=== PATIENT | female | born 1990 ===

== ENCOUNTER 2019-12-30 14:25 | Emergency (ER) | payer MEDICAID, SELFPAY ==
[2019-12-30 14:41] VITALS: BP 147/79; PULSE 87; RESP 18; TEMP 37.3; O2SAT 98; BMI 31.3
[2019-12-30 15:17] LABS: Glucose Urine UA NEG (NEG); Leukocyte Esterase Urine TRACE (NEG); Nitrite Urine NEG (NEG); Urine Blood TRACE (NEG); Urine Ketones NEG (NEG); Urine Protein NEG (NEG-TRACE)
[2019-12-30 15:19] LABS: Appearance Urine CLEAR; Color Urine YELLOW
[2019-12-30 15:28] LABS: UPreg QC Valid YES; Urine Pregnancy NEGATIVE (NEGATIVE)
--- NOTE | 2019-12-30 15:29 | ED_ITS ---
HPI - Female Genitourinary General Chief complaint: Urogenital-Female <Avelino Alfaro NP - Last Filed: 12/30/19 15:39> Stated complaint: Discomfort with void's <Avelino Alfaro NP - Last Filed: 12/30/19 15:39> Time Seen by Provider: 12/30/19 15:03 <Avelino Alfaro NP - Last Filed: 12/30/19 15:39> Source: patient <Avelino Alfaro NP - Last Filed: 12/30/19 15:39> Mode of arrival: ambulatory <Avelino Alfaro NP - Last Filed: 12/30/19 15:39> Limitations: no limitations <Avelino Alfaro NP - Last Filed: 12/30/19 15:39> History of Present Illness MD elicited complaint: dysuria and UTI <Avelino Alfaro NP - Last Filed: 12/30/19 15:39> Female Urogenital Radiation: Non-Radiating <Avelino Alfaro NP - Last Filed: 12/30/19 15:39> Vaginal discharge: none <Avelino Alfaro NP - Last Filed: 12/30/19 15:39> Vaginal bleeding: none <Avelino Alfaro NP - Last Filed: 12/30/19 15:39> Urinary symptoms: Dysuria <Avelino Alfaro NP - Last Filed: 12/30/19 15:39> Exacerbating factors: other (Avoid) <Avelino Alfaro NP - Last Filed: 12/30/19 15:39> Associated symptoms: denies other symptoms <Avelino Alfaro NP - Last Filed: 12/30/19 15:39> Treatment prior to arrival: none <Avelino Alfaro NP - Last Filed: 12/30/19 15:39> Sexual activity: Yes (States no concern for STI) <Avelino Alfaro NP - Last Filed: 12/30/19 15:39> Patient : No <Avelino Alfaro NP - Last Filed: 12/30/19 15:39> Related Data Home medications: Previous Rx's Medication Instructions Recorded nitrofurantoin monohyd/m-cryst 100 mg PO Q12H 7 Days #14 cap 12/30/19 [Macrobid] phenazopyridine [Pyridium] 100 mg PO TID PRN #6 tab 12/30/19 <Avelino Alfaro NP - Last Filed: 12/30/19 15:39> Allergies/Adverse reactions: Allergies Allergy/AdvReac Type Severity Reaction Status Date / Time Sulfa (Sulfonamide Allergy Unknown UNKNOWN Verified 12/30/19 14:41 Antibiotics) [SULFA (SULFONAMIDE ANTIBIOTICS)] <Avelino Alfaro NP - Last Filed: 12/30/19 15:39> Review of Systems Review of Systems: Constitutional: No Weight loss, No Fever, No Chills, No Night Sweats, No Fatigue, No Malaise ENT/Mouth: No Hearing loss, No Ear Pain, No Nasal Congestion, No Sinus Pain, No Hoarseness, No sore throat Eyes: No Eye Pain, No Swelling, No Redness, No Foreign Body Cardiovascular: No Chest Pain, No SOB, No Dyspnea on Exertion, No Orthopnea, No Edema, No Palpitations Respiratory: No Cough, No Sputum, No Wheezing, No Smoke Exposure, No Dyspnea Gastrointestinal: No Nausea, No Vomiting, No Diarrhea, No Constipation, No abdominal Pain Genitourinary: no irregular bleeding, + Dysuria, No Urinary Frequency, No Hematuria, No Urinary Incontinence, No Urgency, No Flank Pain, No Urinary Flow Changes, No Hesitancy Musculoskeletal: No joint pain, No Myalgias, No Joint Swelling Skin: No Skin Lesions, No rash Neuro: No Weakness, No Numbness, No Paresthesias Psych: No Anxiety/Panic, No Depression Heme/Lymph: No Bruising, No Bleeding,No Lymphadenopathy Endocrine: No Polyuria, No Polydipsia, No Temperature Intolerance <Avelino Alfaro NP - Last Filed: 12/30/19 15:39> Yes all other systems are reviewed and are negative <Avelino Alfaro NP - Last Filed: 12/30/19 15:39> PMFSH Past Medical History Medical History: Medical History Asthma Pre-diabetes <Avelino Alfaro NP - Last Filed: 12/30/19 15:39> Physical Exam Vital Signs: Vital Signs: Last Vital Signs Temp 99.1 F 12/30/19 14:41 Pulse 87 12/30/19 14:41 Resp 18 12/30/19 14:41 BP 147/79 H 12/30/19 14:41 Pulse Ox 98 12/30/19 14:41 Body Mass Index 31.3 Reviewed <Avelinorakesh Alfaro NP - Last Filed: 12/30/19 15:39> Vital Signs: Last Vital Signs Temp 99.1 F 12/30/19 14:41 Pulse 87 12/30/19 14:41 Resp 18 12/30/19 14:41 BP 147/79 H 12/30/19 14:41 Pulse Ox 98 12/30/19 14:41 Body Mass Index 31.3 <Aron Farris MD - Last Filed: 01/08/20 07:09> Const: General: cooperative and healthy appearing; No acute distress or intoxicated appearing <Avelinorakesh Alfaro NP - Last Filed: 12/30/19 15:39> Nutritional Appearance: average body habitus <Avelinorakesh Alfaro NP - Last Filed: 12/30/19 15:39> Orientation/consciousness: patient oriented x3 <Avelino SOLOMON Alfaro - Last Filed: 12/30/19 15:39> HENMT: Head: Yes normal to inspection <Avelino SOLOMON Alfaro - Last Filed: 12/30/19 15:39> Ears: hearing grossly normal bilaterally <Avelino SOLOMON Alfaro - Last Filed: 12/30/19 15:39> Eyes: General: appearance normal, both eyes and all related structures <Avelino SOLOMON Alfaro - Last Filed: 12/30/19 15:39> Visual Clark: normal visual clark by confrontation <Avelino SOLOMON Alfaro - Last Filed: 12/30/19 15:39> Chest: Chest palpation & inspection: normal inspection of the chest <Avelino SOLOMON Alfaro - Last Filed: 12/30/19 15:39> Resp: Effort & Inspection: normal respiratory effort <Avelino SOLOMON Alfaro - Last Filed: 12/30/19 15:39> Cardio: Jugular venous distension: no JVD <Avelino SOLOMON Alfaro - Last Filed: 12/30/19 15:39> GI: Inspection: Yes normal to inspection <[facility] SOLOMON Alfaro - Last Filed: 12/30/19 15:39> Percussion: Yes normal to percussion <Avelinorakesh Alfaro NP - Last Filed: 12/30/19 15:39> Auscultation: normal bowel sounds <Avelinorakesh Alfaro NP - Last Filed: 12/30/19 15:39> : General: Yes no CVA tenderness <Avelino AguayoSOLOMON marcial - Last Filed: 12/30/19 15:39> Back/Spine/Pelvis: Back: no CVA tenderness <Avelino SOLOMON Alfaro - Last Filed: 12/30/19 15:39> Skin: General skin exam: no rashes or lesions noted <Avelino SOLOMON Alfaro - Last Filed: 12/30/19 15:39> Neuro: General: patient oriented x3 <Avelinorakesh Alfaro NP - Last Filed: 12/30/19 15:39> Extrem: General: Yes normal to inspection <Avelinorakesh Alfaro NP - Last Filed: 12/30/19 15:39> Course Course Course Narrative: I have reviewed the chart <Aron Farris MD - Last Filed: 01/08/20 07:09> MDM - Female Genitourinary Lab Data Labs: Lab Results 12/30/19 12/30/19 Range/Units 15:08 15:09 Urine Color YELLOW Urine Appearance CLEAR Urine pH 7.0 (5.0-8.0) Ur Specific [place] 1.020 (1.005-1.025) Urine Protein NEG (NEG-TRACE) MG/DL Urine Glucose (UA) NEG (NEG) MG/DL Urine Ketones NEG (NEG) MG/DL Urine Blood TRACE (NEG) Urine Nitrite NEG (NEG) Ur Leukocyte Esterase TRACE H (NEG) Urine RBC 0-2 (0) /HPF Urine WBC 0-2 (0-4) /HPF Ur Squamous Epith Cells 2+ /LPF Urine Bacteria NONE /LPF Urine Test NEGATIVE (NEGATIVE) <Avelino SOLOMON Alfaro - Last Filed: 12/30/19 15:39> Lab Results 12/30/19 12/30/19 Range/Units 15:08 15:09 Urine Color YELLOW Urine Appearance CLEAR Urine pH 7.0 (5.0-8.0) Ur Specific [place] 1.020 (1.005-1.025) Urine Protein NEG (NEG-TRACE) MG/DL Urine Glucose (UA) NEG (NEG) MG/DL Urine Ketones NEG (NEG) MG/DL Urine Blood TRACE (NEG) Urine Nitrite NEG (NEG) Ur Leukocyte Esterase TRACE H (NEG) Urine RBC 0-2 (0) /HPF Urine WBC 0-2 (0-4) /HPF Ur Squamous Epith Cells 2+ /LPF Urine Bacteria NONE /LPF Urine Test NEGATIVE (NEGATIVE) <Aron Farris MD - Last Filed: 01/08/20 07:09> Discharge Plan Discharge Clinical Impression: Urinary tract infection <Avelino Alfaro NP - Last Filed: 12/30/19 15:39> Patient Disposition: Home, Self-Care <Avelino Alfaro NP - Last Filed: 12/30/19 15:39> Instructions: Urinary Tract Infection in Women (ED) <Avelino Alfaro NP - Last Filed: 12/30/19 15:39> Prescriptions: New nitrofurantoin monohyd/m-cryst [Macrobid] 100 mg capsule 100 mg PO Q12H 7 Days Qty: 14 RF: 0 phenazopyridine [Pyridium] 100 mg tablet 100 mg PO TID PRN (Reason: pain) Qty: 6 RF: 0 <Avelino Alfaro NP - Last Filed: 12/30/19 15:39> Referrals: [facility] [Primary Care Provider] - 5 days <Avelino Alfaro NP - Last Filed: 12/30/19 15:39> Interventions: ED Discharge Assessment Last Done: 12/30/19 16:08 <Avelino Alfaro NP - Last Filed: 12/30/19 15:39> Discharge Date/Time: 12/30/19 16:09 <Avelino Alfaro NP - Last Filed: 12/30/19 15:39>
[2019-12-30 15:34] LABS: RBC Urine 0-2 /HPF (0); Squamous Epithelial Cell Urine 2+ /LPF; WBC Urine 0-2 /HPF (0-4)
== END 2019-12-30 16:09 | disposition home or self-care (01) ==
PROVIDERS: Nurse Practitioner Primary Care; Emergency Provider Internal Medicine
DX: N39.0 Urinary tract infection, site not specified (principal)
CPT/HCPCS: 81001; 81025; 87086; 87147; 99283

== ENCOUNTER → 2020-02-25 11:23 | Outpatient (BNVA) | payer MEDICAID, SELFPAY | PROVIDERS: PCP Internal Medicine; Referring Provider Internal Medicine; Visit Provider Nurse Practitioner Family ==

== ENCOUNTER → 2020-03-22 20:08 | Outpatient (REF) | payer MEDICAID, SELFPAY | LOC: HO.SL 20:08 | PROVIDERS: Visit Provider Nurse Practitioner Family | DX: G47.33 Obstructive sleep apnea (adult) (pediatric) (principal); G25.81 Restless legs syndrome | CPT/HCPCS: 95810 ==

== ENCOUNTER → 2020-04-28 11:25 | Outpatient (BNVA) | payer MEDICAID, SELFPAY | PROVIDERS: Visit Provider Nurse Practitioner Family ==

== ENCOUNTER → 2020-08-04 08:44 | Outpatient (BNVA) | payer MEDICAID, SELFPAY | PROVIDERS: Visit Provider Nurse Practitioner Family ==

== ENCOUNTER → 2020-10-13 09:08 | Outpatient (BNVA) | payer MEDICAID, SELFPAY | PROVIDERS: PCP Internal Medicine; Visit Provider Nurse Practitioner Family ==

== ENCOUNTER 2020-10-15 14:23 | Outpatient (REF) | payer MEDICAID, SELFPAY | END 2020-10-15 14:24 | disposition home or self-care (01) | LOC: HO.LAB 14:23 | PROVIDERS: PCP Internal Medicine; Visit Provider Internal Medicine | DX: Z20.822 Contact with and (suspected) exposure to COVID-19 (principal) | CPT/HCPCS: C9803; U0003; U0005 ==

== ENCOUNTER 2021-02-04 13:20 | Outpatient (REF) | payer MEDICAID, SELFPAY ==
[2021-02-04 15:00] LABS: Binax Internal Control QC Valid; Binax Lot number: 9864; Binax Now Covid-19 Ag Negative (Negative)
== END 2021-02-04 13:21 | disposition home or self-care (01) ==
LOC: HO.LAB 13:20
PROVIDERS: Visit Provider Internal Medicine
DX: Z20.822 Contact with and (suspected) exposure to COVID-19 (principal)
CPT/HCPCS: 36415; C9803

== ENCOUNTER → 2021-02-11 15:38 | Outpatient (BNVA) | payer MEDICAID, SELFPAY | PROVIDERS: PCP Internal Medicine; Visit Provider Nurse Practitioner Family ==

== ENCOUNTER 2021-04-22 10:26 | Emergency (ER) | payer MEDICAID, SELFPAY ==
--- NOTE | ~2021-04-22 | XR_ITS ---
EXAMINATION: XR CHEST CLINICAL INFORMATION: Chest pain COMPARISON: None TECHNIQUE: 2 views of the chest were obtained. FINDINGS: No significant abnormality is noted involving the heart, lungs, mediastinum, bony thorax or soft tissues. XR/XR chest 2V IMPRESSION: Unremarkable chest examination.
--- NOTE | 2021-04-22 10:36 | ECG_ITS ---
Test Reason : CP Blood Pressure : / mmHG Vent. Rate : 083 BPM Atrial Rate : 083 BPM P-R Int : 146 ms QRS Dur : 076 ms QT Int : 376 ms P-R-T Axes : 026 026 029 degrees QTc Int : 441 ms Normal sinus rhythm Normal ECG No previous ECGs available Referred By: Generic ED Physician Electronically Signed By:STEWART FLORENTINO
[2021-04-22 10:45] VITALS: BP 146/85; PULSE 83; RESP 19; TEMP 36.6; O2SAT 98; BMI 31.3
[2021-04-22 12:48] VITALS: BP 132/79; PULSE 73; RESP 20; TEMP 36.8; O2SAT 100
[2021-04-22 12:48] LABS: MANUAL DIFF FLAG NO
[2021-04-22 12:52] LABS: Basophils Percent Auto 0.4 % (0-2); Eosinophils Absolute Auto 0.1 X10*3/uL (0.0-0.4); Eosinophils Percent Auto 0.8 % (0-4); Hemoglobin 11.8 g/dl (12.0-16.0); Imm Gran Abs Auto 0.04 X10*3/uL (0.00-0.03); Imm Gran Pct Auto 0.5 % (0.0-0.4); Lymphocytes Absolute Auto 2.4 X10*3/uL (1.2-4.9); Lymphocytes Percent Auto 28.3 % (20-40); Mean Corpuscular HGB Conc 31.9 g/dl (31.0-35.0); Mean Corpuscular Hemoglobin 26.1 pg (27.0-33.0); Mean Corpuscular Volume 81.9 fL (80.0-98.0); Mean Platelet Volume 10.1 fL (9.4-12.3); Monocytes Absolute Auto 0.5 X10*3/uL (0.1-1.2); Monocytes Percent Auto 5.9 % (2-11); Neutrophils Absolute Auto 5.4 x10*3/uL (2.0-8.3); Neutrophils Percent Auto 64.1 % (45-73); Platelet Count 254 X10*3/uL (160-400); Red Blood Count 4.52 X10*6/uL (4.20-5.50); Red Cell Distribution Width 13.8 % (11.0-16.0); White Blood Count 8.4 X10*3/uL (4.8-10.8)
[2021-04-22 13:10] LABS: Anion Gap 12 (12-20); Blood Urea Nitrogen 11 mg/dL (9-16); Calcium 9.4 mg/dL (8.4-10.2); Carbon Dioxide 28 mmol/L (22-29); Chloride 102 mmol/L (96-108); Creatinine Clr Calc Pharmacy 126.1; Estimated Glomerular Filt Rate > 60; Glucose Random 97 mg/dL (60-115); Sodium 138 mmol/L (135-145)
[2021-04-22 13:15] LABS: D Dimer High Sensitivity < 150 NG/ML
[2021-04-22 13:22] LABS: Troponin-I High Sensitivity < 3.5 ng/L (<3.5-17.0)
--- NOTE | 2021-04-22 13:48 | ED_ITS ---
HPI - Chest Pain General Chief Complaint: Chest Pain Stated Complaint: chest pains/arm pain Time Seen by Provider: 04/22/21 12:34 Source: patient and hourly sign language interpreter Mode of arrival: ambulatory Limitations: no limitations History of Present Illness HPI narrative: 30 years old female came in for evaluation of chest pain. Patient had left-sided chest pain started about a week ago, patient describes the pain as constant localized to the left upper chest, pain is worsening with taking a deep breath but not exertion, no relieving factors, no other associated symptoms. Patient stated that she had a recent echocardiogram ordered by her PCP for this ongoing chest pain and was reported it was normal (official report of echo is not available). Patient declined any recent travel, no lower extremity swelling or tenderness, no recent prolonged immobilization, no history of PE or DVT. Related Data Home Medications Medication Instructions Recorded Confirmed albuterol sulfate mg INHALATION QID PRN 10/13/20 10/13/20 albuterol sulfate 90 mcg/actuation 2 puff PO Q4-6H PRN 10/13/20 10/13/20 aerosol inhaler (ProAir HFA) amlodipine 10 mg tablet 10 mg PO DAILY 10/13/20 10/13/20 cholecalciferol (vitamin D3) 25 25 mcg PO DAILY 10/13/20 10/13/20 mcg (1,000 unit) capsule (Vitamin D3) duloxetine 30 mg capsule,delayed 30 mg PO DAILY 10/13/20 10/13/20 release fluticasone propionate 250 1 inh PO BID 10/13/20 10/13/20 mcg/actuation blister powder for inhalation (Flovent Diskus) hydrochlorothiazide 25 mg tablet 25 mg PO DAILY 10/13/20 10/13/20 labetalol 100 mg tablet 100 mg PO BID 10/13/20 10/13/20 montelukast 10 mg tablet 10 mg PO QPM 10/13/20 10/13/20 omeprazole 20 mg capsule,delayed 20 mg PO DAILY 10/13/20 10/13/20 release vitamin with calcium 1 tab PO DAILY 10/13/20 10/13/20 no.72-iron 27 mg-folic acid 1 mg tablet (M- Plus) sertraline 50 mg tablet 50 mg PO DAILY 10/13/20 10/13/20 Allergies Allergy/AdvReac Type Severity Reaction Status Date / Time Sulfa (Sulfonamide Allergy Unknown UNKNOWN Verified 02/11/21 16:03 Antibiotics) [SULFA (SULFONAMIDE ANTIBIOTICS)] Review of Systems Review of Systems: All other systems are reviewed and are negative Constitutional: Reports as per HPI and Reports no additional constitutional complaints Eyes: Reports as per HPI and Reports no additional eye complaints Reports system reviewed and no additional complaints, except as documented Cardiovascular: Reports as per HPI and Reports no additional cardiovascular complaints Respiratory: Reports as per HPI and Reports no additional respiratory complaints Gastrointestinal: Reports as per HPI and Reports no additional gastrointestinal complaints Genitourinary: Reports no additional female genitourinary complaints Musculoskeletal: Reports no additional musculoskeletal complaints Skin/Breast: Reports system reviewed and no additional complaints, except as docu Psychiatric: Reports no additional psychiatric complaints Endocrine: Reports no additional endocrine complaints Hematologic/Lymphatic: Reports no additional hematologic/lymphatic complaints Allergic/Immunologic: Reports no additional allergic/immunologic complaints Reports system reviewed and no additional complaints, except as documented and Reports Abnormal speech present [facility] Past Medical History Medical History Asthma Pre-diabetes Social History Social History Alcohol intake: never Patient Tobacco Use Status: Never used Tobacco Advance Directives: No Advance Directives Information Provided: Yes Patient : No Physical Exam Vital Signs: Vital Signs: Last Vital Signs Temp 98.2 F 04/22/21 12:48 Pulse 73 04/22/21 12:48 Resp 20 04/22/21 12:48 BP 132/79 04/22/21 12:48 Pulse Ox 100 04/22/21 12:48 BMI result Body Mass Index 31.3 Vital signs have been reviewed as appeared to be correct. Blood pressure normal. Heart rate normal. Respiration rate normal. Temperature normal. Oxygen saturation normal. Appearance: Alert. Oriented X3. No acute distress. Head: Normal external exam. Normocephalic. Atraumatic. No [place] signs noted. No raccoon eyes noted Eyes: PERRLA. EOMI. Conjunctiva and sclera normal. Eyelids normal. ENT: TM's Normal. Pharynx normal. Uvula midline. Moist mucous membranes. No trismus noted. No drooling noted. No muffled voice noted. Neck: Normal inspection. Neck supple. FROM. No adenopathy. Thyroid Normal. No meningeal signs. No neck mass noted. CVS: Normal heart rate and rhythm. Heart sound normal. No murmurs noted. Pulses normal throughout. Respiratory: No respiratory distress. Painless inspiration. Breath sounds normal. No wheezes/rales/rhonchi noted. Chest nontender. No accessory muscle usage noted or decreased air movement noted. Abdomen: Soft and nontender. Bowel sounds normal in all 4 quadrants. No distention noted. No organomegaly noted. No visible injury noted. Back: No CVA tenderness. Full range of motion noted. Skin: Skin warm and dry. Normal skin color. Normal skin turgor. No rashes/lesions/lacerations noted. Extremities: No lower extremity edema. Extremities exhibit normal range of motion. Extremities nontender. Neuro: Oriented X 3. Cranial nerve exam: II-XII are grossly intact No motor deficit. No sensory deficit. Reflexes normal. Course Course Course Narrative: 30 years old female history of sleep apnea, asthma, prediabetic, obesity. Patient came in with chest pain for 1 week, HEART score is 1, no risk factor for PE/DVT with normal D-dimer. Patient will be reassured and discharged to follow-up with her PCP. MDM - Chest Pain Medical Records Data Attestation: I reviewed the patient's medical records. Lab Data Attestation: I reviewed the patient's lab results. Result diagrams: 04/22/21 12:43 04/22/21 12:43 Labs: Lab Results 04/22/21 04/22/21 04/22/21 Range/Units 12:43 12:43 12:43 WBC 8.4 (4.8-10.8) X10*3/uL RBC 4.52 (4.20-5.50) X10*6/uL Hgb 11.8 L (12.0-16.0) g/dl Hct 37.0 (37.0-47.0) % MCV 81.9 (80.0-98.0) fL MCH 26.1 L (27.0-33.0) pg MCHC 31.9 (31.0-35.0) g/dl RDW 13.8 (11.0-16.0) % Plt Count 254 (160-400) X10*3/uL MPV 10.1 (9.4-12.3) fL Immature Gran % (Auto) 0.5 H (0.0-0.4) % Neut % (Auto) 64.1 (45-73) % Lymph % (Auto) 28.3 (20-40) % [place] % (Auto) 5.9 (2-11) % Eos % (Auto) 0.8 (0-4) % Baso % (Auto) 0.4 (0-2) % Lymph # (Auto) 2.4 (1.2-4.9) X10*3/uL [place] # (Auto) 0.5 (0.1-1.2) X10*3/uL Eos # (Auto) 0.1 (0.0-0.4) X10*3/uL Baso # (Auto) 0.0 (0.0-0.2) X10*3/uL Abs Immat Gran (auto) 0.04 H (0.00-0.03) X10*3/uL Absolute Neuts (auto) 5.4 (2.0-8.3) x10*3/uL Absolute Nucleated RBC 0.000 (0.0-0.012) X10*3/uL Nucleated RBC % (auto) 0.0 (0.0-0.2) /100WBC D-Dimer High Sensitivty NG/ML Sodium 138 (135-145) mmol/L Potassium 4.0 (3.3-5.1) mmol/L Chloride 102 (96-108) mmol/L Carbon Dioxide 28 (22-29) mmol/L Anion Gap 12 (12-20) BUN 11 (9-16) mg/dL Creatinine 0.74 (0.5-1.4) mg/dL Estim Creat Clear Calc 126.1 Estimated GFR > 60 Random Glucose 97 (60-115) mg/dL Calcium 9.4 (8.4-10.2) mg/dL Troponin I High Sens < 3.5 (<3.5-17.0) ng/L 04/22/21 Range/Units 12:43 WBC (4.8-10.8) X10*3/uL RBC (4.20-5.50) X10*6/uL Hgb (12.0-16.0) g/dl Hct (37.0-47.0) % MCV (80.0-98.0) fL MCH (27.0-33.0) pg MCHC (31.0-35.0) g/dl RDW (11.0-16.0) % Plt Count (160-400) X10*3/uL MPV (9.4-12.3) fL Immature Gran % (Auto) (0.0-0.4) % Neut % (Auto) (45-73) % Lymph % (Auto) (20-40) % [place] % (Auto) (2-11) % Eos % (Auto) (0-4) % Baso % (Auto) (0-2) % Lymph # (Auto) (1.2-4.9) X10*3/uL [place] # (Auto) (0.1-1.2) X10*3/uL Eos # (Auto) (0.0-0.4) X10*3/uL Baso # (Auto) (0.0-0.2) X10*3/uL Abs Immat Gran (auto) (0.00-0.03) X10*3/uL Absolute Neuts (auto) (2.0-8.3) x10*3/uL Absolute Nucleated RBC (0.0-0.012) X10*3/uL Nucleated RBC % (auto) (0.0-0.2) /100WBC D-Dimer High Sensitivty < 150 NG/ML Sodium (135-145) mmol/L Potassium (3.3-5.1) mmol/L Chloride (96-108) mmol/L Carbon Dioxide (22-29) mmol/L Anion Gap (12-20) BUN (9-16) mg/dL Creatinine (0.5-1.4) mg/dL Estim Creat Clear Calc Estimated GFR Random Glucose (60-115) mg/dL Calcium (8.4-10.2) mg/dL Troponin I High Sens (<3.5-17.0) ng/L Imaging Data Chest x-ray: Attestation: I personally reviewed and interpreted this imaging study as follows: Radiologist's impression: Unremarkable chest exam ECG Data ECG #1: Attestation: I personally reviewed and interpreted this ECG as follows: Interpretation: Normal sinus rhythm at 83 beats per minutes, normal axis deviation, normal intervals, no ST-T changes. Discharge Plan Discharge Clinical Impression: Chest pain Patient Disposition: Home, Self-Care Instructions: Chest Pain (ED) Prescriptions: No Action labetalol 100 mg tablet 100 mg PO BID 0RF M- Plus 27 mg iron- 1 mg tablet 1 tab PO DAILY 0RF cholecalciferol (vitamin D3) [Vitamin D3] 25 mcg (1,000 unit) capsule 25 mcg PO DAILY 0RF sertraline 50 mg tablet 50 mg PO DAILY 0RF Flovent Diskus 250 mcg/actuation blister with device 1 inh PO BID 0RF albuterol sulfate [ProAir HFA] 90 mcg/actuation HFA aerosol inhaler 2 puff PO Q4-6H PRN0RF montelukast 10 mg tablet 10 mg PO QPM 0RF omeprazole 20 mg capsule,delayed release(DR/EC) 20 mg PO DAILY 0RF amlodipine 10 mg tablet 10 mg PO DAILY 0RF albuterol sulfate 2.5 mg /3 mL (0.083 %) solution for nebulization inhalation QID PRN0RF duloxetine 30 mg capsule,delayed release(DR/EC) 30 mg PO DAILY 0RF hydrochlorothiazide 25 mg tablet 25 mg PO DAILY 0RF Referrals: Rosenda Hernandez MD [Primary Care Provider] - 2 days
== END 2021-04-22 14:23 | disposition home or self-care (01) ==
PROVIDERS: Emergency Provider Emergency Medicine; PCP Internal Medicine
DX: R07.9 Chest pain, unspecified (principal); R73.03 Prediabetes
CPT/HCPCS: 36415; 71046; 80048; 84484; 85025; 85379; 93005; 99283; 99284

== ENCOUNTER → 2021-05-25 14:19 | Outpatient (BNVA) | payer MEDICAID, SELFPAY | PROVIDERS: PCP Internal Medicine; Visit Provider Internal Medicine Pulmonary Disease | DX: Z13.89 Encounter for screening for other disorder (principal) ==

== ENCOUNTER 2021-05-25 14:26 | Emergency (ER) | payer MEDICAID, SELFPAY ==
[2021-05-25 15:18] VITALS: BP 117/65; PULSE 95; RESP 16; TEMP 37.2; O2SAT 100; BMI 31.1
[2021-05-25] MEDS: Ondansetron ODT 4 MG TAB.RAPDIS TRANSLINGU (15:24)
[2021-05-25 15:44] LABS: MANUAL DIFF FLAG NO
[2021-05-25 15:49] LABS: Basophils Percent Auto 0.3 % (0-2); Eosinophils Percent Auto 0.1 % (0-4); Hematocrit 37.6 % (37.0-47.0); Hemoglobin 12.1 g/dl (12.0-16.0); Imm Gran Abs Auto 0.03 X10*3/uL (0.00-0.03); Imm Gran Pct Auto 0.3 % (0.0-0.4); Lymphocytes Absolute Auto 1.1 X10*3/uL (1.2-4.9); Lymphocytes Percent Auto 11.5 % (20-40); Mean Corpuscular HGB Conc 32.2 g/dl (31.0-35.0); Mean Corpuscular Volume 80.9 fL (80.0-98.0); Mean Platelet Volume 10.1 fL (9.4-12.3); Monocytes Absolute Auto 0.5 X10*3/uL (0.1-1.2); Neutrophils Absolute Auto 7.7 x10*3/uL (2.0-8.3); Neutrophils Percent Auto 82.8 % (45-73); Platelet Count 272 X10*3/uL (160-400); Red Blood Count 4.65 X10*6/uL (4.20-5.50); Red Cell Distribution Width 13.9 % (11.0-16.0); White Blood Count 9.3 X10*3/uL (4.8-10.8)
[2021-05-25 15:50] LABS: Appearance Urine HAZY; Color Urine YELLOW; Glucose Urine UA NEG (NEG); Leukocyte Esterase Urine NEG (NEG); Nitrite Urine NEG (NEG); PH 5.5 (5.0-8.0); Specific Gravity - Urine >= 1.030 (1.005-1.025); UACC Culture Trigger NO; Urine Blood TRACE (NEG); Urine Ketones NEG (NEG); Urine Protein NEG (NEG-TRACE)
[2021-05-25 15:51] LABS: UPreg QC Valid YES; Urine Pregnancy NEGATIVE (NEGATIVE)
[2021-05-25 16:01] LABS: Bacteria Urine TRACE /LPF; Squamous Epithelial Cell Urine 3+ /LPF; WBC Urine 0 /HPF (0-4)
[2021-05-25 16:01] LABS: Anion Gap 14 (12-20); Blood Urea Nitrogen 12 mg/dL (9-16); Calcium 9.2 mg/dL (8.4-10.2); Carbon Dioxide 23 mmol/L (22-29); Chloride 103 mmol/L (96-108); Creatinine Clr Calc Pharmacy 127.5; Estimated Glomerular Filt Rate > 60; Glucose Random 92 mg/dL (60-115); Sodium 136 mmol/L (135-145)
--- NOTE | 2021-05-25 17:52 | ED.ABDPAIN ---
HPI - Abdominal Pain General Chief Complaint: Abdominal Pain Stated Complaint: Abd pain/Dizzy Time Seen by Provider: 05/25/21 17:52 Source: patient Mode of arrival: ambulatory Limitations: language barrier ([place]-speaking center medical and lab director utilized) History of Present Illness HPI narrative: Patient presents to the emergency department for evaluation of upper abdominal pain, epigastric region, with nausea vomiting and diarrhea with onset this morning. She vomited once in the morning, it was dark green in color. Has had diarrhea 6 times, without blood or mucous. Reports associated chills. Denies lower abdominal pain. Denies flank pain, back pain, hematuria, dysuria, urinary frequency/urgency/day, possibility , chest pain, palpitations, shortness of breath, cough. Denies known sick exposure. Related Data Home Medications Medication Instructions Recorded Confirmed albuterol sulfate mg INHALATION QID PRN 10/13/20 10/13/20 albuterol sulfate 90 mcg/actuation 2 puff PO Q4-6H PRN 10/13/20 10/13/20 aerosol inhaler (ProAir HFA) amlodipine 10 mg tablet 10 mg PO DAILY 10/13/20 10/13/20 cholecalciferol (vitamin D3) 25 25 mcg PO DAILY 10/13/20 10/13/20 mcg (1,000 unit) capsule (Vitamin D3) duloxetine 30 mg capsule,delayed 30 mg PO DAILY 10/13/20 10/13/20 release fluticasone propionate 250 1 inh PO BID 10/13/20 10/13/20 mcg/actuation blister powder for inhalation (Flovent Diskus) hydrochlorothiazide 25 mg tablet 25 mg PO DAILY 10/13/20 10/13/20 labetalol 100 mg tablet 100 mg PO BID 10/13/20 10/13/20 montelukast 10 mg tablet 10 mg PO QPM 10/13/20 10/13/20 omeprazole 20 mg capsule,delayed 20 mg PO DAILY 10/13/20 10/13/20 release vitamin with calcium 1 tab PO DAILY 10/13/20 10/13/20 no.72-iron 27 mg-folic acid 1 mg tablet (M- Plus) sertraline 50 mg tablet 50 mg PO DAILY 10/13/20 10/13/20 Previous Rx's Medication Instructions Recorded loperamide 2 mg capsule (Imodium 2 mg PO Q6H PRN #10 cap 05/25/21 A-D) ondansetron 4 mg disintegrating 4 mg PO Q8H PRN #12 tab 05/25/21 tablet Allergies Allergy/AdvReac Type Severity Reaction Status Date / Time Sulfa (Sulfonamide Allergy Unknown UNKNOWN Verified 05/25/21 14:21 Antibiotics) [SULFA (SULFONAMIDE ANTIBIOTICS)] Review of Systems Review of Systems Constitutional : No Weight loss, No Fever, positive Chills ENT/Mouth :? No sore throat, No Rhinorrhea Eyes: No Swelling, No Redness Cardiovascular : No Chest Pain, No SOB, No Edema Respiratory : No Cough, No Sputum, No Wheezing Gastrointestinal : Positive Nausea, Positive Vomiting, positive Diarrhea, positive abdominal pain, No Hematochezia, No Melena Genitourinary : No Dysuria, No Urinary Frequency, No Hematuria, No Urgency? Musculoskeletal : No joint pain, No Myalgias, No Joint Swelling Skin : No Skin Lesions, No rash Neuro : No Weakness, No Numbness, No Dizziness, No Headache Psych : No Anxiety/Panic, No Depression Heme/Lymph: No Bruising, No Lymphadenopathy Endocrine : No Polyuria, No Polydipsia Yes all other systems are reviewed and are negative [facility] Past Medical History Attestation statement: The following information was validated with the patient. Source: old records reviewed Medical History Asthma Pre-diabetes Social History Social History Alcohol intake: never Patient Tobacco Use Status: Never used Tobacco Advance Directives: No Advance Directives Information Provided: No Physical Exam ED Vital Signs: Vital Signs - 24 hr 05/25/21 15:18 Temperature 99.0 F Pulse Rate 95 Respiratory Rate 16 Blood Pressure 117/65 Pulse Oximetry 100 BMI result Body Mass Index 31.1 Vital signs have been reviewed as normal and appeared to be correct. Blood pressure normal.? Heart rate normal.? Respiration rate normal. Temperature normal.? Oxygen saturation normal. Appearance: Alert.?Oriented to person, place and time. No acute distress.?Normal affect. Eyes: Pupils equal, round and reactive to light.? ENT: Pharynx normal.?? Neck: Normal inspection.? Neck supple.?? CVS: Heart sounds normal. Normal heart rate and rhythm.? Pulses normal.?? Respiratory: No respiratory distress.? Lung sounds clear to auscultation bilaterally?? Abdomen: Soft and non-tender. Normoactive bowel sounds. No pulsatile mass. Epigastric tenderness. No RUQ pain/ tenderness, Coreas's sign negative.?? Skin: Skin warm and dry.? Normal skin color.? Extremities: No lower extremity edema.? Neuro: Moves all extremities spontaneously. Sensation intact bilaterally. No focal neuro deficits. Ambulates with normal steady gait. Course Course Course Narrative: Patient is a 30-year-old female with a past medical history of cholecystectomy presenting for evaluation of nausea, vomiting, diarrhea and epigastric pain with acute onset this morning. Will obtain labs including a CBC, CMP, urine and urinalysis. History and physical exam not consistent with GI perforation, GI bleed, AAA, aortic dissection, ectopic , DKA. Not consistent with strangulated hernia, bowel obstruction, pulmonary embolism, mesenteric ischemia, myocardial infarction, ovarian torsion. Reevaluation(s) Reevaluation #1: CBC is overall unremarkable. BMP is normal. LFT and lipase are normal. Urine test is negative. Urinalysis free from signs of infection. Influenza testing is negative. Tolerated p.o. trial. Symptoms most consistent with gastroenteritis, plan for discharge home with prescription for ondansetron and Imodium, follow-up with primary care provider in 1-2 days, discussed reasons to return back to the emergency department, patient agrees with plan of care. MDM - Abdominal Pain Lab Data Result diagrams: 05/25/21 15:39 05/25/21 15:39 Labs: Lab Results 05/25/21 05/25/21 05/25/21 Range/Units 15:39 15:39 15:40 WBC 9.3 (4.8-10.8) X10*3/uL RBC 4.65 (4.20-5.50) X10*6/uL Hgb 12.1 (12.0-16.0) g/dl Hct 37.6 (37.0-47.0) % MCV 80.9 (80.0-98.0) fL MCH 26.0 L (27.0-33.0) pg MCHC 32.2 (31.0-35.0) g/dl RDW 13.9 (11.0-16.0) % Plt Count 272 (160-400) X10*3/uL MPV 10.1 (9.4-12.3) fL Immature Gran % (Auto) 0.3 (0.0-0.4) % Neut % (Auto) 82.8 H (45-73) % Lymph % (Auto) 11.5 L (20-40) % [place] % (Auto) 5.0 (2-11) % Eos % (Auto) 0.1 (0-4) % Baso % (Auto) 0.3 (0-2) % Lymph # (Auto) 1.1 L (1.2-4.9) X10*3/uL [place] # (Auto) 0.5 (0.1-1.2) X10*3/uL Eos # (Auto) 0.0 (0.0-0.4) X10*3/uL Baso # (Auto) 0.0 (0.0-0.2) X10*3/uL Abs Immat Gran (auto) 0.03 (0.00-0.03) X10*3/uL Absolute Neuts (auto) 7.7 (2.0-8.3) x10*3/uL Absolute Nucleated RBC 0.000 (0.0-0.012) X10*3/uL Nucleated RBC % (auto) 0.0 (0.0-0.2) /100WBC Sodium 136 (135-145) mmol/L Potassium 4.0 (3.3-5.1) mmol/L Chloride 103 (96-108) mmol/L Carbon Dioxide 23 (22-29) mmol/L Anion Gap 14 (12-20) BUN 12 (9-16) mg/dL Creatinine 0.78 (0.5-1.4) mg/dL Estim Creat Clear Calc 127.5 Estimated GFR > 60 Random Glucose 92 (60-115) mg/dL Calcium 9.2 (8.4-10.2) mg/dL Total Bilirubin 0.8 (0.0-1.0) mg/dL Direct Bilirubin 0.2 (0.0-0.5) mg/dL AST 17 (5-31) U/L ALT 18 (0-31) U/L Alkaline Phosphatase 81 (39-117) U/L Total Protein 8.3 H (6.5-8.0) g/dL Albumin 4.6 (3.5-5.0) g/dL Lipase 11 (8-78) U/L Urine Color YELLOW Urine Appearance HAZY Urine pH 5.5 (5.0-8.0) Ur Specific [place] >= 1.030 H (1.005-1.025) Urine Protein NEG (NEG-TRACE) MG/DL Urine Glucose (UA) NEG (NEG) MG/DL Urine Ketones NEG (NEG) MG/DL Urine Blood TRACE (NEG) Urine Nitrite NEG (NEG) Ur Leukocyte Esterase NEG (NEG) Urine RBC 1-4 (0) /HPF Urine WBC 0 (0-4) /HPF Ur Squamous Epith Cells 3+ /LPF Urine Bacteria TRACE /LPF Urine Test (NEGATIVE) Influenza Type A (PRIMITIVO) (Negative) Influenza Type B (PRIMITIVO) (Negative) Influenza A & B Note 05/25/21 05/25/21 Range/Units 15:40 18:28 WBC (4.8-10.8) X10*3/uL RBC (4.20-5.50) X10*6/uL Hgb (12.0-16.0) g/dl Hct (37.0-47.0) % MCV (80.0-98.0) fL MCH (27.0-33.0) pg MCHC (31.0-35.0) g/dl RDW (11.0-16.0) % Plt Count (160-400) X10*3/uL MPV (9.4-12.3) fL Immature Gran % (Auto) (0.0-0.4) % Neut % (Auto) (45-73) % Lymph % (Auto) (20-40) % [place] % (Auto) (2-11) % Eos % (Auto) (0-4) % Baso % (Auto) (0-2) % Lymph # (Auto) (1.2-4.9) X10*3/uL [place] # (Auto) (0.1-1.2) X10*3/uL Eos # (Auto) (0.0-0.4) X10*3/uL Baso # (Auto) (0.0-0.2) X10*3/uL Abs Immat Gran (auto) (0.00-0.03) X10*3/uL Absolute Neuts (auto) (2.0-8.3) x10*3/uL Absolute Nucleated RBC (0.0-0.012) X10*3/uL Nucleated RBC % (auto) (0.0-0.2) /100WBC Sodium (135-145) mmol/L Potassium (3.3-5.1) mmol/L Chloride (96-108) mmol/L Carbon Dioxide (22-29) mmol/L Anion Gap (12-20) BUN (9-16) mg/dL Creatinine (0.5-1.4) mg/dL Estim Creat Clear Calc Estimated GFR Random Glucose (60-115) mg/dL Calcium (8.4-10.2) mg/dL Total Bilirubin (0.0-1.0) mg/dL Direct Bilirubin (0.0-0.5) mg/dL AST (5-31) U/L ALT (0-31) U/L Alkaline Phosphatase (39-117) U/L Total Protein (6.5-8.0) g/dL Albumin (3.5-5.0) g/dL Lipase (8-78) U/L Urine Color Urine Appearance Urine pH (5.0-8.0) Ur Specific [place] (1.005-1.025) Urine Protein (NEG-TRACE) MG/DL Urine Glucose (UA) (NEG) MG/DL Urine Ketones (NEG) MG/DL Urine Blood (NEG) Urine Nitrite (NEG) Ur Leukocyte Esterase (NEG) Urine RBC (0) /HPF Urine WBC (0-4) /HPF Ur Squamous Epith Cells /LPF Urine Bacteria /LPF Urine Test NEGATIVE (NEGATIVE) Influenza Type A (PRIMITIVO) Negative (Negative) Influenza Type B (PRIMITIVO) Negative (Negative) Influenza A & B Note See Note Discharge Plan Discharge Clinical Impression: Gastroenteritis Patient Disposition: Home, Self-Care Instructions: Gastroenteritis (ED) Prescriptions: New ondansetron 4 mg tablet,disintegrating 4 mg PO Q8H PRN (Reason: nausea and vomiting) Qty: 12 0RF loperamide [Imodium A-D] 2 mg capsule 2 mg PO Q6H PRN (Reason: loose stool) Qty: 10 0RF No Action labetalol 100 mg tablet 100 mg PO BID 0RF M- Plus 27 mg iron- 1 mg tablet 1 tab PO DAILY 0RF cholecalciferol (vitamin D3) [Vitamin D3] 25 mcg (1,000 unit) capsule 25 mcg PO DAILY 0RF sertraline 50 mg tablet 50 mg PO DAILY 0RF Flovent Diskus 250 mcg/actuation blister with device 1 inh PO BID 0RF albuterol sulfate [ProAir HFA] 90 mcg/actuation HFA aerosol inhaler 2 puff PO Q4-6H PRN0RF montelukast 10 mg tablet 10 mg PO QPM 0RF omeprazole 20 mg capsule,delayed release(DR/EC) 20 mg PO DAILY 0RF amlodipine 10 mg tablet 10 mg PO DAILY 0RF albuterol sulfate 2.5 mg /3 mL (0.083 %) solution for nebulization inhalation QID PRN0RF duloxetine 30 mg capsule,delayed release(DR/EC) 30 mg PO DAILY 0RF hydrochlorothiazide 25 mg tablet 25 mg PO DAILY 0RF Referrals: Rosenda Hernandez MD [Primary Care Provider] - 2 days Stand Alone Forms: Work/School Release
[2021-05-25 18:17] LABS: Alanine Aminotransferase 18 U/L (0-31); Albumin Level 4.6 g/dL (3.5-5.0); Alkaline Phosphatase 81 U/L (39-117); Aspartate Amino Transferase 17 U/L (5-31); Bilirubin Direct 0.2 mg/dL (0.0-0.5); Bilirubin Total 0.8 mg/dL (0.0-1.0); Lipase 11 U/L (8-78); Total Protein 8.3 g/dL (6.5-8.0)
[2021-05-25 18:48] LABS: IDNOW Serial# 16C4AD1C; Influenza A Negative (Negative); Influenza B2 Negative (Negative)
== END 2021-05-25 19:16 | disposition home or self-care (01) ==
PROVIDERS: Nurse Practitioner Family; Emergency Provider Emergency Medicine; PCP Internal Medicine
DX: K52.9 Noninfective gastroenteritis and colitis, unspecified (principal); R10.13 Epigastric pain; R42 Dizziness and giddiness; Z79.899 Other long term (current) drug therapy
CPT/HCPCS: 36415; 80048; 80076; 81001; 81025; 83690; 85025; 87502; 99283; 99284

== ENCOUNTER → 2021-05-31 13:46 | Outpatient (BNVA) | payer MEDICAID, SELFPAY | PROVIDERS: PCP Internal Medicine; Visit Provider Internal Medicine Pulmonary Disease | DX: J45.909 Unspecified asthma, uncomplicated (principal); Z91.09 Other allergy status, other than to drugs and biological substances | CPT/HCPCS: 99202 ==

== ENCOUNTER 2021-06-02 13:55 | Outpatient (REF) | payer MEDICAID, SELFPAY ==
[2021-06-02 14:14] LABS: MANUAL DIFF FLAG NO
[2021-06-02 14:15] LABS: Basophils Percent Auto 0.5 % (0-2); Eosinophils Absolute Auto 0.1 X10*3/uL (0.0-0.4); Eosinophils Percent Auto 0.9 % (0-4); Hematocrit 33.6 % (37.0-47.0); Hemoglobin 11.1 g/dl (12.0-16.0); Imm Gran Abs Auto 0.05 X10*3/uL (0.00-0.03); Imm Gran Pct Auto 0.6 % (0.0-0.4); Lymphocytes Absolute Auto 2.3 X10*3/uL (1.2-4.9); Mean Corpuscular Hemoglobin 26.6 pg (27.0-33.0); Mean Corpuscular Volume 80.6 fL (80.0-98.0); Mean Platelet Volume 9.9 fL (9.4-12.3); Monocytes Absolute Auto 0.6 X10*3/uL (0.1-1.2); Monocytes Percent Auto 6.6 % (2-11); Neutrophils Absolute Auto 5.5 x10*3/uL (2.0-8.3); Neutrophils Percent Auto 64.4 % (45-73); Platelet Count 274 X10*3/uL (160-400); Red Blood Count 4.17 X10*6/uL (4.20-5.50); Red Cell Distribution Width 13.8 % (11.0-16.0); White Blood Count 8.6 X10*3/uL (4.8-10.8)
== END 2021-06-02 13:56 | disposition home or self-care (01) ==
LOC: HO.LAB 13:55
PROVIDERS: PCP Internal Medicine; Visit Provider Internal Medicine Pulmonary Disease
DX: Z91.09 Other allergy status, other than to drugs and biological substances (principal)
CPT/HCPCS: 36415; 82785; 85025; 86003

== ENCOUNTER 2021-08-13 14:54 | Outpatient (REF) | payer MEDICAID, SELFPAY ==
--- NOTE | 2021-08-13 17:18 | PFT_ITS ---
FLOWS: FEV1 100% of predicted at 3.47 L. FVC 105% of predicted at 4.31 L. FEV1 to FVC ratio of 0.81. Bronchodilator testing was not performed, this patient has used albuterol 1 hour prior to the test. LUNG VOLUMES: Total lung capacity 105% of predicted at 5.81 L. Residual volume 102% of predicted at 1.64 L. Slow vital capacity 106% of predicted at 4.17 L. Expiratory reserve volume 32% of predicted at 0.50 L. Diffusion capacity is normal. IMPRESSION: No obstructive or restrictive ventilatory defect. No bronchodilator testing was performed as patient has used albuterol an hour prior to the test. Decreased expiratory reserve volume suggests extrathoracic restriction likely secondary to abdominal obesity. Evelio Kearney MD AP/MODL / [phone]
== END 2021-08-13 14:55 | disposition home or self-care (01) ==
LOC: HO.RESP 14:54
PROVIDERS: Visit Provider Internal Medicine Pulmonary Disease
DX: J45.909 Unspecified asthma, uncomplicated (principal); R06.00 Dyspnea, unspecified
CPT/HCPCS: 94060; 94727; 94729

== ENCOUNTER 2021-08-14 21:23 | Emergency (ER) | payer MEDICAID, SELFPAY ==
--- NOTE | 2021-08-14 | ECG_ITS ---
Test Reason : WEAKNESS Blood Pressure : / mmHG Vent. Rate : 094 BPM Atrial Rate : 094 BPM P-R Int : 118 ms QRS Dur : 072 ms QT Int : 362 ms P-R-T Axes : 037 034 053 degrees QTc Int : 452 ms Normal sinus rhythm Nonspecific T wave abnormality Abnormal ECG When compared with ECG of 22-APR-2021 10:42, No significant change was found Referred By: Generic ED Physician Electronically Signed By:Felix Rico
[2021-08-14 21:35] VITALS: BP 144/105; PULSE 97; RESP 15; TEMP 36.1; O2SAT 97; BMI 31.4
[2021-08-14 22:22] LABS: MANUAL DIFF FLAG NO
[2021-08-14 22:24] LABS: Basophils Percent Auto 0.2 % (0-2); Eosinophils Absolute Auto 0.1 X10*3/uL (0.0-0.4); Eosinophils Percent Auto 0.8 % (0-4); Hematocrit 34.8 % (37.0-47.0); Hemoglobin 11.6 g/dl (12.0-16.0); Imm Gran Abs Auto 0.04 X10*3/uL (0.00-0.03); Imm Gran Pct Auto 0.4 % (0.0-0.4); Lymphocytes Absolute Auto 2.9 X10*3/uL (1.2-4.9); Lymphocytes Percent Auto 26.9 % (20-40); Mean Corpuscular HGB Conc 33.3 g/dl (31.0-35.0); Mean Corpuscular Hemoglobin 26.9 pg (27.0-33.0); Mean Corpuscular Volume 80.6 fL (80.0-98.0); Mean Platelet Volume 9.7 fL (9.4-12.3); Monocytes Absolute Auto 0.8 X10*3/uL (0.1-1.2); Monocytes Percent Auto 7.2 % (2-11); Neutrophils Absolute Auto 6.9 x10*3/uL (2.0-8.3); Neutrophils Percent Auto 64.5 % (45-73); Platelet Count 312 X10*3/uL (160-400); Red Blood Count 4.32 X10*6/uL (4.20-5.50); Red Cell Distribution Width 14.1 % (11.0-16.0); White Blood Count 10.7 X10*3/uL (4.8-10.8)
[2021-08-14 22:33] LABS: Appearance Urine CLEAR; Color Urine YELLOW; Glucose Urine UA NEG (NEG); Leukocyte Esterase Urine NEG (NEG); Nitrite Urine NEG (NEG); PH 5.5 (5.0-8.0); Specific Gravity - Urine >= 1.030 (1.005-1.025); UACC Culture Trigger NO; Urine Blood 3+ (NEG); Urine Ketones NEG (NEG); Urine Protein NEG (NEG-TRACE)
[2021-08-14 22:35] LABS: UPreg QC Valid YES; Urine Pregnancy NEGATIVE (NEGATIVE)
[2021-08-14 22:37] LABS: Anion Gap 13 (12-20); Blood Urea Nitrogen 20 mg/dL (9-16); Carbon Dioxide 26 mmol/L (22-29); Chloride 104 mmol/L (96-108); Creatinine Clr Calc Pharmacy 96.7; Estimated Glomerular Filt Rate > 60; Glucose Random 105 mg/dL (60-115); Potassium 3.6 mmol/L (3.3-5.1); Sodium 139 mmol/L (135-145)
[2021-08-14 22:39] LABS: COVID-19 Test Negative (Negative); IDNOW Serial# 16C4AD1C
[2021-08-14 22:41] LABS: Bacteria Urine 1+ /LPF; Squamous Epithelial Cell Urine 1+ /LPF; WBC Urine 0 /HPF (0-4)
[2021-08-14 22:54] LABS: B Type Natriuretic Peptide < 10 pg/mL (<100)
--- NOTE | 2021-08-15 00:18 | ED.GENADULT ---
HPI - General Adult General Chief complaint: Dizziness Stated complaint: L side weakness, and Dizziness Time Seen by Provider: 08/14/21 23:39 Source: patient Mode of arrival: ambulatory Limitations: language barrier (Albanian-speaking medical representative utilized) History of Present Illness HPI narrative: Patient presents emergency department for evaluation of symptoms x3 days including a pressure to the left side of her head, face, and neck, feels this pressure to radiate to her left arm causing it to feel heavy, with a sensation of ants crawling along her left arm. Additionally also reports left anterior chest pressure which has been present for 1 week, intermittently stabbing, reports a similar history of this chest pain in the past for which she is being worked up by her primary care provider. In addition she is reporting fatigue. Has trialed Tylenol for her symptoms without relief. Denies dizziness, lightheadedness, vision changes, neck pain, neck stiffness, shortness of breath, difficulty breathing, palpitations, nausea, vomiting abdominal pain, weakness, numbness or tingling of the lower extremities. Denies known tick bite for possible exposure recently. Denies any recent viral infections. Related Data Home Medications Medication Instructions Recorded Confirmed albuterol sulfate mg inhalation QID PRN 10/13/20 10/13/20 albuterol sulfate 90 mcg/actuation 2 puff PO Q4-6H PRN 10/13/20 10/13/20 aerosol inhaler (ProAir HFA) amlodipine 10 mg tablet 10 mg PO DAILY 10/13/20 10/13/20 cholecalciferol (vitamin D3) 25 25 mcg PO DAILY 10/13/20 10/13/20 mcg (1,000 unit) capsule (Vitamin D3) duloxetine 30 mg capsule,delayed 30 mg PO DAILY 10/13/20 10/13/20 release fluticasone propionate 250 1 inh PO BID 10/13/20 10/13/20 mcg/actuation blister powder for inhalation (Flovent Diskus) hydrochlorothiazide 25 mg tablet 25 mg PO DAILY 10/13/20 10/13/20 labetalol 100 mg tablet 100 mg PO BID 10/13/20 10/13/20 montelukast 10 mg tablet 10 mg PO QPM 10/13/20 10/13/20 omeprazole 20 mg capsule,delayed 20 mg PO DAILY 10/13/20 10/13/20 release vitamin with calcium 1 tab PO DAILY 10/13/20 10/13/20 no.72-iron 27 mg-folic acid 1 mg tablet (M-Elida Plus) sertraline 50 mg tablet 50 mg PO DAILY 10/13/20 10/13/20 Previous Rx's Medication Instructions Recorded loperamide 2 mg capsule (Imodium 2 mg PO Q6H PRN loose stool #10 05/25/21 A-D) caps ondansetron 4 mg disintegrating 4 mg PO Q8H PRN nausea and 05/25/21 tablet vomiting #12 tabs tiotropium bromide 2.5 2 puff inhalation QAM 30 days #4 05/31/21 mcg/actuation mist for inhalation grams (Spiriva Respimat) Allergies Allergy/AdvReac Type Severity Reaction Status Date / Time Sulfa (Sulfonamide Allergy Unknown UNKNOWN Verified 05/31/21 13:59 Antibiotics) [SULFA (SULFONAMIDE ANTIBIOTICS)] Review of Systems Review of Systems: Constitutional: No weight loss. No fever. No chills. No weakness. Positive fatigue. Eye: No swelling. No redness. ENT: No sore throat. No rhinorrhea. No nasal congestion. No sore throat. No difficulty swallowing. Skin: No rash. No itching. Cardiovascular: Positive chest pressure. No palpitations. No pedal edema. Respiratory: No shortness of breath. No cough. No sputum production. Gastrointestinal: No anorexia. No nausea. No vomiting. No diarrhea. No abdominal pain. No blood in stool. Genitourinary: No burning micturition. No urinary frequency. No incontinence. Neurologic: Positive headache. No dizziness. No pre-syncope/ syncope. No unilateral weakness. No ataxia. Positive paresthesias No change in bowel or bladder control. Musculoskeletal: No muscle pain. No back pain. No joint pain. No stiffness. Hematologic: No bleeding. No bruising. Lymphatics: No enlarged lymph nodes. Psychiatric:No depression. No anxiety. Endocrine: No reports of sweating. No cold or heat intolerance. No polyuria. No polydipsia. [facility] Past Medical History Attestation statement: The following information was validated with the patient. Source: old records reviewed Medical History Asthma Pre-diabetes Social History Social History Alcohol intake: never Patient Tobacco Use Status: Never used Tobacco Advance Directives: No Physical Exam ED Vital Signs: Vital Signs - 24 hr 08/14/21 21:35 Temperature 97 F Pulse Rate 97 Respiratory Rate 15 Blood Pressure 144/105 H Pulse Oximetry 97 Oxygen Delivery Method Room Air BMI result Body Mass Index 31.4 Appearance: Alert.?Oriented to person, place and time. No acute distress.?Normal affect. Head: Normocephalic, atraumatic Eyes: Pupils equal, round and reactive to light.? EOMI. No nystagmus ENT: Pharynx normal.? TM normal bilaterally Neck: Normal inspection.? Neck supple.?? CVS: Heart sounds normal. Normal heart rate and rhythm.? Pulses normal.?? Respiratory: No respiratory distress.? Lung sounds clear to auscultation bilaterally?? Abdomen: Soft and non-tender. Normoactive bowel sounds. Skin: Skin warm and dry.? Normal skin color.? Extremities: No lower extremity edema.? No calf ttp? Neuro: Moves all extremities spontaneously. Sensation intact bilaterally. CN II-XII intact. No focal neuro deficits. Ambulates with normal steady gait. Bilateral furnace packer strengths are strong and equal 5/5. Full AROM of bilateral upper extremities. Course Course Course Narrative: Patient is a 30-year-old female with a past medical history of asthma, which hypertension, presented to emergency department for evaluation of multiple complaints. Chest pain is reportedly chronic, typical with her prior episodes of chest pain, reports that she has had an echocardiogram from her PCP which was normal, no record of this is available for review. Heart score 1, EKG reveals normal sinus rhythm with no acute ischemic changes, unlikely to be ACS, however will add on troponin to labs obtained from triage. PERC negative, unlikely due to PE. CBC reveals normocytic anemia 11.6/34.8. BMP is normal. Urinalysis is overall unremarkable, currently menstruating, urine negative. COVID-19 testing negative. Patient received ibuprofen at this time for headache, add on TSH levels, and send for Lyme testing and tick panel. Reevaluation(s) Reevaluation #1: Troponin <3.5, unlikely ACS, discussed with patient to follow-up with her primary care provider as scheduled for further evaluation of ongoing chest pain. Regarding paresthesias to her right arm she does report a history of being prediabetic, glucose today is within normal limits, unlikely to be neuropathy secondary to this, TSH is within normal limits, patient is mildly anemic therefore B12 deficiency may be on differential, discussed to follow up with her primary care provider for further testing. Does not seem consistent with carpal tunnel or cubital tunnel syndrome. No cervical spine pain or stiffness, unlikely to be thoracic outlet syndrome. Discussed all findings with patient, she is ambulatory with a steady gait, he well appearing, stable for discharge home at this time. Discussed worrisome signs and symptoms to return back to the emergency department for, outpatient follow-up with her primary care provider. Time: 01:34 Medical Decision Making Medical Records Medical records reviewed: Yes I reviewed the patient's medical records. Lab Data Lab results reviewed: Yes I reviewed the patient's lab results. Result diagrams: 08/14/21 22:18 08/14/21 22:18 Labs: Lab Results 08/14/21 08/14/21 08/14/21 Range/Units 22:18 22:18 22:18 WBC 10.7 (4.8-10.8) X10*3/uL RBC 4.32 (4.20-5.50) X10*6/uL Hgb 11.6 L (12.0-16.0) g/dl Hct 34.8 L (37.0-47.0) % MCV 80.6 (80.0-98.0) fL MCH 26.9 L (27.0-33.0) pg MCHC 33.3 (31.0-35.0) g/dl RDW 14.1 (11.0-16.0) % Plt Count 312 (160-400) X10*3/uL MPV 9.7 (9.4-12.3) fL Immature Gran % (Auto) 0.4 (0.0-0.4) % Neut % (Auto) 64.5 (45-73) % Lymph % (Auto) 26.9 (20-40) % [place] % (Auto) 7.2 (2-11) % Eos % (Auto) 0.8 (0-4) % Baso % (Auto) 0.2 (0-2) % Lymph # (Auto) 2.9 (1.2-4.9) X10*3/uL [place] # (Auto) 0.8 (0.1-1.2) X10*3/uL Eos # (Auto) 0.1 (0.0-0.4) X10*3/uL Baso # (Auto) 0.0 (0.0-0.2) X10*3/uL Abs Immat Gran (auto) 0.04 H (0.00-0.03) X10*3/uL Absolute Neuts (auto) 6.9 (2.0-8.3) x10*3/uL Absolute Nucleated RBC 0.000 (0.0-0.012) X10*3/uL Nucleated RBC % (auto) 0.0 (0.0-0.2) /100WBC Sodium 139 (135-145) mmol/L Potassium 3.6 (3.3-5.1) mmol/L Chloride 104 (96-108) mmol/L Carbon Dioxide 26 (22-29) mmol/L Anion Gap 13 (12-20) BUN 20 H D (9-16) mg/dL Creatinine 1.00 (0.5-1.4) mg/dL Estim Creat Clear Calc 96.7 Estimated GFR > 60 Random Glucose 105 (60-115) mg/dL Calcium 9.0 (8.4-10.2) mg/dL Troponin I High Sens (<3.5-17.0) ng/L B-Natriuretic Peptide (<100) pg/mL TSH 0.64 (0.32-4.0) uIU/mL Urine Color Urine Appearance Urine pH (5.0-8.0) Ur Specific [place] (1.005-1.025) Urine Protein (NEG-TRACE) MG/DL Urine Glucose (UA) (NEG) MG/DL Urine Ketones (NEG) MG/DL Urine Blood (NEG) Urine Nitrite (NEG) Ur Leukocyte Esterase (NEG) Urine RBC (0) /HPF Urine WBC (0-4) /HPF Ur Squamous Epith Cells /LPF Urine Bacteria /LPF Urine Test (NEGATIVE) COVID-19 (FAINA) Negative (Negative) COVID-19 Clin Com See Note 08/14/21 08/14/21 08/14/21 Range/Units 22:18 22:25 22:25 WBC (4.8-10.8) X10*3/uL RBC (4.20-5.50) X10*6/uL Hgb (12.0-16.0) g/dl Hct (37.0-47.0) % MCV (80.0-98.0) fL MCH (27.0-33.0) pg MCHC (31.0-35.0) g/dl RDW (11.0-16.0) % Plt Count (160-400) X10*3/uL MPV (9.4-12.3) fL Immature Gran % (Auto) (0.0-0.4) % Neut % (Auto) (45-73) % Lymph % (Auto) (20-40) % [place] % (Auto) (2-11) % Eos % (Auto) (0-4) % Baso % (Auto) (0-2) % Lymph # (Auto) (1.2-4.9) X10*3/uL [place] # (Auto) (0.1-1.2) X10*3/uL Eos # (Auto) (0.0-0.4) X10*3/uL Baso # (Auto) (0.0-0.2) X10*3/uL Abs Immat Gran (auto) (0.00-0.03) X10*3/uL Absolute Neuts (auto) (2.0-8.3) x10*3/uL Absolute Nucleated RBC (0.0-0.012) X10*3/uL Nucleated RBC % (auto) (0.0-0.2) /100WBC Sodium (135-145) mmol/L Potassium (3.3-5.1) mmol/L Chloride (96-108) mmol/L Carbon Dioxide (22-29) mmol/L Anion Gap (12-20) BUN (9-16) mg/dL Creatinine (0.5-1.4) mg/dL Estim Creat Clear Calc Estimated GFR Random Glucose (60-115) mg/dL Calcium (8.4-10.2) mg/dL Troponin I High Sens < 3.5 (<3.5-17.0) ng/L B-Natriuretic Peptide < 10 (<100) pg/mL TSH (0.32-4.0) uIU/mL Urine Color YELLOW Urine Appearance CLEAR Urine pH 5.5 (5.0-8.0) Ur Specific [place] >= 1.030 H (1.005-1.025) Urine Protein NEG (NEG-TRACE) MG/DL Urine Glucose (UA) NEG (NEG) MG/DL Urine Ketones NEG (NEG) MG/DL Urine Blood 3+ H (NEG) Urine Nitrite NEG (NEG) Ur Leukocyte Esterase NEG (NEG) Urine RBC 15-29 H (0) /HPF Urine WBC 0 (0-4) /HPF Ur Squamous Epith Cells 1+ /LPF Urine Bacteria 1+ /LPF Urine Test NEGATIVE (NEGATIVE) COVID-19 (FAINA) (Negative) COVID-19 Clin Com ECG Data Attestation: I personally reviewed and interpreted this ECG as follows: Prior ECG tracings: available for review Interpretation: Rate: 94 Rhythm:? Normal sinus rhythm [place]:? Normal Normal P waves.? Normal GERALDINE.?? Normal QRS complex.?? ST T wave :??No ST elevation, no ST depression qTC: 452 prior studies:? April 2021 The study has been interpreted contemporaneously by me. Discharge Plan Discharge Clinical Impression: Headache, Paresthesia of left arm, Chest pain Patient Disposition: Home, Self-Care Instructions: Chest Pain (ED), Acute Headache (ED), Paresthesia (ED) Additional Instructions: Your blood work today was overall normal, you are anemic, but this has been present in your prior labs as well. COVID-19 testing is negative. Urine test is negative. Please contact your primary care provider and schedule follow-up visit within 1-3 days. You may return to the emergency department with any new or worsening symptoms or concerns. Prescriptions: No Action ondansetron 4 mg tablet,disintegrating 4 mg PO Q8H PRN (Reason: nausea and vomiting) Qty: 12 0RF loperamide [Imodium A-D] 2 mg capsule 2 mg PO Q6H PRN (Reason: loose stool) Qty: 10 0RF labetalol 100 mg tablet 100 mg PO BID M-Elida Plus 27 mg iron- 1 mg tablet 1 tab PO DAILY cholecalciferol (vitamin D3) [Vitamin D3] 25 mcg (1,000 unit) capsule 25 mcg PO DAILY sertraline 50 mg tablet 50 mg PO DAILY Flovent Diskus 250 mcg/actuation blister with device 1 inh PO BID albuterol sulfate [ProAir HFA] 90 mcg/actuation HFA aerosol inhaler 2 puff PO Q4-6H PRN montelukast 10 mg tablet 10 mg PO QPM omeprazole 20 mg capsule,delayed release(DR/EC) 20 mg PO DAILY amlodipine 10 mg tablet 10 mg PO DAILY albuterol sulfate 2.5 mg /3 mL (0.083 %) solution for nebulization inhalation QID PRN duloxetine 30 mg capsule,delayed release(DR/EC) 30 mg PO DAILY hydrochlorothiazide 25 mg tablet 25 mg PO DAILY Spiriva Respimat 2.5 mcg/actuation mist 2 puff inhalation QAM 30 Days Qty: 4 6RF Print Language: Albanian
[2021-08-15] MEDS: Ibuprofen 600 MG TABLET PO (01:02)
[2021-08-15 01:10] LABS: Troponin-I High Sensitivity < 3.5 ng/L (<3.5-17.0)
[2021-08-15 01:24] LABS: TSH reflex Free T4 0.64 uIU/mL (0.32-4.0)
[2021-08-15 01:53] VITALS: BP 135/86; PULSE 85; RESP 18; TEMP 36.7; O2SAT 99
[2021-08-17 09:21] LABS: Lyme Abs Screen <0.90 index
[2021-08-27 09:48] LABS: Source-Tick borne disease NOT GIVEN
== END 2021-08-15 01:54 | disposition home or self-care (01) ==
PROVIDERS: Nurse Practitioner Family; Emergency Provider Emergency Medicine; PCP Internal Medicine
DX: R07.9 Chest pain, unspecified (principal); R51.9 Headache, unspecified; R20.2 Paresthesia of skin; D64.9 Anemia, unspecified; Z20.822 Contact with and (suspected) exposure to COVID-19
CPT/HCPCS: 36415; 80048; 81001; 81025; 83880; 84443; 84484; 85025; 86617; 86618; 87635; 87798; 87801; 93005; 99283; 99284

== ENCOUNTER → 2021-08-20 14:21 | Outpatient (BNVA) | payer MEDICAID, SELFPAY | PROVIDERS: PCP Internal Medicine; Visit Provider Internal Medicine Pulmonary Disease | DX: J45.909 Unspecified asthma, uncomplicated (principal); Z91.09 Other allergy status, other than to drugs and biological substances; Z79.899 Other long term (current) drug therapy | CPT/HCPCS: 99212 ==

== ENCOUNTER 2021-10-08 18:04 | Emergency (ER) | payer MEDICAID, SELFPAY ==
--- NOTE | ~2021-10-08 | CT_ITS ---
EXAMINATION: NONCONTRAST HEAD CT NONCONTRAST MAXILLOFACIAL CT INDICATION INFORMATION: Unchanged right side of head. Headache. COMPARISON: None TECHNIQUE: Separate noncontrast CT examinations of the head and maxillofacial bones were performed. Coronal and sagittal images were created for each examination at the technologist workstation. This CT examination was performed using dose optimization techniques as appropriate, variously including the following: *Automated exposure control *Adjustment of mA and/or kV according to patient size (this includes techniques or standardized protocols for targeted exams where dose is matched to indication/reason for exam; i.e. extremities or head) *Use of iterative reconstruction technique DLP: 1268 mGy-cm FINDINGS: Head: There is no evidence of acute intracranial hemorrhage or territorial infarction. No abnormal mass effect or midline shift is seen. Mcnamara to white matter differentiation is well preserved. No extra-axial fluid collections are identified. No hydrocephalus. No significant volume loss. There is no abnormal attenuation within the brain parenchyma. No acute soft tissue abnormality. No calvarial fracture. The mastoid air cells are well aerated. Maxillofacial: No acute maxillofacial fractures are seen. The frontal, maxillary, ethmoid, and sphenoid sinuses are well aerated. The uncinate process is normal bilaterally. The infundibula and middle meati are patent. The nasal septum is midline. The mandibular heads are well-seated in the condylar fossa. The orbits demonstrate a normal appearance bilaterally. The globes are intact, and there are no suspicious findings to suggest retrobulbar hemorrhage. CT/CT head/brain wo IV con IMPRESSION: No acute intracranial pathology. No acute facial bone fractures.
--- NOTE | ~2021-10-08 | CT_ITS ---
EXAMINATION: NONCONTRAST HEAD CT NONCONTRAST MAXILLOFACIAL CT INDICATION INFORMATION: Unchanged right side of head. Headache. COMPARISON: None TECHNIQUE: Separate noncontrast CT examinations of the head and maxillofacial bones were performed. Coronal and sagittal images were created for each examination at the technologist workstation. This CT examination was performed using dose optimization techniques as appropriate, variously including the following: *Automated exposure control *Adjustment of mA and/or kV according to patient size (this includes techniques or standardized protocols for targeted exams where dose is matched to indication/reason for exam; i.e. extremities or head) *Use of iterative reconstruction technique DLP: 1268 mGy-cm FINDINGS: Head: There is no evidence of acute intracranial hemorrhage or territorial infarction. No abnormal mass effect or midline shift is seen. Mcnamara to white matter differentiation is well preserved. No extra-axial fluid collections are identified. No hydrocephalus. No significant volume loss. There is no abnormal attenuation within the brain parenchyma. No acute soft tissue abnormality. No calvarial fracture. The mastoid air cells are well aerated. Maxillofacial: No acute maxillofacial fractures are seen. The frontal, maxillary, ethmoid, and sphenoid sinuses are well aerated. The uncinate process is normal bilaterally. The infundibula and middle meati are patent. The nasal septum is midline. The mandibular heads are well-seated in the condylar fossa. The orbits demonstrate a normal appearance bilaterally. The globes are intact, and there are no suspicious findings to suggest retrobulbar hemorrhage. CT/CT facial bones wo IV con IMPRESSION: No acute intracranial pathology. No acute facial bone fractures.
[2021-10-08 18:26] VITALS: BP 154/95; PULSE 75; RESP 18; TEMP 35.9; O2SAT 100; BMI 33.3
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
[2021-10-09 01:03] VITALS: BP 148/97; PULSE 78; RESP 16; TEMP 36.8; O2SAT 98
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
[2021-10-09] MEDS: Acetaminophen 325 MG TABLET 975 MG PO (03:38)
--- NOTE | 2021-10-09 03:39 | PC.NURSE ---
Pt was allowed to sleep until order for meds obtained. Administered meds per APR.
[2021-10-09 05:28] VITALS: BP 122/71; PULSE 73; RESP 16; TEMP 36.4; O2SAT 98
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
== END 2021-10-09 08:11 | disposition home or self-care (01) ==
PROVIDERS: Emergency Provider Emergency Medicine Emergency Medical Services; PCP Internal Medicine
DX: S09.90XA Unspecified injury of head, initial encounter (principal); S00.83XA Contusion of other part of head, initial encounter; Y04.2XXA Assault by strike against or bumped into by another person, initial encounter; Y93.9 Activity, unspecified; Y92.9 Unspecified place or not applicable; Y99.9 Unspecified external cause status
CPT/HCPCS: 70450; 70486; 99284

== ENCOUNTER 2021-11-09 11:44 | Emergency (ER) | payer MEDICAID, SELFPAY ==
--- NOTE | ~2021-11-09 | XR_ITS ---
EXAMINATION: XR CHEST CLINICAL INFORMATION: Chest pain COMPARISON: April 2021. TECHNIQUE: 2 views of the chest were obtained. FINDINGS: No significant abnormality is noted involving the heart, lungs, mediastinum, bony thorax or soft tissues. Slight stable biapical pleural thickening noted incidentally. XR/XR chest 2V IMPRESSION: Unremarkable examination.
--- NOTE | ~2021-11-09 | CT_ITS ---
EXAMINATION: CT head/brain wo IV con CLINICAL INFORMATION: Reason for Exam Consistent headache for 1 month COMPARISON: CT head without contrast 10/09/2021 TECHNIQUE: Contiguous axial imaging was performed from the skull base to vertex without intravenous contrast. Sagittal and coronal reformatted images were obtained. This CT examination was performed using dose optimization techniques as appropriate, variously including the following: * Automated exposure control * Adjustment of mA and/or kV according to patient size (this includes techniques or standardized protocols for targeted exams where dose is matched to indication/reason for exam; i.e. extremities or head) Use of iterative reconstruction technique DLP: 673 mGy-cm FINDINGS: No acute osseous or soft tissue abnormality. The mastoids are clear. Moderate diffuse paranasal sinus opacification, most prominently involving the frontal, anterior ethmoid, left maxillary, and left sphenoid sinuses. The sinuses were clear on CT from 10/09/2021. There is no evidence of acute intracranial hemorrhage or territorial infarction. No abnormal mass effect or midline shift is seen. Mcnamara to white matter differentiation is well preserved. No extra-axial fluid collections are identified. No hydrocephalus. No significant volume loss. There is no abnormal attenuation within the brain parenchyma. CT/CT head/brain wo IV con IMPRESSION: 1. No acute intracranial abnormality including hemorrhage, mass effect, hydrocephalus, or acute territorial edematous infarction. 2. Partially visualized paranasal sinuses demonstrate new moderate opacification. Correlate clinically for acute sinusitis.
[2021-11-09 12:18] VITALS: BP 162/72; PULSE 90; RESP 16; TEMP 36.6; O2SAT 98; BMI 39.9
--- NOTE | 2021-11-09 12:24 | ECG_ITS ---
Test Reason : CHEST PAIN Blood Pressure : / mmHG Vent. Rate : 080 BPM Atrial Rate : 080 BPM P-R Int : 126 ms QRS Dur : 076 ms QT Int : 378 ms P-R-T Axes : 047 022 034 degrees QTc Int : 435 ms Normal sinus rhythm Normal ECG When compared with ECG of 14-AUG-2021 21:29, Nonspecific ST abnormality is no longer Present Referred By: Zoraida Sanz Electronically Signed By:NATY LEMA
[2021-11-09 12:42] LABS: MANUAL DIFF FLAG NO
[2021-11-09 12:46] LABS: Basophils Percent Auto 0.2 % (0-2); Eosinophils Absolute Auto 0.1 X10*3/uL (0.0-0.4); Eosinophils Percent Auto 0.6 % (0-4); Hematocrit 35.5 % (37.0-47.0); Hemoglobin 11.6 g/dl (12.0-16.0); Imm Gran Abs Auto 0.03 X10*3/uL (0.00-0.03); Imm Gran Pct Auto 0.3 % (0.0-0.4); Lymphocytes Absolute Auto 2.2 X10*3/uL (1.2-4.9); Lymphocytes Percent Auto 22.8 % (20-40); Mean Corpuscular HGB Conc 32.7 g/dl (31.0-35.0); Mean Corpuscular Hemoglobin 26.4 pg (27.0-33.0); Mean Corpuscular Volume 80.9 fL (80.0-98.0); Mean Platelet Volume 9.7 fL (9.4-12.3); Monocytes Absolute Auto 0.5 X10*3/uL (0.1-1.2); Monocytes Percent Auto 5.7 % (2-11); Neutrophils Absolute Auto 6.7 x10*3/uL (2.0-8.3); Neutrophils Percent Auto 70.4 % (45-73); Platelet Count 288 X10*3/uL (160-400); Red Blood Count 4.39 X10*6/uL (4.20-5.50); Red Cell Distribution Width 13.2 % (11.0-16.0); White Blood Count 9.5 X10*3/uL (4.8-10.8)
[2021-11-09 13:01] LABS: Anion Gap 16 (12-20); Blood Urea Nitrogen 14 mg/dL (9-16); Calcium 9.3 mg/dL (8.4-10.2); Carbon Dioxide 25 mmol/L (22-29); Chloride 102 mmol/L (96-108); Creatinine Clr Calc Pharmacy 121.2; Estimated Glomerular Filt Rate > 60; Glucose Random 97 mg/dL (60-115); Potassium 4.3 mmol/L (3.3-5.1); Sodium 139 mmol/L (135-145)
[2021-11-09 19:30] VITALS: BP 157/80; PULSE 86; RESP 18; TEMP 37.2; O2SAT 100
[2021-11-09] MEDS: 0.9 % Sodium Chloride 1,000 ML 999 ML IVCONT (20:05)
[2021-11-09] MEDS: Metoclopramide HCl 10 MG/2 ML VIAL IVPUSH (20:05)
[2021-11-09] MEDS: diphenhydrAMINE HCL 50 MG/ML VIAL 25 MG IVPUSH (20:05)
[2021-11-09] MEDS: Ketorolac Tromethamine 30 MG/ML VIAL IVPUSH (20:05)
--- NOTE | 2021-11-09 20:07 | PC.NURSE ---
Pt medicated per MAR by this float RN. IVF hung and infusing without difficulty.
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
[2021-11-09 22:40] VITALS: BP 142/79; PULSE 84; RESP 18; O2SAT 97
== END 2021-11-09 22:44 | disposition home or self-care (01) ==
PROVIDERS: Emergency Medicine; Emergency Provider Emergency Medicine Emergency Medical Services; PCP Internal Medicine
DX: R51.9 Headache, unspecified (principal); R07.89 Other chest pain; R11.2 Nausea with vomiting, unspecified; Z79.899 Other long term (current) drug therapy
CPT/HCPCS: 36415; 70450; 71046; 80048; 85025; 93005; 96361; 96374; 96375; 99284; 99285; J1200; J1885; J2765

== ENCOUNTER 2021-12-24 17:12 | Emergency (ER) | payer MEDICAID, SELFPAY ==
--- NOTE | ~2021-12-24 | XR_ITS ---
EXAMINATION: XR CHEST CLINICAL INFORMATION: Chest pain COMPARISON: Chest x-ray 11/09/2021 TECHNIQUE: Frontal view of the chest was obtained. 1810 hours FINDINGS: No significant abnormality is noted involving the heart, lungs, mediastinum, bony thorax or soft tissues. XR/XR chest 1V IMPRESSION: Unremarkable examination.
--- NOTE | 2021-12-24 17:13 | ECG_ITS ---
Test Reason : chest pain Blood Pressure : / mmHG Vent. Rate : 084 BPM Atrial Rate : 084 BPM P-R Int : 118 ms QRS Dur : 092 ms QT Int : 390 ms P-R-T Axes : 043 042 039 degrees QTc Int : 460 ms Normal sinus rhythm Nonspecific T wave abnormality Prolonged QT Abnormal ECG When compared with ECG of 09-NOV-2021 12:32, Nonspecific T wave abnormality now evident in Anterior leads Referred By: Donna Pretty Electronically Signed By:AMALIA MARKHAM MD
[2021-12-24 17:37] VITALS: BP 150/98; PULSE 86; RESP 16; TEMP 36.2; O2SAT 98; BMI 31.3
--- NOTE | 2021-12-24 17:37 | ED_ITS ---
HPI - Chest Pain General Chief Complaint: Chest Pain <EDSON Flores - Last Filed: 12/24/21 17:41> Stated Complaint: chest tightness and left arm numbness <EDSON Flores - Last Filed: 12/24/21 17:41> Time Seen by Provider: 12/24/21 21:28 <EDSON Flores - Last Filed: 12/24/21 17:41> Source: patient <Rolando Escobar MD - Last Filed: 12/24/21 22:10> Mode of arrival: ambulatory <Rolando Escobar MD - Last Filed: 12/24/21 22:10> Limitations: no limitations <Rolando Escobar MD - Last Filed: 12/24/21 22:10> History of Present Illness HPI narrative: Patient has history of chronic upper back pain left foot pain off and on comes here for pain started earlier today while driving some of that in the past patient does have history of anxiety pain gets worse when she gets anxious stressed out no formal diagnosis of fibromyalgia no cardiac history no substance abuse <Rolando Escobar MD - Last Filed: 12/24/21 22:10> Related Data Home Medications: Home Medications Medication Instructions Recorded Confirmed albuterol sulfate 2.5 mg/3 mL mg inhalation QID PRN 10/13/20 10/13/20 (0.083 %) solution for nebulization albuterol sulfate 90 mcg/actuation 2 puff PO Q4-6H PRN 10/13/20 10/13/20 aerosol inhaler (ProAir HFA) amlodipine 10 mg tablet 10 mg PO DAILY 10/13/20 10/13/20 cholecalciferol (vitamin D3) 25 25 mcg PO DAILY 10/13/20 10/13/20 mcg (1,000 unit) capsule (Vitamin D3) duloxetine 30 mg capsule,delayed 30 mg PO DAILY 10/13/20 10/13/20 release fluticasone propionate 250 1 inh PO BID 10/13/20 10/13/20 mcg/actuation blister powder for inhalation (Flovent Diskus) hydrochlorothiazide 25 mg tablet 25 mg PO DAILY 10/13/20 10/13/20 labetalol 100 mg tablet 100 mg PO BID 10/13/20 10/13/20 montelukast 10 mg tablet 10 mg PO QPM 10/13/20 10/13/20 omeprazole 20 mg capsule,delayed 20 mg PO DAILY 10/13/20 10/13/20 release vitamin with calcium 1 tab PO DAILY 10/13/20 10/13/20 no.72-iron 27 mg-folic acid 1 mg tablet (M- Plus) sertraline 50 mg tablet 50 mg PO DAILY 10/13/20 10/13/20 Previous Rx's Medication Instructions Recorded loperamide 2 mg capsule (Imodium 2 mg PO Q6H PRN loose stool #10 05/25/21 A-D) caps ondansetron 4 mg disintegrating 4 mg PO Q8H PRN nausea and 05/25/21 tablet vomiting #12 tabs tiotropium bromide 2.5 2 puff inhalation QAM 30 days #4 05/31/21 mcg/actuation mist for inhalation grams (Spiriva Respimat) morphine 15 mg immediate release 15 mg PO Q4-6H PRN pain #10 tabs 10/09/21 tablet ondansetron 4 mg disintegrating 4 mg PO Q6-8H PRN nausea and 10/09/21 tablet vomiting #14 tabs ketorolac 10 mg tablet 10 mg PO BID PRN pain #7 tabs 11/09/21 metoclopramide HCl 5 mg tablet 5 mg PO BID PRN nausea and 11/09/21 (Reglan) vomiting #7 tabs amitriptyline 50 mg tablet 50 mg PO BEDTIME #30 tabs 12/24/21 tramadol 50 mg tablet 50 mg PO TID PRN pain #20 tabs 12/24/21 <EDSON Flores - Last Filed: 12/24/21 17:41> Allergies/Adverse Reactions: Allergies Allergy/AdvReac Type Severity Reaction Status Date / Time Sulfa (Sulfonamide Allergy Unknown UNKNOWN Verified 12/24/21 17:40 Antibiotics) [SULFA (SULFONAMIDE ANTIBIOTICS)] <EDSON Flores - Last Filed: 12/24/21 17:41> Review of Systems Review of Systems: Yes all other systems are reviewed and are negative <Rolando Escobar MD - Last Filed: 12/24/21 22:10> [facility] Past Medical History Medical History: Medical History Asthma Pre-diabetes <EDSON Flores - Last Filed: 12/24/21 17:41> Social History Social History: Social History Alcohol intake: never Patient Tobacco Use Status: Never used Tobacco Advance Directives: No Advance Directives Information Provided: No <EDSON Flores - Last Filed: 12/24/21 17:41> Physical Exam Vital Signs: Vital Signs: Last Vital Signs Temp 98.9 F 12/24/21 21:42 Pulse 77 12/24/21 21:42 Resp 18 12/24/21 21:42 BP 131/79 12/24/21 21:42 Pulse Ox 97 12/24/21 21:42 O2 Del Method 12/24/21 21:42 BMI result Body Mass Index 31.3 <EDSON Flores - Last Filed: 12/24/21 17:41> Vital Signs: Last Vital Signs Temp 98.9 F 12/24/21 21:42 Pulse 77 12/24/21 21:42 Resp 18 12/24/21 21:42 BP 131/79 12/24/21 21:42 Pulse Ox 97 12/24/21 21:42 O2 Del Method 12/24/21 21:42 BMI result Body Mass Index 31.3 <Rolando Escobar MD - Last Filed: 12/24/21 22:10> Appearance: Alert. Oriented X3. No acute distress. ENT: Pharynx normal. Oral Mucosa moist Neck: Normal inspection. Neck supple. Tender to touch upper back area CVS: Normal heart rate and rhythm. Pulses normal. Respiratory: No respiratory distress. Equal air entry bilateral, no wheezing/rales/rhonchi Abdomen: Soft and nontender. Bowel sounds are present, Skin: Skin warm and dry. Normal skin color. Extremities: No lower extremity edema. No calf tenderness Neuro: Oriented X 3. No motor deficit. <Rolando Escobar MD - Last Filed: 12/24/21 22:10> Course Course Course Narrative: RME--31-year-old female with past medical history of asthma, prediabetic c/o left-sided chest wall pain radiating down left upper extremity since 12:00. Pain has been constant since start with associated SOB. Also reports headache times months with history of chronic migraines EKG, labs, CXR, p.o. Fioricet ordered in triage <EDSON Flores - Last Filed: 12/24/21 17:41> Medications Administered Discontinued Medications Generic Name Dose Route Start Last Admin Trade Name Freq PRN Reason Stop Dose Admin Acetaminophen/Butalbital/Caffeine 1 tab 12/24/21 17:37 12/24/21 18:20 Butalb/Acetamin/Caff 50/325/40 Tablet PO 12/24/21 17:38 1 tab ONCE ONE Administration <EDSON Flores - Last Filed: 12/24/21 17:41> Medications Administered Discontinued Medications Generic Name Dose Route Start Last Admin Trade Name Freq PRN Reason Stop Dose Admin Acetaminophen/Butalbital/Caffeine 1 tab 12/24/21 17:37 12/24/21 18:20 Butalb/Acetamin/Caff 50/325/40 Tablet PO 12/24/21 17:38 1 tab ONCE ONE Administration <Rolando Escobar MD - Last Filed: 12/24/21 22:10> MDM - Chest Pain MDM Narrative Medical decision making narrative: Patient clinically with fibromyalgia with chronic pain cardiac enzymes negative heart score 0 <Rolando Esocbar MD - Last Filed: 12/24/21 22:10> Lab Data Attestation: I reviewed the patient's lab results. <Rolando Escobar MD - Last Filed: 12/24/21 22:10> Result diagrams: : 12/24/21 19:15 12/24/21 19:15 <EDSON Flores - Last Filed: 12/24/21 17:41> Labs: Lab Results 12/24/21 12/24/21 12/24/21 Range/Units 19:15 19:15 19:15 WBC 11.1 H (4.8-10.8) X10*3/uL RBC 4.28 (4.20-5.50) X10*6/uL Hgb 11.7 L (12.0-16.0) g/dl Hct 34.8 L (37.0-47.0) % MCV 81.3 (80.0-98.0) fL MCH 27.3 (27.0-33.0) pg MCHC 33.6 (31.0-35.0) g/dl RDW 13.4 (11.0-16.0) % Plt Count 308 (160-400) X10*3/uL MPV 10.3 (9.4-12.3) fL Immature Gran % (Auto) 0.4 (0.0-0.4) % Neut % (Auto) 62.9 (45-73) % Lymph % (Auto) 30.7 (20-40) % [place] % (Auto) 5.2 (2-11) % Eos % (Auto) 0.4 (0-4) % Baso % (Auto) 0.4 (0-2) % Lymph # (Auto) 3.4 (1.2-4.9) X10*3/uL [place] # (Auto) 0.6 (0.1-1.2) X10*3/uL Eos # (Auto) 0.1 (0.0-0.4) X10*3/uL Baso # (Auto) 0.0 (0.0-0.2) X10*3/uL Abs Immat Gran (auto) 0.04 H (0.00-0.03) X10*3/uL Absolute Neuts (auto) 7.0 (2.0-8.3) x10*3/uL Absolute Nucleated RBC 0.000 (0.0-0.012) X10*3/uL Nucleated RBC % (auto) 0.0 (0.0-0.2) /100WBC Sodium 139 (135-145) mmol/L Potassium 3.9 (3.3-5.1) mmol/L Chloride 105 (96-108) mmol/L Carbon Dioxide 23 (22-29) mmol/L Anion Gap 15 (12-20) BUN 12 (9-16) mg/dL Creatinine 0.80 (0.5-1.4) mg/dL Estim Creat Clear Calc 115.6 Estimated GFR > 60 Random Glucose 120 H (60-115) mg/dL Calcium 9.2 (8.4-10.2) mg/dL Total Bilirubin 0.4 (0.0-1.0) mg/dL Direct Bilirubin < 0.2 (0.0-0.5) mg/dL AST 19 (5-31) U/L ALT 13 (0-31) U/L Alkaline Phosphatase 77 (39-117) U/L Troponin I High Sens < 3.5 (<3.5-17.0) ng/L B-Natriuretic Peptide (<100) pg/mL Total Protein 8.0 (6.5-8.0) g/dL Albumin 4.4 (3.5-5.0) g/dL Beta HCG, Quant < 2 mIU/mL COVID-19 ([facility]) (Negative) COVID-19 Clin Com 12/24/21 12/24/21 Range/Units 19:15 19:15 WBC (4.8-10.8) X10*3/uL RBC (4.20-5.50) X10*6/uL Hgb (12.0-16.0) g/dl Hct (37.0-47.0) % MCV (80.0-98.0) fL MCH (27.0-33.0) pg MCHC (31.0-35.0) g/dl RDW (11.0-16.0) % Plt Count (160-400) X10*3/uL MPV (9.4-12.3) fL Immature Gran % (Auto) (0.0-0.4) % Neut % (Auto) (45-73) % Lymph % (Auto) (20-40) % [place] % (Auto) (2-11) % Eos % (Auto) (0-4) % Baso % (Auto) (0-2) % Lymph # (Auto) (1.2-4.9) X10*3/uL [place] # (Auto) (0.1-1.2) X10*3/uL Eos # (Auto) (0.0-0.4) X10*3/uL Baso # (Auto) (0.0-0.2) X10*3/uL Abs Immat Gran (auto) (0.00-0.03) X10*3/uL Absolute Neuts (auto) (2.0-8.3) x10*3/uL Absolute Nucleated RBC (0.0-0.012) X10*3/uL Nucleated RBC % (auto) (0.0-0.2) /100WBC Sodium (135-145) mmol/L Potassium (3.3-5.1) mmol/L Chloride (96-108) mmol/L Carbon Dioxide (22-29) mmol/L Anion Gap (12-20) BUN (9-16) mg/dL Creatinine (0.5-1.4) mg/dL Estim Creat Clear Calc Estimated GFR Random Glucose (60-115) mg/dL Calcium (8.4-10.2) mg/dL Total Bilirubin (0.0-1.0) mg/dL Direct Bilirubin (0.0-0.5) mg/dL AST (5-31) U/L ALT (0-31) U/L Alkaline Phosphatase (39-117) U/L Troponin I High Sens (<3.5-17.0) ng/L B-Natriuretic Peptide 13 (<100) pg/mL Total Protein (6.5-8.0) g/dL Albumin (3.5-5.0) g/dL Beta HCG, Quant mIU/mL COVID-19 ([facility]) Negative (Negative) COVID-19 Clin Com See Note <EDSON Flores - Last Filed: 12/24/21 17:41> Lab Results 12/24/21 12/24/21 12/24/21 Range/Units 19:15 19:15 19:15 WBC 11.1 H (4.8-10.8) X10*3/uL RBC 4.28 (4.20-5.50) X10*6/uL Hgb 11.7 L (12.0-16.0) g/dl Hct 34.8 L (37.0-47.0) % MCV 81.3 (80.0-98.0) fL MCH 27.3 (27.0-33.0) pg MCHC 33.6 (31.0-35.0) g/dl RDW 13.4 (11.0-16.0) % Plt Count 308 (160-400) X10*3/uL MPV 10.3 (9.4-12.3) fL Immature Gran % (Auto) 0.4 (0.0-0.4) % Neut % (Auto) 62.9 (45-73) % Lymph % (Auto) 30.7 (20-40) % [place] % (Auto) 5.2 (2-11) % Eos % (Auto) 0.4 (0-4) % Baso % (Auto) 0.4 (0-2) % Lymph # (Auto) 3.4 (1.2-4.9) X10*3/uL [place] # (Auto) 0.6 (0.1-1.2) X10*3/uL Eos # (Auto) 0.1 (0.0-0.4) X10*3/uL Baso # (Auto) 0.0 (0.0-0.2) X10*3/uL Abs Immat Gran (auto) 0.04 H (0.00-0.03) X10*3/uL Absolute Neuts (auto) 7.0 (2.0-8.3) x10*3/uL Absolute Nucleated RBC 0.000 (0.0-0.012) X10*3/uL Nucleated RBC % (auto) 0.0 (0.0-0.2) /100WBC Sodium 139 (135-145) mmol/L Potassium 3.9 (3.3-5.1) mmol/L Chloride 105 (96-108) mmol/L Carbon Dioxide 23 (22-29) mmol/L Anion Gap 15 (12-20) BUN 12 (9-16) mg/dL Creatinine 0.80 (0.5-1.4) mg/dL Estim Creat Clear Calc 115.6 Estimated GFR > 60 Random Glucose 120 H (60-115) mg/dL Calcium 9.2 (8.4-10.2) mg/dL Total Bilirubin 0.4 (0.0-1.0) mg/dL Direct Bilirubin < 0.2 (0.0-0.5) mg/dL AST 19 (5-31) U/L ALT 13 (0-31) U/L Alkaline Phosphatase 77 (39-117) U/L Troponin I High Sens < 3.5 (<3.5-17.0) ng/L B-Natriuretic Peptide (<100) pg/mL Total Protein 8.0 (6.5-8.0) g/dL Albumin 4.4 (3.5-5.0) g/dL Beta HCG, Quant < 2 mIU/mL COVID-19 ([facility]) (Negative) COVID-19 Clin Com 12/24/21 12/24/21 Range/Units 19:15 19:15 WBC (4.8-10.8) X10*3/uL RBC (4.20-5.50) X10*6/uL Hgb (12.0-16.0) g/dl Hct (37.0-47.0) % MCV (80.0-98.0) fL MCH (27.0-33.0) pg MCHC (31.0-35.0) g/dl RDW (11.0-16.0) % Plt Count (160-400) X10*3/uL MPV (9.4-12.3) fL Immature Gran % (Auto) (0.0-0.4) % Neut % (Auto) (45-73) % Lymph % (Auto) (20-40) % [place] % (Auto) (2-11) % Eos % (Auto) (0-4) % Baso % (Auto) (0-2) % Lymph # (Auto) (1.2-4.9) X10*3/uL [place] # (Auto) (0.1-1.2) X10*3/uL Eos # (Auto) (0.0-0.4) X10*3/uL Baso # (Auto) (0.0-0.2) X10*3/uL Abs Immat Gran (auto) (0.00-0.03) X10*3/uL Absolute Neuts (auto) (2.0-8.3) x10*3/uL Absolute Nucleated RBC (0.0-0.012) X10*3/uL Nucleated RBC % (auto) (0.0-0.2) /100WBC Sodium (135-145) mmol/L Potassium (3.3-5.1) mmol/L Chloride (96-108) mmol/L Carbon Dioxide (22-29) mmol/L Anion Gap (12-20) BUN (9-16) mg/dL Creatinine (0.5-1.4) mg/dL Estim Creat Clear Calc Estimated GFR Random Glucose (60-115) mg/dL Calcium (8.4-10.2) mg/dL Total Bilirubin (0.0-1.0) mg/dL Direct Bilirubin (0.0-0.5) mg/dL AST (5-31) U/L ALT (0-31) U/L Alkaline Phosphatase (39-117) U/L Troponin I High Sens (<3.5-17.0) ng/L B-Natriuretic Peptide 13 (<100) pg/mL Total Protein (6.5-8.0) g/dL Albumin (3.5-5.0) g/dL Beta HCG, Quant mIU/mL COVID-19 ([facility]) Negative (Negative) COVID-19 Clin Com See Note <Rolando Escobar MD - Last Filed: 12/24/21 22:10> ECG Data ECG #1: Attestation: I personally reviewed and interpreted this ECG as follows: <Rolando Escobar MD - Last Filed: 12/24/21 22:10> Interpretation: Normal sinus rhythm heart rate 84 beats per minute normal intervals normal axis no acute ST-T changes no acute ischemic <Rolando Escobar MD - Last Filed: 12/24/21 22:10> Discharge Plan Discharge Clinical Impression: Fibromyalgia <EDSON Flores - Last Filed: 12/24/21 17:41> Patient Disposition: Home, Self-Care <EDSON Flores - Last Filed: 12/24/21 17:41> Instructions: Fibromyalgia (ED) <EDSON Flores - Last Filed: 12/24/21 17:41> Additional Instructions: Take medication as advised and follow with PCP Your pain is likely from fibromyalgia [place] la medicaci?n seg?n lo recomendado y siga con PCP Es probable que gorman dolor se deba a la fibromialgia <EDSON Flores - Last Filed: 12/24/21 17:41> Prescriptions: New amitriptyline 50 mg tablet 50 mg PO BEDTIME Qty: 30 0RF tramadol 50 mg tablet 50 mg PO TID PRN (Reason: pain) Qty: 20 0RF No Action morphine 15 mg tablet 15 mg PO Q4-6H PRN (Reason: pain) Qty: 10 0RF Rx Instructions: The patient may ask for partial fill; Partial Fill upon patient request. ondansetron 4 mg tablet,disintegrating 4 mg PO Q6-8H PRN (Reason: nausea and vomiting) Qty: 14 0RF ketorolac 10 mg tablet 10 mg PO BID PRN (Reason: pain) Qty: 7 0RF Rx Instructions: Do not use this medication with NSAIDs/ibuprofen/Aleve, only use Tylenol if needed metoclopramide HCl [Reglan] 5 mg tablet 5 mg PO BID PRN (Reason: nausea and vomiting) Qty: 7 0RF Rx Instructions: Take together with ketorolac p.r.n. severe headache ondansetron 4 mg tablet,disintegrating 4 mg PO Q8H PRN (Reason: nausea and vomiting) Qty: 12 0RF loperamide [Imodium A-D] 2 mg capsule 2 mg PO Q6H PRN (Reason: loose stool) Qty: 10 0RF labetalol 100 mg tablet 100 mg PO BID M- Plus 27 mg iron- 1 mg tablet 1 tab PO DAILY cholecalciferol (vitamin D3) [Vitamin D3] 25 mcg (1,000 unit) capsule 25 mcg PO DAILY sertraline 50 mg tablet 50 mg PO DAILY Flovent Diskus 250 mcg/actuation blister with device 1 inh PO BID albuterol sulfate [ProAir HFA] 90 mcg/actuation HFA aerosol inhaler 2 puff PO Q4-6H PRN montelukast 10 mg tablet 10 mg PO QPM omeprazole 20 mg capsule,delayed release(DR/EC) 20 mg PO DAILY amlodipine 10 mg tablet 10 mg PO DAILY albuterol sulfate 2.5 mg /3 mL (0.083 %) solution for nebulization inhalation QID PRN duloxetine 30 mg capsule,delayed release(DR/EC) 30 mg PO DAILY hydrochlorothiazide 25 mg tablet 25 mg PO DAILY Spiriva Respimat 2.5 mcg/actuation mist 2 puff inhalation QAM 30 Days Qty: 4 6RF <EDSON Flores - Last Filed: 12/24/21 17:41> Print Language: Occitan <EDSON Flores - Last Filed: 12/24/21 17:41>
[2021-12-24] MEDS: Butalb/Acetamin/Caff 50/325/40 TABLET 1 TAB PO (18:20)
[2021-12-24 19:25] LABS: MANUAL DIFF FLAG NO
[2021-12-24 19:26] LABS: Basophils Percent Auto 0.4 % (0-2); Eosinophils Absolute Auto 0.1 X10*3/uL (0.0-0.4); Eosinophils Percent Auto 0.4 % (0-4); Hematocrit 34.8 % (37.0-47.0); Hemoglobin 11.7 g/dl (12.0-16.0); Imm Gran Abs Auto 0.04 X10*3/uL (0.00-0.03); Imm Gran Pct Auto 0.4 % (0.0-0.4); Lymphocytes Absolute Auto 3.4 X10*3/uL (1.2-4.9); Lymphocytes Percent Auto 30.7 % (20-40); Mean Corpuscular HGB Conc 33.6 g/dl (31.0-35.0); Mean Corpuscular Hemoglobin 27.3 pg (27.0-33.0); Mean Corpuscular Volume 81.3 fL (80.0-98.0); Mean Platelet Volume 10.3 fL (9.4-12.3); Monocytes Absolute Auto 0.6 X10*3/uL (0.1-1.2); Monocytes Percent Auto 5.2 % (2-11); Neutrophils Percent Auto 62.9 % (45-73); Platelet Count 308 X10*3/uL (160-400); Red Blood Count 4.28 X10*6/uL (4.20-5.50); Red Cell Distribution Width 13.4 % (11.0-16.0); White Blood Count 11.1 X10*3/uL (4.8-10.8)
[2021-12-24 19:49] LABS: B Type Natriuretic Peptide 13 pg/mL (<100); COVID-19 Test Negative (Negative); IDNOW Serial# 16C4AD1C
[2021-12-24 20:05] LABS: Alanine Aminotransferase 13 U/L (0-31); Albumin Level 4.4 g/dL (3.5-5.0); Alkaline Phosphatase 77 U/L (39-117); Anion Gap 15 (12-20); Aspartate Amino Transferase 19 U/L (5-31); Bilirubin Direct < 0.2 mg/dL (0.0-0.5); Bilirubin Total 0.4 mg/dL (0.0-1.0); Blood Urea Nitrogen 12 mg/dL (9-16); Calcium 9.2 mg/dL (8.4-10.2); Carbon Dioxide 23 mmol/L (22-29); Chloride 105 mmol/L (96-108); Creatinine Clr Calc Pharmacy 115.6; Estimated Glomerular Filt Rate > 60; Glucose Random 120 mg/dL (60-115); HCG Quantitative < 2 mIU/mL; Potassium 3.9 mmol/L (3.3-5.1); Sodium 139 mmol/L (135-145); Troponin-I High Sensitivity < 3.5 ng/L (<3.5-17.0)
[2021-12-24 21:42] VITALS: BP 131/79; PULSE 77; RESP 18; TEMP 37.2; O2SAT 97
[2021-12-24] MEDS: traMADoL HCL 50 MG TABLET PO (22:14)
[2021-12-24 22:18] VITALS: BP 130/74; PULSE 86; RESP 16; TEMP 36.8; O2SAT 99
== END 2021-12-24 22:21 | disposition home or self-care (01) ==
PROVIDERS: Emergency Medicine; Physician Assistant; Emergency Provider Internal Medicine; PCP Internal Medicine
DX: R07.89 Other chest pain (principal); R20.0 Anesthesia of skin; M79.7 Fibromyalgia; Z20.822 Contact with and (suspected) exposure to COVID-19; Z79.899 Other long term (current) drug therapy
CPT/HCPCS: 36415; 71045; 80048; 80076; 83880; 84484; 84702; 85025; 87635; 93005; 99283; 99284

== ENCOUNTER 2022-03-20 13:18 | Emergency (ER) | payer MEDICAID, SELFPAY ==
--- NOTE | ~2022-03-20 | CT_ITS ---
EXAMINATION: CT ABDOMEN AND PELVIS WITHOUT CONTRAST CLINICAL INFORMATION: Left flank , back, abdominal pain for 2 days COMPARISON: Abdominal ultrasound from July [address] scan of the abdomen from October 2014 TECHNIQUE: Multidetector volumetric imaging was performed from the superior aspect of the liver through the pubic symphysis. Sagittal and coronal reformatted images were obtained on the technologist's workstation. This CT examination was performed using dose optimization techniques as appropriate, variously including the following: *Automated exposure control *Adjustment of mA and/or kV according to patient size (this includes techniques or standardized protocols for targeted exams where dose is matched to indication/reason for exam; i.e. extremities or head) *Use of iterative reconstruction technique DLP: 607 mGy-cm FINDINGS: LUNG BASES: The visualized lung bases are unremarkable. LIVER, GALLBLADDER, AND BILIARY TREE: The liver is normal in size, shape, and attenuation. No focal hepatic lesion or biliary ductal dilatation is present. Gallbladder is surgically absent. PANCREAS: Unremarkable. SPLEEN: Unremarkable. ADRENAL GLANDS: Unremarkable. KIDNEYS AND URETERS: The kidneys are normal in size, shape, and attenuation. No hydronephrosis, hydroureter, or calculi seen. No perinephric stranding. BLADDER: Unremarkable. GASTROINTESTINAL TRACT: The small and large bowel are unremarkable. The appendix is unremarkable. ABDOMINAL WALL: There is small fat-containing umbilical hernia LYMPH NODES: There are a few scattered inguinal lymph nodes and mesenteric lymph nodes of nonpathological size the largest lymph node on the right measures 0.7 cm. VASCULAR: Unremarkable. PELVIC VISCERA: Uterus is bulky most likely with uterine fibroids. Right ovary possibly enlarged correlate with pelvic ultrasound if clinically indicated. OSSEOUS STRUCTURES: Unremarkable. CT/CT abdomen pelvis wo IV con IMPRESSION: 1. No evidence of nephrolithiasis or hydroureteronephrosis. 2. Bulky uterus most likely with uterine fibroids and possible right ovarian enlargement. Correlate with pelvic ultrasound, if clinically indicated. 3. Status post cholecystectomy. 4. Small fat-containing umbilical hernia. Fleischner guidelines were followed.
[2022-03-20 13:22] VITALS: BP 132/83; PULSE 90; RESP 18; TEMP 36.4; O2SAT 99; BMI 31.3
--- NOTE | 2022-03-20 13:25 | ED_ITS ---
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 No nausea, vomiting, diarrhea, constipation, urinary symptoms, fevers or chills. no incontinence of urine, no numbness in the groin. <Adri Nieves NP - Last Filed: 03/20/22 16:38> Related Data Home Medications: Home Medications Medication Instructions Recorded Confirmed albuterol sulfate 2.5 mg/3 mL mg inhalation QID PRN 10/13/20 10/13/20 (0.083 %) solution for nebulization albuterol sulfate 90 mcg/actuation 2 puff PO Q4-6H PRN 10/13/20 10/13/20 aerosol inhaler (ProAir HFA) amlodipine 10 mg tablet 10 mg PO DAILY 10/13/20 10/13/20 cholecalciferol (vitamin D3) 25 25 mcg PO DAILY 10/13/20 10/13/20 mcg (1,000 unit) capsule (Vitamin D3) duloxetine 30 mg capsule,delayed 30 mg PO DAILY 10/13/20 10/13/20 release fluticasone propionate 250 1 inh PO BID 10/13/20 10/13/20 mcg/actuation blister powder for inhalation (Flovent Diskus) hydrochlorothiazide 25 mg tablet 25 mg PO DAILY 10/13/20 10/13/20 labetalol 100 mg tablet 100 mg PO BID 10/13/20 10/13/20 montelukast 10 mg tablet 10 mg PO QPM 10/13/20 10/13/20 omeprazole 20 mg capsule,delayed 20 mg PO DAILY 10/13/20 10/13/20 release vitamin with calcium 1 tab PO DAILY 10/13/20 10/13/20 no.72-iron 27 mg-folic acid 1 mg tablet (M-Elida Plus) sertraline 50 mg tablet 50 mg PO DAILY 10/13/20 10/13/20 Previous Rx's Medication Instructions Recorded loperamide 2 mg capsule (Imodium 2 mg PO Q6H PRN loose stool #10 05/25/21 A-D) caps ondansetron 4 mg disintegrating 4 mg PO Q8H PRN nausea and 05/25/21 tablet vomiting #12 tabs tiotropium bromide 2.5 2 puff inhalation QAM 30 days #4 05/31/21 mcg/actuation mist for inhalation grams (Spiriva Respimat) morphine 15 mg immediate release 15 mg PO Q4-6H PRN pain #10 tabs 10/09/21 tablet ondansetron 4 mg disintegrating 4 mg PO Q6-8H PRN nausea and 10/09/21 tablet vomiting #14 tabs ketorolac 10 mg tablet 10 mg PO BID PRN pain #7 tabs 11/09/21 metoclopramide HCl 5 mg tablet 5 mg PO BID PRN nausea and 11/09/21 (Reglan) vomiting #7 tabs amitriptyline 50 mg tablet 50 mg PO BEDTIME #30 tabs 12/24/21 tramadol 50 mg tablet 50 mg PO TID PRN pain #20 tabs 12/24/21 cyclobenzaprine 10 mg tablet 10 mg PO Q8H PRN muscle spasm #10 03/20/22 tabs ibuprofen 600 mg tablet 600 mg PO Q6H PRN pain #30 tabs 03/20/22 lidocaine 5 % topical patch 1 patch topical DAILY #15 ea 03/20/22 (Lidoderm) nitrofurantoin 100 mg PO Q12H 5 days #10 caps 03/20/22 monohydrate/macrocrystals 100 mg capsule (Macrobid) <EDSON Garcia - Last Filed: 03/20/22 13:27> Allergies/Adverse Reactions: Allergies Allergy/AdvReac Type Severity Reaction Status Date / Time Sulfa (Sulfonamide Allergy Unknown UNKNOWN Verified 12/24/21 17:40 Antibiotics) [SULFA (SULFONAMIDE ANTIBIOTICS)] <EDSON Garcia - Last Filed: 03/20/22 13:27> Review of Systems Review of Systems Yes all other systems are reviewed and are negative <Adri Nieves NP - Last Filed: 03/20/22 16:38> Constitutional: Reports no additional constitutional complaints, Denies body ache(s), Denies chills, Denies fever(s), Denies headache(s) and Denies weakness <Adri Nieves NP - Last Filed: 03/20/22 16:38> Eyes: Reports no additional eye complaints and Denies change in vision <Adri Nieves NP - Last Filed: 03/20/22 16:38> Reports system reviewed and no additional complaints, except as documented, Denies dizziness, Denies headache(s), Denies nasal congestion, Denies nasal discharge and Denies neck pain <Adri Nieves NP - Last Filed: 03/20/22 16:38> Cardiovascular: Reports no additional cardiovascular complaints, Denies chest pain, Denies leg edema and Denies dyspnea <Adri Nieves NP - Last Filed: 03/20/22 16:38> Respiratory: Reports no additional respiratory complaints, Denies cough and Denies dyspnea <Adri Nieves NP - Last Filed: 03/20/22 16:38> Gastrointestinal: Reports no additional gastrointestinal complaints, Denies abdominal pain, Denies diarrhea, Denies nausea and Denies vomiting <Adri Nieves NP - Last Filed: 03/20/22 16:38> Genitourinary: Reports no additional female genitourinary complaints and Denies urinary incontinence <Adri Nieves NP - Last Filed: 03/20/22 16:38> Musculoskeletal: Reports no additional musculoskeletal complaints, Reports back pain, Denies arthralgias, Denies joint swelling, Denies neck pain, Denies numbness, Reports radiating pain into limb and Denies tingling <Adri Nieves NP - Last Filed: 03/20/22 16:38> Skin/Breast: Reports system reviewed and no additional complaints, except as docu and Denies rash <Adri Nieves NP - Last Filed: 03/20/22 16:38> Reports system reviewed and no additional complaints, except as documented, Denies dizziness, Denies headache(s), Denies numbness, Denies tingling and Denies weakness <Adri Nieves NP - Last Filed: 03/20/22 16:38> [facility] Past Medical History Attestation statement: The following information was validated with the patient. <Adri Nieves NP - Last Filed: 03/20/22 16:38> Source: old records reviewed and nursing notes reviewed <Adri Nieves NP - Last Filed: 03/20/22 16:38> Medical History: Medical History Asthma Pre-diabetes <EDSON Garcia - Last Filed: 03/20/22 13:27> Social History Social History: Social History Alcohol intake: never Patient Tobacco Use Status: Never used Tobacco Advance Directives: No Advance Directives Information Provided: No <EDSON Garcia - Last Filed: 03/20/22 13:27> Physical Exam ED Vital Signs: Vital Signs - 24 hr 03/20/22 13:22 Temperature 97.6 F Pulse Rate 90 Respiratory Rate 18 Blood Pressure 132/83 Pulse Oximetry 99 Oxygen Delivery Method Room Air BMI result Body Mass Index 31.3 <EDSON Garcia - Last Filed: 03/20/22 13:27> Vital Signs - 24 hr 03/20/22 13:22 Temperature 97.6 F Pulse Rate 90 Respiratory Rate 18 Blood Pressure 132/83 Pulse Oximetry 99 Oxygen Delivery Method Room Air BMI result Body Mass Index 31.3 <Adri Nieves NP - Last Filed: 03/20/22 16:38> Const General: cooperative, healthy appearing, comfortable and no acute distress <Adri Nieves NP - Last Filed: 03/20/22 16:38> Orientation/consciousness: patient oriented x3 <Adri Nieves AIRPORT OPERATIONS DUTY MANAGER - Last Filed: 03/20/22 16:38> Limitations: no limitations <Adri Nieves AIRPORT OPERATIONS DUTY MANAGER - Last Filed: 03/20/22 16:38> HENMT Head: Yes normal to inspection <Adri Nieves AIRPORT OPERATIONS DUTY MANAGER - Last Filed: 03/20/22 16:38> Ears: hearing grossly normal bilaterally <Adri Nieves AIRPORT OPERATIONS DUTY MANAGER - Last Filed: 03/20/22 16:38> Eyes General: appearance normal, both eyes and all related structures <Adri Nieves AIRPORT OPERATIONS DUTY MANAGER - Last Filed: 03/20/22 16:38> Pupils: Equal, round and reactive pupils present <Adri Nieves AIRPORT OPERATIONS DUTY MANAGER - Last Filed: 03/20/22 16:38> Neck Neck: Yes normal visual inspection, Yes full ROM and Yes no lymphadenopathy <Adri Nieves AIRPORT OPERATIONS DUTY MANAGER - Last Filed: 03/20/22 16:38> Chest Chest palpation & inspection: normal inspection of the chest <Adri Nieves AIRPORT OPERATIONS DUTY MANAGER - Last Filed: 03/20/22 16:38> Resp Effort & Inspection: normal respiratory effort <Adri Nieves AIRPORT OPERATIONS DUTY MANAGER - Last Filed: 03/20/22 16:38> Auscultation: clear to auscultation bilaterally <Adri Nieves AIRPORT OPERATIONS DUTY MANAGER - Last Filed: 03/20/22 16:38> Cardio Rate: regular rate <Adri Nieves AIRPORT OPERATIONS DUTY MANAGER - Last Filed: 03/20/22 16:38> Rhythm: regular rhythm <Adri Nieves AIRPORT OPERATIONS DUTY MANAGER - Last Filed: 03/20/22 16:38> Peripheral pulses: Peripheral pulses 2+ throughout <Adri Nieves AIRPORT OPERATIONS DUTY MANAGER - Last Filed: 03/20/22 16:38> GI Inspection: Yes normal to inspection <Adri Nieves AIRPORT OPERATIONS DUTY MANAGER - Last Filed: 03/20/22 16:38> Palpation (GI): Soft to palpation and nontender <Adri Nieves AIRPORT OPERATIONS DUTY MANAGER - Last Filed: 03/20/22 16:38> Back/Spine/Pelvis Other: Tenderness the left lumbar soft tissue area extending up to the flank. Pain is worsened with left straight leg raise <Adri Nieves AIRPORT OPERATIONS DUTY MANAGER - Last Filed: 03/20/22 16:38> Thoracic/Lumbar Spine: thoracic and lumbar spine normal to inspection <Adri Nieves AIRPORT OPERATIONS DUTY MANAGER - Last Filed: 03/20/22 16:38> Skin General skin exam: no rashes or lesions noted <Adri Nieves AIRPORT OPERATIONS DUTY MANAGER - Last Filed: 03/20/22 16:38> Neuro General: patient oriented x3 and moves all extremities <Adri Nieves, AIRPORT OPERATIONS DUTY MANAGER - Last Filed: 03/20/22 16:38> Cranial nerves: Yes CN's II-XII intact bilaterally, Yes Equal, round and reactive pupils present, Yes Bilaterally intact EOM present, Yes Nystagmus not present, Yes Normal facial strength present and Yes Midline tongue present <Adri Nieves, AIRPORT OPERATIONS DUTY MANAGER - Last Filed: 03/20/22 16:38> Cognition (Neuro): normal cognition <Adri Nieves AIRPORT OPERATIONS DUTY MANAGER - Last Filed: 03/20/22 16:38> Gait exam (Neuro): Normal gait present <Adri Nieves AIRPORT OPERATIONS DUTY MANAGER - Last Filed: 03/20/22 16:38> Motor exam (neuro): 5/5 motor strength present throughout <Adri Nieves AIRPORT OPERATIONS DUTY MANAGER - Last Filed: 03/20/22 16:38> Sensory Exam: Normal double simultaneous stimulation for sensation <Adri Nieves AIRPORT OPERATIONS DUTY MANAGER - Last Filed: 03/20/22 16:38> Extrem General: Yes normal to inspection, Yes no pedal edema and Yes no calf tenderness <Adri Nieves AIRPORT OPERATIONS DUTY MANAGER - Last Filed: 03/20/22 16:38> Course Course Course Narrative: TED 13:30PM - 31yoF who is [place]-speaking presenting to the ER with her son at bedside with complaints of left back/left flank/left abdominal pain that is radiating down to her left leg since yesterday worse today. She is concerned might be a kidney stone. Reports she has never had kidney stones in the past. Reports she has had back pain in the past although never like this. She denies any fevers, chest pain, shortness of breath, rashes, recent falls or trauma, dysuria hematuria, abnormal vaginal discharge, saddle anesthesias or any other symptoms complaints or concerns at this time. Plan: Labs, UA, UHCG, CT scan abdomen pelvis with IV contrast ordered at this time. Patient sent back to the waiting room to be evaluated in the ED. <EDSON Garcia - Last Filed: 03/20/22 13:27> Reevaluation(s) Reevaluation #1: 1540-CT shows IMPRESSION: 1.? No evidence of nephrolithiasis or hydroureteronephrosis. 2.? Bulky uterus most likely with uterine fibroids and possible right ovarian enlargement. Correlate with pelvic ultrasound, if clinically indicated. 3.? Status post cholecystectomy. 4.? Small fat-containing umbilical hernia. I re-examined the patient with a diesel engine i pipe fitter. She adamantly denies any right sided abdominal pain or right pelvic pain. Low concern for torsion. She was informed of the results. Her labs are unremarkable. She does have a mild UTI. Likely lumbar strain. Low concern for pyelonephritis. Patient to receive analgesia and will reassess <Adri Nieves NP - Last Filed: 03/20/22 16:38> Reevaluation #2: 1630- pain is feeling improved. Plan for discharge home with antibiotics and pain control. Reviewed worrisome signs and symptoms of when to return to the emergency room. Comfortable plan for discharge home. <Adri Nieves NP - Last Filed: 03/20/22 16:38> Medical Decision Making Medical Decision Making MDM Narrative: 31-year-old female here with complaints of left back pain with radiation to left groin and down left leg since yesterday with no known injury or trauma. No other associated symptoms. On exam there is tenderness the left lumbar area and up to the flank. Pain is worsened with movement and straight leg raise on left side. No focal abdominal pain. Lungs are clear. Normal neuro exam with no focal findings. Will need labs, UA, CT <Adri Nieves NP - Last Filed: 03/20/22 16:38> Differential Diagnosis Differential Diagnoses: The differential diagnosis associated with the presentation includes <Adri Nieves NP - Last Filed: 03/20/22 16:38> consider renal colic, pyelonephritis, lumbar strain Low concern for epidural abscess with no history of IV drug abuse, immunocompromised state, fever, no neurological findings on exam Low concern for cord compression or cauda equina with normal neurological exam. Low concern for AAA w/ gradual onset <Adri Nieves NP - Last Filed: 03/20/22 16:38> Admission/Observation Consideration of admission/observation: Escalation of care including admission/observation considered <Adri Nieves NP - Last Filed: 03/20/22 16:38> Lab Data MDM Lab Attestation statement: I reviewed the patient's lab results. <Adri Nieves NP - Last Filed: 03/20/22 16:38> Result Diagrams: 03/20/22 13:53 03/20/22 13:53 <EDSON Garcia - Last Filed: 03/20/22 13:27> Labs: Lab Results 03/20/22 03/20/22 03/20/22 Range/Units 13:53 13:53 13:53 WBC 8.2 (4.8-10.8) X10*3/uL RBC 4.51 (4.20-5.50) X10*6/uL Hgb 12.0 (12.0-16.0) g/dl Hct 36.6 L (37.0-47.0) % MCV 81.2 (80.0-98.0) fL MCH 26.6 L (27.0-33.0) pg MCHC 32.8 (31.0-35.0) g/dl RDW 13.3 (11.0-16.0) % Plt Count 266 (160-400) X10*3/uL MPV 9.9 (9.4-12.3) fL Immature Gran % (Auto) 0.2 (0.0-0.4) % Neut % (Auto) 71.5 (45-73) % Lymph % (Auto) 20.5 (20-40) % [place] % (Auto) 5.8 (2-11) % Eos % (Auto) 1.6 (0-4) % Baso % (Auto) 0.4 (0-2) % Lymph # (Auto) 1.7 (1.2-4.9) X10*3/uL [place] # (Auto) 0.5 (0.1-1.2) X10*3/uL Eos # (Auto) 0.1 (0.0-0.4) X10*3/uL Baso # (Auto) 0.0 (0.0-0.2) X10*3/uL Abs Immat Gran (auto) 0.02 (0.00-0.03) X10*3/uL Absolute Neuts (auto) 5.9 (2.0-8.3) x10*3/uL Absolute Nucleated RBC 0.000 (0.0-0.012) X10*3/uL Nucleated RBC % (auto) 0.0 (0.0-0.2) /100WBC PT 13.4 H (10.0-13.1) SEC INR 1.2 H (0.9-1.1) Sodium 140 (135-145) mmol/L Potassium 3.8 (3.3-5.1) mmol/L Chloride 105 (96-108) mmol/L Carbon Dioxide 25 (22-29) mmol/L Anion Gap 14 (12-20) BUN 13 (9-16) mg/dL Creatinine 0.76 (0.5-1.4) mg/dL Estim Creat Clear Calc 121.7 Estimated GFR > 60 Random Glucose 137 H (60-115) mg/dL Calcium 8.8 (8.4-10.2) mg/dL Magnesium 2.0 (1.6-2.6) mg/dL Total Bilirubin 0.3 (0.0-1.0) mg/dL AST 14 (5-31) U/L ALT 13 (0-31) U/L Alkaline Phosphatase 74 (39-117) U/L Total Protein 7.4 (6.5-8.0) g/dL Albumin 4.2 (3.5-5.0) g/dL Lipase 12 (8-78) U/L Beta HCG, Quant < 2 mIU/mL Urine Color Urine Appearance Urine pH (5.0-9.0) Ur Specific [place] (1.005-1.025) Urine Protein (Neg-Trace) mg/dL Urine Glucose (UA) (Negative) mg/dL Urine Ketones (Negative) mg/dL Urine Blood (Negative) Urine Nitrite (Negative) Ur Leukocyte Esterase (Negative) Urine RBC (0-2) /HPF Urine WBC (0-5) /HPF Ur Squamous Epith Cells (0-2) /HPF Urine Bacteria (None Seen) Hyaline Casts (0-2) /LPF 03/20/22 Range/Units 13:53 WBC (4.8-10.8) X10*3/uL RBC (4.20-5.50) X10*6/uL Hgb (12.0-16.0) g/dl Hct (37.0-47.0) % MCV (80.0-98.0) fL MCH (27.0-33.0) pg MCHC (31.0-35.0) g/dl RDW (11.0-16.0) % Plt Count (160-400) X10*3/uL MPV (9.4-12.3) fL Immature Gran % (Auto) (0.0-0.4) % Neut % (Auto) (45-73) % Lymph % (Auto) (20-40) % [place] % (Auto) (2-11) % Eos % (Auto) (0-4) % Baso % (Auto) (0-2) % Lymph # (Auto) (1.2-4.9) X10*3/uL [place] # (Auto) (0.1-1.2) X10*3/uL Eos # (Auto) (0.0-0.4) X10*3/uL Baso # (Auto) (0.0-0.2) X10*3/uL Abs Immat Gran (auto) (0.00-0.03) X10*3/uL Absolute Neuts (auto) (2.0-8.3) x10*3/uL Absolute Nucleated RBC (0.0-0.012) X10*3/uL Nucleated RBC % (auto) (0.0-0.2) /100WBC PT (10.0-13.1) SEC INR (0.9-1.1) Sodium (135-145) mmol/L Potassium (3.3-5.1) mmol/L Chloride (96-108) mmol/L Carbon Dioxide (22-29) mmol/L Anion Gap (12-20) BUN (9-16) mg/dL Creatinine (0.5-1.4) mg/dL Estim Creat Clear Calc Estimated GFR Random Glucose (60-115) mg/dL Calcium (8.4-10.2) mg/dL Magnesium (1.6-2.6) mg/dL Total Bilirubin (0.0-1.0) mg/dL AST (5-31) U/L ALT (0-31) U/L Alkaline Phosphatase (39-117) U/L Total Protein (6.5-8.0) g/dL Albumin (3.5-5.0) g/dL Lipase (8-78) U/L Beta HCG, Quant mIU/mL Urine Color Yellow Urine Appearance Cloudy Urine pH 5.5 (5.0-9.0) Ur Specific [place] >= 1.030 H (1.005-1.025) Urine Protein Trace (Neg-Trace) mg/dL Urine Glucose (UA) Negative (Negative) mg/dL Urine Ketones Trace (Negative) mg/dL Urine Blood Negative (Negative) Urine Nitrite Negative (Negative) Ur Leukocyte Esterase Trace H (Negative) Urine RBC 3-5 H (0-2) /HPF Urine WBC 0-5 (0-5) /HPF Ur Squamous Epith Cells 11-20 (0-2) /HPF Urine Bacteria None Seen (None Seen) Hyaline Casts 0-2 (0-2) /LPF <EDSON Garcia - Last Filed: 03/20/22 13:27> Lab Results 03/20/22 03/20/22 03/20/22 Range/Units 13:53 13:53 13:53 WBC 8.2 (4.8-10.8) X10*3/uL RBC 4.51 (4.20-5.50) X10*6/uL Hgb 12.0 (12.0-16.0) g/dl Hct 36.6 L (37.0-47.0) % MCV 81.2 (80.0-98.0) fL MCH 26.6 L (27.0-33.0) pg MCHC 32.8 (31.0-35.0) g/dl RDW 13.3 (11.0-16.0) % Plt Count 266 (160-400) X10*3/uL MPV 9.9 (9.4-12.3) fL Immature Gran % (Auto) 0.2 (0.0-0.4) % Neut % (Auto) 71.5 (45-73) % Lymph % (Auto) 20.5 (20-40) % [place] % (Auto) 5.8 (2-11) % Eos % (Auto) 1.6 (0-4) % Baso % (Auto) 0.4 (0-2) % Lymph # (Auto) 1.7 (1.2-4.9) X10*3/uL [place] # (Auto) 0.5 (0.1-1.2) X10*3/uL Eos # (Auto) 0.1 (0.0-0.4) X10*3/uL Baso # (Auto) 0.0 (0.0-0.2) X10*3/uL Abs Immat Gran (auto) 0.02 (0.00-0.03) X10*3/uL Absolute Neuts (auto) 5.9 (2.0-8.3) x10*3/uL Absolute Nucleated RBC 0.000 (0.0-0.012) X10*3/uL Nucleated RBC % (auto) 0.0 (0.0-0.2) /100WBC PT 13.4 H (10.0-13.1) SEC INR 1.2 H (0.9-1.1) Sodium 140 (135-145) mmol/L Potassium 3.8 (3.3-5.1) mmol/L Chloride 105 (96-108) mmol/L Carbon Dioxide 25 (22-29) mmol/L Anion Gap 14 (12-20) BUN 13 (9-16) mg/dL Creatinine 0.76 (0.5-1.4) mg/dL Estim Creat Clear Calc 121.7 Estimated GFR > 60 Random Glucose 137 H (60-115) mg/dL Calcium 8.8 (8.4-10.2) mg/dL Magnesium 2.0 (1.6-2.6) mg/dL Total Bilirubin 0.3 (0.0-1.0) mg/dL AST 14 (5-31) U/L ALT 13 (0-31) U/L Alkaline Phosphatase 74 (39-117) U/L Total Protein 7.4 (6.5-8.0) g/dL Albumin 4.2 (3.5-5.0) g/dL Lipase 12 (8-78) U/L Beta HCG, Quant < 2 mIU/mL Urine Color Urine Appearance Urine pH (5.0-9.0) Ur Specific [place] (1.005-1.025) Urine Protein (Neg-Trace) mg/dL Urine Glucose (UA) (Negative) mg/dL Urine Ketones (Negative) mg/dL Urine Blood (Negative) Urine Nitrite (Negative) Ur Leukocyte Esterase (Negative) Urine RBC (0-2) /HPF Urine WBC (0-5) /HPF Ur Squamous Epith Cells (0-2) /HPF Urine Bacteria (None Seen) Hyaline Casts (0-2) /LPF 03/20/22 Range/Units 13:53 WBC (4.8-10.8) X10*3/uL RBC (4.20-5.50) X10*6/uL Hgb (12.0-16.0) g/dl Hct (37.0-47.0) % MCV (80.0-98.0) fL MCH (27.0-33.0) pg MCHC (31.0-35.0) g/dl RDW (11.0-16.0) % Plt Count (160-400) X10*3/uL MPV (9.4-12.3) fL Immature Gran % (Auto) (0.0-0.4) % Neut % (Auto) (45-73) % Lymph % (Auto) (20-40) % [place] % (Auto) (2-11) % Eos % (Auto) (0-4) % Baso % (Auto) (0-2) % Lymph # (Auto) (1.2-4.9) X10*3/uL [place] # (Auto) (0.1-1.2) X10*3/uL Eos # (Auto) (0.0-0.4) X10*3/uL Baso # (Auto) (0.0-0.2) X10*3/uL Abs Immat Gran (auto) (0.00-0.03) X10*3/uL Absolute Neuts (auto) (2.0-8.3) x10*3/uL Absolute Nucleated RBC (0.0-0.012) X10*3/uL Nucleated RBC % (auto) (0.0-0.2) /100WBC PT (10.0-13.1) SEC INR (0.9-1.1) Sodium (135-145) mmol/L Potassium (3.3-5.1) mmol/L Chloride (96-108) mmol/L Carbon Dioxide (22-29) mmol/L Anion Gap (12-20) BUN (9-16) mg/dL Creatinine (0.5-1.4) mg/dL Estim Creat Clear Calc Estimated GFR Random Glucose (60-115) mg/dL Calcium (8.4-10.2) mg/dL Magnesium (1.6-2.6) mg/dL Total Bilirubin (0.0-1.0) mg/dL AST (5-31) U/L ALT (0-31) U/L Alkaline Phosphatase (39-117) U/L Total Protein (6.5-8.0) g/dL Albumin (3.5-5.0) g/dL Lipase (8-78) U/L Beta HCG, Quant mIU/mL Urine Color Yellow Urine Appearance Cloudy Urine pH 5.5 (5.0-9.0) Ur Specific [place] >= 1.030 H (1.005-1.025) Urine Protein Trace (Neg-Trace) mg/dL Urine Glucose (UA) Negative (Negative) mg/dL Urine Ketones Trace (Negative) mg/dL Urine Blood Negative (Negative) Urine Nitrite Negative (Negative) Ur Leukocyte Esterase Trace H (Negative) Urine RBC 3-5 H (0-2) /HPF Urine WBC 0-5 (0-5) /HPF Ur Squamous Epith Cells 11-20 (0-2) /HPF Urine Bacteria None Seen (None Seen) Hyaline Casts 0-2 (0-2) /LPF <Adri Nieves NP - Last Filed: 03/20/22 16:38> Independent Interpretation I performed an independent interpretation of an: CT Scan <SOLOMON Ford Last Filed: 03/20/22 16:38> Interpretation: I independently reviewed the CT and agree with radiologist's report <Adri Nieves NP - Last Filed: 03/20/22 16:38> Radiology Impression Discussion of test interpretation with radiology: I have reviewed the radiologist's reading. <Adri Nieves NP - Last Filed: 03/20/22 16:38> Radiologist Impression: [address] [address] [address] Scan Report Signed Patient: Aundrea Bhardwaj MR#: [id number] : 1990 Acct:[id number] Age/Sex: 31 / F ADM Date: 03/20/22 Loc: HO.ED Attending Dr: Ordering Physician: Sandi Spain Date of Service: 03/20/22 Procedure(s): CT abdomen pelvis wo IV con Accession Number(s): [id number] cc: Sandi Spain~ EXAMINATION: CT ABDOMEN AND PELVIS WITHOUT CONTRAST? CLINICAL INFORMATION: Left flank , back, abdominal pain for 2 days? COMPARISON: Abdominal ultrasound from July [address] scan of the abdomen from October 2014? TECHNIQUE: Multidetector volumetric imaging was performed from the superior aspect of the liver through the pubic symphysis. Sagittal and coronal reformatted images were obtained on the technologist's workstation.? This CT examination was performed using dose optimization techniques as appropriate, variously including the following: *Automated exposure control *Adjustment of mA and/or kV according to patient size (this includes techniques or standardized protocols for targeted exams where dose is matched to indication/reason for exam; i.e. extremities or head) *Use of iterative reconstruction technique DLP: 607 mGy-cm FINDINGS: LUNG BASES: The visualized lung bases are unremarkable.? LIVER, GALLBLADDER, AND BILIARY TREE: The liver is normal in size, shape, and attenuation. No focal hepatic lesion or biliary ductal dilatation is present. Gallbladder is surgically absent.? PANCREAS: Unremarkable.? SPLEEN: Unremarkable.? ADRENAL GLANDS: Unremarkable.? KIDNEYS AND URETERS: The kidneys are normal in size, shape, and attenuation. No hydronephrosis, hydroureter, or calculi seen. No perinephric stranding. ? BLADDER: Unremarkable.? GASTROINTESTINAL TRACT: The small and large bowel are unremarkable. The appendix is unremarkable.? ABDOMINAL WALL: There is small fat-containing umbilical hernia? LYMPH NODES: There are a few scattered inguinal lymph nodes and mesenteric lymph nodes of nonpathological size the largest lymph node on the right measures 0.7 cm. VASCULAR: Unremarkable. PELVIC VISCERA: Uterus is bulky most likely with uterine fibroids. Right ovary possibly enlarged correlate with pelvic ultrasound if clinically indicated.? OSSEOUS STRUCTURES: Unremarkable.? CT/CT abdomen pelvis wo IV con IMPRESSION: 1.? No evidence of nephrolithiasis or hydroureteronephrosis. 2.? Bulky uterus most likely with uterine fibroids and possible right ovarian enlargement. Correlate with pelvic ultrasound, if clinically indicated. 3.? Status post cholecystectomy. 4.? Small fat-containing umbilical hernia. ? <Adri Nieves NP - Last Filed: 03/20/22 16:38> Medications Administered Discontinued Medications Generic Name Dose Route Start Last Admin Trade Name Freq PRN Reason Stop Dose Admin Diazepam 2 mg 03/20/22 15:25 03/20/22 15:30 Diazepam 2 Mg Tablet PO 03/20/22 15:26 2 mg ONCE ONE Administration Ketorolac Tromethamine 30 mg 03/20/22 15:20 03/20/22 15:30 Ketorolac Tromethamine 30 Mg/Ml Vial IM 03/20/22 15:21 30 mg ONCE ONE Administration <EDSON Garcia - Last Filed: 03/20/22 13:27> Medications Administered Discontinued Medications Generic Name Dose Route Start Last Admin Trade Name Freq PRN Reason Stop Dose Admin Diazepam 2 mg 03/20/22 15:25 03/20/22 15:30 Diazepam 2 Mg Tablet PO 03/20/22 15:26 2 mg ONCE ONE Administration Ketorolac Tromethamine 30 mg 03/20/22 15:20 03/20/22 15:30 Ketorolac Tromethamine 30 Mg/Ml Vial IM 03/20/22 15:21 30 mg ONCE ONE Administration <Adri Nieves NP - Last Filed: 03/20/22 16:38> Discharge Plan Discharge Clinical Impression: Lumbar strain, UTI (urinary tract infection) <EDSON Garcia - Last Filed: 03/20/22 13:27> Patient Disposition: Home, Self-Care <EDSON Garcia - Last Filed: 03/20/22 13:27> Instructions: Back Pain (ED), Urinary Tract Infection in Women (ED) <EDSON Garcia Last Filed: 03/20/22 13:27> Additional Instructions: no heavy lifting or bending Gentle stretching Follow-up with primary care doctor for any persistent symptoms sin levantar objetos pesados ??ni agacharse Estiramiento suave Seguimiento con el m?dico de atenci?n primaria por cualquier s?ntoma persistente <EDSON Garcia - Last Filed: 03/20/22 13:27> Prescriptions: New lidocaine [Lidoderm] 5 % adhesive patch,medicated 1 patch topical DAILY Qty: 15 0RF Rx Instructions: leave on most painful area for up to 12 hrs cyclobenzaprine 10 mg tablet 10 mg PO Q8H PRN (Reason: muscle spasm) Qty: 10 0RF ibuprofen 600 mg tablet 600 mg PO Q6H PRN (Reason: pain) Qty: 30 0RF nitrofurantoin monohyd/m-cryst [Macrobid] 100 mg capsule 100 mg PO Q12H 5 Days Qty: 10 0RF Rx Instructions: must administer with a meal/food No Action morphine 15 mg tablet 15 mg PO Q4-6H PRN (Reason: pain) Qty: 10 0RF Rx Instructions: The patient may ask for partial fill; Partial Fill upon patient request. ondansetron 4 mg tablet,disintegrating 4 mg PO Q6-8H PRN (Reason: nausea and vomiting) Qty: 14 0RF ketorolac 10 mg tablet 10 mg PO BID PRN (Reason: pain) Qty: 7 0RF Rx Instructions: Do not use this medication with NSAIDs/ibuprofen/Aleve, only use Tylenol if needed metoclopramide HCl [Reglan] 5 mg tablet 5 mg PO BID PRN (Reason: nausea and vomiting) Qty: 7 0RF Rx Instructions: Take together with ketorolac p.r.n. severe headache amitriptyline 50 mg tablet 50 mg PO BEDTIME Qty: 30 0RF tramadol 50 mg tablet 50 mg PO TID PRN (Reason: pain) Qty: 20 0RF ondansetron 4 mg tablet,disintegrating 4 mg PO Q8H PRN (Reason: nausea and vomiting) Qty: 12 0RF loperamide [Imodium A-D] 2 mg capsule 2 mg PO Q6H PRN (Reason: loose stool) Qty: 10 0RF labetalol 100 mg tablet 100 mg PO BID M-Elida Plus 27 mg iron- 1 mg tablet 1 tab PO DAILY cholecalciferol (vitamin D3) [Vitamin D3] 25 mcg (1,000 unit) capsule 25 mcg PO DAILY sertraline 50 mg tablet 50 mg PO DAILY Flovent Diskus 250 mcg/actuation blister with device 1 inh PO BID albuterol sulfate [ProAir HFA] 90 mcg/actuation HFA aerosol inhaler 2 puff PO Q4-6H PRN montelukast 10 mg tablet 10 mg PO QPM omeprazole 20 mg capsule,delayed release(DR/EC) 20 mg PO DAILY amlodipine 10 mg tablet 10 mg PO DAILY albuterol sulfate 2.5 mg /3 mL (0.083 %) solution for nebulization inhalation QID PRN duloxetine 30 mg capsule,delayed release(DR/EC) 30 mg PO DAILY hydrochlorothiazide 25 mg tablet 25 mg PO DAILY Spiriva Respimat 2.5 mcg/actuation mist 2 puff inhalation QAM 30 Days Qty: 4 6RF <EDSON Garcia - Last Filed: 03/20/22 13:27> Referrals: Rosenda Hernandez MD [Primary Care Provider] - 1 week <EDSON Garcia - Last Filed: 03/20/22 13:27> Stand Alone Forms: Work/School Release <EDSON Garcia - Last Filed: 03/20/22 13:27> Print Language: South Korean <EDSON Garcia - Last Filed: 03/20/22 13:27>
[2022-03-20 14:00] LABS: Basophils Percent Auto 0.4 % (0-2); Eosinophils Absolute Auto 0.1 X10*3/uL (0.0-0.4); Eosinophils Percent Auto 1.6 % (0-4); Hematocrit 36.6 % (37.0-47.0); Imm Gran Abs Auto 0.02 X10*3/uL (0.00-0.03); Imm Gran Pct Auto 0.2 % (0.0-0.4); Lymphocytes Absolute Auto 1.7 X10*3/uL (1.2-4.9); Lymphocytes Percent Auto 20.5 % (20-40); MANUAL DIFF FLAG NO; Mean Corpuscular HGB Conc 32.8 g/dl (31.0-35.0); Mean Corpuscular Hemoglobin 26.6 pg (27.0-33.0); Mean Corpuscular Volume 81.2 fL (80.0-98.0); Mean Platelet Volume 9.9 fL (9.4-12.3); Monocytes Absolute Auto 0.5 X10*3/uL (0.1-1.2); Monocytes Percent Auto 5.8 % (2-11); Neutrophils Absolute Auto 5.9 x10*3/uL (2.0-8.3); Neutrophils Percent Auto 71.5 % (45-73); Platelet Count 266 X10*3/uL (160-400); Red Blood Count 4.51 X10*6/uL (4.20-5.50); Red Cell Distribution Width 13.3 % (11.0-16.0); White Blood Count 8.2 X10*3/uL (4.8-10.8)
[2022-03-20 14:02] LABS: Appearance Urine Cloudy; Color Urine Yellow; Glucose Urine UA Negative (Negative); Leukocyte Esterase Urine Trace (Negative); Nitrite Urine Negative (Negative); PH 5.5 (5.0-9.0); Specific Gravity - Urine >= 1.030 (1.005-1.025); UMIC TRIGGER UACC YES; Urine Blood Negative (Negative); Urine Ketones Trace mg/dL (Negative); Urine Protein Trace mg/dL (Neg-Trace)
[2022-03-20 14:04] LABS: Bacteria Urine None Seen (None Seen); Hyaline Casts Urine 0-2 /LPF (0-2); WBC Urine 0-5 /HPF (0-5)
[2022-03-20 14:08] LABS: INTERNATIONAL NORM RATIO 1.2 (0.9-1.1); Prothrombin Time 13.4 SEC (10.0-13.1)
[2022-03-20 14:23] LABS: Alanine Aminotransferase 13 U/L (0-31); Albumin Level 4.2 g/dL (3.5-5.0); Alkaline Phosphatase 74 U/L (39-117); Anion Gap 14 (12-20); Aspartate Amino Transferase 14 U/L (5-31); Bilirubin Total 0.3 mg/dL (0.0-1.0); Blood Urea Nitrogen 13 mg/dL (9-16); Calcium 8.8 mg/dL (8.4-10.2); Carbon Dioxide 25 mmol/L (22-29); Chloride 105 mmol/L (96-108); Creatinine Clr Calc Pharmacy 121.7; Estimated Glomerular Filt Rate > 60; Glucose Random 137 mg/dL (60-115); HCG Quantitative < 2 mIU/mL; Lipase 12 U/L (8-78); Potassium 3.8 mmol/L (3.3-5.1); Sodium 140 mmol/L (135-145); Total Protein 7.4 g/dL (6.5-8.0)
[2022-03-20] MEDS: diazePAM 2 MG TABLET PO (15:30)
[2022-03-20] MEDS: Ketorolac Tromethamine 30 MG/ML VIAL IM (15:30)
--- NOTE | 2022-03-20 15:33 | PC.NURSE ---
Pt resting on stretcher, reports 10/10 abdominal pain. Pain medication administered per MAR
== END 2022-03-20 16:40 | disposition home or self-care (01) ==
PROVIDERS: Physician Assistant Medical; Emergency Provider Emergency Medicine Emergency Medical Services; PCP Internal Medicine
DX: R10.13 Epigastric pain (principal); M54.50 Low back pain, unspecified; Z79.899 Other long term (current) drug therapy
CPT/HCPCS: 36415; 74176; 80053; 81001; 81003; 83690; 83735; 84702; 85025; 85610; 96372; 99283; 99284; J1885

== ENCOUNTER 2022-07-26 08:56 | Emergency (ER) | payer MEDICAID, SELFPAY ==
--- NOTE | ~2022-07-26 | XR_ITS ---
EXAMINATION: XR CHEST CLINICAL INFORMATION: Dyspnea COMPARISON: None available. TECHNIQUE: Frontal portable view of the chest was obtained. 0950 hours. FINDINGS: No significant abnormality is noted involving the heart, lungs, mediastinum, bony thorax or soft tissues. XR/XR chest 1V IMPRESSION: Unremarkable examination.
[2022-07-26 08:58] VITALS: BP 149/87; PULSE 79; RESP 18; TEMP 36.4; O2SAT 98; BMI 31.6
--- NOTE | 2022-07-26 08:58 | ECG_ITS ---
Test Reason : chest pain/dyspnea Blood Pressure : / mmHG Vent. Rate : 072 BPM Atrial Rate : 072 BPM P-R Int : 118 ms QRS Dur : 080 ms QT Int : 412 ms P-R-T Axes : 005 030 028 degrees QTc Int : 451 ms Normal sinus rhythm Nonspecific ST and T wave abnormality Borderline ECG When compared with ECG of 24-DEC-2021 17:13, No significant change was found Referred By: Generic ED Physician Electronically Signed By:STEWART FLORENTINO
--- NOTE | 2022-07-26 09:09 | ED.CHESTPAIN ---
HPI - Chest Pain General Chief Complaint: Chest Pain Stated Complaint: chest pain, SOB, leakage in heart? Time Seen by Provider: 07/26/22 09:08 Source: patient, RN notes reviewed, old records reviewed and network analyst Mode of arrival: ambulatory Limitations: language barrier History of Present Illness HPI narrative: Patient is a 31-year-old female with history of asthma, HTN, and prediabetes presenting with complaint of constant dyspnea and left anterior chest pain since last night. She denies any radiation of pain. She also complains of generalized fatigue. Denies any cough or recent fevers. States has been using her inhaler without change in symptoms. Reports mild nausea, denies vomiting. Denies abdominal pain, diarrhea or constipation. Denies dysuria, hematuria or other urinary symptoms. Denies dizziness or lightheadedness, denies syncope. MD complaint: chest heaviness Pertinent past history: asthma and other (HTN) Onset (ago): hour(s) Timing of current episode: constant Prior episodes: Yes Onset: during rest Pain location: left chest Pain radiation: none Pain scale (0-10): 8 Quality: heaviness Relieving factors: nothing Exacerbating factors: nothing Associated symptoms: nausea Treatment prior to arrival: none Related Data Home Medications Medication Instructions Recorded Confirmed albuterol sulfate 2.5 mg/3 mL mg inhalation QID PRN 10/13/20 10/13/20 (0.083 %) solution for nebulization albuterol sulfate 90 mcg/actuation 2 puff PO Q4-6H PRN 10/13/20 10/13/20 aerosol inhaler (ProAir HFA) amlodipine 10 mg tablet 10 mg PO DAILY 10/13/20 10/13/20 cholecalciferol (vitamin D3) 25 25 mcg PO DAILY 10/13/20 10/13/20 mcg (1,000 unit) capsule (Vitamin D3) duloxetine 30 mg capsule,delayed 30 mg PO DAILY 10/13/20 10/13/20 release fluticasone propionate 250 1 inh PO BID 10/13/20 10/13/20 mcg/actuation blister powder for inhalation (Flovent Diskus) hydrochlorothiazide 25 mg tablet 25 mg PO DAILY 10/13/20 10/13/20 labetalol 100 mg tablet 100 mg PO BID 10/13/20 10/13/20 montelukast 10 mg tablet 10 mg PO QPM 10/13/20 10/13/20 omeprazole 20 mg capsule,delayed 20 mg PO DAILY 10/13/20 10/13/20 release vitamin with calcium 1 tab PO DAILY 10/13/20 10/13/20 no.72-iron 27 mg-folic acid 1 mg tablet (M-Elida Plus) sertraline 50 mg tablet 50 mg PO DAILY 10/13/20 10/13/20 Previous Rx's Medication Instructions Recorded loperamide 2 mg capsule (Imodium 2 mg PO Q6H PRN loose stool #10 05/25/21 A-D) caps ondansetron 4 mg disintegrating 4 mg PO Q8H PRN nausea and 05/25/21 tablet vomiting #12 tabs tiotropium bromide 2.5 2 puff inhalation QAM 30 days #4 05/31/21 mcg/actuation mist for inhalation grams (Spiriva Respimat) morphine 15 mg immediate release 15 mg PO Q4-6H PRN pain #10 tabs 10/09/21 tablet ondansetron 4 mg disintegrating 4 mg PO Q6-8H PRN nausea and 10/09/21 tablet vomiting #14 tabs ketorolac 10 mg tablet 10 mg PO BID PRN pain #7 tabs 11/09/21 metoclopramide HCl 5 mg tablet 5 mg PO BID PRN nausea and 11/09/21 (Reglan) vomiting #7 tabs amitriptyline 50 mg tablet 50 mg PO BEDTIME #30 tabs 12/24/21 tramadol 50 mg tablet 50 mg PO TID PRN pain #20 tabs 12/24/21 cyclobenzaprine 10 mg tablet 10 mg PO Q8H PRN muscle spasm #10 03/20/22 tabs ibuprofen 600 mg tablet 600 mg PO Q6H PRN pain #30 tabs 03/20/22 lidocaine 5 % topical patch 1 patch topical DAILY #15 ea 03/20/22 (Lidoderm) nitrofurantoin 100 mg PO Q12H 5 days #10 caps 03/20/22 monohydrate/macrocrystals 100 mg capsule (Macrobid) prednisone 20 mg tablet 40 mg PO DAILY #10 tabs 07/26/22 Allergies Allergy/AdvReac Type Severity Reaction Status Date / Time Sulfa (Sulfonamide Allergy Unknown UNKNOWN Verified 07/26/22 09:00 Antibiotics) [SULFA (SULFONAMIDE ANTIBIOTICS)] Review of Systems Review of Systems: As per HPI. Yes all other systems are reviewed and are negative Constitutional: Constitutional: Reports as per HPI [facility] Past Medical History Medical History Asthma Pre-diabetes Social History Social History Alcohol intake: never Patient Tobacco Use Status: Never used Tobacco Smoked in Last 30 Days: No Use of substances other than those prescribed or required for medical reasons: No Advance Directives: No Advance Directives Information Provided: Yes Patient : No Physical Exam Vital Signs: Vital Signs: Last Vital Signs Temp 98.2 F 07/26/22 10:00 Pulse 73 07/26/22 10:00 Resp 16 07/26/22 10:00 BP 114/63 07/26/22 10:00 Pulse Ox 99 07/26/22 10:00 O2 Del Method Room Air 07/26/22 10:00 BMI result Body Mass Index 31.6 Vital signs have been reviewed and appear to be correct. Blood pressure elevated. Heart rate normal. Respiratory rate normal. Temperature normal. Oxygen saturation normal. Const: General: cooperative, healthy appearing and no acute distress Orientation/consciousness: oriented to person, oriented to place, oriented to time and patient oriented x3 Limitations: no limitations HEENT: Head: Yes normocephalic and Yes atraumatic Ears: external ears normal General nose exam: Normal external nose present Face and sinus: Yes face symmetric Mouth: oropharynx normal and moist mucous membranes Throat: Yes uvula midline Eyes: Pupils: Equal, round and reactive pupils present Neck: Neck: Yes normal visual inspection and Yes supple Resp: Effort & Inspection: normal respiratory effort and able to speak in complete sentences Auscultation: clear to auscultation bilaterally Cardio: Rate: regular rate Rhythm: regular rhythm Heart sounds: S1 normal heart sound present and S2 normal heart sound present GI: Palpation (GI): Soft to palpation and nontender Auscultation: normoactive bowel sounds : General: Yes no CVA tenderness Back/Spine/Pelvis: Back: no CVA tenderness Skin: General skin exam: elasticity normal and turgor normal Neuro: General: oriented to person, oriented to place, oriented to time, patient oriented x3, moves all extremities, no focal motor deficits and CN's II-XI intact bilaterally Cranial nerves: Yes Equal, round and reactive pupils present Cognition (Neuro): normal cognition Extrem: General: Yes full ROM, Yes no pedal edema and Yes no calf tenderness Psych: Mental Status: mental status grossly normal Affect: normal affect Thought process: Normal thought process present Course Course Course Narrative: 10:11 Potassium 3.2, ordered KCl PO 11:00 CXR normal, troponin negative. Awaiting Covid/flu/RSV, D-dimer. 12:05 D-dimer negative, viral panel negative. All results discussed with patient and all questions answered with network analyst. Feel symptoms are likely related to viral upper respiratory infection or asthma exacerbation. Patient feels she would benefit from a short course of prednisone, will prescribe this. States has plenty of rescue inhaler at home. Instructed patient to follow up with PCP this week. Return precautions discussed at bedside. Patient verbalized agreement with plan. Medications Administered Discontinued Medications Generic Name Dose Route Start Last Admin Trade Name Freq PRN Reason Stop Dose Admin Potassium Chloride 20 meq 07/26/22 10:10 07/26/22 10:42 Potassium Chloride Er 20 Meq Tab.Er.Prt PO 07/26/22 10:11 20 meq ONCE ONE Administration Medical Decision Making Medical Decision Making [facility] Narrative: Patient is a 31-year-old female with history of asthma, HTN, and prediabetes presenting with complaint of constant dyspnea and left anterior chest pain since last night. On exam patient is awake, A+Ox3, nontoxic appearing, BP elevated, otherwise VS WNL, afebrile, LS CTA throughout anterior and posterior, RRR, abdomen is soft and nontender, no calf tenderness or LE edema. Concern for ACS, asthma exacerbation, viral upper respiratory infection. Wells moderate risk, will obtain D-dimer. Less likely pneumonia, pneumothorax, CHF. Plan: EKG, labs including troponin, BNP, D-dimer, CXR Please refer to course for remaining clinical decision making. Differential Diagnosis Differential Diagnoses: The differential diagnosis associated with the presentation includes As above. Lab Data 07/26/22 09:32 07/26/22 09:32 Labs: Lab Results 07/26/22 07/26/22 07/26/22 Range/Units 09:32 09:32 09:32 WBC 6.9 (4.8-10.8) X10*3/uL RBC 3.93 L (4.20-5.50) X10*6/uL Hgb 10.7 L (12.0-16.0) g/dl Hct 32.3 L (37.0-47.0) % MCV 82.2 (80.0-98.0) fL MCH 27.2 (27.0-33.0) pg MCHC 33.1 (31.0-35.0) g/dl RDW 12.9 (11.0-16.0) % Plt Count 233 (160-400) X10*3/uL MPV 9.8 (9.4-12.3) fL Immature Gran % (Auto) 0.3 (0.0-0.4) % Neut % (Auto) 62.8 (45-73) % Lymph % (Auto) 28.7 (20-40) % Burke % (Auto) 6.8 (2-11) % Eos % (Auto) 1.0 (0-4) % Baso % (Auto) 0.4 (0-2) % Lymph # (Auto) 2.0 (1.2-4.9) X10*3/uL Burke # (Auto) 0.5 (0.1-1.2) X10*3/uL Eos # (Auto) 0.1 (0.0-0.4) X10*3/uL Baso # (Auto) 0.0 (0.0-0.2) X10*3/uL Abs Immat Gran (auto) 0.02 (0.00-0.03) X10*3/uL Absolute Neuts (auto) 4.3 (2.0-8.3) x10*3/uL Absolute Nucleated RBC 0.000 (0.0-0.012) X10*3/uL Nucleated RBC % (auto) 0.0 (0.0-0.2) /100WBC D-Dimer High Sensitivty NG/ML Sodium 139 (135-145) mmol/L Potassium 3.2 L (3.3-5.1) mmol/L Chloride 103 (96-108) mmol/L Carbon Dioxide 25 (22-29) mmol/L Anion Gap 14 (12-20) BUN 17 H (9-16) mg/dL Creatinine 0.79 (0.5-1.4) mg/dL Estim Creat Clear Calc 117.6 Estimated GFR > 60 Random Glucose 113 (60-115) mg/dL Calcium 9.4 D (8.4-10.2) mg/dL Total Bilirubin 0.2 (0.0-1.0) mg/dL AST 16 (5-31) U/L ALT 12 (0-31) U/L Alkaline Phosphatase 56 (39-117) U/L Troponin I High Sens < 2.7 (<3.5-17.0) ng/L B-Natriuretic Peptide (<100) pg/mL Total Protein 7.5 (6.5-8.0) g/dL Albumin 4.0 (3.5-5.0) g/dL Beta HCG, Quant mIU/mL Influenza Type A (PCR) (Negative) Influenza Type B (PCR) (Negative) RSV RNA Qual (PCR) (Negative) SARS-CoV-2 RNA (RT-PCR) (Negative) 07/26/22 07/26/22 07/26/22 Range/Units 09:32 10:47 10:51 WBC (4.8-10.8) X10*3/uL RBC (4.20-5.50) X10*6/uL Hgb (12.0-16.0) g/dl Hct (37.0-47.0) % MCV (80.0-98.0) fL MCH (27.0-33.0) pg MCHC (31.0-35.0) g/dl RDW (11.0-16.0) % Plt Count (160-400) X10*3/uL MPV (9.4-12.3) fL Immature Gran % (Auto) (0.0-0.4) % Neut % (Auto) (45-73) % Lymph % (Auto) (20-40) % Burke % (Auto) (2-11) % Eos % (Auto) (0-4) % Baso % (Auto) (0-2) % Lymph # (Auto) (1.2-4.9) X10*3/uL Burke # (Auto) (0.1-1.2) X10*3/uL Eos # (Auto) (0.0-0.4) X10*3/uL Baso # (Auto) (0.0-0.2) X10*3/uL Abs Immat Gran (auto) (0.00-0.03) X10*3/uL Absolute Neuts (auto) (2.0-8.3) x10*3/uL Absolute Nucleated RBC (0.0-0.012) X10*3/uL Nucleated RBC % (auto) (0.0-0.2) /100WBC D-Dimer High Sensitivty 208 NG/ML Sodium (135-145) mmol/L Potassium (3.3-5.1) mmol/L Chloride (96-108) mmol/L Carbon Dioxide (22-29) mmol/L Anion Gap (12-20) BUN (9-16) mg/dL Creatinine (0.5-1.4) mg/dL Estim Creat Clear Calc Estimated GFR Random Glucose (60-115) mg/dL Calcium (8.4-10.2) mg/dL Total Bilirubin (0.0-1.0) mg/dL AST (5-31) U/L ALT (0-31) U/L Alkaline Phosphatase (39-117) U/L Troponin I High Sens (<3.5-17.0) ng/L B-Natriuretic Peptide 14 (<100) pg/mL Total Protein (6.5-8.0) g/dL Albumin (3.5-5.0) g/dL Beta HCG, Quant mIU/mL Influenza Type A (PCR) NEGATIVE (Negative) Influenza Type B (PCR) NEGATIVE (Negative) RSV RNA Qual (PCR) NEGATIVE (Negative) SARS-CoV-2 RNA (RT-PCR) NEGATIVE (Negative) 07/26/22 Range/Units 10:51 WBC (4.8-10.8) X10*3/uL RBC (4.20-5.50) X10*6/uL Hgb (12.0-16.0) g/dl Hct (37.0-47.0) % MCV (80.0-98.0) fL MCH (27.0-33.0) pg MCHC (31.0-35.0) g/dl RDW (11.0-16.0) % Plt Count (160-400) X10*3/uL MPV (9.4-12.3) fL Immature Gran % (Auto) (0.0-0.4) % Neut % (Auto) (45-73) % Lymph % (Auto) (20-40) % Burke % (Auto) (2-11) % Eos % (Auto) (0-4) % Baso % (Auto) (0-2) % Lymph # (Auto) (1.2-4.9) X10*3/uL Burke # (Auto) (0.1-1.2) X10*3/uL Eos # (Auto) (0.0-0.4) X10*3/uL Baso # (Auto) (0.0-0.2) X10*3/uL Abs Immat Gran (auto) (0.00-0.03) X10*3/uL Absolute Neuts (auto) (2.0-8.3) x10*3/uL Absolute Nucleated RBC (0.0-0.012) X10*3/uL Nucleated RBC % (auto) (0.0-0.2) /100WBC D-Dimer High Sensitivty NG/ML Sodium (135-145) mmol/L Potassium (3.3-5.1) mmol/L Chloride (96-108) mmol/L Carbon Dioxide (22-29) mmol/L Anion Gap (12-20) BUN (9-16) mg/dL Creatinine (0.5-1.4) mg/dL Estim Creat Clear Calc Estimated GFR Random Glucose (60-115) mg/dL Calcium (8.4-10.2) mg/dL Total Bilirubin (0.0-1.0) mg/dL AST (5-31) U/L ALT (0-31) U/L Alkaline Phosphatase (39-117) U/L Troponin I High Sens (<3.5-17.0) ng/L B-Natriuretic Peptide (<100) pg/mL Total Protein (6.5-8.0) g/dL Albumin (3.5-5.0) g/dL Beta HCG, Quant < 2 mIU/mL Influenza Type A (PCR) (Negative) Influenza Type B (PCR) (Negative) RSV RNA Qual (PCR) (Negative) SARS-CoV-2 RNA (RT-PCR) (Negative) Independent Interpretation I performed an independent interpretation of an: EKG Interpretation: EKG: Normal sinus rhythm, rate 72bpm, normal NV and QT intervals, no evidence of STEMI. Scores Heart Score History: -0- slightly suspicious ECG: -0- normal Age: -0- < or = 45 Risk factory: -1- 1 or 2 risk factors Troponin: -0- < or = normal limit Score: 1 Risk: 1.7% Wells PE Clinical symptoms of DVT: 3 Score: 3 2-tier Risk: likely risk (17-53%) 3-tier Risk: moderate risk (27.8%) Discharge Plan Discharge Clinical Impression: Asthma exacerbation Patient Disposition: Home, Self-Care Instructions: Asthma (DC) Additional Instructions: Le est?n recetando un curso corto de prednisona. No use bill?n JANAE (ibuprofeno, naproxeno, etc.) mientras priscilla prednisona. Keo un seguimiento con gorman PCP esta semana. Regrese al departamento de emergencias si presenta dificultad para respirar que empeora, dolor en el pecho, fiebre de 100.4F o m?s, o cualquier otro s?ntoma preocupante. Prescriptions: New prednisone 20 mg tablet 40 mg PO DAILY Qty: 10 0RF No Action morphine 15 mg tablet 15 mg PO Q4-6H PRN (Reason: pain) Qty: 10 0RF Rx Instructions: The patient may ask for partial fill; Partial Fill upon patient request. ondansetron 4 mg tablet,disintegrating 4 mg PO Q6-8H PRN (Reason: nausea and vomiting) Qty: 14 0RF ketorolac 10 mg tablet 10 mg PO BID PRN (Reason: pain) Qty: 7 0RF Rx Instructions: Do not use this medication with NSAIDs/ibuprofen/Aleve, only use Tylenol if needed metoclopramide HCl [Reglan] 5 mg tablet 5 mg PO BID PRN (Reason: nausea and vomiting) Qty: 7 0RF Rx Instructions: Take together with ketorolac p.r.n. severe headache amitriptyline 50 mg tablet 50 mg PO BEDTIME Qty: 30 0RF tramadol 50 mg tablet 50 mg PO TID PRN (Reason: pain) Qty: 20 0RF ondansetron 4 mg tablet,disintegrating 4 mg PO Q8H PRN (Reason: nausea and vomiting) Qty: 12 0RF loperamide [Imodium A-D] 2 mg capsule 2 mg PO Q6H PRN (Reason: loose stool) Qty: 10 0RF lidocaine [Lidoderm] 5 % adhesive patch,medicated 1 patch topical DAILY Qty: 15 0RF Rx Instructions: leave on most painful area for up to 12 hrs cyclobenzaprine 10 mg tablet 10 mg PO Q8H PRN (Reason: muscle spasm) Qty: 10 0RF ibuprofen 600 mg tablet 600 mg PO Q6H PRN (Reason: pain) Qty: 30 0RF nitrofurantoin monohyd/m-cryst [Macrobid] 100 mg capsule 100 mg PO Q12H 5 Days Qty: 10 0RF Rx Instructions: must administer with a meal/food labetalol 100 mg tablet 100 mg PO BID M- Plus 27 mg iron- 1 mg tablet 1 tab PO DAILY cholecalciferol (vitamin D3) [Vitamin D3] 25 mcg (1,000 unit) capsule 25 mcg PO DAILY sertraline 50 mg tablet 50 mg PO DAILY Flovent Diskus 250 mcg/actuation blister with device 1 inh PO BID albuterol sulfate [ProAir HFA] 90 mcg/actuation HFA aerosol inhaler 2 puff PO Q4-6H PRN montelukast 10 mg tablet 10 mg PO QPM omeprazole 20 mg capsule,delayed release(DR/EC) 20 mg PO DAILY amlodipine 10 mg tablet 10 mg PO DAILY albuterol sulfate 2.5 mg /3 mL (0.083 %) solution for nebulization inhalation QID PRN duloxetine 30 mg capsule,delayed release(DR/EC) 30 mg PO DAILY hydrochlorothiazide 25 mg tablet 25 mg PO DAILY Spiriva Respimat 2.5 mcg/actuation mist 2 puff inhalation QAM 30 Days Qty: 4 6RF Print Language: Israeli
[2022-07-26 09:39] LABS: MANUAL DIFF FLAG NO
[2022-07-26 09:45] LABS: Basophils Percent Auto 0.4 % (0-2); Eosinophils Absolute Auto 0.1 X10*3/uL (0.0-0.4); Hematocrit 32.3 % (37.0-47.0); Hemoglobin 10.7 g/dl (12.0-16.0); Imm Gran Abs Auto 0.02 X10*3/uL (0.00-0.03); Imm Gran Pct Auto 0.3 % (0.0-0.4); Lymphocytes Percent Auto 28.7 % (20-40); Mean Corpuscular HGB Conc 33.1 g/dl (31.0-35.0); Mean Corpuscular Hemoglobin 27.2 pg (27.0-33.0); Mean Corpuscular Volume 82.2 fL (80.0-98.0); Mean Platelet Volume 9.8 fL (9.4-12.3); Monocytes Absolute Auto 0.5 X10*3/uL (0.1-1.2); Monocytes Percent Auto 6.8 % (2-11); Neutrophils Absolute Auto 4.3 x10*3/uL (2.0-8.3); Neutrophils Percent Auto 62.8 % (45-73); Platelet Count 233 X10*3/uL (160-400); Red Blood Count 3.93 X10*6/uL (4.20-5.50); Red Cell Distribution Width 12.9 % (11.0-16.0); White Blood Count 6.9 X10*3/uL (4.8-10.8)
[2022-07-26 09:59] LABS: Alanine Aminotransferase 12 U/L (0-31); Alkaline Phosphatase 56 U/L (39-117); Anion Gap 14 (12-20); Aspartate Amino Transferase 16 U/L (5-31); Bilirubin Total 0.2 mg/dL (0.0-1.0); Blood Urea Nitrogen 17 mg/dL (9-16); Calcium 9.4 mg/dL (8.4-10.2); Carbon Dioxide 25 mmol/L (22-29); Chloride 103 mmol/L (96-108); Creatinine Clr Calc Pharmacy 117.6; Estimated Glomerular Filt Rate > 60; Glucose Random 113 mg/dL (60-115); Potassium 3.2 mmol/L (3.3-5.1); Sodium 139 mmol/L (135-145); Total Protein 7.5 g/dL (6.5-8.0)
[2022-07-26 10:00] VITALS: BP 114/63; PULSE 73; RESP 16; TEMP 36.8; O2SAT 99
[2022-07-26 10:04] LABS: B Type Natriuretic Peptide 14 pg/mL (<100)
[2022-07-26 10:09] VITALS: PULSE 79
[2022-07-26 10:10] LABS: Troponin-I High Sensitivity < 2.7 ng/L (<3.5-17.0)
[2022-07-26] MEDS: Potassium Chloride ER 20 MEQ TAB.ER.PRT PO (10:42)
[2022-07-26 11:07] LABS: D Dimer High Sensitivity 208 NG/ML
[2022-07-26 11:27] LABS: HCG Quantitative < 2 mIU/mL
[2022-07-26 11:52] LABS: Influenza A PCR NEGATIVE (Negative); Influenza B PCR NEGATIVE (Negative); Resp Syncy Virus RNA Qual PCR NEGATIVE (Negative); SARS COV2 PCR INHOUSE NEGATIVE (Negative)
== END 2022-07-26 12:20 | disposition home or self-care (01) ==
PROVIDERS: Registered Nurse Emergency; Emergency Provider Emergency Medicine; PCP Internal Medicine
DX: J45.901 Unspecified asthma with (acute) exacerbation (principal); R07.89 Other chest pain; R06.02 Shortness of breath; Z20.822 Contact with and (suspected) exposure to COVID-19; Z20.828 Contact with and (suspected) exposure to other viral communicable diseases; Z79.899 Other long term (current) drug therapy
CPT/HCPCS: 0241U; 36415; 71045; 80053; 83880; 84484; 84702; 85025; 85379; 93005; 99283; 99285

== ENCOUNTER 2022-08-05 14:43 | Emergency (ER) | payer MEDICAID, SELFPAY ==
--- NOTE | ~2022-08-05 | CT_ITS ---
EXAMINATION: CT HEAD WITHOUT CONTRAST CLINICAL INFORMATION: Headache COMPARISON: November 2021. TECHNIQUE: Contiguous axial imaging was performed from the skull base to vertex without intravenous administration of contrast. This CT examination was performed using dose optimization techniques as appropriate, variously including the following: *Automated exposure control *Adjustment of mA and/or kV according to patient size (this includes techniques or standardized protocols for targeted exams where dose is matched to indication/reason for exam; i.e. extremities or head) *Use of iterative reconstruction technique DLP: 638 mGy-cm FINDINGS: There is no evidence for acute hemorrhage or mass effect. Cisterns unremarkable. Mcnamara/white matter differentiation is maintained. There are no extra-axial collections. The calvarium is intact. The mastoids are well aerated. Middle ears unremarkable. The multiple regions of paranasal sinus opacification seen previously have cleared. CT/CT head/brain wo IV con IMPRESSION: 1. No evidence for acute bleed or mass effect. 2. Previously noted regions of paranasal sinus opacification have cleared.
[2022-08-05 14:48] VITALS: BP 112/67; PULSE 72; RESP 18; TEMP 37.1; O2SAT 99; BMI 31.3
--- NOTE | 2022-08-05 14:48 | ED_ITS ---
HPI - General Adult General Chief complaint: Headache Stated complaint: migraine Time Seen by Provider: 08/05/22 16:12 History of Present Illness HPI narrative: patient complains of headache with photophobia no nausea intermittent for the last 5-6 days, no previous similar headaches, headache started gradually no fever no injuries no vision loss no numbness no weakness no confusion no balance issues, no nausea or vomiting no abdominal pain no neck pain no stiff neck no chest pain Related Data Home Medications Medication Instructions Recorded Confirmed albuterol sulfate 2.5 mg/3 mL mg inhalation QID PRN 10/13/20 10/13/20 (0.083 %) solution for nebulization albuterol sulfate 90 mcg/actuation 2 puff PO Q4-6H PRN 10/13/20 10/13/20 aerosol inhaler (ProAir HFA) amlodipine 10 mg tablet 10 mg PO DAILY 10/13/20 10/13/20 cholecalciferol (vitamin D3) 25 25 mcg PO DAILY 10/13/20 10/13/20 mcg (1,000 unit) capsule (Vitamin D3) duloxetine 30 mg capsule,delayed 30 mg PO DAILY 10/13/20 10/13/20 release fluticasone propionate 250 1 inh PO BID 10/13/20 10/13/20 mcg/actuation blister powder for inhalation (Flovent Diskus) hydrochlorothiazide 25 mg tablet 25 mg PO DAILY 10/13/20 10/13/20 labetalol 100 mg tablet 100 mg PO BID 10/13/20 10/13/20 montelukast 10 mg tablet 10 mg PO QPM 10/13/20 10/13/20 omeprazole 20 mg capsule,delayed 20 mg PO DAILY 10/13/20 10/13/20 release vitamin with calcium 1 tab PO DAILY 10/13/20 10/13/20 no.72-iron 27 mg-folic acid 1 mg tablet (M-Elida Plus) sertraline 50 mg tablet 50 mg PO DAILY 10/13/20 10/13/20 Previous Rx's Medication Instructions Recorded loperamide 2 mg capsule (Imodium 2 mg PO Q6H PRN loose stool #10 05/25/21 A-D) caps ondansetron 4 mg disintegrating 4 mg PO Q8H PRN nausea and 05/25/21 tablet vomiting #12 tabs tiotropium bromide 2.5 2 puff inhalation QAM 30 days #4 05/31/21 mcg/actuation mist for inhalation grams (Spiriva Respimat) morphine 15 mg immediate release 15 mg PO Q4-6H PRN pain #10 tabs 10/09/21 tablet ondansetron 4 mg disintegrating 4 mg PO Q6-8H PRN nausea and 10/09/21 tablet vomiting #14 tabs ketorolac 10 mg tablet 10 mg PO BID PRN pain #7 tabs 11/09/21 metoclopramide HCl 5 mg tablet 5 mg PO BID PRN nausea and 11/09/21 (Reglan) vomiting #7 tabs amitriptyline 50 mg tablet 50 mg PO BEDTIME #30 tabs 12/24/21 tramadol 50 mg tablet 50 mg PO TID PRN pain #20 tabs 12/24/21 cyclobenzaprine 10 mg tablet 10 mg PO Q8H PRN muscle spasm #10 03/20/22 tabs ibuprofen 600 mg tablet 600 mg PO Q6H PRN pain #30 tabs 03/20/22 lidocaine 5 % topical patch 1 patch topical DAILY #15 ea 03/20/22 (Lidoderm) nitrofurantoin 100 mg PO Q12H 5 days #10 caps 03/20/22 monohydrate/macrocrystals 100 mg capsule (Macrobid) prednisone 20 mg tablet 40 mg PO DAILY #10 tabs 07/26/22 naproxen 500 mg tablet (Naprosyn) 500 mg PO BID PRN pain #14 tabs 08/05/22 Allergies Allergy/AdvReac Type Severity Reaction Status Date / Time Sulfa (Sulfonamide Allergy Unknown UNKNOWN Verified 07/26/22 09:00 Antibiotics) [SULFA (SULFONAMIDE ANTIBIOTICS)] [facility] Past Medical History Source: nursing notes reviewed Medical History Asthma Pre-diabetes Social History Social History Alcohol intake: never Patient Tobacco Use Status: Never used Tobacco Advance Directives: No Advance Directives Information Provided: No Physical Exam ED Vital Signs: Vital Signs - 24 hr 08/05/22 14:48 08/05/22 15:41 08/05/22 15:41 Temperature 98.7 F Pulse Rate 72 61 62 Respiratory Rate 18 Blood Pressure 112/67 116/64 106/62 Pulse Oximetry 99 Oxygen Delivery Method Room Air 08/05/22 15:43 08/05/22 15:43 Temperature 97.8 F Pulse Rate 67 64 Respiratory Rate 16 Blood Pressure 113/67 109/63 Pulse Oximetry 98 Oxygen Delivery Method Room Air BMI result Body Mass Index 31.3 general appearance no distress Head is normocephalic atraumatic Pupils equal round reactive light extraocular motions intact Neck is supple Respiratory no distress Extremities full range of motion x4 Abdomen soft nontender Neuro gait and balance are normal, interaction conversation comprehension and expression are all normal, cranial nerves 2-12 intact as tested no facial asymmetry, motor 5/5 x4, sensation intact and symmetrical Course Course Course Narrative: This is an RME: Additional HPI, ROS, PE not included below will be deferred to primary provider. 31 year old female hx of carmelo, asthma, migranes presents w/ diffuse headache ( no vision changes or dizziness ) for a few days advised to come in for head CT by her PCP also reports low BPS at home. No other complaints. No recent trauma Plan- meds, head ct, orthostatics. CT of the head was done and was negative for any acute pathology Patient responded very well to treatment in the ER with Benadryl Reglan and Toradol with complete relief of headache and she feels fine now and has no complaint and was discharged with diagnosis of headache, in discussion I told her it is likely a migraine there is many treatments and if headaches return she should follow with her doctor Medications Administered Discontinued Medications Generic Name Dose Route Start Last Admin Trade Name Reina PRN Reason Stop Dose Admin Diphenhydramine HCl 25 mg 08/05/22 14:49 08/05/22 15:47 Diphenhydramine Hcl 25 Mg Capsule PO 08/05/22 14:50 25 mg ONCE ONE Administration Ketorolac Tromethamine 30 mg 08/05/22 14:49 08/05/22 15:47 Ketorolac Tromethamine 15 Mg/Ml Vial IM 08/05/22 14:50 30 mg ONCE ONE Administration Metoclopramide HCl 10 mg 08/05/22 14:49 08/05/22 15:47 Metoclopramide Hcl 10 Mg Tablet PO 08/05/22 14:50 10 mg ONCE ONE Administration Discharge Plan Discharge Clinical Impression: Headache Patient Disposition: Home, Self-Care Additional Instructions: CT scan did not show any dangerous findings and was normal Headache resolved with a migraine treatment so it may be a migraine Follow closely with primary doctor for further evaluation of headaches continue, there are many different migraine treatments Return any time if worse, or any concerns Prescriptions: New naproxen [Naprosyn] 500 mg tablet 500 mg PO BID PRN (Reason: pain) Qty: 14 0RF No Action morphine 15 mg tablet 15 mg PO Q4-6H PRN (Reason: pain) Qty: 10 0RF Rx Instructions: The patient may ask for partial fill; Partial Fill upon patient request. ondansetron 4 mg tablet,disintegrating 4 mg PO Q6-8H PRN (Reason: nausea and vomiting) Qty: 14 0RF ketorolac 10 mg tablet 10 mg PO BID PRN (Reason: pain) Qty: 7 0RF Rx Instructions: Do not use this medication with NSAIDs/ibuprofen/Aleve, only use Tylenol if needed metoclopramide HCl [Reglan] 5 mg tablet 5 mg PO BID PRN (Reason: nausea and vomiting) Qty: 7 0RF Rx Instructions: Take together with ketorolac p.r.n. severe headache amitriptyline 50 mg tablet 50 mg PO BEDTIME Qty: 30 0RF tramadol 50 mg tablet 50 mg PO TID PRN (Reason: pain) Qty: 20 0RF ondansetron 4 mg tablet,disintegrating 4 mg PO Q8H PRN (Reason: nausea and vomiting) Qty: 12 0RF loperamide [Imodium A-D] 2 mg capsule 2 mg PO Q6H PRN (Reason: loose stool) Qty: 10 0RF lidocaine [Lidoderm] 5 % adhesive patch,medicated 1 patch topical DAILY Qty: 15 0RF Rx Instructions: leave on most painful area for up to 12 hrs cyclobenzaprine 10 mg tablet 10 mg PO Q8H PRN (Reason: muscle spasm) Qty: 10 0RF ibuprofen 600 mg tablet 600 mg PO Q6H PRN (Reason: pain) Qty: 30 0RF nitrofurantoin monohyd/m-cryst [Macrobid] 100 mg capsule 100 mg PO Q12H 5 Days Qty: 10 0RF Rx Instructions: must administer with a meal/food prednisone 20 mg tablet 40 mg PO DAILY Qty: 10 0RF labetalol 100 mg tablet 100 mg PO BID M- Plus 27 mg iron- 1 mg tablet 1 tab PO DAILY cholecalciferol (vitamin D3) [Vitamin D3] 25 mcg (1,000 unit) capsule 25 mcg PO DAILY sertraline 50 mg tablet 50 mg PO DAILY Flovent Diskus 250 mcg/actuation blister with device 1 inh PO BID albuterol sulfate [ProAir HFA] 90 mcg/actuation HFA aerosol inhaler 2 puff PO Q4-6H PRN montelukast 10 mg tablet 10 mg PO QPM omeprazole 20 mg capsule,delayed release(DR/EC) 20 mg PO DAILY amlodipine 10 mg tablet 10 mg PO DAILY albuterol sulfate 2.5 mg /3 mL (0.083 %) solution for nebulization inhalation QID PRN duloxetine 30 mg capsule,delayed release(DR/EC) 30 mg PO DAILY hydrochlorothiazide 25 mg tablet 25 mg PO DAILY Spiriva Respimat 2.5 mcg/actuation mist 2 puff inhalation QAM 30 Days Qty: 4 6RF Stand Alone Forms: Work/School Release
[2022-08-05 15:41] VITALS: BP 106/62; BP 116/64; PULSE 61; PULSE 62
[2022-08-05 15:43] VITALS: BP 109/63; BP 113/67; PULSE 64; PULSE 67; RESP 16; TEMP 36.6; O2SAT 98
[2022-08-05] MEDS: Ketorolac Tromethamine 15 MG/ML VIAL 30 MG IM (15:47)
[2022-08-05] MEDS: Metoclopramide HCl 10 MG TABLET PO (15:47)
[2022-08-05] MEDS: diphenhydrAMINE HCL 25 MG CAPSULE PO (15:47)
--- NOTE | 2022-08-05 15:47 | MHC.EDTECH ---
THIS PCT JUST ASSUMED CARE OF PT ,ORTOSTATICS VITALS SIGN TAKEN ,WARM BLANKET GIVEN ,PT RESTING IN BED.
== END 2022-08-05 17:03 | disposition home or self-care (01) ==
PROVIDERS: Emergency Provider Emergency Medicine Emergency Medical Services; PCP Internal Medicine
DX: R51.9 Headache, unspecified (principal)
CPT/HCPCS: 70450; 96372; 99283; 99284; J1885

== ENCOUNTER 2022-09-27 13:47 | Outpatient (REF) | payer MEDICAID, SELFPAY | END 2022-09-27 13:48 | disposition home or self-care (01) | LOC: HO.HHCL 13:47 | PROVIDERS: Visit Provider Internal Medicine Cardiovascular Disease | DX: Z13.89 Encounter for screening for other disorder (principal) ==

== ENCOUNTER 2022-09-28 12:19 | Outpatient (REF) | payer MEDICAID, SELFPAY ==
[2022-09-28 14:20] LABS: B Type Natriuretic Peptide 30 pg/mL (<100)
[2022-09-28 14:33] LABS: Anion Gap 12 (12-20); Blood Urea Nitrogen 16 mg/dL (9-16); Calcium 9.6 mg/dL (8.4-10.2); Carbon Dioxide 30 mmol/L (22-29); Chloride 100 mmol/L (96-108); Estimated Glomerular Filt Rate > 60; Glucose Random 109 mg/dL (60-115); Sodium 139 mmol/L (135-145)
== END 2022-09-28 12:20 | disposition home or self-care (01) ==
LOC: HO.LAB 12:19
PROVIDERS: PCP Internal Medicine; Visit Provider Internal Medicine Cardiovascular Disease
DX: R06.02 Shortness of breath (principal)
CPT/HCPCS: 36415; 80048; 83880

== ENCOUNTER 2022-11-08 19:34 | Outpatient (REF) | payer MEDICAID, SELFPAY ==
[2022-11-08 21:11] LABS: Influenza A PCR NEGATIVE (Negative); Influenza B PCR NEGATIVE (Negative); Resp Syncy Virus RNA Qual PCR NEGATIVE (Negative); SARS COV2 PCR INHOUSE NEGATIVE (Negative)
== END 2022-11-08 19:35 | disposition home or self-care (01) ==
LOC: HO.HHCLNP 19:34
PROVIDERS: Visit Provider Internal Medicine Geriatric Medicine
DX: H92.02 Otalgia, left ear (principal)
CPT/HCPCS: 0241U; 87070

== ENCOUNTER 2022-12-26 09:31 | Emergency (ER) | payer MEDICAID, SELFPAY ==
[2022-12-26 09:45] VITALS: BP 135/77; PULSE 80; RESP 18; TEMP 36.2; O2SAT 99; BMI 33.4
[2022-12-26 10:01] LABS: MANUAL DIFF FLAG NO
[2022-12-26 10:02] LABS: Basophils Percent Auto 0.3 % (0-2); Eosinophils Absolute Auto 0.1 X10*3/uL (0.0-0.4); Eosinophils Percent Auto 1.6 % (0-4); Hematocrit 35.4 % (37.0-47.0); Hemoglobin 11.8 g/dl (12.0-16.0); Imm Gran Abs Auto 0.03 X10*3/uL (0.00-0.03); Imm Gran Pct Auto 0.3 % (0.0-0.4); Lymphocytes Percent Auto 22.6 % (20-40); Mean Corpuscular HGB Conc 33.3 g/dl (31.0-35.0); Mean Corpuscular Hemoglobin 27.1 pg (27.0-33.0); Mean Corpuscular Volume 81.4 fL (80.0-98.0); Mean Platelet Volume 9.5 fL (9.4-12.3); Monocytes Absolute Auto 0.5 X10*3/uL (0.1-1.2); Monocytes Percent Auto 5.7 % (2-11); Neutrophils Absolute Auto 6.2 x10*3/uL (2.0-8.3); Neutrophils Percent Auto 69.5 % (45-73); Platelet Count 250 X10*3/uL (160-400); Red Blood Count 4.35 X10*6/uL (4.20-5.50); Red Cell Distribution Width 13.4 % (11.0-16.0); White Blood Count 8.9 X10*3/uL (4.8-10.8)
[2022-12-26 10:19] LABS: Alanine Aminotransferase 15 U/L (0-31); Albumin Level 4.1 g/dL (3.5-5.0); Alkaline Phosphatase 55 U/L (39-117); Anion Gap 11 (12-20); Aspartate Amino Transferase 18 U/L (5-31); Bilirubin Direct 0.1 mg/dL (0.0-0.5); Bilirubin Total 0.4 mg/dL (0.0-1.0); Blood Urea Nitrogen 10 mg/dL (9-16); Calcium 8.9 mg/dL (8.4-10.2); Carbon Dioxide 27 mmol/L (22-29); Chloride 104 mmol/L (96-108); Creatinine Clr Calc Pharmacy 129.6; Estimated Glomerular Filt Rate > 60; Glucose Random 126 mg/dL (60-115); Lipase 10 U/L (8-78); Potassium 3.6 mmol/L (3.3-5.1); Sodium 138 mmol/L (135-145); Total Protein 7.6 g/dL (6.5-8.0)
[2022-12-26 10:32] LABS: COVID-19 Test Negative (Negative); IDNOW Serial# 08D9AD1C
[2022-12-26 10:34] LABS: IDNOW Serial# BCCEAD1C; Influenza A Negative (Negative); Influenza B2 Negative (Negative)
[2022-12-26 10:52] LABS: Appearance Urine Clear; Color Urine Yellow; Glucose Urine UA Negative (Negative); Leukocyte Esterase Urine Negative (Negative); Nitrite Urine Negative (Negative); Specific Gravity - Urine 1.025 (1.005-1.025); Urine Blood Negative (Negative); Urine Ketones Negative (Negative); Urine Protein Negative (Neg-Trace)
[2022-12-26 10:53] LABS: UPreg QC Valid YES; Urine Pregnancy NEGATIVE (NEGATIVE)
--- NOTE | 2022-12-26 14:07 | ED_ITS ---
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 Patient is status post cholecystectomy and otherwise denies any fevers or chills. Related Data Home Medications Medication Instructions Recorded Confirmed albuterol sulfate 2.5 mg/3 mL mg inhalation QID PRN 10/13/20 10/13/20 (0.083 %) solution for nebulization albuterol sulfate 90 mcg/actuation 2 puff PO Q4-6H PRN 10/13/20 10/13/20 aerosol inhaler (ProAir HFA) amlodipine 10 mg tablet 10 mg PO DAILY 10/13/20 10/13/20 cholecalciferol (vitamin D3) 25 25 mcg PO DAILY 10/13/20 10/13/20 mcg (1,000 unit) capsule (Vitamin D3) duloxetine 30 mg capsule,delayed 30 mg PO DAILY 10/13/20 10/13/20 release fluticasone propionate 250 1 inh PO BID 10/13/20 10/13/20 mcg/actuation blister powder for inhalation (Flovent Diskus) hydrochlorothiazide 25 mg tablet 25 mg PO DAILY 10/13/20 10/13/20 labetalol 100 mg tablet 100 mg PO BID 10/13/20 10/13/20 montelukast 10 mg tablet 10 mg PO QPM 10/13/20 10/13/20 omeprazole 20 mg capsule,delayed 20 mg PO DAILY 10/13/20 10/13/20 release vitamin with calcium 1 tab PO DAILY 10/13/20 10/13/20 no.72-iron 27 mg-folic acid 1 mg tablet (M- Plus) sertraline 50 mg tablet 50 mg PO DAILY 10/13/20 10/13/20 Previous Rx's Medication Instructions Recorded loperamide 2 mg capsule (Imodium 2 mg PO Q6H PRN loose stool #10 05/25/21 A-D) caps ondansetron 4 mg disintegrating 4 mg PO Q8H PRN nausea and 05/25/21 tablet vomiting #12 tabs tiotropium bromide 2.5 2 puff inhalation QAM 30 days #4 05/31/21 mcg/actuation mist for inhalation grams (Spiriva Respimat) morphine 15 mg immediate release 15 mg PO Q4-6H PRN pain #10 tabs 10/09/21 tablet ondansetron 4 mg disintegrating 4 mg PO Q6-8H PRN nausea and 10/09/21 tablet vomiting #14 tabs metoclopramide HCl 5 mg tablet 5 mg PO BID PRN nausea and 11/09/21 (Reglan) vomiting #7 tabs amitriptyline 50 mg tablet 50 mg PO BEDTIME #30 tabs 12/24/21 tramadol 50 mg tablet 50 mg PO TID PRN pain #20 tabs 12/24/21 cyclobenzaprine 10 mg tablet 10 mg PO Q8H PRN muscle spasm #10 03/20/22 tabs lidocaine 5 % topical patch 1 patch topical DAILY #15 ea 03/20/22 (Lidoderm) nitrofurantoin 100 mg PO Q12H 5 days #10 caps 03/20/22 monohydrate/macrocrystals 100 mg capsule (Macrobid) prednisone 20 mg tablet 40 mg (2 x 20 mg) PO DAILY #10 tabs 07/26/22 famotidine 40 mg tablet 40 mg PO BEDTIME #30 tabs 12/26/22 Allergies Allergy/AdvReac Type Severity Reaction Status Date / Time Sulfa (Sulfonamide Allergy Unknown UNKNOWN Verified 07/26/22 09:00 Antibiotics) [SULFA (SULFONAMIDE ANTIBIOTICS)] Review of Systems Review of Systems Pertinent positives and negatives as stated in HPI PMFSH Past Medical History Source: nursing notes reviewed Medical History Pre-diabetes Asthma Social History Social History Alcohol intake: never Patient Tobacco Use Status: Never used Tobacco Advance Directives: No Advance Directives Information Provided: No Physical Exam ED Vital Signs: Vital Signs - 24 hr 12/26/22 09:45 Temperature 97.2 F Pulse Rate 80 Respiratory Rate 18 Blood Pressure 135/77 Pulse Oximetry 99 Oxygen Delivery Method Room Air BMI result Body Mass Index 33.4 VITAL SIGNS: Reviewed. GENERAL: Well developed, well nourished, in no acute distress. HEAD: Normocephalic/atraumatic EYES: PERRLA, EOMI EARS: Ext canals without abnormality NOSE: Nares patent bilateral OROPHARYNX: no oral lesions noted, posterior pharynx clear NECK: Supple, no adenopathy LUNGS: Normal breath sounds. No adventitious sounds or accessory muscle use. SpO2<99> CARDIOVASCULAR: Regular rate and rhythm without noted murmurs ABDOMEN: Soft, mild epigastric discomfort, non-distended with bowel sounds. MUSCULOSKELETAL: No tenderness, deformities, or effusions noted on gross inspection. EXTREMITIES: No cyanosis, clubbing or edema. SKIN: Inspection of the skin reveals no rashes NEUROLOGIC: Alert and oriented x 4. Strength and sensation to light touch were grossly intact x 4. Medical Decision Making Medical Decision Making [facility] Narrative: 32-year-old female with history and clinical presentation, DDX: Gastroenteritis, ulcer, H pylori infection, pancreatitis, very low clinical suspicion for pneumonia/retained stone and no clinical suspicion for ACS. I reviewed all investigations and hematologic indices are negative for leukocytosis or left shift, there is a stable normocytic anemia and no thrombocytopenia. Chemistry indices are grossly within normal limits and there is no demonstrated PURVI and neither are there any electrolyte or liver enzyme derangements. Lipase is within normal limits. Urinalysis is negative for hematuria and UTI. Viral testing is negative for COVID/influenza. My interpretation is that patient has gastritis and the possibility of ulcer and/or H pylori infection for which she can be worked up in the outpatient setting for. She was provided with a GI cocktail and Carafate and on re- evaluation reports improvement in her discomfort. She will also be given a prescription for 300 mg of ranitidine which she will take in the evening before bed. Differential Diagnosis Differential Diagnoses: The differential diagnosis associated with the presentation includes Please see the discussion above Admission/Observation Consideration of admission/observation: Escalation of care including admission/observation considered Please see the discussion above Lab Data [facility] Lab Attestation statement: I reviewed the patient's lab results. Please see the discussion above 12/26/22 09:57 12/26/22 09:57 Labs: Lab Results 12/26/22 12/26/22 Range/Units 09:57 10:45 WBC 8.9 (4.8-10.8) X10*3/uL RBC 4.35 (4.20-5.50) X10*6/uL Hgb 11.8 L (12.0-16.0) g/dl Hct 35.4 L (37.0-47.0) % MCV 81.4 (80.0-98.0) fL MCH 27.1 (27.0-33.0) pg MCHC 33.3 (31.0-35.0) g/dl RDW 13.4 (11.0-16.0) % Plt Count 250 (160-400) X10*3/uL MPV 9.5 (9.4-12.3) fL Immature Gran % (Auto) 0.3 (0.0-0.4) % Neut % (Auto) 69.5 (45-73) % Lymph % (Auto) 22.6 (20-40) % [place] % (Auto) 5.7 (2-11) % Eos % (Auto) 1.6 (0-4) % Baso % (Auto) 0.3 (0-2) % Lymph # (Auto) 2.0 (1.2-4.9) X10*3/uL [place] # (Auto) 0.5 (0.1-1.2) X10*3/uL Eos # (Auto) 0.1 (0.0-0.4) X10*3/uL Baso # (Auto) 0.0 (0.0-0.2) X10*3/uL Abs Immat Gran (auto) 0.03 (0.00-0.03) X10*3/uL Absolute Neuts (auto) 6.2 (2.0-8.3) x10*3/uL Absolute Nucleated RBC 0.000 (0.0-0.012) X10*3/uL Nucleated RBC % (auto) 0.0 (0.0-0.2) /100WBC Sodium 138 (135-145) mmol/L Potassium 3.6 (3.3-5.1) mmol/L Chloride 104 (96-108) mmol/L Carbon Dioxide 27 (22-29) mmol/L Anion Gap 11 L (12-20) BUN 10 (9-16) mg/dL Creatinine 0.73 (0.5-1.4) mg/dL Estim Creat Clear Calc 129.6 Estimated GFR > 60 Random Glucose 126 H (60-115) mg/dL Calcium 8.9 D (8.4-10.2) mg/dL Total Bilirubin 0.4 (0.0-1.0) mg/dL Direct Bilirubin 0.1 (0.0-0.5) mg/dL AST 18 (5-31) U/L ALT 15 (0-31) U/L Alkaline Phosphatase 55 (39-117) U/L Total Protein 7.6 (6.5-8.0) g/dL Albumin 4.1 (3.5-5.0) g/dL Lipase 10 (8-78) U/L Urine Color Yellow Urine Appearance Clear Urine pH 6.0 (5.0-9.0) Ur Specific [place] 1.025 (1.005-1.025) Urine Protein Negative (Neg-Trace) mg/dL Urine Glucose (UA) Negative (Negative) mg/dL Urine Ketones Negative (Negative) mg/dL Urine Blood Negative (Negative) Urine Nitrite Negative (Negative) Ur Leukocyte Esterase Negative (Negative) Urine Test NEGATIVE (NEGATIVE) COVID-19 ([facility]) Negative (Negative) COVID-19 Clin Com See Note Influenza Type A (PRIMITIVO) Negative (Negative) Influenza Type B (PRMIITIVO) Negative (Negative) Influenza A & B Note See Note External Record Review External record reviewed: Outpatient record, Prior outpatient labs and Prior outpatient radiology Chronic Conditions Patient?s care impacted by: Diabetes Discharge Plan Discharge Clinical Impression: Gastritis Patient Disposition: Home, Self-Care Instructions: Gastritis (ED), Helicobacter Pylori (ED), Diet for Stomach Ulcers and Gastritis (ED) Additional Instructions: 1. Reanudar todos los medicamentos caseros seg?n lo recetado. Evite todo ibuprofeno/Aleve/Motrin/Naprosyn ya que esto puede empeorar tito s?ntomas actuales. 2. Keo un seguimiento con gorman m?dico de atenci?n primaria y analice la posible prueba de H. pylori. Regrese a la janette de emergencias si los s?ntomas empeoran. 1. Resume all home medications as prescribed. Please avoid all ibuprofen/Aleve/Motrin/Naprosyn as this can worsen your current symptoms. 2. Follow-up with your primary care doctor and discuss possible H pylori testing. Return to the ER for any worsening symptoms. Prescriptions: New famotidine 40 mg tablet 40 mg PO BEDTIME Qty: 30 0RF Discontinued ketorolac 10 mg tablet 10 mg PO BID PRN (Reason: pain) Qty: 7 0RF Rx Instructions: Do not use this medication with NSAIDs/ibuprofen/Aleve, only use Tylenol if needed ibuprofen 600 mg tablet 600 mg PO Q6H PRN (Reason: pain) Qty: 30 0RF naproxen [Naprosyn] 500 mg tablet 500 mg PO BID PRN (Reason: pain) Qty: 14 0RF No Action morphine 15 mg tablet 15 mg PO Q4-6H PRN (Reason: pain) Qty: 10 0RF Rx Instructions: The patient may ask for partial fill; Partial Fill upon patient request. ondansetron 4 mg tablet,disintegrating 4 mg PO Q6-8H PRN (Reason: nausea and vomiting) Qty: 14 0RF metoclopramide HCl [Reglan] 5 mg tablet 5 mg PO BID PRN (Reason: nausea and vomiting) Qty: 7 0RF Rx Instructions: Take together with ketorolac p.r.n. severe headache amitriptyline 50 mg tablet 50 mg PO BEDTIME Qty: 30 0RF tramadol 50 mg tablet 50 mg PO TID PRN (Reason: pain) Qty: 20 0RF ondansetron 4 mg tablet,disintegrating 4 mg PO Q8H PRN (Reason: nausea and vomiting) Qty: 12 0RF loperamide [Imodium A-D] 2 mg capsule 2 mg PO Q6H PRN (Reason: loose stool) Qty: 10 0RF lidocaine [Lidoderm] 5 % adhesive patch,medicated 1 patch topical DAILY Qty: 15 0RF Rx Instructions: leave on most painful area for up to 12 hrs cyclobenzaprine 10 mg tablet 10 mg PO Q8H PRN (Reason: muscle spasm) Qty: 10 0RF nitrofurantoin monohyd/m-cryst [Macrobid] 100 mg capsule 100 mg PO Q12H 5 Days Qty: 10 0RF Rx Instructions: must administer with a meal/food prednisone 20 mg tablet 40 mg PO DAILY Qty: 10 0RF labetalol 100 mg tablet 100 mg PO BID M-Elida Plus 27 mg iron- 1 mg tablet 1 tab PO DAILY cholecalciferol (vitamin D3) [Vitamin D3] 25 mcg (1,000 unit) capsule 25 mcg PO DAILY sertraline 50 mg tablet 50 mg PO DAILY Flovent Diskus 250 mcg/actuation blister with device 1 inh PO BID albuterol sulfate [ProAir HFA] 90 mcg/actuation HFA aerosol inhaler 2 puff PO Q4-6H PRN montelukast 10 mg tablet 10 mg PO QPM omeprazole 20 mg capsule,delayed release(DR/EC) 20 mg PO DAILY amlodipine 10 mg tablet 10 mg PO DAILY albuterol sulfate 2.5 mg /3 mL (0.083 %) solution for nebulization inhalation QID PRN duloxetine 30 mg capsule,delayed release(DR/EC) 30 mg PO DAILY hydrochlorothiazide 25 mg tablet 25 mg PO DAILY Spiriva Respimat 2.5 mcg/actuation mist 2 puff inhalation QAM 30 Days Qty: 4 6RF Referrals: Rosenda Hernandez MD [Primary Care Provider] - Print Language: Singaporean
[2022-12-26] MEDS: Sucralfate Oral Suspension 1 GM/10 ML ORAL.SUSP PO (14:30)
[2022-12-26] MEDS: Magnesium Hydrox/Alum Hydrox 30 ML ORAL.SUSP PO (14:30)
[2022-12-26] MEDS: Lidocaine HCl Viscous 2 % 15 ML SOLUTION 10 ML MUCOUS MEM (14:31)
[2022-12-26 14:39] VITALS: BP 146/85; RESP 16; O2SAT 95
== END 2022-12-26 14:45 | disposition home or self-care (01) ==
PROVIDERS: Emergency Provider Student in an Organized Health Care Education/Training Program; PCP Internal Medicine
DX: K29.70 Gastritis, unspecified, without bleeding (principal); Z90.49 Acquired absence of other specified parts of digestive tract; Z11.52 Encounter for screening for COVID-19
CPT/HCPCS: 36415; 80048; 80076; 81003; 81025; 83690; 85025; 87502; 87635; 99283; 99284

== ENCOUNTER 2023-07-03 15:06 | Emergency (ER) | payer MEDICAID, SELFPAY ==
--- NOTE | ~2023-07-03 | XR_ITS ---
EXAMINATION: XR CHEST CLINICAL INFORMATION: Chest pain COMPARISON: 07/26/2022 TECHNIQUE: 2 views of the chest were obtained. FINDINGS: No significant abnormality is noted involving the heart, lungs, mediastinum, bony thorax or soft tissues. XR/XR chest 2V IMPRESSION: Unremarkable examination.
[2023-07-03 15:15] VITALS: BP 155/95; PULSE 96; RESP 20; TEMP 36.1; O2SAT 98; BMI 32.4
--- NOTE | 2023-07-03 15:17 | ED_ITS ---
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 She reports that her symptoms started when she woke up this morning She reports that her symptoms have improved since this morning. She states that yesterday she had some palpitations but she suffers from these chronically She feels as though her neck is swollen and she has? a ball that I can feel. She reports a dry cough and reports pain with swallowing No fevers or chills Related Data Home Medications ?Medication ?Instructions ?Recorded ?Confirmed albuterol sulfate 2.5 mg/3 mL mg inhalation QID PRN 10/13/20 10/13/20 (0.083 %) solution for nebulization albuterol sulfate 90 mcg/actuation 2 puff PO Q4-6H PRN 10/13/20 10/13/20 aerosol inhaler (ProAir HFA) amlodipine 10 mg tablet 10 mg PO DAILY 10/13/20 10/13/20 cholecalciferol (vitamin D3) 25 25 mcg PO DAILY 10/13/20 10/13/20 mcg (1,000 unit) capsule (Vitamin D3) duloxetine 30 mg capsule,delayed 30 mg PO DAILY 10/13/20 10/13/20 release fluticasone propionate 250 1 inh PO BID 10/13/20 10/13/20 mcg/actuation blister powder for inhalation (Flovent Diskus) hydrochlorothiazide 25 mg tablet 25 mg PO DAILY 10/13/20 10/13/20 labetalol 100 mg tablet 100 mg PO BID 10/13/20 10/13/20 montelukast 10 mg tablet 10 mg PO QPM 10/13/20 10/13/20 omeprazole 20 mg capsule,delayed 20 mg PO DAILY 10/13/20 10/13/20 release vitamin with calcium 1 tab PO DAILY 10/13/20 10/13/20 no.72-iron 27 mg-folic acid 1 mg tablet (M- Plus) sertraline 50 mg tablet 50 mg PO DAILY 10/13/20 10/13/20 Previous Rx's ?Medication ?Instructions ?Recorded loperamide 2 mg capsule (Imodium 2 mg PO Q6H PRN loose stool #10 05/25/21 A-D) caps ondansetron 4 mg disintegrating 4 mg PO Q8H PRN nausea and 05/25/21 tablet vomiting #12 tabs tiotropium bromide 2.5 2 puff inhalation QAM 30 days #4 05/31/21 mcg/actuation mist for inhalation grams (Spiriva Respimat) morphine 15 mg immediate release 15 mg PO Q4-6H PRN pain #10 tabs 10/09/21 tablet ondansetron 4 mg disintegrating 4 mg PO Q6-8H PRN nausea and 10/09/21 tablet vomiting #14 tabs metoclopramide HCl 5 mg tablet 5 mg PO BID PRN nausea and 11/09/21 (Reglan) vomiting #7 tabs amitriptyline 50 mg tablet 50 mg PO BEDTIME #30 tabs 12/24/21 tramadol 50 mg tablet 50 mg PO TID PRN pain #20 tabs 12/24/21 cyclobenzaprine 10 mg tablet 10 mg PO Q8H PRN muscle spasm #10 03/20/22 tabs lidocaine 5 % topical patch 1 patch topical DAILY #15 ea 03/20/22 (Lidoderm) nitrofurantoin 100 mg PO Q12H 5 days #10 caps 03/20/22 monohydrate/macrocrystals 100 mg capsule (Macrobid) prednisone 20 mg tablet 40 mg (2 x 20 mg) PO DAILY #10 tabs 07/26/22 famotidine 40 mg tablet 40 mg PO BEDTIME #30 tabs 12/26/22 amoxicillin 875 mg-potassium 1 tab PO Q12H #14 tabs 07/03/23 clavulanate 125 mg tablet Allergies Allergy/AdvReac Type Severity Reaction Status Date / Time Sulfa (Sulfonamide Allergy Unknown UNKNOWN Verified 07/03/23 15:19 Antibiotics) [SULFA (SULFONAMIDE ANTIBIOTICS)] Review of Systems 2 Constitutional: Constitutional: Denies body ache(s), Denies chills, Denies fever(s) and Denies headache(s) ENT: Reports facial pain, Denies headache(s), Reports neck pain and Reports sore throat Cardiovascular: Cardiovascular: Denies chest pain and Denies dyspnea Respiratory: Respiratory: Denies cough and Denies dyspnea Gastrointestinal: Gastrointestinal: Denies abdominal pain, Denies nausea and Denies vomiting Musculoskeletal: Musculoskeletal: Reports neck pain Integumentary/Breasts: Skin/Breast: Denies rash Neurologic: Denies headache(s) [facility] Past Medical History Medical History Pre-diabetes Asthma Social History Social History Alcohol intake: never Patient Tobacco Use Status: Never used Tobacco Advance Directives: No Advance Directives Information Provided: Yes Do you have a plan to hurt others: No Plan Physical Exam ED Vital Signs: Vital Signs - 24 hr 07/03/23 15:15 07/03/23 19:39 07/03/23 20:50 Temperature 97 F 97.7 F 97.6 F Pulse Rate 96 90 92 Respiratory Rate 20 20 20 Blood Pressure 155/95 H 154/88 H 151/86 H Pulse Oximetry 98 98 98 Oxygen Delivery Method Room Air Room Air Room Air BMI result Body Mass Index 32.4 Const General: healthy appearing, comfortable, no acute distress, alert and awake Nutritional Appearance: well nourished Orientation/consciousness: patient oriented x3 HENMT Head: Yes normocephalic and Yes atraumatic Ears: TM's normal bilaterally and EAC's normal Throat: Yes posterior oropharynx normal Eyes Eyelids: Yes eyelids normal Conjunctivae: conjunctivae normal Sclerae: sclerae normal Corneas: corneas normal Pupils: Equal, round and reactive pupils present EOM: EOMs intact bilaterally Neck Other: Patient is obese, so exam is slightly limited. But I do not appreciate any obvious left neck or facial swelling/edema. No palpable lymphadenopathy in the anterior or posterior cervical chain Neck: Yes full ROM and No anterior neck swelling Resp Effort & Inspection: normal respiratory effort, able to speak in complete sentences, no audible wheezes and not labored Auscultation: clear to auscultation bilaterally Cardio Rate: regular rate Rhythm: regular rhythm GI Inspection: No distended Palpation (GI): Soft to palpation, not firm, nontender, no guarding and not rigid Skin General skin exam: elasticity normal Neuro General: patient oriented x3 Cranial nerves: Yes Equal, round and reactive pupils present and Yes Bilaterally intact EOM present Cognition (Neuro): normal cognition Extrem Other: Moving all extremities well without any obvious deformities Course Course Course Narrative: This is a rapid medical exam performed by German Valverde NP: Additional HPI, ROS, PE not included below will be deferred to primary provider. Patient is a 32-year-old female with history of asthma, HTN, DM presenting with complaint of left arm pain, numbness and tingling for several months. States today pain is radiating to neck. Also reports palpitations, history of same, as well as chest pain and dyspnea since last night. Saw pediatric physician assistant the day before yesterday and did not mention symptoms. Plan: EKG, labs, cxr Medications Administered Discontinued Medications Generic Name Dose Route Start Last Admin Trade Name Freq PRN Reason Stop Dose Admin Amoxicillin/Clavulanate Potassium 875 mg 07/03/23 20:36 07/03/23 20:47 Amoxicillin/Potassium Clav 875 Mg Tablet PO 07/03/23 20:37 875 mg ONCE ONE Administration Medical Decision Making Medical Decision Making [facility] Narrative: 32-year-old female presents for evaluation of left neck and left facial swelling. She has no obvious edema on exam, no fluctuance or induration, no overlying skin changes. No lymphadenopathy palpable. She does endorse some upper respiratory symptoms. We will cover the patient with Augmentin. Her labs reviewed and reassuring. I have a low suspicion for peritonsillar abscess I do not appreciate this on exam. She has no white count, no fever. She was given return precautions and will follow-up with her PCP Differential Diagnosis Differential Diagnoses: The differential diagnosis associated with the presentation includes Upper respiratory infection Dental abscess Lymphadenopathy Adenopathy Lab Data [facility] Lab Attestation statement: I reviewed the patient's lab results. No leukocytosis. The patient does have a mild anemia this consistent with her baseline. There is no left shift. Normal platelet count. Electrolytes are within normal limits. The patient is not prepped 07/03/23 15:34 07/03/23 15:34 Labs: Lab Results 07/03/23 Range/Units 15:34 WBC 8.0 (4.8-10.8) X10*3/uL RBC 4.26 (4.20-5.50) X10*6/uL Hgb 11.7 L (12.0-16.0) g/dl Hct 34.4 L (37.0-47.0) % MCV 80.8 (80.0-98.0) fL MCH 27.5 (27.0-33.0) pg MCHC 34.0 (31.0-35.0) g/dl RDW 13.5 (11.0-16.0) % Plt Count 273 (160-400) X10*3/uL MPV 9.7 (9.4-12.3) fL Immature Gran % (Auto) 0.4 (0.0-0.4) % Neut % (Auto) 63.1 (45-73) % Lymph % (Auto) 27.9 (20-40) % [place] % (Auto) 6.6 (2-11) % Eos % (Auto) 1.5 (0-4) % Baso % (Auto) 0.5 (0-2) % Lymph # (Auto) 2.2 (1.2-4.9) X10*3/uL [place] # (Auto) 0.5 (0.1-1.2) X10*3/uL Eos # (Auto) 0.1 (0.0-0.4) X10*3/uL Baso # (Auto) 0.0 (0.0-0.2) X10*3/uL Abs Immat Gran (auto) 0.03 (0.00-0.03) X10*3/uL Absolute Neuts (auto) 5.0 (2.0-8.3) x10*3/uL Absolute Nucleated RBC 0.000 (0.0-0.012) X10*3/uL Nucleated RBC % (auto) 0.0 (0.0-0.2) /100WBC PT 13.3 (11.1-13.3) SEC INR 1.1 (0.9-1.1) Sodium 140 (135-145) mmol/L Potassium 3.3 (3.3-5.1) mmol/L Chloride 105 (96-108) mmol/L Carbon Dioxide 26 (22-29) mmol/L Anion Gap 12 (12-20) BUN 10 (9-16) mg/dL Creatinine 0.73 (0.5-1.4) mg/dL Estim Creat Clear Calc 123.5 Estimated GFR > 60 Random Glucose 111 (60-115) mg/dL Calcium 9.1 (8.4-10.2) mg/dL Total Bilirubin 0.3 (0.0-1.0) mg/dL AST 16 (5-31) U/L ALT 14 (0-31) U/L Alkaline Phosphatase 71 (39-117) U/L Troponin I High Sens < 2.7 (<3.5-17.0) ng/L Total Protein 7.8 (6.5-8.0) g/dL Albumin 4.1 (3.5-5.0) g/dL Beta HCG, Quant < 2 mIU/mL Discharge Plan Discharge Clinical Impression: Acute upper respiratory infection Patient Disposition: Home, Self-Care Instructions: Upper Respiratory Infection (ED) Additional Instructions: Your workup in the ER today was reassuring. Take Augmentin twice daily for 7 days. Apply warm compresses as needed. Follow-up with your primary doctor, return for new or worsening symptoms Prescriptions: New amoxicillin-pot clavulanate 875-125 mg tablet 1 tab PO Q12H Qty: 14 0RF No Action morphine 15 mg tablet 15 mg PO Q4-6H PRN (Reason: pain) Qty: 10 0RF Rx Instructions: The patient may ask for partial fill; Partial Fill upon patient request. ondansetron 4 mg tablet,disintegrating 4 mg PO Q6-8H PRN (Reason: nausea and vomiting) Qty: 14 0RF metoclopramide HCl [Reglan] 5 mg tablet 5 mg PO BID PRN (Reason: nausea and vomiting) Qty: 7 0RF Rx Instructions: Take together with ketorolac p.r.n. severe headache amitriptyline 50 mg tablet 50 mg PO BEDTIME Qty: 30 0RF tramadol 50 mg tablet 50 mg PO TID PRN (Reason: pain) Qty: 20 0RF ondansetron 4 mg tablet,disintegrating 4 mg PO Q8H PRN (Reason: nausea and vomiting) Qty: 12 0RF loperamide [Imodium A-D] 2 mg capsule 2 mg PO Q6H PRN (Reason: loose stool) Qty: 10 0RF lidocaine [Lidoderm] 5 % adhesive patch,medicated 1 patch topical DAILY Qty: 15 0RF Rx Instructions: leave on most painful area for up to 12 hrs cyclobenzaprine 10 mg tablet 10 mg PO Q8H PRN (Reason: muscle spasm) Qty: 10 0RF nitrofurantoin monohyd/m-cryst [Macrobid] 100 mg capsule 100 mg PO Q12H 5 Days Qty: 10 0RF Rx Instructions: must administer with a meal/food prednisone 20 mg tablet 40 mg PO DAILY Qty: 10 0RF famotidine 40 mg tablet 40 mg PO BEDTIME Qty: 30 0RF labetalol 100 mg tablet 100 mg PO BID M-Elida Plus 27 mg iron- 1 mg tablet 1 tab PO DAILY cholecalciferol (vitamin D3) [Vitamin D3] 25 mcg (1,000 unit) capsule 25 mcg PO DAILY sertraline 50 mg tablet 50 mg PO DAILY Flovent Diskus 250 mcg/actuation blister with device 1 inh PO BID albuterol sulfate [ProAir HFA] 90 mcg/actuation HFA aerosol inhaler 2 puff PO Q4-6H PRN montelukast 10 mg tablet 10 mg PO QPM omeprazole 20 mg capsule,delayed release(DR/EC) 20 mg PO DAILY amlodipine 10 mg tablet 10 mg PO DAILY albuterol sulfate 2.5 mg /3 mL (0.083 %) solution for nebulization inhalation QID PRN duloxetine 30 mg capsule,delayed release(DR/EC) 30 mg PO DAILY hydrochlorothiazide 25 mg tablet 25 mg PO DAILY Spiriva Respimat 2.5 mcg/actuation mist 2 puff inhalation QAM 30 Days Qty: 4 6RF Interventions: ED Discharge Assessment Last Done: 07/03/23 20:50 Discharge Date/Time: 07/03/23 20:51 Print Language: Bulgarian
--- NOTE | 2023-07-03 15:19 | ECG_ITS ---
Test Reason : CHEST PAIN Blood Pressure : / mmHG Vent. Rate : 089 BPM Atrial Rate : 089 BPM P-R Int : 122 ms QRS Dur : 078 ms QT Int : 376 ms P-R-T Axes : 040 010 029 degrees QTc Int : 457 ms Normal sinus rhythm Nonspecific T wave abnormality Borderline ECG When compared with ECG of 26-JUL-2022 09:00, No significant change was found Referred By: Jannet Valverde Electronically Signed By:STEWART FLORENTINO
[2023-07-03 15:38] LABS: MANUAL DIFF FLAG NO
[2023-07-03 15:39] LABS: Basophils Percent Auto 0.5 % (0-2); Eosinophils Absolute Auto 0.1 X10*3/uL (0.0-0.4); Eosinophils Percent Auto 1.5 % (0-4); Hematocrit 34.4 % (37.0-47.0); Hemoglobin 11.7 g/dl (12.0-16.0); Imm Gran Abs Auto 0.03 X10*3/uL (0.00-0.03); Imm Gran Pct Auto 0.4 % (0.0-0.4); Lymphocytes Absolute Auto 2.2 X10*3/uL (1.2-4.9); Lymphocytes Percent Auto 27.9 % (20-40); Mean Corpuscular Hemoglobin 27.5 pg (27.0-33.0); Mean Corpuscular Volume 80.8 fL (80.0-98.0); Mean Platelet Volume 9.7 fL (9.4-12.3); Monocytes Absolute Auto 0.5 X10*3/uL (0.1-1.2); Monocytes Percent Auto 6.6 % (2-11); Neutrophils Percent Auto 63.1 % (45-73); Platelet Count 273 X10*3/uL (160-400); Red Blood Count 4.26 X10*6/uL (4.20-5.50); Red Cell Distribution Width 13.5 % (11.0-16.0)
[2023-07-03 16:05] LABS: Alanine Aminotransferase 14 U/L (0-31); Albumin Level 4.1 g/dL (3.5-5.0); Alkaline Phosphatase 71 U/L (39-117); Anion Gap 12 (12-20); Aspartate Amino Transferase 16 U/L (5-31); Bilirubin Total 0.3 mg/dL (0.0-1.0); Blood Urea Nitrogen 10 mg/dL (9-16); Calcium 9.1 mg/dL (8.4-10.2); Carbon Dioxide 26 mmol/L (22-29); Chloride 105 mmol/L (96-108); Creatinine Clr Calc Pharmacy 123.5; Estimated Glomerular Filt Rate > 60; Glucose Random 111 mg/dL (60-115); Potassium 3.3 mmol/L (3.3-5.1); Sodium 140 mmol/L (135-145); Total Protein 7.8 g/dL (6.5-8.0)
[2023-07-03 16:09] LABS: HCG Quantitative < 2 mIU/mL; Troponin-I High Sensitivity < 2.7 ng/L (<3.5-17.0)
[2023-07-03 16:13] LABS: INTERNATIONAL NORM RATIO 1.1 (0.9-1.1); Prothrombin Time 13.3 SEC (11.1-13.3)
[2023-07-03 19:39] VITALS: BP 154/88; PULSE 90; RESP 20; TEMP 36.5; O2SAT 98
[2023-07-03] MEDS: Amoxicillin/Potassium Clav 875 MG TABLET PO (20:47)
[2023-07-03 20:50] VITALS: BP 151/86; PULSE 92; RESP 20; TEMP 36.4; O2SAT 98
== END 2023-07-03 20:51 | disposition home or self-care (01) ==
PROVIDERS: Registered Nurse Emergency; Emergency Provider Internal Medicine; PCP Internal Medicine
DX: J06.9 Acute upper respiratory infection, unspecified (principal); J45.909 Unspecified asthma, uncomplicated; I10 Essential (primary) hypertension; E11.9 Type 2 diabetes mellitus without complications
CPT/HCPCS: 36415; 71046; 80053; 84484; 84702; 85025; 85610; 93005; 99283

== ENCOUNTER → 2023-07-03 15:19 | Outpatient (BNV) | payer MEDICAID, SELFPAY | PROVIDERS: Emergency Provider Internal Medicine; PCP Internal Medicine; Visit Provider Internal Medicine | DX: R07.9 Chest pain, unspecified (principal) | CPT/HCPCS: 93010 ==

== ENCOUNTER 2023-08-31 22:36 | Emergency (ER) | payer MEDICAID, SELFPAY ==
[2023-08-31 22:51] VITALS: BP 147/81; PULSE 89; RESP 18; TEMP 36.4; O2SAT 99; BMI 31.0
[2023-08-31 23:41] LABS: Influenza A PCR NEGATIVE (Negative); Influenza B PCR NEGATIVE (Negative); Resp Syncy Virus RNA Qual PCR NEGATIVE (Negative); SARS COV2 PCR INHOUSE NEGATIVE (Negative)
[2023-09-01] MEDS: 0.9 % Sodium Chloride 1,000 ML 999 ML IV (00:27)
[2023-09-01 00:31] LABS: MANUAL DIFF FLAG NO
--- NOTE | 2023-09-01 00:31 | PC.NURSE ---
crossword puzzle maker at bedside. pt a&ox4, respirations even and unlabored, pt reporting onset of body aches, shortness of breath and rash down right arm. pt denies any sick contacts at this time. pt denies chest pain, n/v/d. 20G placed iin left ac, labs obtained and sent and fluid bolus administered at this time.
[2023-09-01 00:32] LABS: Basophils Percent Auto 0.3 % (0-2); Eosinophils Absolute Auto 0.1 X10*3/uL (0.0-0.4); Eosinophils Percent Auto 1.4 % (0-4); Hematocrit 33.8 % (37.0-47.0); Hemoglobin 11.5 g/dl (12.0-16.0); Imm Gran Abs Auto 0.04 X10*3/uL (0.00-0.03); Imm Gran Pct Auto 0.4 % (0.0-0.4); Lymphocytes Absolute Auto 2.5 X10*3/uL (1.2-4.9); Lymphocytes Percent Auto 25.2 % (20-40); Mean Corpuscular Hemoglobin 27.3 pg (27.0-33.0); Mean Corpuscular Volume 80.3 fL (80.0-98.0); Mean Platelet Volume 9.8 fL (9.4-12.3); Monocytes Absolute Auto 0.6 X10*3/uL (0.1-1.2); Monocytes Percent Auto 6.3 % (2-11); Neutrophils Absolute Auto 6.6 x10*3/uL (2.0-8.3); Neutrophils Percent Auto 66.4 % (45-73); Platelet Count 258 X10*3/uL (160-400); Red Blood Count 4.21 X10*6/uL (4.20-5.50); Red Cell Distribution Width 13.8 % (11.0-16.0)
[2023-09-01 00:45] LABS: Alanine Aminotransferase 16 U/L (0-31); Albumin Level 4.1 g/dL (3.5-5.0); Alkaline Phosphatase 66 U/L (39-117); Anion Gap 14 (12-20); Aspartate Amino Transferase 17 U/L (5-31); Bilirubin Total 0.2 mg/dL (0.0-1.0); Blood Urea Nitrogen 15 mg/dL (9-16); Calcium 9.5 mg/dL (8.4-10.2); Carbon Dioxide 24 mmol/L (22-29); Chloride 105 mmol/L (96-108); Estimated Glomerular Filt Rate > 60; Glucose Random 110 mg/dL (60-115); Potassium 3.7 mmol/L (3.3-5.1); Sodium 139 mmol/L (135-145); Total Protein 7.5 g/dL (6.5-8.0)
[2023-09-01 01:31] VITALS: BP 117/63; PULSE 76; RESP 16; TEMP 36.4; O2SAT 99
--- NOTE | 2023-09-01 01:39 | ED.GENADULT ---
HPI - General Adult General Chief complaint: Upper Respiratory Symptoms Stated complaint: weakness, body aches Time Seen by Provider: 08/31/23 23:40 Source: patient, RN notes reviewed, old records reviewed and assistant gm of content & delivery Mode of arrival: ambulatory Limitations: language barrier History of Present Illness ED Provider: Jose HPI narrative: 32-year-old female presents for evaluation of body aches. Patient reports her symptoms started earlier today. She states that she feels ?pain all over my body. ? She reports feeling fatigued and weak. She reports a cough and occasional shortness of breath. Denies any chest pain abdominal pain, nausea vomiting Denies any sick contacts. She denies any burning with urination She reports working out in the sun or extended periods over last few days Related Data Home Medications ?Medication ?Instructions ?Recorded ?Confirmed albuterol sulfate 2.5 mg/3 mL mg inhalation QID PRN 10/13/20 10/13/20 (0.083 %) solution for nebulization albuterol sulfate 90 mcg/actuation 2 puff PO Q4-6H PRN 10/13/20 10/13/20 aerosol inhaler (ProAir HFA) amlodipine 10 mg tablet 10 mg PO DAILY 10/13/20 10/13/20 cholecalciferol (vitamin D3) 25 25 mcg PO DAILY 10/13/20 10/13/20 mcg (1,000 unit) capsule (Vitamin D3) duloxetine 30 mg capsule,delayed 30 mg PO DAILY 10/13/20 10/13/20 release fluticasone propionate 250 1 inh PO BID 10/13/20 10/13/20 mcg/actuation blister powder for inhalation (Flovent Diskus) hydrochlorothiazide 25 mg tablet 25 mg PO DAILY 10/13/20 10/13/20 labetalol 100 mg tablet 100 mg PO BID 10/13/20 10/13/20 montelukast 10 mg tablet 10 mg PO QPM 10/13/20 10/13/20 omeprazole 20 mg capsule,delayed 20 mg PO DAILY 10/13/20 10/13/20 release vitamin with calcium 1 tab PO DAILY 10/13/20 10/13/20 no.72-iron 27 mg-folic acid 1 mg tablet (M-Elida Plus) sertraline 50 mg tablet 50 mg PO DAILY 10/13/20 10/13/20 Previous Rx's ?Medication ?Instructions ?Recorded loperamide 2 mg capsule (Imodium 2 mg PO Q6H PRN loose stool #10 05/25/21 A-D) caps ondansetron 4 mg disintegrating 4 mg PO Q8H PRN nausea and 05/25/21 tablet vomiting #12 tabs tiotropium bromide 2.5 2 puff inhalation QAM 30 days #4 05/31/21 mcg/actuation mist for inhalation grams (Spiriva Respimat) morphine 15 mg immediate release 15 mg PO Q4-6H PRN pain #10 tabs 10/09/21 tablet ondansetron 4 mg disintegrating 4 mg PO Q6-8H PRN nausea and 10/09/21 tablet vomiting #14 tabs metoclopramide HCl 5 mg tablet 5 mg PO BID PRN nausea and 11/09/21 (Reglan) vomiting #7 tabs amitriptyline 50 mg tablet 50 mg PO BEDTIME #30 tabs 12/24/21 tramadol 50 mg tablet 50 mg PO TID PRN pain #20 tabs 12/24/21 cyclobenzaprine 10 mg tablet 10 mg PO Q8H PRN muscle spasm #10 03/20/22 tabs lidocaine 5 % topical patch 1 patch topical DAILY #15 ea 03/20/22 (Lidoderm) nitrofurantoin 100 mg PO Q12H 5 days #10 caps 03/20/22 monohydrate/macrocrystals 100 mg capsule (Macrobid) prednisone 20 mg tablet 40 mg (2 x 20 mg) PO DAILY #10 tabs 07/26/22 famotidine 40 mg tablet 40 mg PO BEDTIME #30 tabs 12/26/22 amoxicillin 875 mg-potassium 1 tab PO Q12H #14 tabs 07/03/23 clavulanate 125 mg tablet Allergies Allergy/AdvReac Type Severity Reaction Status Date / Time Sulfa (Sulfonamide Allergy Unknown UNKNOWN Verified 08/31/23 22:52 Antibiotics) [SULFA (SULFONAMIDE ANTIBIOTICS)] Review of Systems Constitutional: Constitutional: Reports body ache(s), Reports chills, Denies fever(s), Denies headache(s) and Reports malaise ENT: Denies headache(s) and Denies sore throat Cardiovascular: Cardiovascular: Denies chest pain and Reports dyspnea Respiratory: Respiratory: Reports cough and Reports dyspnea Gastrointestinal: Gastrointestinal: Denies abdominal pain, Denies nausea and Denies vomiting Musculoskeletal: Musculoskeletal: Reports back pain, Reports muscle cramps and Reports muscle weakness Neurologic: Denies headache(s) [facility] Past Medical History Medical History Pre-diabetes Asthma Social History Social History Alcohol intake: never Patient Tobacco Use Status: Never used Tobacco Smoked in Last 30 Days: No Use of substances other than those prescribed or required for medical reasons: No Advance Directives: No Advance Directives Information Provided: No Do you have a plan to hurt others: No Plan Patient : No Physical Exam ED Vital Signs: Vital Signs - 24 hr 08/31/23 22:51 09/01/23 01:31 Temperature 97.5 F 97.6 F Pulse Rate 89 76 Respiratory Rate 18 16 Blood Pressure 147/81 H 117/63 Pulse Oximetry 99 99 Oxygen Delivery Method Room Air Room Air BMI result Body Mass Index 31.0 Const General: healthy appearing, comfortable, no acute distress, alert and awake Nutritional Appearance: well nourished Orientation/consciousness: patient oriented x3 HENMT Head: Yes normocephalic and Yes atraumatic Eyes Eyelids: Yes eyelids normal Conjunctivae: conjunctivae normal Sclerae: sclerae normal Corneas: corneas normal Pupils: Equal, round and reactive pupils present EOM: EOMs intact bilaterally Neck Neck: Yes full ROM Resp Effort & Inspection: normal respiratory effort, able to speak in complete sentences, no audible wheezes and not labored Auscultation: clear to auscultation bilaterally GI Inspection: No distended Palpation (GI): Soft to palpation, not firm, nontender, no guarding and not rigid Skin General skin exam: elasticity normal Neuro General: patient oriented x3 Cranial nerves: Yes Equal, round and reactive pupils present and Yes Bilaterally intact EOM present Cognition (Neuro): normal cognition Extrem Other: Moving all extremities well without any obvious deformities Medications Administered Discontinued Medications Generic Name Dose Route Start Last Admin Trade Name Freq PRN Reason Stop Dose Admin Sodium Chloride 1,000 mls @ 999 mls/hr 09/01/23 00:30 09/01/23 00:27 Ns IV 09/01/23 01:30 999 mls/hr .Q1H1M ONEIDA Administration Medical Decision Making Medical Decision Making [facility] Narrative: 32-year-old female presents for evaluation of chills, body aches. She reports that her symptoms started earlier today, consistent with viral syndrome. However she reports that she has been out in the sun and kicking for long periods, plan for labs including CPK. She will treat with IV fluids. Viral swabs negative for COVID 19, influenza, RSV, strep. However it is still possible that she has COVID-19 despite the negative testing this her symptoms only started today. I advised the patient to retest herself on a home test in 2 days' time if she is still symptomatic. I do not suspect pneumonia as her lungs are clear to auscultation, vital signs are stable. She has no abdominal pain or tenderness on exam to warrant infection. She has no GI symptoms or symptoms Differential Diagnosis Differential Diagnoses: The differential diagnosis associated with the presentation includes Viral syndrome COVID-19 Pharyngitis Rhabdomyolysis PURVI Dehydration Lab Data [facility] Lab Attestation statement: I reviewed the patient's lab results. No leukocytosis. The patient has a chronic ascitic anemia that is borderline microcytic. Her hemoglobin, hematocrit are all similar to her baseline. There is no left shift. Electrolytes are within normal limits, the patient's CK was just barely above normal, does not qualify for rhabdomyolysis but she was treated with IV fluids regardless. 09/01/23 00:27 09/01/23 00:27 Labs: Lab Results 08/31/23 09/01/23 Range/Units 22:58 00:27 WBC 10.0 (4.8-10.8) X10*3/uL RBC 4.21 (4.20-5.50) X10*6/uL Hgb 11.5 L (12.0-16.0) g/dl Hct 33.8 L (37.0-47.0) % MCV 80.3 (80.0-98.0) fL MCH 27.3 (27.0-33.0) pg MCHC 34.0 (31.0-35.0) g/dl RDW 13.8 (11.0-16.0) % Plt Count 258 (160-400) X10*3/uL MPV 9.8 (9.4-12.3) fL Immature Gran % (Auto) 0.4 (0.0-0.4) % Neut % (Auto) 66.4 (45-73) % Lymph % (Auto) 25.2 (20-40) % Greer % (Auto) 6.3 (2-11) % Eos % (Auto) 1.4 (0-4) % Baso % (Auto) 0.3 (0-2) % Lymph # (Auto) 2.5 (1.2-4.9) X10*3/uL Greer # (Auto) 0.6 (0.1-1.2) X10*3/uL Eos # (Auto) 0.1 (0.0-0.4) X10*3/uL Baso # (Auto) 0.0 (0.0-0.2) X10*3/uL Abs Immat Gran (auto) 0.04 H (0.00-0.03) X10*3/uL Absolute Neuts (auto) 6.6 (2.0-8.3) x10*3/uL Absolute Nucleated RBC 0.000 (0.0-0.012) X10*3/uL Nucleated RBC % (auto) 0.0 (0.0-0.2) /100WBC Sodium 139 (135-145) mmol/L Potassium 3.7 (3.3-5.1) mmol/L Chloride 105 (96-108) mmol/L Carbon Dioxide 24 (22-29) mmol/L Anion Gap 14 (12-20) BUN 15 (9-16) mg/dL Creatinine 0.80 (0.5-1.4) mg/dL Estim Creat Clear Calc 114.0 Estimated GFR > 60 Random Glucose 110 (60-115) mg/dL Calcium 9.5 (8.4-10.2) mg/dL Total Bilirubin 0.2 (0.0-1.0) mg/dL AST 17 (5-31) U/L ALT 16 (0-31) U/L Alkaline Phosphatase 66 (39-117) U/L Total Creatine Kinase 143 H (26-140) U/L Total Protein 7.5 (6.5-8.0) g/dL Albumin 4.1 (3.5-5.0) g/dL Influenza Type A (PCR) NEGATIVE (Negative) Influenza Type B (PCR) NEGATIVE (Negative) RSV RNA Qual (PCR) NEGATIVE (Negative) SARS-CoV-2 RNA (RT-PCR) NEGATIVE (Negative) Discharge Plan Discharge Clinical Impression: Body aches Patient Disposition: Home, Self-Care Instructions: Viral Syndrome (ED) Additional Instructions: Your workup in the ER was reassuring. You tested negative for COVID, influenza, RSV. I do recommend retesting for COVID-19 on a home test if you are still having symptoms in 2 days. Your blood work was without any concerning abnormalities You may use ibuprofen/Tylenol for body aches. Follow-up with your primary doctor Prescriptions: No Action morphine 15 mg tablet 15 mg PO Q4-6H PRN (Reason: pain) Qty: 10 0RF Rx Instructions: The patient may ask for partial fill; Partial Fill upon patient request. ondansetron 4 mg tablet,disintegrating 4 mg PO Q6-8H PRN (Reason: nausea and vomiting) Qty: 14 0RF metoclopramide HCl [Reglan] 5 mg tablet 5 mg PO BID PRN (Reason: nausea and vomiting) Qty: 7 0RF Rx Instructions: Take together with ketorolac p.r.n. severe headache amitriptyline 50 mg tablet 50 mg PO BEDTIME Qty: 30 0RF tramadol 50 mg tablet 50 mg PO TID PRN (Reason: pain) Qty: 20 0RF ondansetron 4 mg tablet,disintegrating 4 mg PO Q8H PRN (Reason: nausea and vomiting) Qty: 12 0RF loperamide [Imodium A-D] 2 mg capsule 2 mg PO Q6H PRN (Reason: loose stool) Qty: 10 0RF lidocaine [Lidoderm] 5 % adhesive patch,medicated 1 patch topical DAILY Qty: 15 0RF Rx Instructions: leave on most painful area for up to 12 hrs cyclobenzaprine 10 mg tablet 10 mg PO Q8H PRN (Reason: muscle spasm) Qty: 10 0RF nitrofurantoin monohyd/m-cryst [Macrobid] 100 mg capsule 100 mg PO Q12H 5 Days Qty: 10 0RF Rx Instructions: must administer with a meal/food prednisone 20 mg tablet 40 mg PO DAILY Qty: 10 0RF amoxicillin-pot clavulanate 875-125 mg tablet 1 tab PO Q12H Qty: 14 0RF famotidine 40 mg tablet 40 mg PO BEDTIME Qty: 30 0RF labetalol 100 mg tablet 100 mg PO BID M-Elida Plus 27 mg iron- 1 mg tablet 1 tab PO DAILY cholecalciferol (vitamin D3) [Vitamin D3] 25 mcg (1,000 unit) capsule 25 mcg PO DAILY sertraline 50 mg tablet 50 mg PO DAILY Flovent Diskus 250 mcg/actuation blister with device 1 inh PO BID albuterol sulfate [ProAir HFA] 90 mcg/actuation HFA aerosol inhaler 2 puff PO Q4-6H PRN montelukast 10 mg tablet 10 mg PO QPM omeprazole 20 mg capsule,delayed release(DR/EC) 20 mg PO DAILY amlodipine 10 mg tablet 10 mg PO DAILY albuterol sulfate 2.5 mg /3 mL (0.083 %) solution for nebulization inhalation QID PRN duloxetine 30 mg capsule,delayed release(DR/EC) 30 mg PO DAILY hydrochlorothiazide 25 mg tablet 25 mg PO DAILY Spiriva Respimat 2.5 mcg/actuation mist 2 puff inhalation QAM 30 Days Qty: 4 6RF Print Language: Mauritian
[2023-09-01 02:01] VITALS: BP 117/63; PULSE 76; RESP 16; TEMP 36.4; O2SAT 99
== END 2023-09-01 02:02 | disposition home or self-care (01) ==
PROVIDERS: Physician Assistant; Emergency Provider Internal Medicine; PCP Internal Medicine
DX: M79.10 Myalgia, unspecified site (principal); R53.1 Weakness; R11.2 Nausea with vomiting, unspecified; Z79.899 Other long term (current) drug therapy; Z03.818 Encounter for observation for suspected exposure to other biological agents ruled out
CPT/HCPCS: 0241U; 36415; 80053; 82550; 85025; 96360; 96361; 99284

== ENCOUNTER 2023-10-31 14:29 | Outpatient (AMB) | payer MEDICAID, SELFPAY ==
--- NOTE | 2023-10-31 14:41 | MHC.OFFVIS ---
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 Patient reports numbness and tingling started years ago. A month ago her pain started to worsen and she is no longer able to bear with it. She express pain at base of B/L thumbs, swelling, and occasional locking. She is unable to hold objects without dropping them, has difficulty with gripping, gasping, lifting. Patient can not identify which hand is worse than other. Symptoms worsen at night, she wakes up shaking her hands and rubbing her thumb. Tylenol and hand braces offer no relief. No EMG done in the past. Patient is a prediabetic. 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 The patient reports that her numbness and tingling has been ongoing for years, but states that over the last month she noticed that her symptoms have acutely worsened to the point where they are unbearable. The patient reports that her thumb pain is worst over the area of the radial styloid and the base of bilateral thumbs, but states that during the night she experiences pain throughout her hands. Patient also states that the numbness and tingling in her hands is constant, daily, and also affects the small finger. No other acute complaints or concerns at this time. [facility] Medical History Pre-diabetes Asthma Social History Alcohol intake: never Patient Tobacco Use Status: Never used Tobacco Review of Systems Const All systems reviewed & are unremarkable except as noted in HPI and below Physical Exam Vital Signs: BMI result Body Mass Index 31.5 Extrem Other: Patient is alert, oriented, and in no acute distress. Neuro: Patient reports diminished sensation of all digits of bilateral hands at this time Vascular: Cap refill brisk Pain: Patient reports significant tenderness to palpation of the radial styloid and at the base of bilateral thumbs No tenderness to palpation of the ulnar styloid, basal joint, or elsewhere throughout bilateral hands and wrists ROM: Patient is able to make a closed fist and extend digits of bilateral hands fully Skin: No lacerations or abrasions. General: No ecchymosis, erythema, or evidence of infection. Psych: Appears grossly normal Affect normal Attitude cooperative Positive Octavia test bilaterally Office Procedures Tendon Injection Tendon Injection Details: Right de Quervain tenosynovitis injection [id number] Tendon Sheath Injection All charges added?: Procedure code (CPT) selection complete Assessment & Plan Assessment & Plan (1) De Quervain's tenosynovitis, bilateral: Code(s): M65.4 - Radial styloid tenosynovitis [de Quervain] Category: Medical (2) Numbness and tingling in both hands: Code(s): R20.0 - Anesthesia of skin; R20.2 - Paresthesia of skin Category: Medical Plan 1. De Quervain tenosynovitis, right I discussed this condition with the patient Patient was educated about the treatment options available, would like to proceed with steroid injection Injection #1: The risks and benefits of a steroid injection including but not limited to risk of damage to blood vessels, nerves, tendons, infection, skin bleaching, failure to improve symptoms, increased pain, and possible need for further injections or other intervention were discussed with the patient and the patient wishes to proceed with the steroid injection. Once consent was obtained, I sterilely prepped the area over the 1st dorsal compartment of the right thumb. I then injected the 1st dorsal compartment with a combination of 1 mL of dexamethasone (4mg/ml), and 1% lidocaine. The patient tolerated the procedure well with no complications and good resolution of their symptoms prior to leaving clinic. If the patient continues to have pain 6-8 weeks following this injection, they may call to schedule appointment to discuss alternative treatment options 2. Bilateral hand numbness and tingling Symptoms constant, daily, worse at night At this time, EMG and nerve conduction study are ordered for assessment of the health of the nerves of bilateral upper extremities Patient is amenable to this plan Patient will follow-up after EMG and nerve conduction study for results review and discussion of further treatment options indicated at that time 3. De Quervain tenosynovitis, left Patient would like to pursue injections on the right 1st, as this side bothers her more If the patient experiences good relief with the injection of the right side, she would like to proceed with injection of the left Patient will follow-up in 6-8 weeks for discussion of effectiveness of original injection, and to discuss injections in the left Patient will follow-up after EMG and nerve conduction study for results review, sooner with any acute concerns Coding Level of Care Code New Pt Level 4 (19341) Diagnoses De Quervain's tenosynovitis, bilateral M65.4 Numbness and tingling in both hands R20.0; R20.2 CPT Codes Tendon Injection - Tendon Injection 1: [id number] Tendon Sheath Injection ([id number])
[2023-10-31 14:45] VITALS: BMI 31.5
== END 2023-10-31 15:45 | disposition home or self-care (01) ==
PROVIDERS: PCP Internal Medicine
DX: M65.4 Radial styloid tenosynovitis [de Quervain] (principal); R20.0 Anesthesia of skin; R20.2 Paresthesia of skin
CPT/HCPCS: 20550; 99204

== ENCOUNTER → 2023-10-31 14:29 | Outpatient (BNVA) | payer MEDICAID, SELFPAY | PROVIDERS: PCP Internal Medicine | DX: M65.4 Radial styloid tenosynovitis [de Quervain] (principal); R20.0 Anesthesia of skin; R20.2 Paresthesia of skin | CPT/HCPCS: 20550; 99212; J1100 ==

== ENCOUNTER 2023-11-03 14:06 | Emergency (ER) | payer MEDICAID, SELFPAY ==
--- NOTE | ~2023-11-03 | XR_ITS ---
EXAMINATION: XR CHEST CLINICAL INFORMATION: Cough. Shortness of breath. COMPARISON: Chest radiograph 07/03/2023 TECHNIQUE: 2 views of the chest were obtained. FINDINGS: The lungs are adequately expanded. No focal consolidation. No pleural effusions or pneumothorax. The cardiomediastinal silhouette is within normal limits. No acute osseous abnormality. XR/XR chest 2V IMPRESSION: No acute pulmonary disease. Electronically signed by: Nic Barrera MD 11/03/2023 04:11 PM EDT
[2023-11-03 14:21] VITALS: BP 147/85; PULSE 99; RESP 18; TEMP 36.9; O2SAT 95; BMI 34.4
--- NOTE | 2023-11-03 14:21 | ED.URI ---
HPI - URI/Sore Throat General Chief Complaint: Upper Respiratory Symptoms Stated Complaint: diff breathing Time Seen by Provider: 11/03/23 16:40 Source: patient, RN notes reviewed and old records reviewed Mode of arrival: ambulatory History of Present Illness ED Provider: Emi Anthony PA-C HPI Narrative: 33-year-old female with a past medical history of asthma, RLS, JAMES, presenting to the ED complaining of dry, fatigue, SOB, sore throat, and chest discomfort with coughing. Denies fever, chills, difficulty or inability to swallow, abdominal pain, travel, sick contacts, pedal edema Related Data Home Medications ?Medication ?Instructions ?Recorded ?Confirmed albuterol sulfate 2.5 mg/3 mL mg inhalation QID PRN 10/13/20 10/13/20 (0.083 %) solution for nebulization albuterol sulfate 90 mcg/actuation 2 puff PO Q4-6H PRN 10/13/20 10/13/20 aerosol inhaler (ProAir HFA) cholecalciferol (vitamin D3) 25 25 mcg PO DAILY 10/13/20 10/13/20 mcg (1,000 unit) capsule (Vitamin D3) duloxetine 30 mg capsule,delayed 30 mg PO DAILY 10/13/20 10/13/20 release fluticasone propionate 250 1 inh PO BID 10/13/20 10/13/20 mcg/actuation blister powder for inhalation (Flovent Diskus) hydrochlorothiazide 25 mg tablet 25 mg PO DAILY 10/13/20 10/13/20 labetalol 100 mg tablet 100 mg PO BID 10/13/20 10/13/20 montelukast 10 mg tablet 10 mg PO QPM 10/13/20 10/13/20 omeprazole 20 mg capsule,delayed 20 mg PO DAILY 10/13/20 10/13/20 release vitamin with calcium 1 tab PO DAILY 10/13/20 10/13/20 no.72-iron 27 mg-folic acid 1 mg tablet (M-Elida Plus) sertraline 50 mg tablet 50 mg PO DAILY 10/13/20 10/13/20 carvedilol 25 mg tablet 25 mg PO 10/31/23 furosemide 40 mg tablet 40 mg PO DAILY 10/31/23 gabapentin 300 mg capsule 300 mg PO TID 10/31/23 losartan 25 mg tablet 25 mg PO QPM 10/31/23 metformin 500 mg tablet 500 mg PO DAILY 10/31/23 Previous Rx's ?Medication ?Instructions ?Recorded tiotropium bromide 2.5 2 puff inhalation QAM 30 days #4 05/31/21 mcg/actuation mist for inhalation grams (Spiriva Respimat) ondansetron 4 mg disintegrating 4 mg PO Q6-8H PRN nausea and 10/09/21 tablet vomiting #14 tabs lidocaine 5 % topical patch 1 patch topical DAILY #15 ea 03/20/22 (Lidoderm) prednisone 20 mg tablet 40 mg (2 x 20 mg) PO DAILY #10 tabs 07/26/22 albuterol sulfate 90 mcg/actuation 2 puff inhalation Q4-6H PRN 11/03/23 aerosol inhaler shortness of breath or wheezing #6.7 grams benzonatate 100 mg capsule 100 mg PO TID PRN cough #14 caps 11/03/23 fluticasone propionate 50 2 spray intranasal DAILY #16 grams 11/03/23 mcg/actuation nasal spray,suspension (Flonase Allergy Relief) Allergies Allergy/AdvReac Type Severity Reaction Status Date / Time Sulfa (Sulfonamide Allergy Unknown UNKNOWN Verified 11/03/23 14:23 Antibiotics) [SULFA (SULFONAMIDE ANTIBIOTICS)] Review of Systems Review of Systems: Yes all other systems are reviewed and are negative Constitutional: Constitutional: Reports as per [facility] Past Medical History Attestation statement: The following information was validated with the patient. Source: old records reviewed Medical History Pre-diabetes Asthma Social History Social History Alcohol intake: never Patient Tobacco Use Status: Never used Tobacco Advance Directives: No Advance Directives Information Provided: No Do you have a plan to hurt others: No Plan Physical Exam Vital Signs: Vital Signs: Last Vital Signs Temp 98.5 F 11/03/23 17:23 Pulse 99 11/03/23 17:23 Resp 18 11/03/23 17:23 BP 147/85 H 11/03/23 17:23 Pulse Ox 95 11/03/23 17:23 O2 Del Method Room Air 11/03/23 17:23 BMI result Body Mass Index 34.4 Const: General: cooperative, healthy appearing and no acute distress Orientation/consciousness: patient oriented x3 Limitations: no limitations HEENT: Head: Yes normal to inspection and Yes atraumatic Ears: hearing grossly normal bilaterally, external ears normal and TM's normal bilaterally General nose exam: Normal external nose present Face and sinus: Yes normal facial exam Mouth: no drooling Throat: Yes uvula midline, No peritonsillar mass, Yes posterior oropharynx abnormal (Mildly erythematous), No uvula laterally displaced and No uvular edema Eyes: General: appearance normal, both eyes and all related structures EOM: EOMs intact bilaterally Neck: Neck: Yes normal visual inspection and Yes no meningeal signs Resp: Effort & Inspection: normal respiratory effort and no respiratory distress Auscultation: clear to auscultation bilaterally, no crackles, no rales, no rhonchi and no wheezes Cardio: Rate: regular rate Heart sounds: S1 normal heart sound present and S2 normal heart sound present GI: Inspection: Yes normal to inspection Palpation (GI): Soft to palpation, nontender, no guarding and not rigid Skin: Rashes: no rashes Wounds: no wounds Neuro: General: patient oriented x3, tone normal and no meningeal signs Cranial nerves: Yes CN's II-XII intact bilaterally Gait exam (Neuro): Normal gait present Extrem: General: Yes normal to inspection Course Course Course Narrative: This is a Rapid Medical Exam performed in triage by Emi Anthony PA-C. Full HPI, ROS and PE to be performed by primary ED provider. 33 yo F w/PMHx asthma, RLS, JAMES presenting to the ED c/o dry cough, fatigue, SOB. Also reports sore throat and discomfort when coughing PE: lungs CTA, talking in complete sentences Plan: EKG, CXR, rapid strep, viral testing XR chest 2V IMPRESSION: No acute pulmonary disease. COVID/flu/RSV and rapid strep negative Results discussed with patient including worrisome signs and symptoms and strict return precautions, and when to return to the emergency department. They verbalized understanding and feel safe for discharge at this time. Medical Decision Making Medical Decision Making MDM Narrative: 33-year-old female with a past medical history of asthma, RLS, JAMES, presenting to the ED complaining of dry, fatigue, SOB, sore throat, and chest discomfort with coughing. On exam vital signs stable, NAD, nontoxic appearing, lungs CTA. Concern for viral illness vs strep pharyngitis. Rule out pneumonia vs bronchitis. Low suspicion for ACS or PE Plan: Viral testing, CXR Differential Diagnosis Differential Diagnoses: The differential diagnosis associated with the presentation includes As above Lab Data MDM Lab Attestation statement: I reviewed the patient's lab results. Labs: Lab Results 11/03/23 Range/Units 14:33 Influenza Type A (PCR) NEGATIVE (Negative) Influenza Type B (PCR) NEGATIVE (Negative) RSV RNA Qual (PCR) NEGATIVE (Negative) SARS-CoV-2 RNA (RT-PCR) NEGATIVE (Negative) S. pyogenes GrpA PRIMITIVO Negative (Negative) Radiology Impression Discussion of test interpretation with radiology: I have reviewed the radiologist's reading. External Record Review External record reviewed: Inpatient record, Office record, Outpatient record, Prior outpatient labs, Prior outpatient radiology, Primary care record and Outside ED record Tests considered The following testing was considered but not selected: As above Discharge Plan Discharge Clinical Impression: Upper respiratory infection Patient Disposition: Home, Self-Care Instructions: Viral Syndrome (ED) Additional Instructions: Tested negative for COVID, flu, RSV, and strep throat Your x-rays unremarkable Tessalon Perles for cough, take as needed Flonase as a nasal decongestant Use albuterol inhaler as needed for shortness of breath/wheezing If symptoms persist or worsen return to the ED Prescriptions: New benzonatate 100 mg capsule 100 mg PO TID PRN (Reason: cough) Qty: 14 0RF albuterol sulfate 90 mcg/actuation HFA aerosol inhaler 2 puff inhalation Q4-6H PRN (Reason: shortness of breath or wheezing) Qty: 6.7 0RF fluticasone propionate [Flonase Allergy Relief] 50 mcg/actuation spray,suspension 2 spray intranasal DAILY Qty: 16 0RF Rx Instructions: administer into each nostril No Action ondansetron 4 mg tablet,disintegrating 4 mg PO Q6-8H PRN (Reason: nausea and vomiting) Qty: 14 0RF lidocaine [Lidoderm] 5 % adhesive patch,medicated 1 patch topical DAILY Qty: 15 0RF Rx Instructions: leave on most painful area for up to 12 hrs prednisone 20 mg tablet 40 mg PO DAILY Qty: 10 0RF labetalol 100 mg tablet 100 mg PO BID M-Elida Plus 27 mg iron- 1 mg tablet 1 tab PO DAILY cholecalciferol (vitamin D3) [Vitamin D3] 25 mcg (1,000 unit) capsule 25 mcg PO DAILY sertraline 50 mg tablet 50 mg PO DAILY Flovent Diskus 250 mcg/actuation blister with device 1 inh PO BID albuterol sulfate [ProAir HFA] 90 mcg/actuation HFA aerosol inhaler 2 puff PO Q4-6H PRN montelukast 10 mg tablet 10 mg PO QPM omeprazole 20 mg capsule,delayed release(DR/EC) 20 mg PO DAILY albuterol sulfate 2.5 mg /3 mL (0.083 %) solution for nebulization inhalation QID PRN duloxetine 30 mg capsule,delayed release(DR/EC) 30 mg PO DAILY hydrochlorothiazide 25 mg tablet 25 mg PO DAILY Spiriva Respimat 2.5 mcg/actuation mist 2 puff inhalation QAM 30 Days Qty: 4 6RF carvedilol 25 mg tablet 25 mg PO gabapentin 300 mg capsule 300 mg PO TID losartan 25 mg tablet 25 mg PO QPM furosemide 40 mg tablet 40 mg PO DAILY metformin 500 mg tablet 500 mg PO DAILY Referrals: Physician,Unknown J [Primary Care Provider] - Interventions: ED Discharge Assessment Last Done: 11/03/23 17:23 Discharge Date/Time: 11/03/23 17:24 Print Language: Belarusian
--- NOTE | 2023-11-03 14:24 | ECG_ITS ---
Test Reason : sob Blood Pressure : / mmHG Vent. Rate : 095 BPM Atrial Rate : 095 BPM P-R Int : 124 ms QRS Dur : 078 ms QT Int : 364 ms P-R-T Axes : 000 172 148 degrees QTc Int : 457 ms Suspect limb lead reversal, interpretation assumes no reversal Normal sinus rhythm with sinus arrhythmia Lateral infarct , age undetermined Inferior infarct , age undetermined Abnormal ECG When compared with ECG of 03-JUL-2023 15:20, QRS axis Shifted right Referred By: Emi Anthony Electronically Signed By:NATY LEMA
[2023-11-03 14:55] LABS: IDNOW Serial# 08D9AD1C; Strep A Nucleic Acid Negative (Negative)
[2023-11-03 15:21] LABS: Influenza A PCR NEGATIVE (Negative); Influenza B PCR NEGATIVE (Negative); Resp Syncy Virus RNA Qual PCR NEGATIVE (Negative); SARS COV2 PCR INHOUSE NEGATIVE (Negative)
[2023-11-03 17:23] VITALS: BP 147/85; PULSE 99; RESP 18; TEMP 36.9; O2SAT 95
== END 2023-11-03 17:24 | disposition home or self-care (01) ==
PROVIDERS: Physician Assistant; Emergency Provider Emergency Medicine
DX: J06.9 Acute upper respiratory infection, unspecified (principal); J02.9 Acute pharyngitis, unspecified; Z03.818 Encounter for observation for suspected exposure to other biological agents ruled out; R05.9 Cough, unspecified; R06.02 Shortness of breath; J45.909 Unspecified asthma, uncomplicated; Z79.899 Other long term (current) drug therapy
CPT/HCPCS: 0241U; 71046; 87651; 93005; 99283

== ENCOUNTER 2023-11-09 01:57 | Emergency (ER) | payer MEDICAID, SELFPAY ==
--- NOTE | ~2023-11-09 | US_ITS ---
EXAMINATION: US PELVIS CLINICAL INFORMATION: Severe left-sided pelvic pain. COMPARISON: CT abdomen and pelvis 03/20/2022 TECHNIQUE: Ultrasound of the pelvis is performed using both transabdominal and transvaginal transducers along with Doppler. Transvaginal imaging is performed due to inadequate visualization transabdominally. FINDINGS: Uterus: Uterus measures 9.7 cm x 4.3 cm x 5.2 cm. The endometrial echocomplex measures 4 mm in width. No endometrial cavity fluid collections identified. The left ovary measures 3.5 cm x 2.4 cm x 1.9 cm. The right ovary measures 2.8 cm x 2.4 cm x 1.5 cm. Normal low resistive venous waveforms are noted on spectral Doppler interrogation within the left ovary. A normal low resistive venous waveform is noted within the right ovary. No free intraperitoneal fluid collections are identified. US/US pelvic ovarian doppler IMPRESSION: Normal pelvic ultrasound. Normal appearance of the uterus and ovaries. Normal low resistive venous flow within the left and right ovaries. Electronically signed by: Wicho Garcia MD 11/09/2023 04:19 AM EDT
--- NOTE | ~2023-11-09 | US_ITS ---
EXAMINATION: US PELVIS CLINICAL INFORMATION: Severe left-sided pelvic pain. COMPARISON: CT abdomen and pelvis 03/20/2022 TECHNIQUE: Ultrasound of the pelvis is performed using both transabdominal and transvaginal transducers along with Doppler. Transvaginal imaging is performed due to inadequate visualization transabdominally. FINDINGS: Uterus: Uterus measures 9.7 cm x 4.3 cm x 5.2 cm. The endometrial echocomplex measures 4 mm in width. No endometrial cavity fluid collections identified. The left ovary measures 3.5 cm x 2.4 cm x 1.9 cm. The right ovary measures 2.8 cm x 2.4 cm x 1.5 cm. Normal low resistive venous waveforms are noted on spectral Doppler interrogation within the left ovary. A normal low resistive venous waveform is noted within the right ovary. No free intraperitoneal fluid collections are identified. US/US pelvic and transvaginal IMPRESSION: Normal pelvic ultrasound. Normal appearance of the uterus and ovaries. Normal low resistive venous flow within the left and right ovaries. Electronically signed by: Wicho Garcia MD 11/09/2023 04:19 AM EDT
--- NOTE | ~2023-11-09 | CT_ITS ---
EXAMINATION: CT ABDOMEN AND PELVIS WITH CONTRAST CLINICAL INFORMATION: Severe left lower quadrant pain COMPARISON: Pelvic ultrasonography 11/09/2023 CT abdomen pelvis 03/20/2022. TECHNIQUE: Multidetector volumetric images were obtained from the superior aspect of the liver through the pubic symphysis following administration 85 mL of Omnipaque 350 intravenous contrast. Sagittal and coronal reformatted images were obtained on the technologist's workstation. Oral contrast: No This CT examination was performed using dose optimization techniques as appropriate, variously including the following: *Automated exposure control *Adjustment of mA and/or kV according to patient size (this includes techniques or standardized protocols for targeted exams where dose is matched to indication/reason for exam; i.e. extremities or head) *Use of iterative reconstruction technique DLP: 754 mGy-cm FINDINGS: LUNG BASES: The visualized lung bases are unremarkable. LIVER, GALLBLADDER, AND BILIARY TREE: The liver is normal in size, shape, and attenuation. No focal hepatic lesion or biliary ductal dilatation is present. Cholecystectomy clips noted. PANCREAS: Unremarkable. SPLEEN: Unremarkable. ADRENAL GLANDS: Unremarkable. KIDNEYS AND URETERS: Bilaterally symmetric nephrographic enhancement. No hydronephrosis or perinephric inflammatory changes. No urolithiasis. No ureterectasis. BLADDER: Unremarkable. GASTROINTESTINAL TRACT: No intestinal dilatation or mural thickening noted. Trace physiologic free intraperitoneal fluid is noted dependently within the pelvic cul-de-sac. No colonic diverticulosis. Normal appearance of the appendix. No intestinal dilatation or mural thickening. Normal appearance of the sigmoid mesentery and small bowel mesentery appearance of the stomach. ABDOMINAL WALL: No significant hernia is appreciated. LYMPH NODES: Normal. VASCULAR: Unremarkable. PELVIC VISCERA: Normal appearance of the uterus. No adnexal lesions noted. OSSEOUS STRUCTURES: L5 vertebral body demonstrates partial left lateral sacralization and a left pseudoarthrosis. CT/CT abdomen pelvis w IV con IMPRESSION: 1. No acute abnormalities identified. 2. No urolithiasis. Normal appendix. No hydronephrosis or perinephric inflammatory changes. 3. Status post cholecystectomy. 4. L5 vertebral body demonstrates partial left lateral sacralization and a left L5-S1 pseudoarthrosis. Electronically signed by: Wicho Garcia MD 11/09/2023 05:55 AM EDT
[2023-11-09 02:07] VITALS: BP 159/90; PULSE 116; RESP 24; TEMP 37.1; O2SAT 99; BMI 34.7
[2023-11-09 02:20] VITALS: BP 149/105; PULSE 111; RESP 21; TEMP 37.4; O2SAT 96
--- NOTE | 2023-11-09 02:20 | ED_ITS ---
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 Pain is severe with movements and coughing. She is worried she has another ovarian cyst. She denies prior surgery for cyst in the past. No fevers, no urinary symptoms. MD elicited complaint: abdominal pain Pertinent past history: other (ovarian cysts) Onset (ago): day(s) (1) Pain Consistency: constant Location: LLQ and pelvis Severity: severe Quality: stabbing Radiation: none Migration to: no migration Exacerbating factors: movement Relieving factors: nothing Context: history of similar episodes Associated symptoms: denies other symptoms Related Data Home Medications ?Medication ?Instructions ?Recorded ?Confirmed albuterol sulfate 2.5 mg/3 mL mg inhalation QID PRN 10/13/20 10/13/20 (0.083 %) solution for nebulization albuterol sulfate 90 mcg/actuation 2 puff PO Q4-6H PRN 10/13/20 10/13/20 aerosol inhaler (ProAir HFA) cholecalciferol (vitamin D3) 25 25 mcg PO DAILY 10/13/20 10/13/20 mcg (1,000 unit) capsule (Vitamin D3) duloxetine 30 mg capsule,delayed 30 mg PO DAILY 10/13/20 10/13/20 release fluticasone propionate 250 1 inh PO BID 10/13/20 10/13/20 mcg/actuation blister powder for inhalation (Flovent Diskus) hydrochlorothiazide 25 mg tablet 25 mg PO DAILY 10/13/20 10/13/20 labetalol 100 mg tablet 100 mg PO BID 10/13/20 10/13/20 montelukast 10 mg tablet 10 mg PO QPM 10/13/20 10/13/20 omeprazole 20 mg capsule,delayed 20 mg PO DAILY 10/13/20 10/13/20 release vitamin with calcium 1 tab PO DAILY 10/13/20 10/13/20 no.72-iron 27 mg-folic acid 1 mg tablet (M- Plus) sertraline 50 mg tablet 50 mg PO DAILY 10/13/20 10/13/20 carvedilol 25 mg tablet 25 mg PO 10/31/23 furosemide 40 mg tablet 40 mg PO DAILY 10/31/23 gabapentin 300 mg capsule 300 mg PO TID 10/31/23 losartan 25 mg tablet 25 mg PO QPM 10/31/23 metformin 500 mg tablet 500 mg PO DAILY 10/31/23 Previous Rx's ?Medication ?Instructions ?Recorded tiotropium bromide 2.5 2 puff inhalation QAM 30 days #4 05/31/21 mcg/actuation mist for inhalation grams (Spiriva Respimat) ondansetron 4 mg disintegrating 4 mg PO Q6-8H PRN nausea and 10/09/21 tablet vomiting #14 tabs lidocaine 5 % topical patch 1 patch topical DAILY #15 ea 03/20/22 (Lidoderm) prednisone 20 mg tablet 40 mg (2 x 20 mg) PO DAILY #10 tabs 07/26/22 albuterol sulfate 90 mcg/actuation 2 puff inhalation Q4-6H PRN 11/03/23 aerosol inhaler shortness of breath or wheezing #6.7 grams benzonatate 100 mg capsule 100 mg PO TID PRN cough #14 caps 11/03/23 fluticasone propionate 50 2 spray intranasal DAILY #16 grams 11/03/23 mcg/actuation nasal spray,suspension (Flonase Allergy Relief) Allergies Allergy/AdvReac Type Severity Reaction Status Date / Time Sulfa (Sulfonamide Allergy Unknown UNKNOWN Verified 11/09/23 02:07 Antibiotics) [SULFA (SULFONAMIDE ANTIBIOTICS)] Review of Systems Review of Systems Constitutional : No Weight loss, No Fever, No Chills ENT/Mouth : No sore throat, No Rhinorrhea Eyes: No Swelling, No Redness Cardiovascular : No Chest Pain, No SOB, No Edema Respiratory : No Cough, No Sputum, No Wheezing Gastrointestinal : no Nausea, no Vomiting, no Diarrhea, positive abdominal Pain, No Hematochezia, No Melena Genitourinary : No Dysuria, No Urinary Frequency, No Hematuria, No Urgency Musculoskeletal : No joint pain, No Myalgias, No Joint Swelling Skin : No Skin Lesions, No rash Neuro : No Weakness, No Numbness, No Dizziness, No Headache All other systems reviewed and are negative. COUNT INCLUDES [facility] Past Medical History Attestation statement: The following information was validated with the patient. Source: old records reviewed Medical History Pre-diabetes Asthma Social History Social History Alcohol intake: never Patient Tobacco Use Status: Never used Tobacco Smoked in Last 30 Days: No Use of substances other than those prescribed or required for medical reasons: No Advance Directives: No Advance Directives Information Provided: Yes Physical Exam ED Vital Signs: Vital Signs - 24 hr 11/09/23 02:07 11/09/23 02:20 11/09/23 04:33 Temperature 98.7 F 99.3 F 98.5 F Pulse Rate 116 H 111 H 81 Respiratory Rate 24 H 21 H 18 Blood Pressure 159/90 H 149/105 H 138/75 Pulse Oximetry 99 96 96 Oxygen Delivery Method Room Air Room Air Room Air BMI result Body Mass Index 34.7 Appearance: Alert. Oriented X3. in pain mild acute distress. Eyes: Pupils equal, round and reactive to light. ENT: Pharynx normal. Neck: Normal inspection. Neck supple. CVS: tachycardic heart rate and rhythm. Pulses normal. Respiratory: No respiratory distress. Breath sounds normal. Abdomen: Soft with moderate ttp in LLQ vol guarding no rebound Skin: Skin warm and dry. Normal skin color. Normal skin turgor. Extremities: No lower extremity edema. No calf ttp Neuro: Oriented X 3. No motor deficit. No sensory deficit. Medical Decision Making Medical Decision Making [facility] Narrative: 33 yo female with PMH of asthma, HTN, DM, prior ovarian cysts here with c/o LLQ pain but no associated fevers or GI or smptoms at this time will need UA, basic labs, US to evaluate the ovaries for torsion/cyst. If negative will proceed with CT scan for renal colic. IV morphine for pain ordered Differential Diagnosis Differential Diagnoses: The differential diagnosis associated with the presentation includes ovarian torsion/cyst, renal colic Admission/Observation Consideration of admission/observation: Escalation of care including admission/observation considered no acute findings on labs or urine stable for DC Lab Data [facility] Lab Attestation statement: I reviewed the patient's lab results. 11/09/23 02:22 11/09/23 02:22 Labs: Lab Results 11/09/23 11/09/23 Range/Units 02:22 04:22 WBC 9.2 (4.8-10.8) X10*3/uL RBC 4.21 (4.20-5.50) X10*6/uL Hgb 11.5 L (12.0-16.0) g/dl Hct 33.9 L (37.0-47.0) % MCV 80.5 (80.0-98.0) fL MCH 27.3 (27.0-33.0) pg MCHC 33.9 (31.0-35.0) g/dl RDW 13.5 (11.0-16.0) % Plt Count 294 (160-400) X10*3/uL MPV 9.7 (9.4-12.3) fL Immature Gran % (Auto) 0.4 (0.0-0.4) % Neut % (Auto) 59.6 (45-73) % Lymph % (Auto) 31.0 (20-40) % Boundary % (Auto) 7.2 (2-11) % Eos % (Auto) 1.5 (0-4) % Baso % (Auto) 0.3 (0-2) % Lymph # (Auto) 2.8 (1.2-4.9) X10*3/uL Boundary # (Auto) 0.7 (0.1-1.2) X10*3/uL Eos # (Auto) 0.1 (0.0-0.4) X10*3/uL Baso # (Auto) 0.0 (0.0-0.2) X10*3/uL Abs Immat Gran (auto) 0.04 H (0.00-0.03) X10*3/uL Absolute Neuts (auto) 5.4 (2.0-8.3) x10*3/uL Absolute Nucleated RBC 0.000 (0.0-0.012) X10*3/uL Nucleated RBC % (auto) 0.0 (0.0-0.2) /100WBC Sodium 141 (135-145) mmol/L Potassium 3.8 (3.3-5.1) mmol/L Chloride 106 (96-108) mmol/L Carbon Dioxide 26 (22-29) mmol/L Anion Gap 13 (12-20) BUN 13 (9-16) mg/dL Creatinine 0.79 (0.5-1.4) mg/dL Estim Creat Clear Calc 121.0 Estimated GFR > 60 Random Glucose 129 H (60-115) mg/dL Calcium 9.6 (8.4-10.2) mg/dL Magnesium 1.9 (1.6-2.6) mg/dL Total Bilirubin 0.3 (0.0-1.0) mg/dL Direct Bilirubin 0.1 (0.0-0.5) mg/dL AST 26 (5-31) U/L ALT 23 (0-31) U/L Alkaline Phosphatase 75 (39-117) U/L Total Protein 7.7 (6.5-8.0) g/dL Albumin 4.0 (3.5-5.0) g/dL Lipase 17 (8-78) U/L Beta HCG, Quant < 2 mIU/mL Urine Color Yellow Urine Appearance Clear Urine pH 6.0 (5.0-9.0) Ur Specific [place] 1.020 (1.005-1.025) Urine Protein Negative (Neg-Trace) mg/dL Urine Glucose (UA) Negative (Negative) mg/dL Urine Ketones Negative (Negative) mg/dL Urine Blood Negative (Negative) Urine Nitrite Negative (Negative) Ur Leukocyte Esterase Negative (Negative) Independent Interpretation I performed an independent interpretation of an: Ultrasound (normal) and CT Scan (normal ) Radiology Impression Discussion of test interpretation with radiology: I have reviewed the radiologist's reading. External Record Review External record reviewed: Office record Medications Administered Discontinued Medications Generic Name Dose Route Start Last Admin Trade Name Reina PRN Reason Stop Dose Admin Iohexol 85 ml 11/09/23 05:12 11/09/23 05:12 Iohexol 350 Mg/Ml 100 Ml Infus..Btl IV 11/09/23 05:13 85 ml ONCE ONE Administration Morphine Sulfate 4 mg 11/09/23 02:18 11/09/23 02:23 Morphine Sulfate 4 Mg/Ml Cartridge IVPUSH 11/09/23 02:19 4 mg ONCE ONE Administration Protocol Discharge Plan Discharge Clinical Impression: Abdominal pain Qualifiers: Abdominal location: left lower quadrant Qualified Code(s): R10.32 - Left lower quadrant pain Patient Disposition: Home, Self-Care Instructions: Abdominal Pain (ED) Additional Instructions: labs and urine reassuring Ultrasound was normal no ovarian cysts or abnormal findings return for any worsening symptoms or concerns CT scan no acute findings CT/CT abdomen pelvis w IV con IMPRESSION: 1. No acute abnormalities identified. 2. No urolithiasis. Normal appendix. No hydronephrosis or perinephric inflammatory changes. 3. Status post cholecystectomy. Prescriptions: No Action ondansetron 4 mg tablet,disintegrating 4 mg PO Q6-8H PRN (Reason: nausea and vomiting) Qty: 14 0RF lidocaine [Lidoderm] 5 % adhesive patch,medicated 1 patch topical DAILY Qty: 15 0RF Rx Instructions: leave on most painful area for up to 12 hrs prednisone 20 mg tablet 40 mg PO DAILY Qty: 10 0RF benzonatate 100 mg capsule 100 mg PO TID PRN (Reason: cough) Qty: 14 0RF albuterol sulfate 90 mcg/actuation HFA aerosol inhaler 2 puff inhalation Q4-6H PRN (Reason: shortness of breath or wheezing) Qty: 6.7 0RF fluticasone propionate [Flonase Allergy Relief] 50 mcg/actuation spray,suspension 2 spray intranasal DAILY Qty: 16 0RF Rx Instructions: administer into each nostril labetalol 100 mg tablet 100 mg PO BID M-Elida Plus 27 mg iron- 1 mg tablet 1 tab PO DAILY cholecalciferol (vitamin D3) [Vitamin D3] 25 mcg (1,000 unit) capsule 25 mcg PO DAILY sertraline 50 mg tablet 50 mg PO DAILY Flovent Diskus 250 mcg/actuation blister with device 1 inh PO BID albuterol sulfate [ProAir HFA] 90 mcg/actuation HFA aerosol inhaler 2 puff PO Q4-6H PRN montelukast 10 mg tablet 10 mg PO QPM omeprazole 20 mg capsule,delayed release(DR/EC) 20 mg PO DAILY albuterol sulfate 2.5 mg /3 mL (0.083 %) solution for nebulization inhalation QID PRN duloxetine 30 mg capsule,delayed release(DR/EC) 30 mg PO DAILY hydrochlorothiazide 25 mg tablet 25 mg PO DAILY Spiriva Respimat 2.5 mcg/actuation mist 2 puff inhalation QAM 30 Days Qty: 4 6RF carvedilol 25 mg tablet 25 mg PO gabapentin 300 mg capsule 300 mg PO TID losartan 25 mg tablet 25 mg PO QPM furosemide 40 mg tablet 40 mg PO DAILY metformin 500 mg tablet 500 mg PO DAILY Stand Alone Forms: Work/School Release Print Language: Bahamian
[2023-11-09] MEDS: Morphine Sulfate 4 MG/ML CARTRIDGE IVPUSH (02:23)
[2023-11-09 02:26] LABS: MANUAL DIFF FLAG NO
--- NOTE | 2023-11-09 02:27 | PC.NURSE ---
Pt a&ox4, no signs of distress Pt reports 10/ abd pain Pt denies allergy to morphine Pt medicated per mar Plan of care ongoing.
[2023-11-09 02:33] LABS: Basophils Percent Auto 0.3 % (0-2); Eosinophils Absolute Auto 0.1 X10*3/uL (0.0-0.4); Eosinophils Percent Auto 1.5 % (0-4); Hematocrit 33.9 % (37.0-47.0); Hemoglobin 11.5 g/dl (12.0-16.0); Imm Gran Abs Auto 0.04 X10*3/uL (0.00-0.03); Imm Gran Pct Auto 0.4 % (0.0-0.4); Lymphocytes Absolute Auto 2.8 X10*3/uL (1.2-4.9); Mean Corpuscular HGB Conc 33.9 g/dl (31.0-35.0); Mean Corpuscular Hemoglobin 27.3 pg (27.0-33.0); Mean Corpuscular Volume 80.5 fL (80.0-98.0); Mean Platelet Volume 9.7 fL (9.4-12.3); Monocytes Absolute Auto 0.7 X10*3/uL (0.1-1.2); Monocytes Percent Auto 7.2 % (2-11); Neutrophils Absolute Auto 5.4 x10*3/uL (2.0-8.3); Neutrophils Percent Auto 59.6 % (45-73); Platelet Count 294 X10*3/uL (160-400); Red Blood Count 4.21 X10*6/uL (4.20-5.50); Red Cell Distribution Width 13.5 % (11.0-16.0); White Blood Count 9.2 X10*3/uL (4.8-10.8)
[2023-11-09 02:51] LABS: Alanine Aminotransferase 23 U/L (0-31); Alkaline Phosphatase 75 U/L (39-117); Anion Gap 13 (12-20); Aspartate Amino Transferase 26 U/L (5-31); Bilirubin Direct 0.1 mg/dL (0.0-0.5); Bilirubin Total 0.3 mg/dL (0.0-1.0); Blood Urea Nitrogen 13 mg/dL (9-16); Calcium 9.6 mg/dL (8.4-10.2); Carbon Dioxide 26 mmol/L (22-29); Chloride 106 mmol/L (96-108); Estimated Glomerular Filt Rate > 60; Glucose Random 129 mg/dL (60-115); HCG Quantitative < 2 mIU/mL; Lipase 17 U/L (8-78); Magnesium 1.9 mg/dL (1.6-2.6); Potassium 3.8 mmol/L (3.3-5.1); Sodium 141 mmol/L (135-145); Total Protein 7.7 g/dL (6.5-8.0)
[2023-11-09 04:30] LABS: Appearance Urine Clear; Color Urine Yellow; Glucose Urine UA Negative (Negative); Leukocyte Esterase Urine Negative (Negative); Nitrite Urine Negative (Negative); Urine Blood Negative (Negative); Urine Ketones Negative (Negative); Urine Protein Negative (Neg-Trace)
[2023-11-09 04:33] VITALS: BP 138/75; PULSE 81; RESP 18; TEMP 36.9; O2SAT 96
[2023-11-09] MEDS: iohexoL 350 MG/ML 100 ML INFUS..BTL 85 ML IV (05:12)
[2023-11-09 06:37] VITALS: BP 135/70; PULSE 80; RESP 14; TEMP 36.7; O2SAT 98
== END 2023-11-09 06:40 | disposition home or self-care (01) ==
PROVIDERS: Emergency Provider Emergency Medicine
DX: R10.32 Left lower quadrant pain (principal); R10.2 Pelvic and perineal pain; Z79.899 Other long term (current) drug therapy
CPT/HCPCS: 36415; 74177; 76830; 76856; 80048; 80076; 81003; 83690; 83735; 84702; 85025; 93975; 96374; 99284; J2270; Q9967

== ENCOUNTER 2023-12-15 11:54 | Outpatient (REF) | payer MEDICAID, SELFPAY ==
[2023-12-18 22:08] LABS: TS Negative Control Passed; TS Panel A 0; TS Panel B 2; TS Positive Control Passed; TSpotTB Negative (Negative)
== END 2023-12-15 11:55 | disposition home or self-care (01) ==
LOC: HO.HHCL 11:54
PROVIDERS: Visit Provider Internal Medicine
DX: Z11.1 Encounter for screening for respiratory tuberculosis (principal)
CPT/HCPCS: 36415; 86481

== ENCOUNTER 2023-12-15 13:00 | Outpatient (REF) | payer MEDICAID, SELFPAY ==
--- NOTE | 2023-12-15 13:10 | EMG_ITS ---
Chief complaint: Bilateral hand numbness Reason for referral: Evaluate for Carpal Tunnel Syndrome Referred by: Amor SANDHU Procedure done: Bilateral upper extremities NCS/EMG Precautions and/or limitations: None Pashto speaking, seen with wood grinder. The limb temperature was monitored continuously and remained between 32-36 degrees C during the performance of the NCS. Nerve Conduction Studies Anti Sensory Summary Table ?Stim Site NR Onset (ms) Norm Onset (ms) Peak (ms) Norm Peak (ms) O-P Amp (?V) Norm O-P Amp Site1 Site2 Delta-0 (ms) Dist (cm) Rojelio (m/s) Norm Rojelio (m/s) Left Median Anti Sensory (2nd Digit) Wrist ? 3.1 3.8 <3.6 29.9 >10 Wrist 2nd Digit 3.1 14.0 45 Right Median Anti Sensory (2nd Digit) Wrist ? 3.2 3.8 <3.6 19.9 >10 Wrist 2nd Digit 3.2 14.0 44 Right Radial Anti Sensory (Thumb) Forearm ? 1.1 1.7 <3.1 25.7 Forearm Thumb 1.1 0.0 Left Ulnar Anti Sensory (5th Digit) Wrist ? 2.3 3.0 <3.7 15.1 >15.0 Wrist 5th Digit 2.3 14.0 61 Right Ulnar Anti Sensory (5th Digit) Wrist ? 2.3 3.3 <3.7 23.7 >15.0 Wrist 5th Digit 2.3 14.0 61 Motor Summary Table ?Stim Site NR Onset (ms) Norm Onset (ms) O-P Amp (mV) Norm O-P Amp iAmp (mV) Amp (1st) (%) Site1 Site2 Delta-0 (ms) Dist (cm) Rojelio (m/s) Norm Rojelio (m/s) Left Median Motor (Abd Poll Brev) Wrist ? 4.1 <3.9 10.4 >4.5 11.8 100.0 Elbow Wrist 3.9 22.0 56 >45 Elbow ? 8.0 9.4 10.9 90.4 Right Median Motor (Abd Poll Brev) Wrist ? 4.2 <3.9 7.2 >4.5 8.3 100.0 Elbow Wrist 3.9 22.0 56 >45 Elbow ? 8.1 6.7 7.9 93.1 Left Ulnar Motor (Abd Dig Minimi) Wrist ? 2.7 <3.0 8.0 >5 10.4 100.0 B Elbow Wrist 3.2 18.5 58 >45 B Elbow ? 5.9 7.7 10.2 96.3 A Elbow B Elbow 1.4 10.0 71 >45 A Elbow ? 7.3 7.7 10.2 96.3 Right Ulnar Motor (Abd Dig Minimi) Wrist ? 2.5 <3.0 9.0 >5 10.6 100.0 B Elbow Wrist 3.8 22.0 58 >45 B Elbow ? 6.3 10.6 12.9 117.8 A Elbow B Elbow 1.4 10.0 71 >45 A Elbow ? 7.7 10.6 13.0 117.8 EMG ?Side Muscle Nerve Root Ins Act Fibs Psw Amp Dur Poly Recrt Int Pat Comment Right 1stDorInt Ulnar C8-T1 Nml Nml Nml Nml Nml 0 Nml Complete Right FlexCarRad Median C6-7 Nml Nml Nml Nml Nml 0 Nml Complete Right Biceps Musculocut C5-6 Nml Nml Nml Nml Nml 0 Nml Complete Right Triceps Radial C6-7-8 Nml Nml Nml Nml Nml 0 Nml Complete Right Deltoid Axillary C5-6 Nml Nml Nml Nml Nml 0 Nml Complete Left 1stDorInt Ulnar C8-T1 Nml Nml Nml Nml Nml 0 Nml Complete Left FlexCarRad Median C6-7 Nml Nml Nml Nml Nml 0 Nml Complete Left Biceps Musculocut C5-6 Nml Nml Nml Nml Nml 0 Nml Complete Left Triceps Radial C6-7-8 Nml Nml Nml Nml Nml 0 Nml Complete Left Deltoid Axillary C5-6 Nml Nml Nml Nml Nml 0 Nml Complete FINDINGS: Bilateral median motor nerves showed prolonged distal latency, normal amplitude and normal conduction velocity. Bilateral median sensory nerves showed prolonged peak latency. All other nerves tested were within normal. Concentric needle EMG was performed in selected muscles of the bilateral upper extremities. Study did not reveal signs of electric abnormalities as shown in the table above. IMPRESSION: 1. This is an abnormal study. 2. There is electrodiagnostic evidence for bilateral moderate-severe median neuropathy at the wrist, consistent with carpal tunnel syndrome. 3. There is no electrodiagnostic evidence for ulnar neuropathy, brachial plexopathy, or cervical radiculopathy. Thank you for your kind referral. Linda Claire MD, CHELLE Board Certified, [place] Board of Physical Medicine and Rehabilitation (ABPMR) Board Certified, [place] Board of Electrodiagnostic Medicine (ABEM) CODIN [phone] x 2 MTDD
--- NOTE | 2023-12-15 13:12 | HM_ITS ---
Conclusion: 1. Patient was monitored for total period of 2 days 2. Baseline was normal sinus rhythm with average heart of 96 beats per minute 3. Occasional PACs noted 4. No significant pauses noted 5. Frequent sinus tachycardia noted with 42% of time heart rate about 100 beats per minute 6. Patient marked the counter 3 times without any diary submitted correlating with sinus rhythm MTDD
== END 2023-12-15 13:01 | disposition home or self-care (01) ==
LOC: HO.NEURO 13:00
PROVIDERS: Referring Provider Psychiatry & Neurology Neurology
DX: R20.0 Anesthesia of skin (principal); R20.2 Paresthesia of skin; R55 Syncope and collapse
CPT/HCPCS: 93225; 95886; 95911

== ENCOUNTER → 2023-12-15 13:10 | Outpatient (BNV) | payer MEDICAID, SELFPAY | PROVIDERS: Referring Provider Psychiatry & Neurology Neurology; Visit Provider Physical Medicine & Rehabilitation | DX: G56.03 Carpal tunnel syndrome, bilateral upper limbs (principal) | CPT/HCPCS: 95886; 95911 ==

== ENCOUNTER → 2023-12-15 13:12 | Outpatient (BNV) | payer MEDICAID, SELFPAY | PROVIDERS: Referring Provider Psychiatry & Neurology Neurology; Visit Provider Internal Medicine Cardiovascular Disease | DX: I49.1 Atrial premature depolarization (principal); R00.0 Tachycardia, unspecified | CPT/HCPCS: 93227 ==

== ENCOUNTER 2023-12-26 13:44 | Emergency (ER) | payer MEDICAID, SELFPAY ==
[2023-12-26 14:31] VITALS: BP 115/71; BP 157/112; PULSE 96; PULSE 98; RESP 18; TEMP 36.7; O2SAT 94; O2SAT 97; BMI 34.0
--- NOTE | 2023-12-26 15:41 | ED_ITS ---
HPI - General Adult General Chief complaint: General Medical Stated complaint: WITNESSED ABSENT SEIZURE,SEIZURE HX PER EMS Time Seen by Provider: 12/26/23 15:34 Source: patient and family () Mode of arrival: EMS Limitations: language barrier (Patient was [place]-speaking only, [facility] incubator tender used) History of Present Illness ED Provider: Dr. Talha Mcfarlane HPI narrative: 33-year-old female with a history diabetes mellitus, hypertension, asthma, depression, anxiety who was sent to the emergency department from her business management specialist's office for evaluation of your syncopal episode versus absence seizure. The patient states that she has a ?leaky heart valve? and was at her business management specialist's office for evaluation. She states that she was on the phone and it was a stressful, for cessation. After she got off the phone she felt lightheaded and dizzy. She developed numbness in her face hands and feet. She then felt like she was going to pass out. She states that the doctor was talking to her and she could hear the talking but was not able to respond. He was a concerned that the patient may have had an absence seizure and an ambulance was called and she was brought to the emergency department. According to the patient's she has been under a lot of stress secondary to family issues. At the time my evaluation the patient states she was having left-sided stabbing chest pain which is intermittent in his moderate to severe in intensity. Pain is worse if she pushes on her chest. She denied fever, chills, cough, shortness of breath, dyspnea on exertion. Related Data Home Medications ?Medication ?Instructions ?Recorded ?Confirmed albuterol sulfate 2.5 mg/3 mL mg inhalation QID PRN 10/13/20 10/13/20 (0.083 %) solution for nebulization albuterol sulfate 90 mcg/actuation 2 puff PO Q4-6H PRN 10/13/20 10/13/20 aerosol inhaler (ProAir HFA) cholecalciferol (vitamin D3) 25 25 mcg PO DAILY 10/13/20 10/13/20 mcg (1,000 unit) capsule (Vitamin D3) duloxetine 30 mg capsule,delayed 30 mg PO DAILY 10/13/20 10/13/20 release fluticasone propionate 250 1 inh PO BID 10/13/20 10/13/20 mcg/actuation blister powder for inhalation (Flovent Diskus) hydrochlorothiazide 25 mg tablet 25 mg PO DAILY 10/13/20 10/13/20 labetalol 100 mg tablet 100 mg PO BID 10/13/20 10/13/20 montelukast 10 mg tablet 10 mg PO QPM 10/13/20 10/13/20 omeprazole 20 mg capsule,delayed 20 mg PO DAILY 10/13/20 10/13/20 release vitamin with calcium 1 tab PO DAILY 10/13/20 10/13/20 no.72-iron 27 mg-folic acid 1 mg tablet (M-Elida Plus) sertraline 50 mg tablet 50 mg PO DAILY 10/13/20 10/13/20 carvedilol 25 mg tablet 25 mg PO 10/31/23 furosemide 40 mg tablet 40 mg PO DAILY 10/31/23 gabapentin 300 mg capsule 300 mg PO TID 10/31/23 losartan 25 mg tablet 25 mg PO QPM 10/31/23 metformin 500 mg tablet 500 mg PO DAILY 10/31/23 Previous Rx's ?Medication ?Instructions ?Recorded tiotropium bromide 2.5 2 puff inhalation QAM 30 days #4 05/31/21 mcg/actuation mist for inhalation grams (Spiriva Respimat) ondansetron 4 mg disintegrating 4 mg PO Q6-8H PRN nausea and 10/09/21 tablet vomiting #14 tabs lidocaine 5 % topical patch 1 patch topical DAILY #15 ea 03/20/22 (Lidoderm) prednisone 20 mg tablet 40 mg (2 x 20 mg) PO DAILY #10 tabs 07/26/22 albuterol sulfate 90 mcg/actuation 2 puff inhalation Q4-6H PRN 11/03/23 aerosol inhaler shortness of breath or wheezing #6.7 grams benzonatate 100 mg capsule 100 mg PO TID PRN cough #14 caps 11/03/23 fluticasone propionate 50 2 spray intranasal DAILY #16 grams 11/03/23 mcg/actuation nasal spray,suspension (Flonase Allergy Relief) lorazepam 1 mg tablet (Ativan) 1 mg PO TID PRN anxiety #10 tabs 12/26/23 Allergies Allergy/AdvReac Type Severity Reaction Status Date / Time Sulfa (Sulfonamide Allergy Unknown UNKNOWN Verified 12/26/23 14:33 Antibiotics) [SULFA (SULFONAMIDE ANTIBIOTICS)] Review of Systems Review of Systems: Yes all other systems are reviewed and are negative [facility] Past Medical History [facility] Narrative: Social history: Patient denies tobacco, alcohol and drug use Medical History Pre-diabetes Asthma Social History Social History Alcohol intake: never Patient Tobacco Use Status: Never used Tobacco Advance Directives: No Advance Directives Information Provided: Yes Do you have a plan to hurt others: No Plan Physical Exam ED Vital Signs: Vital Signs - 24 hr 12/26/23 14:31 12/26/23 16:16 12/26/23 17:34 Temperature 98.0 F 97.7 F 97.8 F Pulse Rate 96 69 68 Respiratory Rate 18 16 12 Blood Pressure 115/71 133/70 113/66 Pulse Oximetry 97 98 99 Oxygen Delivery Method Room Air Room Air Room Air BMI result Body Mass Index 34.0 Vital signs were normal Exam: General: Awake, alert in no distress Head: Normocephalic, atraumatic EENT: PERRL, Lids normal, sclera normal, conjunctiva normal, nose normal , ears normal, throat without erythema or exudates Neck: Supple, no adenopathy Lung: breath sounds symmetric, no wheezing, rales or rhonchi Chest: symmetric movement, nontender Heart: regular rate and rhythm, normal S1, S2 no murmurs or rubs Abdomen: soft, non-tender, nondistended, normal bowel sounds Back: no vertebral tenderness, no CVAT Extremities: no deformities, moves all extremities symmetrically Neuro: Awake, alert, oriented, normal speech, cranial nerves intact, moves all extremities symmetrically Psych: Pleasant, cooperative Medications Administered Discontinued Medications Generic Name Dose Route Start Last Admin Trade Name Freq PRN Reason Stop Dose Admin Ketorolac Tromethamine 15 mg 12/26/23 16:00 12/26/23 16:18 Ketorolac Tromethamine 15 Mg/Ml Vial IVPUSH 12/26/23 16:01 15 mg ONCE STA Administration Lorazepam 1 mg 12/26/23 16:00 12/26/23 16:18 Lorazepam 2 Mg/Ml Vial IVPUSH 12/26/23 16:01 1 mg STAT STA Administration Medical Decision Making Medical Decision Making [facility] Narrative: 33-year-old female with a history diabetes mellitus, hypertension, asthma, depression, anxiety who was sent to the emergency department from her business management specialist's office for evaluation of your syncopal episode versus absence seizure. The patient states that she has a ?leaky heart valve? and was at her business management specialist's office for evaluation. She states that she was on the phone and it was a stressful, for cessation. After she got off the phone she felt lightheaded and dizzy. She developed numbness in her face hands and feet. She then felt like she was going to pass out. She states that the doctor was talking to her and she could hear the talking but was not able to respond. He was a concerned that the patient may have had an absence seizure and an ambulance was called and she was brought to the emergency department. According to the patient's she has been under a lot of stress secondary to family issues. At the time my evaluation the patient states she was having left-sided stabbing chest pain which is intermittent in his moderate to severe in intensity. Pain is worse if she pushes on her chest. She denied fever, chills, cough, shortness of breath, dyspnea on exertion. Discharge Plan Discharge Clinical Impression: Acute hyperventilation syndrome, Near syncope, Acute costochondritis Patient Disposition: Home, Self-Care Instructions: Hyperventilation (ED), Costochondritis (ED) Additional Instructions: Your blood work was normal. Your EKG was unremarkable. Your symptoms were consistent with a stress reaction causing hyperventilation syndrome which often can make you feel lightheaded as if he was going to pass out, make you feel numb and make her hands and feet go into spasm. You also had tenderness over the joints of your chest which is caused by infl ammation and this is called costochondritis. Take ibuprofen 200 mg pills, 2 pills every 6 hours as needed for pain or fever. Take Tylenol (acetaminophen) 500 mg pills, 2 pills every 6 hours as needed for pain or fever. Take Ativan 1 mg pills, 1 pill every 6 hours as needed for anxiety. ?This medication will make you sleepy, do not drive or work while taking this medication. ?This medication can be addicting, if your concerned about addiction you can ask the pharmacist for less medications or do not get the prescription filled. Follow-up with your doctor in 2 days. Please return to the emergency department if your symptoms get worse or if you develop any symptoms that are concerning to you. Prescriptions: New lorazepam [Ativan] 1 mg tablet 1 mg PO TID PRN (Reason: anxiety) Qty: 10 0RF Rx Instructions: Patient may request partial fill No Action ondansetron 4 mg tablet,disintegrating 4 mg PO Q6-8H PRN (Reason: nausea and vomiting) Qty: 14 0RF lidocaine [Lidoderm] 5 % adhesive patch,medicated 1 patch topical DAILY Qty: 15 0RF Rx Instructions: leave on most painful area for up to 12 hrs prednisone 20 mg tablet 40 mg PO DAILY Qty: 10 0RF benzonatate 100 mg capsule 100 mg PO TID PRN (Reason: cough) Qty: 14 0RF albuterol sulfate 90 mcg/actuation HFA aerosol inhaler 2 puff inhalation Q4-6H PRN (Reason: shortness of breath or wheezing) Qty: 6.7 0RF fluticasone propionate [Flonase Allergy Relief] 50 mcg/actuation spray,susp ension 2 spray intranasal DAILY Qty: 16 0RF Rx Instructions: administer into each nostril labetalol 100 mg tablet 100 mg PO BID M-Elida Plus 27 mg iron- 1 mg tablet 1 tab PO DAILY cholecalciferol (vitamin D3) [Vitamin D3] 25 mcg (1,000 unit) capsule 25 mcg PO DAILY sertraline 50 mg tablet 50 mg PO DAILY Flovent Diskus 250 mcg/actuation blister with device 1 inh PO BID albuterol sulfate [ProAir HFA] 90 mcg/actuation HFA aerosol inhaler 2 puff PO Q4-6H PRN montelukast 10 mg tablet 10 mg PO QPM omeprazole 20 mg capsule,delayed release(DR/EC) 20 mg PO DAILY albuterol sulfate 2.5 mg /3 mL (0.083 %) solution for nebulization inhalation QID PRN duloxetine 30 mg capsule,delayed release(DR/EC) 30 mg PO DAILY hydrochlorothiazide 25 mg tablet 25 mg PO DAILY Spiriva Respimat 2.5 mcg/actuation mist 2 puff inhalation QAM 30 Days Qty: 4 6RF carvedilol 25 mg tablet 25 mg PO gabapentin 300 mg capsule 300 mg PO TID losartan 25 mg tablet 25 mg PO QPM furosemide 40 mg tablet 40 mg PO DAILY metformin 500 mg tablet 500 mg PO DAILY Interventions: ED Discharge Assessment Last Done: 12/26/23 17:39 Print Language: [place]
--- NOTE | 2023-12-26 15:43 | ECG_ITS ---
Test Reason : CP Blood Pressure : / mmHG Vent. Rate : 070 BPM Atrial Rate : 070 BPM P-R Int : 112 ms QRS Dur : 076 ms QT Int : 400 ms P-R-T Axes : 002 019 023 degrees QTc Int : 432 ms Normal sinus rhythm Cannot rule out Anterior infarct (cited on or before 03-NOV-2023) Abnormal ECG When compared with ECG of 03-NOV-2023 14:23, QRS axis Shifted left Questionable change in initial forces of Lateral leads Referred By: Talha Mcfarlane Electronically Signed By:LISANDRO ROBLES MD
--- NOTE | 2023-12-26 15:51 | MHC.EDTECH ---
Attempted to do EKG on pt and was dismissed by provider, ws told to go back in 10 min.
[2023-12-26 16:16] VITALS: BP 133/70; PULSE 69; RESP 16; TEMP 36.5; O2SAT 98
[2023-12-26] MEDS: LORazepam 2 MG/ML VIAL 1 MG IVPUSH (16:18)
[2023-12-26] MEDS: Ketorolac Tromethamine 15 MG/ML VIAL IVPUSH (16:18)
[2023-12-26 17:34] VITALS: BP 113/66; PULSE 68; RESP 12; TEMP 36.6; O2SAT 99
[2023-12-26 17:38] VITALS: BP 113/66; PULSE 68; RESP 12; TEMP 36.6; O2SAT 99
[2023-12-26 17:39] VITALS: BP 113/68; PULSE 68; RESP 18; TEMP 36.6; O2SAT 98
== END 2023-12-26 17:39 | disposition home or self-care (01) ==
PROVIDERS: Emergency Provider Emergency Medicine Emergency Medical Services; PCP Internal Medicine
DX: F45.8 Other somatoform disorders (principal); R55 Syncope and collapse; M94.0 Chondrocostal junction syndrome [Tietze]
CPT/HCPCS: 93005; 96374; 96375; 99284; J1885; J2060

== ENCOUNTER → 2023-12-26 15:43 | Outpatient (BNV) | payer MEDICAID, SELFPAY | PROVIDERS: Emergency Provider Emergency Medicine Emergency Medical Services; PCP Internal Medicine; Visit Provider Internal Medicine Cardiovascular Disease | DX: R94.31 Abnormal electrocardiogram [ECG] [EKG] (principal) | CPT/HCPCS: 93010 ==

== ENCOUNTER 2023-12-29 13:35 | Outpatient (AMB) | payer MEDICAID, SELFPAY ==
--- NOTE | 2023-12-29 13:38 | A.OFFVIS_ITS ---
Vital Signs 12/29/23 13:42 Height 5 ft 7 in Weight 201 lb BMI 31.5 Handedness Right Intake Visit Reasons: OV- EMG review of B/L hands Intake Note: Aundrea is a 33 year old right hand dominant female who presents today for an EMG review of her bilateral hands. EMG done on 12/15/2023. Member Certification Manager Required: Yes Member Certification Manager Language: Outreach Nurse Name: [id number] Judi Allergies Sulfa (Sulfonamide Antibiotics) [SULFA (SULFONAMIDE ANTIBIOTICS)] Allergy (Unkenneth aguilar, Verified 12/29/23 13:43) UNKNOWN HPI HPI OV- EMG review of B/L hands: Details: patient is a 33-year-old female who presents for EMG review for bilateral upper extremities. Patient reports that her symptoms have remained consistent since previous evaluation, no other acute complaints or concerns at this time. [facility] Medical History Pre-diabetes Asthma Social History Alcohol intake: never Patient Tobacco Use Status: Never used Tobacco Review of Systems Const All systems reviewed & are unremarkable except as noted in HPI and below Physical Exam Vital Signs: BMI result Body Mass Index 31.5 Extrem Other: Patient is alert, oriented, and in no acute distress. Neuro: Patient reports diminished sensation of all digits of bilateral hands at this time Vascular: Cap refill brisk Pain: Patient reports significant tenderness to palpation of the radial styloid and at the base of bilateral thumbs No tenderness to palpation of the ulnar styloid, basal joint, or elsewhere throughout bilateral hands and wrists ROM: Patient is able to make a closed fist and extend digits of bilateral hands fully Skin: No lacerations or abrasions. General: No ecchymosis, erythema, or evidence of infection. Psych: Appears grossly normal Affect normal Attitude cooperative Positive Octavia test bilaterally Results Reviewed Results Reviewed: IMPRESSION: 1. This is an abnormal study. 2. There is electrodiagnostic evidence for bilateral moderate-severe median neuropathy at the wrist, consistent with carpal tunnel syndrome. 3. There is no electrodiagnostic evidence for ulnar neuropathy, brachial plex opathy, or cervical radiculopathy. Assessment & Plan Assessment & Plan (1) Numbness and tingling in both hands: Code(s): R20.0 - Anesthesia of skin; R20.2 - Paresthesia of skin Category: Medical Plan 1. Carpal tunnel syndrome, right symptoms intermittent, daily, worse at night I educated the patient about the condition. I discussed both operative and nonoperative treatment options. The patient would like to proceed with surgery. The risks and benefits of operative treatment were discussed with the patient and the patient wishes to proceed with surgery. These risks include, but are not limited to, risk of damage to blood vessels, nerves, tendons, infection, recurrence, incomplete relief of preoperative symptoms, persistent pain, possible need for further surgery, and the risks associated with regional blocks and/or anesthesia. Plan is to take the patient to the operating room at some point in the next few weeks for the following procedures: 1. Right carpal tunnel release under local anesthesia All of the preoperative paperwork including the consent was discussed today. All of the patient's questions were answered in the clinic today. The patient understands that they will be in contact with our surgical nurse to discuss scheduling their procedure. Patient reports prediabetes, denies blood thinners, asthma, heart issues, lung issues, kidney issues, or current smoking. 2. Carpal tunnel syndrome, left Symptoms intermittent, daily, worse at night Patient would like to proceed with operative intervention on the right side 1st prior to any intervention on the left, as she finds this side more bothersome Patient was advised that we can fix the left side once the right side is entered recovery Patient was amenable to this plan Coding Level of Care Code Est Pt Level 4 (19852) Diagnoses Numbness and tingling in both hands R20.0; R20.2
[2023-12-29 13:42] VITALS: BMI 31.5
== END 2023-12-29 14:01 | disposition home or self-care (01) ==
DX: R20.0 Anesthesia of skin (principal); R20.2 Paresthesia of skin
CPT/HCPCS: 99214

== ENCOUNTER → 2023-12-29 13:35 | Outpatient (BNVA) | payer MEDICAID, SELFPAY | DX: R20.0 Anesthesia of skin (principal); R20.2 Paresthesia of skin | CPT/HCPCS: 99212 ==

== ENCOUNTER 2024-01-02 11:42 | Outpatient (REF) | payer MEDICAID, SELFPAY | END 2024-01-02 11:43 | disposition home or self-care (01) | LOC: HO.LNP 11:42 | PROVIDERS: Visit Provider Internal Medicine | DX: K29.50 Unspecified chronic gastritis without bleeding (principal) | CPT/HCPCS: 87338 ==

== ENCOUNTER 2024-01-19 11:29 | Outpatient (REF) | payer MEDICAID, SELFPAY ==
[2024-01-19 14:02] LABS: Estimated Average Glucose 126 mg/dL; Hemoglobin A1C 190.6892 umol/L; Total Hemoglobin (HGBA1C) 4540.3086 umol/L
== END 2024-01-19 11:30 | disposition home or self-care (01) ==
LOC: HO.HHCL 11:29
PROVIDERS: Visit Provider Internal Medicine
DX: R73.03 Prediabetes (principal)
CPT/HCPCS: 36415; 83036

== ENCOUNTER 2024-02-21 09:53 | Emergency (ER) | payer MEDICAID, SELFPAY ==
--- NOTE | ~2024-02-21 | CT_ITS ---
CLINICAL HISTORY: bilateral lower quad pain CT abdomen and pelvis with contrast Comparison: CT/SR - CT ABDOMEN PELVIS W IV CON - 11/09/23 04:48 EDT Findings: No consolidation or effusion. Hepatic steatosis. Cholecystectomy. No biliary duct dilatation. Pancreas, spleen, and adrenal glands are within normal limits. No hydronephrosis. Symmetric contrast enhancement of the kidneys. No bowel obstruction, pneumoperitoneum, or pneumatosis. Normal appendix. Probable corpus luteum in the left ovary. Uterus and right ovary are within limits. Urinary bladder is underdistended. No acute fracture. IMPRESSION: 1. No acute intraabdominal or pelvic pathology. 2. Probable corpus luteum in the left ovary. This document has been electronically signed by: Jenna George MD on 02/21/2024 19:13:53
[2024-02-21 10:33] VITALS: BP 137/86; PULSE 90; RESP 18; TEMP 36.3; O2SAT 100; BMI 31.3
[2024-02-21 11:44] LABS: MANUAL DIFF FLAG NO
[2024-02-21 11:47] LABS: Appearance Urine Clear; Basophils Percent Auto 0.4 % (0-2); Color Urine Yellow; Eosinophils Absolute Auto 0.1 X10*3/uL (0.0-0.4); Glucose Urine UA 100 mg/dL (Negative); Hematocrit 34.8 % (37.0-47.0); Hemoglobin 11.5 g/dl (12.0-16.0); Imm Gran Abs Auto 0.03 X10*3/uL (0.00-0.03); Imm Gran Pct Auto 0.4 % (0.0-0.4); Leukocyte Esterase Urine Negative (Negative); Lymphocytes Absolute Auto 2.2 X10*3/uL (1.2-4.9); Lymphocytes Percent Auto 31.1 % (20-40); Mean Corpuscular Volume 81.7 fL (80.0-98.0); Mean Platelet Volume 10.1 fL (9.4-12.3); Monocytes Absolute Auto 0.4 X10*3/uL (0.1-1.2); Monocytes Percent Auto 5.9 % (2-11); Neutrophils Absolute Auto 4.4 x10*3/uL (2.0-8.3); Neutrophils Percent Auto 61.2 % (45-73); Nitrite Urine Negative (Negative); PH 6.5 (5.0-9.0); Platelet Count 247 X10*3/uL (160-400); Red Blood Count 4.26 X10*6/uL (4.20-5.50); Red Cell Distribution Width 13.6 % (11.0-16.0); Urine Blood Negative (Negative); Urine Ketones Negative (Negative); Urine Protein Negative (Neg-Trace); White Blood Count 7.1 X10*3/uL (4.8-10.8)
[2024-02-21 11:48] LABS: UPreg QC Valid YES
[2024-02-21 11:50] LABS: Urine Pregnancy NEGATIVE (NEGATIVE)
[2024-02-21 12:03] LABS: Alanine Aminotransferase 18 U/L (0-31); Albumin Level 4.1 g/dL (3.5-5.0); Alkaline Phosphatase 62 U/L (39-117); Anion Gap 9 (12-20); Aspartate Amino Transferase 20 U/L (5-31); Bilirubin Total 0.2 mg/dL (0.0-1.0); Blood Urea Nitrogen 9 mg/dL (9-16); Calcium 9.1 mg/dL (8.4-10.2); Carbon Dioxide 27 mmol/L (22-29); Chloride 108 mmol/L (96-108); Creatinine Clr Calc Pharmacy 127.8; Estimated Glomerular Filt Rate > 60; Glucose Fasting 114 mg/dL (60-99); Sodium 140 mmol/L (135-145); Total Protein 7.6 g/dL (6.5-8.0)
[2024-02-21 14:21] LABS: CT PCR NOT DETECTED (Not Detect.); NG PCR NOT DETECTED (Not Detect.)
[2024-02-21 16:28] VITALS: BP 127/61; PULSE 82; RESP 16; TEMP 36.5; O2SAT 96
--- NOTE | 2024-02-21 17:42 | ED_ITS ---
HPI - Female Genitourinary General Chief complaint: Urogenital-Female Stated complaint: Abdominal Pain Time Seen by Provider: 02/21/24 16:55 Source: patient Mode of arrival: ambulatory Limitations: no limitations History of Present Illness ED Provider: Dr. Donna Pretty HPI Narrative: Patient comes in the emergency room complaining of suprapubic and pelvic pain that started 3 days ago. Patient complaining of white vaginal discharge. Patient denies fever chills, denies hematuria or dysuria. Patient states that she had 1 episode of diarrhea, no vomiting or diarrhea. Patient denies dysuria, denies flank pain. Related Data Home Medications ?Medication ?Instructions ?Recorded ?Confirmed albuterol sulfate 2.5 mg/3 mL mg inhalation QID PRN 10/13/20 10/13/20 (0.083 %) solution for nebulization albuterol sulfate 90 mcg/actuation 2 puff PO Q4-6H PRN 10/13/20 10/13/20 aerosol inhaler (ProAir HFA) cholecalciferol (vitamin D3) 25 25 mcg PO DAILY 10/13/20 10/13/20 mcg (1,000 unit) capsule (Vitamin D3) duloxetine 30 mg capsule,delayed 30 mg PO DAILY 10/13/20 10/13/20 release fluticasone propionate 250 1 inh PO BID 10/13/20 10/13/20 mcg/actuation blister powder for inhalation (Flovent Diskus) hydrochlorothiazide 25 mg tablet 25 mg PO DAILY 10/13/20 10/13/20 labetalol 100 mg tablet 100 mg PO BID 10/13/20 10/13/20 montelukast 10 mg tablet 10 mg PO QPM 10/13/20 10/13/20 omeprazole 20 mg capsule,delayed 20 mg PO DAILY 10/13/20 10/13/20 release vitamin with calcium 1 tab PO DAILY 10/13/20 10/13/20 no.72-iron 27 mg-folic acid 1 mg tablet (M- Plus) sertraline 50 mg tablet 50 mg PO DAILY 10/13/20 10/13/20 carvedilol 25 mg tablet 25 mg PO 10/31/23 furosemide 40 mg tablet 40 mg PO DAILY 10/31/23 gabapentin 300 mg capsule 300 mg PO TID 10/31/23 losartan 25 mg tablet 25 mg PO QPM 10/31/23 metformin 500 mg tablet 500 mg PO DAILY 10/31/23 Previous Rx's ?Medication ?Instructions ?Recorded tiotropium bromide 2.5 2 puff inhalation QAM 30 days #4 05/31/21 mcg/actuation mist for inhalation grams (Spiriva Respimat) ondansetron 4 mg disintegrating 4 mg PO Q6-8H PRN nausea and 10/09/21 tablet vomiting #14 tabs lidocaine 5 % topical patch 1 patch topical DAILY #15 ea 03/20/22 (Lidoderm) prednisone 20 mg tablet 40 mg (2 x 20 mg) PO DAILY #10 tabs 07/26/22 albuterol sulfate 90 mcg/actuation 2 puff inhalation Q4-6H PRN 11/03/23 aerosol inhaler shortness of breath or wheezing #6.7 grams benzonatate 100 mg capsule 100 mg PO TID PRN cough #14 caps 11/03/23 fluticasone propionate 50 2 spray intranasal DAILY #16 grams 11/03/23 mcg/actuation nasal spray,suspension (Flonase Allergy Relief) lorazepam 1 mg tablet (Ativan) 1 mg PO TID PRN anxiety #10 tabs 12/26/23 ketorolac 10 mg tablet 10 mg PO Q8H PRN pain #12 tabs 02/21/24 Allergies Allergy/AdvReac Type Severity Reaction Status Date / Time Sulfa (Sulfonamide Allergy Unknown UNKNOWN Verified 02/21/24 10:37 Antibiotics) [SULFA (SULFONAMIDE ANTIBIOTICS)] Review of Systems 2 Review of Systems: Constitutional : No Weight loss, No Fever, No Chills, No Night Sweats, No Fatigue, No Malaise ENT/Mouth : No Hearing loss, No Ear Pain, No Nasal Congestion, No Sinus Pain, No Hoarseness, No sore throat, No Rhinorrhea, No Swallowing Difficulty Eyes: No Eye Pain, No Swelling, No Redness, No Foreign Body, No Discharge, No Vision Changes Cardiovascular : No Chest Pain, No SOB, No Dyspnea on Exertion, No Orthopnea, No Edema, No Palpitations Respiratory : No Cough, No Sputum, No Wheezing, No Smoke Exposure, No Dyspnea Gastrointestinal : No Nausea, No Vomiting, No Diarrhea, No Constipation, complaining of suprapubic pain Genitourinary : no irregular bleeding, No Dysuria, No Urinary Frequency, No Hematuria, No Urinary Incontinence, No Urgency, No Flank Pain, No Urinary Flow Changes, No Hesitancy Musculoskeletal : No joint pain, No Myalgias, No Joint Swelling Skin : No Skin Lesions, No rash Neuro : No Weakness, No Numbness, No Paresthesias, No Loss of Consciousness, No Dizziness, No Headache Psych : No Anxiety/Panic, No Depression, No SI/HI/AH/VH, No Social Issues, Heme/Lymph: No Bruising, No Bleeding,No Lymphadenopathy Endocrine : No Polyuria, No Polydipsia, No Temperature Intolerance [facility], [facility] Past Medical History Medical History Pre-diabetes Asthma Social History Social History Alcohol intake: never Patient Tobacco Use Status: Never used Tobacco Physical Exam 2 Vital Signs: Vital Signs: Last Vital Signs Temp 97.7 F 02/21/24 16:28 Pulse 82 02/21/24 16:28 Resp 16 02/21/24 16:28 BP 127/61 02/21/24 16:28 Pulse Ox 96 02/21/24 16:28 O2 Del Method Room Air 02/21/24 16:28 BMI result Body Mass Index 31.3 Const: Other: Appearance: Alert. Oriented X3. No acute distress. Well-appearing Eyes: Pupils equal, round and reactive to light. ENT: Pharynx normal. Neck: Normal inspection. Neck supple. No lymph nodes noted. No crepitus CVS: Normal heart rate and rhythm. Pulses normal. Normal S1 and S2 Respiratory: No respiratory distress. Breath sounds normal. No Wheezing. No rales Abdomen: Soft moderate discomfort to palpation in suprapubic area and bilateral lower quadrants. Skin: Skin warm and dry. Normal skin color. Normal skin turgor. Extremities: No lower extremity edema. No Lacerations. No Rash Neuro: Oriented X 3. No motor deficit. No sensory deficit. Moving all extremities. No slurred speech. CN 2 through 12 grossly intact Psych: calm, cooperative, normal affect Medications Administered Discontinued Medications Generic Name Dose Route Start Last Admin Trade Name Freq PRN Reason Stop Dose Admin Iohexol 100 ml 02/21/24 18:25 02/21/24 18:25 Iohexol 350 Mg/Ml 100 Ml Infus..Btl IV 02/21/24 18:26 85 ml ONCE ONE Administration Ketorolac Tromethamine 30 mg 02/21/24 17:44 02/21/24 18:03 Ketorolac Tromethamine 30 Mg/Ml Vial IVPUSH 02/21/24 17:45 30 mg ONCE ONE Administration Medical Decision Making Medical Decision Making [facility] Narrative: My interpretation of labs: Normal hematology, normal chemistry, normal urinalysis, negative test, LFTs within normal limits , CTA NG negative CT scan of the abdomen pelvis does not show any acute abnormality. Patient received a dose of Toradol, patient feeling better. Patient instructed to follow-up with the primary care physician. Differential Diagnosis Differential Diagnoses: The differential diagnosis associated with the presentation includes (UTI, gonorrhea, chlamydia, appendicitis) Admission/Observation Consideration of admission/observation: Escalation of care including admission/observation considered (Given patient's initial presentation, observation was considered.) Lab Data [facility] Lab Attestation statement: I reviewed the patient's lab results. 02/21/24 11:42 02/21/24 11:42 Labs: Lab Results 02/21/24 Range/Units 11:42 WBC 7.1 (4.8-10.8) X10*3/uL RBC 4.26 (4.20-5.50) X10*6/uL Hgb 11.5 L (12.0-16.0) g/dl Hct 34.8 L (37.0-47.0) % MCV 81.7 (80.0-98.0) fL MCH 27.0 (27.0-33.0) pg MCHC 33.0 (31.0-35.0) g/dl RDW 13.6 (11.0-16.0) % Plt Count 247 (160-400) X10*3/uL MPV 10.1 (9.4-12.3) fL Immature Gran % (Auto) 0.4 (0.0-0.4) % Neut % (Auto) 61.2 (45-73) % Lymph % (Auto) 31.1 (20-40) % [place] % (Auto) 5.9 (2-11) % Eos % (Auto) 1.0 (0-4) % Baso % (Auto) 0.4 (0-2) % Lymph # (Auto) 2.2 (1.2-4.9) X10*3/uL [place] # (Auto) 0.4 (0.1-1.2) X10*3/uL Eos # (Auto) 0.1 (0.0-0.4) X10*3/uL Baso # (Auto) 0.0 (0.0-0.2) X10*3/uL Abs Immat Gran (auto) 0.03 (0.00-0.03) X10*3/uL Absolute Neuts (auto) 4.4 (2.0-8.3) x10*3/uL Absolute Nucleated RBC 0.000 (0.0-0.012) X10*3/uL Nucleated RBC % (auto) 0.0 (0.0-0.2) /100WBC Sodium 140 (135-145) mmol/L Potassium 4.0 (3.3-5.1) mmol/L Chloride 108 (96-108) mmol/L Carbon Dioxide 27 (22-29) mmol/L Anion Gap 9 L (12-20) BUN 9 (9-16) mg/dL Creatinine 0.71 (0.5-1.4) mg/dL Estim Creat Clear Calc 127.8 Estimated GFR > 60 Fasting Glucose 114 H (60-99) mg/dL Calcium 9.1 (8.4-10.2) mg/dL Total Bilirubin 0.2 (0.0-1.0) mg/dL AST 20 (5-31) U/L ALT 18 (0-31) U/L Alkaline Phosphatase 62 (39-117) U/L Total Protein 7.6 (6.5-8.0) g/dL Albumin 4.1 (3.5-5.0) g/dL Urine Color Yellow Urine Appearance Clear Urine pH 6.5 (5.0-9.0) Ur Specific [place] 1.020 (1.005-1.025) Urine Protein Negative (Neg-Trace) mg/dL Urine Glucose (UA) 100 H (Negative) mg/dL Urine Ketones Negative (Negative) mg/dL Urine Blood Negative (Negative) Urine Nitrite Negative (Negative) Ur Leukocyte Esterase Negative (Negative) Urine Test NEGATIVE (NEGATIVE) Chlam trachomat DNA PCR NOT DETECTED (Not Detect.) N.gonorrhoeae DNA (PCR) NOT DETECTED (Not Detect.) Independent Interpretation I performed an independent interpretation of an: CT Scan Radiology Impression Discussion of test interpretation with radiology: I have reviewed the radiologist's reading. Radiologist Impression: Findings: No consolidation or effusion. Hepatic steatosis. Cholecystectomy. No biliary duct dilatation. Pancreas, spleen, and adrenal glands are within normal limits. No hydronephrosis. Symmetric contrast enhancement of the kidneys. No bowel obstruction, pneumoperitoneum, or pneumatosis. Normal appendix. Probable corpus luteum in the left ovary. Uterus and right ovary are within limits. Urinary bladder is underdistended. No acute fracture. IMPRESSION: 1. No acute intraabdominal or pelvic pathology. 2. Probable corpus luteum in the left ovary. Critical Care Time Critical Care Time Critical Care Time: Yes Total Critical Care Time: 30 Attestation: I have personally provided critical care time. Time includes review of lab data, radiology results, discussion with consultants, and monitoring for potential decompensation. Intervention performed as documented. Discharge Plan Discharge Clinical Impression: Abdominal pain Patient Disposition: Home, Self-Care Instructions: Abdominal Pain (ED) Additional Instructions: Please follow-up with your primary care physician tomorrow. If you have any worsening or new symptoms, please return to the emergency room or call 911 Prescriptions: New ketorolac 10 mg tablet 10 mg PO Q8H PRN (Reason: pain) Qty: 12 0RF Rx Instructions: Do not use this medication with other NSAIDs, only Tylenol if needed No Action ondansetron 4 mg tablet,disintegrating 4 mg PO Q6-8H PRN (Reason: nausea and vomiting) Qty: 14 0RF lidocaine [Lidoderm] 5 % adhesive patch,medicated 1 patch topical DAILY Qty: 15 0RF Rx Instructions: leave on most painful area for up to 12 hrs prednisone 20 mg tablet 40 mg PO DAILY Qty: 10 0RF benzonatate 100 mg capsule 100 mg PO TID PRN (Reason: cough) Qty: 14 0RF albuterol sulfate 90 mcg/actuation HFA aerosol inhaler 2 puff inhalation Q4-6H PRN (Reason: shortness of breath or wheezing) Qty: 6.7 0RF fluticasone propionate [Flonase Allergy Relief] 50 mcg/actuation spray,suspension 2 spray intranasal DAILY Qty: 16 0RF Rx Instructions: administer into each nostril lorazepam [Ativan] 1 mg tablet 1 mg PO TID PRN (Reason: anxiety) Qty: 10 0RF Rx Instructions: Patient may request partial fill labetalol 100 mg tablet 100 mg PO BID M- Plus 27 mg iron- 1 mg tablet 1 tab PO DAILY cholecalciferol (vitamin D3) [Vitamin D3] 25 mcg (1,000 unit) capsule 25 mcg PO DAILY sertraline 50 mg tablet 50 mg PO DAILY Flovent Diskus 250 mcg/actuation blister with device 1 inh PO BID albuterol sulfate [ProAir HFA] 90 mcg/actuation HFA aerosol inhaler 2 puff PO Q4-6H PRN montelukast 10 mg tablet 10 mg PO QPM omeprazole 20 mg capsule,delayed release(DR/EC) 20 mg PO DAILY albuterol sulfate 2.5 mg /3 mL (0.083 %) solution for nebulization inhalation QID PRN duloxetine 30 mg capsule,delayed release(DR/EC) 30 mg PO DAILY hydrochlorothiazide 25 mg tablet 25 mg PO DAILY Spiriva Respimat 2.5 mcg/actuation mist 2 puff inhalation QAM 30 Days Qty: 4 6RF carvedilol 25 mg tablet 25 mg PO gabapentin 300 mg capsule 300 mg PO TID losartan 25 mg tablet 25 mg PO QPM furosemide 40 mg tablet 40 mg PO DAILY metformin 500 mg tablet 500 mg PO DAILY Print Language: Bahraini
[2024-02-21] MEDS: Ketorolac Tromethamine 30 MG/ML VIAL IVPUSH (18:03)
[2024-02-21] MEDS: iohexoL 350 MG/ML 100 ML INFUS..BTL IV (18:25)
[2024-02-21 19:31] VITALS: BP 143/72; PULSE 86; RESP 14; TEMP 36.6; O2SAT 96
[2024-02-21 19:49] VITALS: BP 143/72; PULSE 86; RESP 14; TEMP 36.6; O2SAT 96
== END 2024-02-21 19:50 | disposition home or self-care (01) ==
PROVIDERS: Emergency Provider Emergency Medicine; PCP Internal Medicine
DX: N89.8 Other specified noninflammatory disorders of vagina (principal); Z79.899 Other long term (current) drug therapy; R10.2 Pelvic and perineal pain
CPT/HCPCS: 36415; 74177; 80053; 81003; 81025; 85025; 87491; 87591; 96374; 99284; J1885; Q9967

== ENCOUNTER → 2024-02-21 17:41 | Outpatient (BNV) | payer MEDICAID, SELFPAY | PROVIDERS: Emergency Provider Emergency Medicine; PCP Internal Medicine; Visit Provider Radiology Diagnostic Radiology | DX: R10.31 Right lower quadrant pain (principal); R10.32 Left lower quadrant pain | CPT/HCPCS: 74177 ==

== ENCOUNTER 2024-02-26 06:47 | Day surgery (SDC) | payer MEDICAID, SELFPAY ==
[2024-02-26 07:15] VITALS: BMI 31.5
[2024-02-26 07:16] VITALS: BP 137/80; PULSE 88; RESP 16; TEMP 36.2; O2SAT 95
--- NOTE | 2024-02-26 08:17 | MHC.SHP ---
Pre-Procedural Eval Section A - 24 Hr Update-Section A only Date of Service: 02/26/24 The patient is an INPATIENT: No Changes since office visit: No Cold of Flu in the past 2 weeks, No New Medical Problems, No Changes in Medication and No Patient answered all questions The patient has been examined within 24 hours of the surgical procedure. The History & Physical has been completed within 30 days and I have reviewed it.: Yes Section B - Complete if H&P > 30 days Chief Complaint: Carpal tunnel syndrome, right upper limb Allergies: Allergies Allergy/AdvReac Type Severity Reaction Status Date / Time Sulfa (Sulfonamide Allergy Unknown UNKNOWN Verified 02/21/24 10:37 Antibiotics) [SULFA (SULFONAMIDE ANTIBIOTICS)] Plan Diagnosis/Plan: Unchanged I have reviewed the history and physical and performed a pertinent physical examination on my patient. No changes have occurred unless specified. Time Spent With Patient Time: Total time managing care of this patient today ____ minutes.
--- NOTE | 2024-02-26 08:18 | W.PM.OPN ---
Operative Note Operative Note Date of Service: 02/26/24 Narrative: Preop diagnosis: 1. Right Carpal tunnel syndrome Postop diagnosis: same Procedure: 1. Right Carpal tunnel release Surgeon: Jessica Posey MD African Studies Professor: None Anesthesia: local block using 1% lidocaine with epinephrine Findings: Thickened transverse carpal ligament. EBL: Less than 5 mL Specimens: None Complications: None Disposition: Brought to recovery room in stable condition Plan: Follow-up for 10-14 days for wound check and suture removal Indications: The patient is 33 years old, with right carpal tunnel syndrome that has been unresponsive to nonoperative management. The risks and benefits of operative treatment including but not limited to risk of damage to blood vessels, nerves, tendons, infection, persistent pain, persistent symptoms, or possible need for additional surgery were discussed with the patient and the patient wishes to proceed with surgery. Procedure: Once consent was obtained a local block was performed using a combination of 1% lidocaine with epinephrine. The patient was then brought back to the operating suite and placed on the operative table in supine position. The right upper extremity was prepped and draped in a standard surgical fashion. Once assured that we had a good block, a 2.0 cm longitudinal incision was made centered over the carpal tunnel. The incision was made through the skin to the subcutaneous tissues using a #15 blade. Dissection was made down to the level of the transverse carpal ligament with care being taken to protect the palmar cutaneous nerve. Once the transverse carpal ligament was clearly visualized, a longitudinal incision was made in the transverse carpal ligament 1st using a #15 blade, then using tenotomy scissors under direct visualization. Care was taken to look for and protect the motor branch of the median nerve when seen in this area. Once satisfied with our carpal tunnel release the wound was copiously irrigated with normal saline and hemostasis was obtained with a brief period of local pressure. The skin edges were reapproximated with some 5.0 nylon suture material and a sterile dressing was applied. The patient appears to have tolerated the procedure well and with no complications. All digits were well vascularized at the conclusion of the case.
[2024-02-26 09:51] VITALS: BP 91/48; PULSE 57; RESP 20; O2SAT 95
== END 2024-02-26 09:52 | disposition home or self-care (01) ==
PROVIDERS: PCP Internal Medicine; Visit Provider Orthopaedic Surgery
PROC: (CPT 64721; principal; 2024-02-26 08:10)
DX: G56.01 Carpal tunnel syndrome, right upper limb (principal); R20.0 Anesthesia of skin; R20.2 Paresthesia of skin; J45.909 Unspecified asthma, uncomplicated; R73.03 Prediabetes; Z79.51 Long term (current) use of inhaled steroids; Z79.84 Long term (current) use of oral hypoglycemic drugs
CPT/HCPCS: 64721; J0171; J2003; J2004

== ENCOUNTER → 2024-02-26 06:47 | Outpatient (BNV) | payer MEDICAID, SELFPAY | PROVIDERS: PCP Internal Medicine; Visit Provider Orthopaedic Surgery | DX: G56.01 Carpal tunnel syndrome, right upper limb (principal) | CPT/HCPCS: 64721 ==

== ENCOUNTER 2024-03-06 08:46 | Outpatient (AMB) | payer MEDICAID, SELFPAY ==
--- NOTE | 2024-03-06 08:52 | A.OFFVIS_ITS ---
Vital Signs 03/06/24 08:53 Height 5 ft 7 in Weight 201 lb BMI 31.5 Intake Visit Reasons: PO RT CTR 02/26/24 AR Intake Note: Aundrea is a 33 year old - hand dominant female who presents today for a wound check visit status post left carpal tunnel release performed 02/26/[address] Posey. Patient reports lot of pain, redness at the site, and swelling. States she is not able to fully extend her hand flat and her pinky in joaquín inward. Allergies Sulfa (Sulfonamide Antibiotics) [SULFA (SULFONAMIDE ANTIBIOTICS)] Allergy (Unknown, Verified 02/21/24 10:37) UNKNOWN HPI HPI PO RT CTR 02/26/24 AR: Details: Aundrea is a 33 year old right hand dominant Swiss speaking woman who presents S/P right carpal tunnel release, DOS: 02/26/24. She complains of pain, tenderness, stiffness, and swelling about her incision. She says she is unable to fully extend her fingers at this time without pain. She localizes this pain to her small finger, not in her hand or wrist. In regards to her sensation, she says her sensation is improved and now normal in her median nerve distribution. She reports some intermittent numbness to the tip of her small finger. She continues to have intermittent numbness in the left median nerve distribution. [facility] Medical History Pre-diabetes Asthma Social History Alcohol intake: never Patient Tobacco Use Status: Never used Tobacco Review of Systems Const All systems reviewed & are unremarkable except as noted in HPI and below Physical Exam Vital Signs: BMI result Body Mass Index 31.5 Const General: no acute distress and alert Orientation/consciousness: patient oriented x3 Neuro General: patient oriented x3 Extrem Other: The patient was alert oriented and in no acute distress The incision is healing well with no erythema drainage or evidence of infection. Sutures remain More tender to ulnar side of incision, particularly tender on the radial side With encouragement she can make a fist and extend all her digits Some mild pain over the volar base of the small finger when extending her small finger Sensation is improving and now normal in the median nerve distribution of the right hand Normal sensation in the ulnar nerve distribution bilaterally Cap refill is brisk Nerve Conduction Study: IMPRESSION: 1. This is an abnormal study. 2. There is electrodiagnostic evidence for bilateral moderate-severe median neuropathy at the wrist, consistent with carpal tunnel syndrome. 3. There is no electrodiagnostic evidence for ulnar neuropathy, brachial plexopathy, or cervical radiculopathy. Linda Claire MD, CHELLE 12/15/23 Psych Appearance: grossly normal Affect: normal affect Attitude: cooperative Assessment & Plan Assessment & Plan (1) Carpal tunnel syndrome of right wrist: Code(s): G56.01 - Carpal tunnel syndrome, right upper limb Category: Medical (2) Carpal tunnel syndrome of left wrist: Code(s): G56.02 - Carpal tunnel syndrome, left upper limb Category: Medical Plan Assessment & Plan: 1. Right carpal tunnel syndrome, S/P release DOS: 02/26/24 Pre-operative symptoms intermittent, but daily, worse at night Now with normal sensation and good resolution of her nighttime symptoms The patient appears to be doing well post-operatively I educated her about the post-operative course I explained the signs and symptoms of infection, if the patient develops any new or worsening erythema, drainage, pain, or warmth they should contact the clinic or attend the ED. I discussed activity modifications, she is to lift nothing heavier than a cellphone for the next two weeks She will perform gentle ROM exercises at home. I discussed the importance of moving her fingers to improve her stiffness and associated pain. She expressed understanding She should avoid any underwater activities at this time She will follow up next week as scheduled for suture removal. 2. Left carpal tunnel syndrome, moderate-severe Symptoms intermittent, but daily, worse at night I educated her about this condition I discussed operative and non-operative treatment options The patient would like to proceed with surgery, when her right side has recovere d Scribed for Jessica Posey MD by Rashid Thomas chief medical officer, on 03/06/24 at 9:15 AM, EST. Coding Level of Care Code Global (16253) Diagnoses Carpal tunnel syndrome of right wrist G56.01 Carpal tunnel syndrome of left wrist G56.02
[2024-03-06 08:53] VITALS: BMI 31.5
--- OUTSIDE RECORDS SUMMARY | 2024-03-06 09:33 | XMS_ITS | Encounter Summary ---
Author Organization [employer] Address [address] [place] [address] Care Team Providers Care Transportation Planning Technician Name Role Phone Rosenda Hernandez MD Primary Care Provide r Reason for Visit * Reason Comments [facility] outreach Encounter Details Date Type Department Care Team (Latest Contact Info) Description 02/21/2024 Patient Outreach [facility] MEDICINE [address] [place] [address] Rosenda Hernandez MD [address] [place] [address] Care Coordination (C3 BRIAN Craig telephone call outreach) Social History Tobacco Use Types Packs/Day Years Used Date Smoking Tobacco: Never Passive Smoke Exposure: Never Smokeless Tobacco: Never Alcohol Use Standard Drinks/Week Comments Never 0 (1 standard drink = 0.6 oz pur e alcohol) Depression Answer Date Recorded Patient Health Questionnaire-9 Score 0 02/08/2024 Patient Health Questionnaire-9 Score 0 02/08/2024 Last PHQ-9: Questionnaire Data Not on file 0 02/08/2024 Housing Stability Answer Date Recorded What is your housing situation today? I have shahla chiu 07/12/[address] you li ve. Do you have problems with any of the following? None of the above 07/12/2023 Food Insecurity Answer Date Recorded Within the past 12 months, y ou worried that your food would run out before you got money to buy more: Never True 07/12/2023 Within the past 12 months,th e food you bought just didn't last and you didn't have enough money to get more: Never True 06/2023 Transportation Answer Date Recorded In the past 12 months, has l ack of transportation kept you from medical appts, meetings, work or from getting things needed for daily living? No 07/12/2023 Utilities Answer Date Recorded In the past 12 months, has t he electric, gas, oil or water company threatened to shut off services in your home? No 07/12/2023 Depression Answer Date Recorded Patient Health Questionnaire-2 Score 0 02/08/2024 Comments Unknown Sex and Gender Information Value Date Recorded Sex Assigned at Female 12/06/2021 10:26 AM EDT Legal Sex Female 10:26 AM EDT Gender Identity Female 12/06/2021 10:26 AM EDT Sexual Orientation Choose not to disclose 2021 10:26 AM EDT documented as of this encounter Progress Notes * Catie Craig - 02/21/2024 1:26 PM EST CHW Catie Craig placed outbound call to patient introducing herself from [facility] CM Department, in regards to offering CM-CHW program services. Patient's name and was confirmed. Patient agrees to participate in CHW- program for SDOH needs. SDOH screening completed: 02/21/2024, CHW spoke to patient she is looking for a 3bedroom apt she has applied to several low income Apts she is on a waiting list. CHW will be sending apartment applications. CHW reinforced direct contact information for any additional questions or concerns and extended clinic hours on Mondays and Wednesdays, and Walk-In Urgent Care Located in [facility] of [facility].Patient provided with after-hours line for [facility], , which offer night time triage serviceand option to transfer to manager installation provider if needed. Patient verbalizes understanding, and able torepeat back to investment underwriter. documented in this encounter Plan of Treatment Upcoming Encounters Date Type Department Care Team ([facility] Contact Info) Description 05/09/2024 2:30 PM EDT Office Visit [facility] [address] [place] [address] [place] [address] Rosenda Hernandez MD [address] [place] [address] documented as of this encounter Goals Goal Patient Goal Type Associated Problems Recent Progress Patient-Stated? Author Blood Pressure < 140/90 Blood Pressure 158/96( 025 9:18 AM EST) Arianna Louise, PharmD documented as of this encounter Visit Diagnoses Not on filedocumented in this encounter Additional Health Concerns Assessment Noted Time PHQ-9 Depression Total Score: 0 02/07/19 25 9:31 AM EST documented as of this encounter Care Teams Transportation Planning Technician Relationship Specialty Start Date End Date Rosenda Hernandez MD [address] [place] [address] PCP - General Family Medicine 12/20/18 Agueda Chaves Color BlenderVegetable Trimmer 03/20/23 Agueda Marie Die AttacherVegetable Trimmer 10/04/23 documented as of this encounter
--- OUTSIDE RECORDS SUMMARY | 2024-03-06 09:34 | XMS_ITS | Encounter Summary ---
Author Organization [employer] Address [address] [place] [address] Care Team Providers Care Line Erector Name Role Phone Rosenda Hernandez MD Primary Care Provide r Reason for Visit * Reason Onset Date Comments Care Management 02/21/2024 [facility]- chart revi ew Encounter Details Date Type Department Care Team ([facility] st Contact Info) Description 02/21/2024 Telephone [facility] MEDICINE [address] [place] [address] Alvin Palomino RN [address] [place] [address] Care Management ([facility]- chart review) Social History Tobacco Use Types Packs/Day Years [...] AM EDT documented as of this encounter Miscellaneous Notes * Telephone Encounter - Alvin Palomino RN - 02/21/2024 8:17 AM EST GWENDOLYN Palomino RN, performed chart review, in anticipation of initial assessment with patient, as patient has stratified for [facility] Adult [facility] through the ADT feed. History significant for JAMES, frequent headaches, seizures, CTS, moderate persistent asthma without complication, snoring, HTN, chronic gastritis, uterine leiomyoma, fibromyalgia, sacroilitis, cyst of ovary, prediabetes, obesity, mixed anxiety and depressive disorder, tremor, low vision, and chronic right sided low back pain without sciatica. Specialists include [facility] Optometry, [facility] Ortho, Cardiology- [facility], Neurology, Pharmacy MTM, PT, Pulmonology, and [facility] POST DOCTORAL FELLOW. ED visits within the last 12 months include [facility] 02/20/24 for eval of abd pain- patient left without being seen, [facility] ED 12/26/23 Dx hyperventilationand costochondritis, [facility] ED 11/09/23 Dx abdominal pain, and [facility] ED 08/31/23 Dx viral syndrome. Last appointment in PCP office on 02/08/24. 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 No future appointments scheduled at this time. documented in this encounter Plan of Treatment Upcoming Encounters Date Type Department Care Team (Late st Contact Info) Description 05/09/2024 2:30 PM EDT Office Visit [facility] MEDICINE [address] [place] [address] Rosenda Hernandez MD [address] [place] [address] documented as of this encounter Goals Goal Patient Goal Type Associated Problems Recent Progress Patient-Stated? Author Blood Pressure < 140/90 Blood Pressure 158/96( 025 9:18 AM EST) No Arianna Noel, PharmD documented as of this encounter Visit Diagnoses Not on filedocumented in this encounter Additional Health Concerns Assessment Noted Time PHQ-9 Depression Total Score: 0 02/07/19 25 9:31 AM EST documented as of this encounter Care Teams Line Erector Relationship Specialty Start Date End Date Rosenda Hernandez MD [address] [place] [address] PCP - General Family Medicine 12/20/18 Agueda Chaves Tea Bag PackerDirector Radio 03/20/23 Agueda Marie Handicraft Or Hobby Shop ManagerDirector Radio 10/04/23 documented as of this encounter
--- OUTSIDE RECORDS SUMMARY | 2024-03-06 09:34 | XMS_ITS | Clinical Summary ---
Author Organization [facility] Address [address] [place] [address] Phone Care Team Providers Care Railroad Signal And Switch Operator Name Role Phone Deirdre Nguyen MD Primary Care Provider [phone] Allergies Active Allergy Reactions Criticality Noted Date Comments Sulfa (Sulfonamide Antibiotics) Swelling Medium 06/08 Medications Medication Sig Dispensed Refills Start Date End Date Status clotrimazole-betame thasone (LOTRISONE) 1-0.05 % cream Apply topically to affected area twice daily for no more than 10 days 01/01/2020 Active fluticasone HFA (Flovent HFA) 110 mcg/actuation inhaler INHALE 2 PUFFS BY MOUTH TWICE DAILY. RINSE MOUTH AFTER USING. 12/23/2019 Active fluconazole (DIFLUCAN) 150 mg tablet Take one tab today, if no improvement in 3 dys then take 2nd dose 01/01/2020 Active NON FORMULARY PHARMACY ADMINISTERED 12/09/2019 Active nitrofurantoin, macrocrystal-monohy drate, (MACROBID) 100 mg capsule TAKE 1 CAPSULE BY MOUTH EVERY TWELVE HOURS FOR 7 DAYS. TAKE WITH FOOD 12/30/2019 Active omeprazole (PriLOSEC) [address] capsule TAKE 1 CAPSULE BY MOUTH EVERY DAY BEFORE A MEAL 12/23/2019 Active phenazopyridine (PYRIDIUM) 100 mg tablet TAKE 1 TABLET BY MOUTH THREE TIMES DAILY NEEDED FOR PAIN 12/30/2019 Active predniSONE (DELTASONE) 20 mg tablet TAKE 2 TABLETS BY MOUTH EVERY DAY 10/28/2019 Active vitamin (VOL-TAB) 29 mg iron- 1 mg tablet Take 1 Tab by mouth daily. 01/01/2020 Active albuterol HFA (ProAir HFA) 90 mcg/actuation inhaler INHALE 2 PUFFS BY MOUTH EVERY 4 TO 6 HOURS NEEDED 12/23/2019 Active cholecalciferol (VITAMIN D-3) 25 mcg (1,000 unit) capsule Take 1 Capsule by mouth daily. 10/17/2022 Active Active Problems Problem Noted Date Diagnosed Date Pap smear abnormality of cervix with ASCUS favor ing benign 01/08/2020 Overview (01/17/2024): 12/2019 PAP Ascus, Neg HPV Per ASCCP guidelines, repeat co-testing 3 yrs 03/17/2021 PAP Ascus, Neg HPV Repeat co-testign 3 yrs Encounters Date Type Department Care Team Description 12/05/2023 9:52 AM EDT - 12/05/2023 11:59 PM EDT Hospital Encounter [facility] [address] [place] [address] Kenneth Perry MD Discharge Disposition: Home or Self Care from Last 3 Months Immunizations Name Administration Dates Next Due Hepatitis A-Hepatitis B Adult (Twinrix) 18yo and older 03/08/2017,12/20/2016 [facility] SARS-CoV-2 COVID -19, vector-nr, [id number], preservative free 06/19/2019 Surgical History Surgery Date Site/Laterality Comments CHOLECYSTECTOMY 2016 PROCEDURE: HISTORICAL CHOLECYSTECTOMY Medical History Medical History Date Comments Asthma DX:Asthma History of 2019 novel okeefe virus disease (COVID-19) 02/2021 DX:History of 2019 novel cor onavirus disease (COVID-19); COMMENT: + home test Family History Medical History Relation Name Comments Arthritis Father Diabetes Father Arthritis Maternal Grandmother Other cancer Maternal Grandmother Arthritis Mother Hypertension Mother Other cancer Mother Arthritis Paternal Grandfather Diabetes Paternal Grandfather Breast cancer Paternal Grandmother Diabetes Uncle Stroke Uncle Colon cancer Neg Hx Relation Name Status Comments Father Alive Maternal Grandfather Alive Maternal Grandmother Alive Mother Alive Paternal Grandfather Paternal Grandmother Uncle Social History Tobacco Use Types Packs/Day Years Used Date Smoking Tobacco: Never Smokeless Tobacco: Never Alcohol Use Standard Drinks/Week Comments No 0 (1 standard drink = 0.6 oz pur e alcohol) Sex and Gender Information Value Date Recorded Sex Assigned at Not on file Gender Identity Not on file Sexual Orientation Not on file Obstetrics History Last Filed Vital Signs Vital Sign Reading Time Taken Comments Blood Pressure 102/72 10/17/2022 3:36 PM EDT Pulse 88 10/17/2022 3:36 PM EDT Temperature - - Respiratory Rate - - Oxygen Saturation - - Inhaled Oxygen Concentration - - Weight 92.5 kg (204 lb) 10/17/2022 3:36 PM EDT Height 170.2 cm (5' 7 ) 10/17/2022 3:36 PM EDT Body Mass Index 31.95 10/17/2022 3:36 PM EDT Plan of Treatment Upcoming Encounters Date Type Department Care Team (Late st Contact Info) Description 04/18/2024 2:30 PM EDT Office Visit Obstetrics & Gynecology - [address] [phone] Gladys Monika, CNM [address] [place] [address] Health Maintenance Due Date Last Done Comments DTaP,Tdap,and Td Vaccines (1 - Tdap) 10/31/2007 Hepatitis B Vaccines (3 of 3 - Hep B Twinrix 3-dose series) 08/05/2017 03/08/2017, 12/20/2016 Depression Screening 01/15/2022 Social Influencers of Health Screening 01/15/2022 COVID-19 Vaccine (2 - 2023-2 5 season) 2023 06/19/2019 Influenza Vaccine (#1) 2023 Cervical Cancer Screening: HPV 10/18/2027 10/17/2022 Hepatitis A Vaccines Aged Out 03/08/2017, 12/20/2016 No longer eligible based on patient's age to complete this topic HIV Screening Completed 10/20/2022 Hepatitis C Screening Completed 10/20/2022 HIB Vaccines Aged Out No longer eligi ble based on patient's age to complete this topic HPV Vaccines Aged Out No longer eligi ble based on patient's age to complete this topic IPV Vaccines Aged Out No longer eligi ble based on patient's age to complete this topic MMR Vaccines Aged Out No longer eligi ble based on patient's age to complete this topic Meningococcal ACWY Vaccine Aged Out N o longer eligible based on patient's age to complete this topic Pneumococcal Vaccine: Pediatrics (0 to 5 Years) and At-Risk Patients (6 to 64 Years) Aged Out No longer eligible b ased on patient's age to complete this topic RSV Immunization Patients Under 20 months Aged Out No longer eligible b ased on patient's age to complete this topic Varicella Vaccines Aged Out No longer eligible based on patient's age to complete this topic Procedures Procedure Name Priority Date/Time Associated Diagnosis Comments EXTERNAL NEUROLOGY REPORT 12/05/2023 HEPATITIS C SCREENING Routine 10/20/2022 HIV SCREENING Routine 10/20/2022 HPV Routine 10/17/2022 from Last 3 Months or Most Recently Relevant to Health Maintenance Results * External Neurology Report (12/05/2023) Provider Onbase MD NEUROLOGY ORDERABLES * HIV Screening (10/20/2022) HIV Screening Abstracted Historical Provider MD KIMMIE ASHRAF E * Hepatitis C Screening (10/20/2022) Hepatitis C Screening Abstracted Historical Provider MD KIMMIE ASHRAF E * Cervical Cancer Screening: HPV (10/17/2022) Pathologist [facility] Cervical Cancer Screening: HPV Negative, Abstracted Historical Provider MD KIMMIE Magallanes from Last 3 Months or Most Recently Relevant to Health Maintenance Care Teams Railroad Signal And Switch Operator Relationship Specialty Start Date End Date Deirdre Nguyen MD [address] [place] [phone] PCP - General Internal Medicine 02/20/17
--- OUTSIDE RECORDS SUMMARY | 2024-03-06 09:34 | XMS_ITS | Encounter Summary ---
Author Organization [employer] Address [address] [place] [address] Care Team Providers Care Inpatient Services Director Name Role Phone Rosenda Hernandez MD Primary Care Provide r Reason for Visit * Reason Comments Follow-up Encounter Details Date Type Department Care Team ([facility] Contact Info) Description 02/08/2024 9:00 AM EST Office Visit [facility] MEDICINE [address] [place] [address] Rosenda Hernandez MD [address] [place] [address] Essential hypertension (Primary Dx); Bilateral carpal tunnel syndrome; Prediabetes Social History Tobacco Use Types Packs/Day Years [...] AM EDT documented as of this encounter Last Filed Vital Signs Vital Sign Reading Time Taken Comments Blood Pressure 158/96 02/08/2024 9:18 AM EST Pulse 95 02/08/2024 9:18 AM EST Temperature 36.6 ??C (97.8 ??F) 02/08/2024 9:18 AM ES T Respiratory Rate 20 02/08/2024 9:18 AM EST Oxygen Saturation - - Inhaled Oxygen Concentration - - Weight 100 kg (221 lb) 02/08/2024 9:18 AM EST Height 154.9 cm (5' 1 ) 02/08/2024 9:18 AM EST Body Mass Index 41.76 02/08/2024 9:18 AM EST documented in this encounter Progress Notes * Rosenda Amin MD - 02/08/2024 9:00 AM EST SUBJECTIVE: Aundrea Rivera is a 33 y.o. year old female who presents for Follow up . 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 on 02/26/2024 Social History Social History Narrative Not on file Patient Active Problem List Diagnosis Chronic gastritis COVID-19 Cyst of ovary Essential hypertension Mixed anxiety and depressive disorder Moderate persistent asthma without complication Obesity (BMI 30-39.9) Obstructive sleep apnea syndrome Pain in female pelvis Prediabetes Snoring Tremor Chronic right-sided low back pain without sciatica Uterine leiomyoma Sacroiliitis (CMS/HCC) Frequent headaches Fibromyalgia Seizure (CMS/HCC) Rash and nonspecific skin eruption CTS (carpal tunnel syndrome) Low vision Encounter for preventive health examination No family history on file. Review of Systems OBJECTIVE: Vitals: 02/08/24 0918 BP: (!) 158/96 BP Location: Left arm Patient Position: Sitting BP Cuff Size: Large adult Pulse: 95 Resp: 20 Temp: 97.8 ??F (36.6 ??C) TempSrc: Temporal Weight: 221 lb (100 kg) Height: 5' 1 (1.549 m) Physical Exam Constitutional: Appearance: Normal appearance. Cardiovascular: Rate and Rhythm: Normal rate and regular rhythm. Pulmonary: Effort: Pulmonary effort is normal. Breath sounds: Normal breath sounds. Abdominal: General: Abdomen is flat. Palpations: Abdomen is soft. Musculoskeletal: Right lower leg: No edema. Left lower leg: No edema. Neurological: Mental Status: She is alert. Follow Up: Follow up in about 3 months (around 05/08/2024) for chronic conditions . Current Outpatient Medications on File Prior to Visit Medication Sig Dispense Refill [START ON 02/24/2025] acetaminophen (Tylenol) 500 MG tablet take 2 tablet by oral route every 6 hours as needed as needed for pain albuterol (2.5 MG/3ML) 0.083% nebulizer solution Take 3 mL (2.5 mg) by nebulization every 4 (four) hours if needed for wheezing. 75 mL 1 albuterol 108 (90 Base) MCG/ACT inhaler inhale 2 puff by inhalation route every 4 - 6 hours as needed amitriptyline (Elavil) 50 MG tablet TAKE 1 TABLET BY MOUTH EVERYDAY AT BEDTIME Blood Glucose Monitoring Suppl (GreenItaly1yle [place] Lite) w/Device kit Use to test blood sugar 2 times daily 1 kit 0 Blood Pressure Monitoring (Blood Pressure Cuff) mis 1 each Once daily. 1 each 0 carvedilol (Coreg) 25 MG tablet Take 25 mg by mouth with breakfast and with evening meal. cholecalciferol (Vitamin D-3) 25 MCG (1000 UT) capsule take 1 Capsule by Oral route every day 90 capsule 1 cyclobenzaprine (Flexeril) 10 MG tablet TAKE 1 TABLET BY MOUTH EVERY 8 HOURS NEEDED FOR MUSCLE SPASM DULoxetine (Cymbalta) [address] capsule TAKE 1 CAPSULE BY MOUTH EVERY MORNING Easy Touch Lancets 33G/Twist misc TEST BLOOD SUGAR TWICE DAILY 100 each 11 famotidine (Pepcid) 10 MG tablet Take 20 mg by mouth if needed for heartburn. OTC FREESTYLE LITE test strip Use to test blood sugar 2 times daily 100 each 12 furosemide (Lasix) 40 MG tablet Take 40 mg by mouth in the morning. gabapentin (Neurontin) 300 MG capsule Take 1 capsule (300 mg) by mouth 3 times daily. 90 capsule 11 hydroCHLOROthiazide (HYDRODiuril) 25 MG tablet TAKE 1 TABLET BY MOUTH EVERY MORNING 90 tablet 1 hydrOXYzine HCl (Atarax) 25 MG tablet take 1 tablet by oral route 2 times every day as needed ibuprofen 600 MG tablet TAKE 1 TABLET BY MOUTH EVERY 6 HOURS NEEDED FOR PAIN lidocaine (Lidoderm) 5 % patch Apply 1 patch topically Once per day. Remove & discard patch within 12 hours or as directed by MD. 30 patch 1 metFORMIN, OSM, (Fortamet) 500 MG 24 hr tablet Take 1 tablet (500 mg) by mouth with evening meal. Do not crush, chew, or split. 30 tablet 11 montelukast (Singulair) 10 MG tablet TAKE 1 TABLET BY MOUTH EVERY EVENING 90 tablet 1 omeprazole (PriLOSEC) [address] capsule TAKE 1 CAPSULE BY MOUTH EVERY MORNING BEFORE A MEAL 90 capsule 1 SUMAtriptan (Imitrex) 25 MG tablet Take 1 tablet (25 mg) by mouth 1 (one) time if needed for migraine for up to 18 doses. May repeat dose once in 2 hours if no relief. Do not exceed 2 doses in 24 hours. 9 tablet 1 Symbicort 160-4.5 MCG/ACT inhaler INHALE 2 PUFFS TWICE DAILY IN THE MORNING AND AT BEDTIME. RINSE MOUTH AFTER USING.. DO NOT SWALLOW 10.2 g 3 triamcinolone (Kenalog) 0.1 % cream Apply topically 2 times daily. 45 g 0 [DISCONTINUED] losartan (Cozaar) 25 MG tablet Take 25 mg by mouth at bedtime. No current facility-administered medications on file prior to visit. Problem List Items Addressed This Visit Essential hypertension - Primary I increased her losartan to 100mg daily, c/w hydrochlorothiazide 25mg daily and Coreg 25mg BID, I advised low Na diet and weight reduction Relevant Medications losartan (Cozaar) 100 MG tablet CTS (carpal tunnel syndrome) Patient has her surgery schedule for right side on 02/26/2024 Prediabetes Today extensive discussion was done about life style modifications I advise healthy diet (low calorie) and cardiovascular exercise documented in this encounter Miscellaneous Notes * Assessment & Plan Note - Rosenda Amin MD - 02/08/2024 11:39 AM EST Associated Problem(s): Essential hypertension I increased her losartan to 100mg daily, c/w hydrochlorothiazide 25mg daily and Coreg 25mg BID, I advised low Na diet and weight reduction * Assessment & Plan Note - Rosenda Amin MD - 02/08/2024 11:39 AM EST Associated Problem(s): CTS (carpal tunnel syndrome) Patient has her surgery schedule for right side on 02/26/2024 * Assessment & Plan Note - Rosenda Amin MD - 02/08/2024 11:38 AM EST Associated Problem(s): Prediabetes Today extensive discussion was done about life style modifications I advise healthy diet (low calorie) and cardiovascular exercise documented in this encounter Plan of Treatment Upcoming Encounters Date Type Department Care Team (Late st Contact Info) Description 05/09/2024 2:30 PM EDT Office Visit [facility] [address] [place] [address] Rosenda Hernandez MD [address] [place] [address] documented as of this encounter Goals Goal Patient Goal Type Associated Problems Recent Progress Patient-Stated? Author Blood Pressure < 140/90 Blood Pressure 158/96( 025 9:18 AM EST) Arianna Louise, Pernell documented as of this encounter Visit Diagnoses Diagnosis Essential hypertension- Primary Unspecified essential hypertension Bilateral carpal tunnel syndrome Carpal tunnel syndrome Prediabetes Other abnormal glucose documented in this encounter Additional Health Concerns Assessment Noted Time PHQ-9 Depression Total Score: 0 02/07/19 25 9:31 AM EST documented as of this encounter Care Teams Inpatient Services Director Relationship Specialty Start Date End Date Rosenda Hernandez MD [address] [place] [address] PCP - General Family Medicine 12/20/18 Agueda Chaves Bead InspectorLook Out Tower Fire Watcher 03/20/23 Agueda Marie ClipmanLook Out Tower Fire Watcher 10/04/23 documented as of this encounter
--- OUTSIDE RECORDS SUMMARY | 2024-03-06 09:34 | XMS_ITS | Encounter Summary ---
Author Organization [employer] Address [address] [place] [address] Care Team Providers Care Supervisor Color Making Name Role Phone Rosenda Hernandez MD Primary Care Provide r Reason for Visit * Reason Comments Care [facility]ination [facility] call outreach Encounter Details Date Type Department Care Team (Latest Contact Info) Description 02/21/2024 Patient Outreach [facility] [address] [place] [address] Rosenda Hernandez MD [address] [place] [address] Care Coordination (C3 BRIAN Craig telephone call outreach ) Social History Tobacco Use Types Packs/Day Years [...] Progress Notes * Catie Craig - 02/21/2024 1:34 PM EST CHW Catie Craig, placed outbound call to patient introducing herself from [facility] CM Department, in regards to offering services. Patient's name and was confirmed. Patient agrees toparticipate in program. Appt. for initial assessment scheduled for 02/21/2024 @ 1:00PM. CHW reinforced direct contact information or CM for any additional questions or concerns and extended clinic hours on Mondays and Wednesdays, and Walk-In Urgent Care Located in [facility]. Patient provided with after-hours line for [facility], , which offer night time triage service and option to transfer to portfolio consultant provider if needed. Patient verbalizes understanding, and able to repeat back to policy writer. documented in this encounter Plan of Treatment Upcoming Encounters Date Type Department Care Team (Late st Contact Info) Description 05/09/2024 2:30 PM EDT Office Visit [facility] [address] [place] [address] Rosenda Hernandez MD [address] [place] [address] documented as of this encounter Goals Goal Patient Goal Type Associated Problems Recent Progress Patient-Stated? Author Blood Pressure < 140/90 Blood Pressure 158/96( 025 9:18 AM EST) No Arianna Noel, Pernell documented as of this encounter Visit Diagnoses Not on filedocumented in this encounter Additional Health Concerns Assessment Noted Time PHQ-9 Depression Total Score: 0 02/07/19 25 9:31 AM EST documented as of this encounter Care Teams Supervisor Color Making Relationship Specialty Start Date End Date Rosenda Hernandez MD [address] [place] [address] PCP - General Family Medicine 12/20/18 Agueda Chaves Technical ArtistWeb Content & Social Media Manager 03/20/23 Agueda Marie Tuber Machine Operator HelperWeb Content & Social Media Manager 10/04/23 documented as of this encounter
--- OUTSIDE RECORDS SUMMARY | 2024-03-06 09:34 | XMS_ITS | Encounter Summary ---
Author Organization [employer] Address [address] 7[address] [place] [address] Care Team Providers Care Lead Manufacturing Engineer Name Role Phone Rosenda Hernandez MD Primary Care Provide r Reason for Visit * Reason Onset Date Comments PT-1 11/13/2023 Encounter Details Date Type Department Care Team ([facility] st Contact Info) Description 11/13/2023 Telephone [facility] [address] [place] [address] Rosenda Hernandez MD [address] [place] [address] PT-1 Social History Tobacco Use Types Packs/Day Years [...] encounter Miscellaneous Notes * Telephone Encounter - Evaristo Carpenter - 11/13/2023 11:06 AM EDT Patient calling requesting PT1 Home Address verified: Y/N: Yes Provider name or facility name: [facility] Facility Address: [address] [place] [address] Escort needed: Y/N: No Do you have a wheelchair: Y/N: No If yes- Manual or electric: Visits: once a month Date: 12/05/23 Time: 10am documented in this encounter Plan of Treatment Upcoming Encounters Date Type Department Care Team (Late st Contact Info) Description 05/09/2024 2:30 PM EDT Office Visit [facility] [address] [place] [address] Rosenda Hernandez MD [address] [place] [address] documented as of this encounter Goals Goal Patient Goal Type Associated Problems Recent Progress Patient-Stated? Author Blood Pressure < 140/90 Blood Pressure 158/96( 025 9:18 AM EST) No Arianna Noel, PharmD documented as of this encounter Visit Diagnoses Not on filedocumented in this encounter Additional Health Concerns Assessment Noted Time PHQ-9 Depression Total Score: 22 024 3:56 PM EDT documented as of this encounter Care Teams Lead Manufacturing Engineer Relationship Specialty Start Date End Date Rosenda Hernandez MD [address] [place] [address] PCP - General Family Medicine 12/20/18 Agueda Chaves Chief Revenue OfficerDomestic Travel Consultant 03/20/23 Agueda Marie Associate VeterinarianDomestic Travel Consultant 10/04/23 documented as of this encounter
--- OUTSIDE RECORDS SUMMARY | 2024-03-06 09:34 | XMS_ITS | Encounter Summary ---
Author Organization [employer] Address [address] [place] [address] Care Team Providers Care Clinical Rehabilitation Coordinator Name Role Phone Rosenda Hernandez MD Primary Care Provide r Reason for Visit * Reason Comments Med Refill Encounter Details Date Type Department Care Team ([facility] st Contact Info) Description 02/20/2024 Refill [facility] [address] [place] [address] Rosenda Hernandez MD [address] [place] [address] Social History Tobacco Use Types Packs/Day Years [...] AM EDT documented as of this encounter Plan of Treatment Upcoming Encounters Date Type Department Care Team (Late st Contact Info) Description 05/09/2024 2:30 PM EDT Office Visit [facility] [address] [place] [address] Rosenda Hernandez MD [address] [place] [address] documented as of this encounter Goals Goal [...] documented as of this encounter Care Teams Clinical Rehabilitation Coordinator Relationship Specialty Start Date End Date Rosenda Hernandez MD [address] [place] [address] PCP - General Family Medicine 12/20/18 Agueda Chaves Cage Maker MachineChange Control Coordinator 03/20/23 Agueda Marie Medical Office SpecialistChange Control Coordinator 10/04/23 documented as of this encounter
--- OUTSIDE RECORDS SUMMARY | 2024-03-06 09:34 | XMS_ITS | Encounter Summary ---
Author Organization [employer] Address [address] 7[address] [place] [address] Care Team Providers Care Luggage Maker Name Role Phone Rosenda Hernandez MD Primary Care Provide r Reason for Visit * Reason Onset Date Comments PT-1 2023 Encounter Details Date Type Department Care Team ([facility] st Contact Info) Description 2023 Telephone [facility] [address] [place] [address] Rosenda Hernandez MD [address] [place] [address] PT-1 Social History Tobacco Use Types Packs/Day [...] * Telephone Encounter - Evaristo Carpenter - 2023 3:55 PM EDT Agueda MACHUCA calling requesting PT1 Home Address verified: Y/N: Yes Provider name or facility name: [facility] PCP Facility Address: [address] [place] [address] Escort needed: Y/N: No Do you have a wheelchair: Y/N: No If yes- Manual or electric: Visits: 3 times a month Date : 11/07/23 Time : 2pm Provider name or facility name: [facility] Facility Address: [address] [place] [address] [address], [place] [address] Escort needed: Y/N: No Do you have a wheelchair: Y/N: No If yes- Manual or electric: Visits: once a month documented in this encounter Plan of Treatment Upcoming Encounters Date Type Department Care Team (Late st Contact Info) Description 05/09/2024 2:30 PM EDT Office Visit [facility] [address] [place] [address] Rosenda Hernandez MD [address] [place] [address] documented as of this encounter Goals Goal [...] documented as of this encounter Care Teams Luggage Maker Relationship Specialty Start Date End Date Rosenda Hernandez MD [address] [place] [address] PCP - General Family Medicine 12/20/18 Agueda Chaves Community Service ManagerByproduct Engineer 03/20/23 Agueda Marie Favor MakerByproduct Engineer 10/04/23 documented as of this encounter
--- OUTSIDE RECORDS SUMMARY | 2024-03-06 09:34 | XMS_ITS | Encounter Summary ---
Author Organization [employer] Address [address] [place] [address] Care Team Providers Care Driver Manager Name Role Phone Rosenda Hernandez MD Primary Care Provide r Encounter Details Date Type Department Care Team (Late st Contact Info) Description 02/21/2024 Orders Only GENERIC EXTERNAL DATA DEPARTMENT Provider, Generic External Data Social History Tobacco Use Types Packs/Day Years [...] Description 05/09/2024 2:30 PM EDT Office Visit [facility] [address] [place] [address] Rosenda Hernandez MD [address] [place] [address] documented as of this encounter Goals Goal Patient Goal Type Associated Problems Recent Progress Patient-Stated? Author Blood Pressure < 140/90 Blood Pressure 158/96( 025 9:18 AM EST) No Arianna Noel, PharmD documented as of this encounter Procedures Procedure Name Priority Date/Time Associated Diagnosis Comments CT ABDOMEN PELVIS W CONTRAST Routine 02/21/2024 7:13 PM EST COMPREHENSIVE METABOLIC PANEL, FASTING Routine 02/21/2024 11:42 AM EST CBC WITH AUTO DIFFERENTIAL Routine 02/21/2024 11:42 AM EST CHLAMYDIA/N. GONORRHOEAE RNA, TMA, UROGENITAL Routine 02/21/2024 11:42 AM EST HCG, QL, URINE Routine 02/21/2024 11:42 AM EST URINALYSIS WITH REFLEX MICROSCOPIC Routine 02/21/2024 11:42 AM EST documented in this encounter Results * CT Abdomen Pelvis w/ Contrast (02/21/2024 7:13 PM EST) Anatomical Region Laterality Modality Body, Pelvis, Abdomen Computed T omography 02/21/2024 7:13 PM EST Narrative 02/21/2024 7:15 PM EST ? [facility] ?[address] ?[place] [address] ? CT Scan Report ? Signed ? Patient: Reynold Rivera,Aundrea ?MR#: M ?? [id number] ? : 1990 ?Acct:[id number] ? Age/Sex: 33 / F ?ADM Date: 02/21/24 ? Loc: HO.ED ? Attending Dr: ? Ordering Physician: Donna Pretty MD ?? Date of Service: 02/21/24 ?? Procedure(s): CT abdomen pelvis w IV con ?? Accession Number(s): [id number] ? cc: Rosenda Hernandez MD; Donna Pretty MD ? Report Number: ?? [id number]: Total DLP = ??595.00 mGy-cm ? CLINICAL HISTORY: bilateral lower quad pain ? CT abdomen and pelvis with contrast ? Comparison: CT/SR - CT ABDOMEN PELVIS W IV CON - 11/09/23 04:48 EDT ? Findings: ?? No consolidation or effusion. ? Hepatic steatosis. ?? Cholecystectomy. No biliary duct dilatation. ?? Pancreas, spleen, and adrenal glands are within normal limits. ?? No hydronephrosis. Symmetric contrast enhancement of the kidneys. ? No bowel obstruction, pneumoperitoneum, or pneumatosis. ?? Normal appendix. ? Probable corpus luteum in the left ovary. ?? Uterus and right ovary are within limits. Urinary bladder is ?? underdistended. ?? No acute fracture. ? IMPRESSION: ? 1. No acute intraabdominal or pelvic pathology. ?? 2. Probable corpus luteum in the left ovary. ? This document has been electronically signed by: Jenna George MD on ?? 02/21/2024 19:13:53 ? Dictated By: ?Jenna George MD ? Signed By: ?<Electronically signed by Jenna George MD in OV> ?02/21/241914 ? DD/ 12 ? TD/TT: 02/21/241912 ? Driver Manager: ? Procedure Note Edd, Image - 02/21/[address] [place] [address] [address] Scan Report Signed Patient: Chula Bhardwaj#: M [id number] : 1990Acct:[id number] Age/Sex: 33 / FADM Date: 02/21/24 Loc: HO.ED Attending Dr: Ordering Physician: Donna Pretty MD Date of Service: 02/21/24 Procedure(s): CT abdomen pelvis w IV con Accession Number(s): [id number] cc: Rosenda Hernandez MD; Donna Pretty MD Report Number: [id number]: Total DLP = 595.00 mGy-cm CLINICAL HISTORY: bilateral lower quad pain CT abdomen and pelvis with contrast Comparison: CT/SR - CT ABDOMEN PELVIS W IV CON - 11/09/23 04:48 EDT Findings: No consolidation or effusion. Hepatic steatosis. Cholecystectomy. No biliary duct dilatation. Pancreas, spleen, and adrenal glands are within normal limits. No hydronephrosis. Symmetric contrast enhancement of the kidneys. No bowel obstruction, pneumoperitoneum, or pneumatosis. Normal appendix. Probable corpus luteum in the left ovary. Uterus and right ovary are within limits. Urinary bladder is underdistended. No acute fracture. IMPRESSION: 1. No acute intraabdominal or pelvic pathology. 2. Probable corpus luteum in the left ovary. This document has been electronically signed by: Jenna George MD on 02/21/2024 19:13:53 Dictated By: Jenna George MD Signed By: <Electronically signed by Jenna George MD in OV> 02/21/241914 DD/ 12 TD/TT: 02/21/241912 Driver Manager: [facility] External Provider IMG CT PROCEDURES Edited Result - Final * Chlamydia/N. Gonorrhoeae RNA, TMA, Urogenitial (02/21/2024 11:42 AM EST) CT PCR NOT DETECTED Not Detect. [facility] Comment:A not detected test result does not exclude the possibilityof infection because test results can be affected byimproper specimen collection, concurrent antibiotic therapy,or the number of organisms in the specimen which may bebelow the sensitivity of the test. As with many diagnostictests, results from the Xpert CT/NG assay should beinterpreted in conjunction with other laboratory andclinical data available to the clinician.Xpert CT/NG performance has not been evaluated in patientsless than 14 years of age. The assay should not be used forthe evaluationof suspected sexual abuse or for other medico-legalindications. Additional testing is recommended in anycircumstance when false positive or false negative resultscould lead to adverse medical, social or psychologicalconsequences. NG PCR NOT DETECTED Not Detect. [facility] Comment:A not detected test result does not exclude the possibilityof infection because test results can be affected byimproper specimen collection, concurrent antibiotic therapy,or the number of organisms in the specimen which may bebelow the sensitivity of the test. As with many diagnostictests, results from the Xpert CT/NG assay should beinterpreted in conjunction with other laboratory andclinical data available to the clinician.Xpert CT/NG performance has not been evaluated in patientsless than 14 years of age. The assay should not be used forthe evaluationof suspected sexual abuse or for other medico-legalindications. Additional testing is recommended in anycircumstance when false positive or false negative resultscould lead to adverse medical, social or psychologicalconsequences. 02/21/2024 11:4 2 AM EST 02/21/2024 11:42 AM EST Narrative [facility] - 02/21/2024 2:22 PM EST Urine us Generic External Data Provider LAB MICROBIOLOGY - GENERAL ORDERABLES Final Result [facility] [address] [place] [address] [phone] * (ABNORMAL) Comprehensive Metabolic Panel, Fasting (02/21/2024 11:42 AM EST) Sodium 140 135 - 145 mmol/L [facility] Potassium 4.0 3.3 - 5.1 mmol/L [facility] Chloride 108 96 - 108 mmol/L [facility] Carbon Dioxide 27 22 - 29 mmol/L [facility] Anion Gap 9(L) 12 - 20 [facility] Urea Nitrogen (BUN) 9 9 - 16 mg/dL [facility] Creatinine, Serum 0.71 0.5 - 1.4 mg/dL [facility] Creatinine Clr Calc Pharmacy 127.8 [facility] Comment:Provided height and weight: 170.18 cm,90.718 kg.eGFR (calculated from the MDRD study equation) and eCrCl(calculated from the Cockcroft-Gault equation) are based ondifferent parameters and may not yield comparable results.If eCrCl result is absurd, please check patient'sheight/weight. Estimated Glomerular Filt Rate >60 [facility] Comment:Chronic Kidney Disea se: Estimated GFR < 60 mL/min/1.30f4Voywih Kidney Disease: Estimated GFR < 15 mL/min/1.73m2 Glucose Fasting 114(H) 60 - 99 mg/dL [facility] Comment:A fasting glucose fr om 100-125 mg/dl is considered impaired(pre-diabetes). Calcium 9.1 8.4 - 10.2 mg/dL [facility] Bilirubin, Total 0.2 0.0 - 1.0 mg/dL [facility] Aspartate Amino Transferase 20 5 - 31 U/L [facility] Alanine Aminotransferase 18 0 - 31 U/L [facility] Total Protein 7.6 6.5 - 8.0 g/dL [facility] Albumin Level 4.1 3.5 - 5.0 g/dL [facility] Alkaline Phosphatase 62 39 - 117 U/L [facility] 02/21/2024 11:4 2 AM EST 02/21/2024 11:42 AM EST us Generic External Data Provider LAB BLOOD ORDERAB LES Final Result [facility] [address] [place] [address] [phone] * HCG, Qualitative, Urine (02/21/2024 11:42 AM EST) Urine NEGATIVE NEGATIVE [facility] Comment:This test was develo ped to detect early . Falsenegative results may occur after the 5th - 7th week ofpregnancy when using this test method. If clinicallyindicated, consider a serum hCG. 02/21/2024 11:4 2 AM EST 02/21/2024 11:42 AM EST Generic External Data Provider LAB URINE ORDERAB LES Final Result Performing Organization Address City/[facility] Co de Phone Number [facility] [address] [place] [phone] * (ABNORMAL) Urinalysis w/reflex microscopic (02/21/2024 11:42 AM EST) Color Urine Yellow [facility] Appearance Urine Clear [facility] PH 6.5 5.0 - 9.0 [facility] Glucose Urine UA 100(A) Negative mg/dL [facility] Urine Blood Negative Negative [facility] Specific [place] - Urine 1.020 1.005 - 1.025 [facility] Urine Protein Negative Neg-Trace mg/dL [facility] Urine Ketones Negative Negative mg/dL [facility] Nitrite Urine Negative Negative [facility] Leukocyte Esterase Urine Negative Negative [facility] 02/21/2024 11:4 2 AM EST 02/21/2024 11:42 AM EST Narrative [facility] - 02/21/2024 11:48 AM EST [id number], Clean Catch Generic External Data Provider LAB URINE ORDERAB LES Final Result Performing Organization Address [facility] Co de Phone Number [facility] [address] [place] [phone] * (ABNORMAL) CBC auto differential (02/21/2024 11:42 AM EST) White Blood Count 7.1 4.8 - 10.8 X10*3/uL [facility] Red Blood Count 4.26 4.20 - 5.50 X10*6/uL [facility] Hemoglobin 11.5(L) 12.0 - 16.0 g/dl [facility] Hematocrit 34.8(L) 37.0 - 47.0 % [facility] Mean Corpuscular Volume 81.7 80.0 - 98.0 fL [facility] Mean Corpuscular Hemoglobin 27.0 27.0 - 33.0 pg [facility] Mean Corpuscular HGB Conc 33.0 31.0 - 35.0 g/dl [facility] Red Cell Distribution Width 13.6 11.0 - 16.0 % [facility] Platelet Count 247 160 - 400 X10*3/uL [facility] Mean Platelet Volume 10.1 9.4 - 12.3 fL [facility] Neutrophils Percent Auto 61.2 45 - 73 % [facility] Imm Gran Pct Auto 0.4 0.0 - 0.4 % [facility] Lymphocytes Percent Auto 31.1 20 - 40 % [facility] Monocytes Percent Auto 5.9 2 - 11 % [facility] Eosinophils Percent Auto 1.0 0 - 4 % [facility] Basophils Percent Auto 0.4 0 - 2 % [facility] NRBC Pct Auto 0.0 0.0 - 0.2 /100WBC [facility] Neutrophils Absolute Auto 4.4 2.0 - 8.3 x10*3/uL [facility] Imm Gran Abs Auto 0.03 0.00 - 0.03 X10*3/uL [facility] Lymphocytes Absolute Auto 2.2 1.2 - 4.9 X10*3/uL [facility] Monocytes Absolute Auto 0.4 0.1 - 1.2 X10*3/uL [facility] Eosinophils Absolute Auto 0.1 0.0 - 0.4 X10*3/uL [facility] Basophils Absolute Auto 0.0 0.0 - 0.2 X10*3/uL [facility] NRBC Abs Auto 0.000 0.0 - 0.012 X10*3/uL [facility] 02/21/2024 11:4 2 AM EST 02/21/2024 11:42 AM EST us Generic External Data Provider LAB BLOOD ORDERAB LES Final Result Performing Organization Address City/State/[facility] Co de Phone Number [facility] [address] [place] [address] [phone] documented in this encounter Visit Diagnoses Not on filedocumented in this encounter Additional Health Concerns Assessment Noted Time PHQ-9 Depression Total Score: 0 02/07/19 25 9:31 AM EST documented as of this encounter Care Teams Driver Manager Relationship Specialty Start Date End Date Rosenda Hernandez MD [address] [place] [phone] PCP - General Family Medicine 12/20/18 Agueda Chaves Head Of EnglishVocational Adviser 03/20/23 Agueda Marie Label PinkerVocational Adviser 10/04/23 documented as of this encounter
--- OUTSIDE RECORDS SUMMARY | 2024-03-06 09:34 | XMS_ITS | Encounter Summary ---
Author Organization [employer] Address [address] [place] [address] Care Team Providers Care Crisis Intervention Counselor Name Role Phone Rosenda Hernandez MD Primary Care Provide r Encounter Details Date Type Department Care Team (Late st Contact Info) Description 09/22/[address] [facility] [address] [place] [address] Janeen Ocasio RN Social History Tobacco Use Types Packs/Day Years Used Date Smoking Tobacco: Never Smokeless Tobacco: Never Alcohol Use Standard Drinks/Week Comments Never 0 (1 standard drink = 0.6 oz pur e alcohol) Depression Answer Date Recorded Patient Health Questionnaire-9 Score 22 07/12/2023 Patient Health Questionnaire-9 Score 22 07/12/2023 Last PHQ-9: Questionnaire Data Not on file 0 07/12/2023 Housing Stability Answer Date Recorded What is [...] Answer Date Recorded Patient Health Questionnaire-2 Score 5 07/12/2023 Comments Unknown Sex and Gender Information Value Date Recorded Sex Assigned at Female 12/06/2021 10:26 AM EDT Legal Sex Female 10:26 AM EDT Gender Identity Female 12/06/2021 10:26 AM EDT Sexual Orientation Choose not to disclose 2021 10:26 AM EDT documented as of this encounter Miscellaneous Notes * Telephone Encounter - Janeen Ocasio RN - 09/22/2023 8:31 AM EDT TC to patient via swahili teacher RISHABH Corley to discuss paperwork from patient requesting FMLA. Patient states she wants 6 months FMLA due to seizures. Patient was referred to Neurology by PCP butpatient missed her appointment scheduled for 09/04/23 stating she did not know she had the appointment. I suggested she call back the Neurology office to reschedule the appointment and discuss FMLA with them. Patient understood and stated she will call. Form to be retired. documented in this encounter Plan of Treatment Upcoming Encounters Date Type Department Care Team (Late st Contact Info) Description 05/09/2024 2:30 PM EDT Office Visit [facility] [address] [place] [phone] Rosenda Hernandez MD [address] [place] [address] documented as of this encounter Goals Goal [...] documented as of this encounter Care Teams Crisis Intervention Counselor Relationship Specialty Start Date End Date Rosenda Hernandez MD [address] [place] [address] PCP - General Family Medicine 12/20/18 Agueda Chaves Spring InternRetail Sales Representative 03/20/23 Agueda Marie Pourer Bull LadleRetail Sales Representative 10/04/23 documented as of this encounter
--- OUTSIDE RECORDS SUMMARY | 2024-03-06 09:35 | XMS_ITS | Encounter Summary ---
Author Organization [employer] Address [address] [facility] [place] [address] Care Team Providers Care Economic Development Director Name Role Phone Rosenda Hernandez MD Primary Care Provide r Reason for Visit * Reason Comments Transition Of Care (Tcm) Encounter Details Date Type Department Care Team ([facility] Contact Info) Description 02/22/2024 Patient Outreach [facility] [address] [place] [address] Rosenda Hernandez MD [address] [place] [address] Transition Of Care (Tcm) Social History Tobacco Use Types Packs/Day Years [...] as of this encounter Progress Notes * Annetta Maria RN - 02/22/2024 8:47 AM EST 02/22/24 0847 Hospital Discharges and Admission for [facility] Type of Visit Emergency Department Date of Admission/Visit 02/21/24 Date of Discharge 02/21/24 Facility [facility] [place] [place] Diagnosis ABD Pain Disposition Discharged Home * Suzi Boyd RN - 02/22/2024 8:47 AM EST Transition of Care Note Aundrea is going through a recent transition of care. The full discharge summary is available as a Scanned Document. Recent Visits Date Type Provider Dept 02/08/24 Office Visit Rosenda Amin MD [facility] 11/07/23 Office Visit Rosenda Amin MD [facility] 10/04/23 Office Visit Rosenda Chaves MD [facility] 09/29/23 Office Visit Rosenda Amin MD [facility] 07/12/23 Office Visit Rosenda Amin MD [facility] 03/14/23 Office Visit Rosenda Amin MD [facility] 01/05/23 Office Visit Sarah Valencia MD [facility] 11/08/22 Office Visit Diego Glasgow MD [facility] Showing recent visits within past 540 days with a meds authorizing provider and meeting all other requirements Future Appointments No visits were found meeting these conditions. Showing future appointments within next 150 days with a meds authorizing provider and meeting all other requirements TC placed to patient [phone] to status check. Patient did not answer, RN left requesting CBto red team nurses. TC placed to patient [phone] to status check. Patient seen at [facility] [place] [place] ED on 02/21/24 for abdominal pain (no findings on CT abd/pelvis) and was Rx'd ketorolac 10mg q8 hours PRN pain. Patient reports she has not p/u the medication as of yet. Patient reports she will p/u medicationtoday. Patient reports her pain continues to the same. Patient advised to p/u medication and trial medication for a couple of days and if no improvement to call [facility] for an appointment for re-evaluation. Patient to f/u PRN. documented in this encounter Plan of Treatment Upcoming Encounters Date Type Department Care Team (Late st Contact Info) Description 05/09/2024 2:30 PM EDT Office Visit [facility] [address] [place] [address] Rosenda Hernandez MD [address] [place] [address] documented as of this encounter Goals Goal [...] documented as of this encounter Care Teams Economic Development Director Relationship Specialty Start Date End Date Rosenda Hernandez MD [address] [place] [address] PCP - General Family Medicine 12/20/18 Agueda Chaves Tombstone SetterSales Marketing Coordinator 03/20/23 Agueda Marie Electromatic TypistSales Marketing Coordinator 10/04/23 documented as of this encounter
--- OUTSIDE RECORDS SUMMARY | 2024-03-06 09:35 | XMS_ITS | Encounter Summary ---
Author Organization [employer] Address [address] [facility] [address]t [place] [address] Care Team Providers Care Hardware Developer Name Role Phone Rosenda Hernandez MD Primary Care Provide r Reason for Visit * Reason Comments Care Coordination [facility] telephone call outreach Encounter Details Date Type Department Care Team (Latest Contact Info) Description 03/05/2024 Patient Outreach [facility] [address] [place] [address] Rosenda Hernandez MD [address] [place] [address] Care Coordination (C3 BRIAN Craig telephone call [...] encounter Progress Notes * Catie Craig - 03/05/2024 2:11 PM EST CHW Catie Craig placed outbound call to patient to follow up on SDOH needs. Patient's name, andaddress confirmed. CHW spoke to patient she has applied to housing authority she is on the waiting list. Patient states is doing well. No further questions or concerns. CHW reinforced direct contact information or CM for any additional questions or concerns and extended clinic hours on Mondays and Wednesdays, and Walk-In Urgent Care Located in [employer] of [facility]. Patient provided with after-hours line for [facility], , which offer night time triage service and option to transfer to personal property assessor provider if needed. Patient verbalizes understanding, and able to repeat back to database report writer. A follow up call willbe placed within 10 days, patient agrees with plan. documented in this encounter Plan of Treatment Upcoming Encounters Date Type Department Care Team ([facility] st Contact Info) Description 05/09/2024 2:30 PM EDT Office Visit [facility] [address] [place] [address] Rosenda Hernandez MD [address] [place] [address] documented as of this encounter Goals Goal [...] documented as of this encounter Care Teams Hardware Developer Relationship Specialty Start Date End Date Rosenda Hernandez MD [address] [place] [address] PCP - General Family Medicine 12/20/18 Agueda Chaves Plant Operator/Shift SupervisorEmployment Consultant 03/20/23 Agueda Marie Psychiatric ArnpEmployment Consultant 10/04/23 documented as of this encounter
--- OUTSIDE RECORDS SUMMARY | 2024-03-06 09:35 | XMS_ITS | Encounter Summary ---
Author Organization [employer] Address [address] [facility] [address] [place] [address] Care Team Providers Care Mirror Polisher Name Role Phone Rosenda Hernandez MD Primary Care Provide r Reason for Visit * Reason Onset Date Comments Care Management 03/05/2024 C3CM- f/u call Encounter Details Date Type Department Care Team (Late st Contact Info) Description 03/05/2024 Telephone [facility] [address] [place] [address] Alvin Palomino RN [address] [place] [address] Care Management (C3CM- f/u call) Social History Tobacco Use Types Packs/Day Years [...] Telephone Encounter - Alvin Palomino RN - 03/05/2024 10:27 AM EST CM Alvin Palomino RN and BEHZAD Craig placed outbound call to patient. Patient's name, and address confirmed. Patient reports having carpal tunnel release surgery on 02/26/24. Patient c/o pain,redness, and swelling at the site. She states she took the pain medication as prescribed. Per patient, only given a 5 day course. She denies any drainage from site. She also denies fever, chills, nausea, vomiting. CM noted patient is scheduled to f/u with [facility] on 03/12/24 at 1:30pm. CM will callthe office to f/u. Per patient, feels like her BP has been better controlled since the dose of the losartan was increased. Patient states she does not have her log with her but reports range of 140s/90s. CM provided education on BP parameters. Advised she continue to monitor and f/u if she continues to experience high BP readings and/ or if symptomatic. She agrees. Per patient, sugars have been well controlled. She reports random reading of 182mg/dL after supper. Per patient, doing well emotionally. She states she is scheduled to meet with her therapist today and is scheduled to see her psychi atrist in April. She reports taking all of her medications as prescribed and denies missing any doses. Patient also states she was evaluated by [facility] for PROCESS CONTROL TECH services. She is waiting to hear back from the agency. Patient denies any further needs or concerns at this time. No further questions or concerns. CM reinforced direct contact information or CHW for any additional questions or concerns. Education provided on Walk-In Urgent Care located in [facility] of [facility]. Patient provided with after-hours line for [facility], , which offer night time triage service and option to transfer to concession worker provider if needed. Patient verbalizes understanding, and able to repeat back to justowriter operator. A follow up call will be placed within 10 days, patientagrees with plan. Call placed to [facility]. CM spoke with Heydi who states she will send a message to their STRUCTURAL SHOP HELPER to seeif the patient can be contacted and to possibly schedule a sooner f/u visit. documented in this encounter Plan of Treatment Upcoming Encounters Date Type Department Care Team (Late st Contact Info) Description 05/09/2024 2:30 PM EDT Office Visit [facility] [address] [place] [phone] Rosenda Hernandez MD [address] [place], [place] [phone] documented as of this encounter Goals Goal [...] documented as of this encounter Care Teams Mirror Polisher Relationship Specialty Start Date End Date Rosenda Hernandez MD [address] [place] [phone] PCP - General Family Medicine 12/20/18 Agueda Chaves Psychotherapist Social WorkerStructural Steel Detailer 03/20/23 Agueda Marie Feeder Catcher TobaccoStructural Steel Detailer 10/04/23 documented as of this encounter
--- OUTSIDE RECORDS SUMMARY | 2024-03-06 09:36 | XMS_ITS | Encounter Summary ---
Author Organization [employer] Address [address] [address] [facility] [address] [place] [address] Care Team Providers Care Risk Management Specialist Name Role Phone Rosenda Hernandez MD Primary Care Provide r Reason for Visit * Reason Onset Date Comments Durable Medical Equipment 02/22/2024 Encounter Details Date Type Department Care Team ([facility] st Contact Info) Description 02/22/2024 Telephone [facility] [address] [place] [address] Rosenda Hernandez MD [address] [place] [address] Durable Medical Equipment Social History Tobacco Use Types Packs/Day Years [...] encounter Miscellaneous Notes * Telephone Encounter - Lisa Akhtar - 02/22/2024 2:41 PM EST Tc from pt requesting bed pads. If any questions contact pt at [phone] (faroese) documented in this encounter Plan of Treatment Upcoming Encounters Date Type Department Care Team (Late st Contact Info) Description 05/09/2024 2:30 PM EDT Office Visit [facility] [address] [place] [phone] Rosenda Hernandez MD [address] [place] [phone] documented as of this encounter Goals Goal [...] documented as of this encounter Care Teams Risk Management Specialist Relationship Specialty Start Date End Date Rosenda Hernandez MD [address] [place] [address] PCP - General Family Medicine 12/20/18 Agueda Chaves Component TechnicianSap Abap Programmer 03/20/23 Agueda Marie Wetlands Conservation LaborerSap Abap Programmer 10/04/23 documented as of this encounter
--- OUTSIDE RECORDS SUMMARY | 2024-03-06 09:36 | XMS_ITS | Encounter Summary ---
Author Organization [employer] Address [address] [place] [address] Care Team Providers Care Straightening Machine Feeder Name Role Phone Rosenda Hernandez MD Primary Care Provide r Reason for Visit * Reason Onset Date Comments ER Follow-up 02/22/2024 Encounter Details Date Type Department Care Team ([facility] Contact Info) Description 02/22/2024 Telephone [facility] [address] [place] [address] Rosenda Hernandez MD [address] [place] [address] ER Follow-up Social History Tobacco Use Types Packs/Day Years [...] encounter Miscellaneous Notes * Telephone Encounter - Camilla Almaguer RN - 02/22/2024 3:52 PM EST Call returned to Aundrea Rivera to triage below. Reports continues to have abd pain, pt has not yet started ketorolac 10 mg tablet 10 mg PO Q8H PRN (Reason: pain) Qty: 12 0RF . Pt picking up today. No N/V or diarrhea reported. Pt advised to start meds and see if any improvement. Pain not any worse since seen. Pt advised to call on Monday if sx persist. Pt agrees. Reviewed [facility] operating hours and that wait times vary. Protocol Used: Recent Medical Visit for Illness Follow-up Call (Adult) Protocol-Based Disposition: Home Care Positive Triage Question: * Recent medical visit within 24 hours and symptoms SAME (unchanged) and caller has additional questions triager can answer * All higher-acuity triage questions were negative Care Advice Discussed: * Continue Treatment * Reasons To Call Back - You become worse * Telephone Encounter - Lisa Akhtar - 02/22/2024 3:42 PM EST C from pt returning call. Contact pt at [phone] (latvian) * Telephone Encounter - Camilla Almaguer RN - 02/22/2024 11:40 AM EST Call returned to Aundrea Rivera for triage below. No answer LVM to return call to [facility] triageline [phone]. * Telephone Encounter - Stew Flaherty - 02/22/2024 10:41 AM EST Patient calling to report ED visit on : Date: 02/21/24 Hospital: [facility] Seen for: Pain Symptomatic Yes Please contact pt at [phone]. (Divehi Speaker) documented in this encounter Plan of Treatment Upcoming Encounters Date Type Department Care Team (Late st Contact Info) Description 05/09/2024 2:30 PM EDT Office Visit [facility] [address] [place] [phone] Rosenda Hernandez MD [address] [place] [address] documented as of this encounter Goals Goal [...] documented as of this encounter Care Teams Straightening Machine Feeder Relationship Specialty Start Date End Date Rosenda Hernandez MD [address] [place] [address] PCP - General Family Medicine 12/20/18 Agueda Chaves Bariatric PhysicianShredded Filler Cutter Operator 03/20/23 Agueda Marie Steamboat InspectorShredded Filler Cutter Operator 10/04/23 documented as of this encounter
--- OUTSIDE RECORDS SUMMARY | 2024-03-06 09:36 | XMS_ITS | Encounter Summary ---
Author Organization [employer] Address [address] [place] [address] Care Team Providers Care Getter Welder Name Role Phone Rosenda Hernandez MD Primary Care Provide r Reason for Referral * Consultation (Routine) - Closed Specialty Diagnoses / Procedures Referred By Contac t Referred To Contact Nutrition - Weight Diagnoses Class 3 severe obesity with serious comorbidity and body mass index (BMI) of 40.0 to 44.9 in adult, unspecified obesity type (CMS/HCC) Rosenda Hernandez MD [address] [place] [address] Phone: tel: fax: [facility] [address] Phone: tel: fax: Referral ID Status Reason Start Date Expiration Date V isits Requested Visits Authorized [id number] Closed Specialty Services Required 02/21/2024 02/20/2025 1 1 Reason for Visit * Reason Onset Date Comments Care Management 02/21/2024 C3CM- initial as sessment/ enrollment Encounter Details Date Type Department Care Team (Late st Contact Info) Description 02/21/2024 Telephone [facility] [address] [place] [address] Alvin Palomino RN [address] [place] [address] Care Management (C3CM- initial assessment/ enrollment) Social History Tobacco Use Types Packs/Day Years [...] Encounter - Alvin Palomino RN - 02/21/2024 2:06 PM EST GWENDOLYN Palomino RN, provided notification to PCP Dr. Fox of patient's enrollment into [facility] Complex Care Program. GWENDOLYN Palomino RN, completed care plan and sent to HIM to be scanned into the medical record. PCP notified and awaiting review from provider. GWENDOLYN plan: - assist with appointment scheduling and provide patient with appointment reminders -provide patient with transportation to scheduled visits as needed - provide education around disease processes and management - provide resources based on positive SDOH needs * Telephone Encounter - Alvin Palomino RN - 02/21/2024 2:05 PM EST CM Alvin Palomino RN placed outbound call to patient for agreed upon time for initial assessment for enrollment into Adult Care Management Program. Patient's name, , and address were verified. Aundrea is a 33 year old female with Hx of JAMES, frequent headaches, seizures, CTS, moderate persistent asthma without complication, snoring, HTN, chronic gastritis, uterine leiomyoma, fibromyalgia, sacroilitis, cyst of ovary, prediabetes, obesity, mixed anxiety and depressive disorder, tremor, low vision, and chronic right sided low back pain without sciatica. Patient being followed by [facility] Optometry, [facility], Cardiology- [facility], Neurology, Pharmacy MTM, PT, Pulmonology, and [facility] RADIO AERIAL INSTALLER. Patient states she is currently at [facility] ED waiting to be evaluated for pelvic pain. She reports pelvic pain x2 days. She states she went to [facility] yesterday for eval but left without being seen. Patient agrees to remain at the [facility] [place] until she is evaluated. She agrees to f/u with PCP's office to schedule a f/u appt after eval. Patient reports being followed by dental and optometry. Per patient, is up to date. She also reports having recent visits with Cardiology and Neurology. She is due to follow up in 3 months. Patient is also scheduled to f/u with [facility] on 04/18/24. Patient also reports being scheduled for carpal tunnel surgery on 02/25. She states she has transportation to the visit and denies any barriers to attending. Patient reports having a working BP monitor as well as a glucometer. She states she does not monitor her BP or sugars daily. She agrees to start monitoring and agrees to keep a log. CM reviewed parameters with patient and also provided education on diet and lifestyle modifications. CM will mail out additional educational material to address on file. Patient interested inweight loss and is requesting a referral to a photographer's model. CM will send to PCP to review her request. Patient reports occasional episodes of urinary incontinence which she states may be due to the furosemide. CM advised she try not to take the furosemide later in the day or at night as this may cause her to get up often in the middle of the night. She verbalizes understanding. Agrees to f/u withPCP if symptoms continue/worsen. Per patient, is scheduled to be evaluated for MARINE SERVICE OPERATOR services tomorrow at 9:30am. Patient states she will be followed by [facility] for these services. She also states she attends the [facility] from -. Per patient, loves the program and feels that it has been beneficial for her. Patient also reports being followed by [facility] for therapy and psych. She reports seeing her therapist twice a week and seeing her psych provider every month. Per patient, being prescribed meds for anxiety and depression but unable to recall med names at this time. Patient reports doing well emotionally today. She denies SI/HI. Per patient, a ble to contact her therapist as needed and she also confirms having the number to crisis. Patient reports compliance to medication regimen. She denies any concerns, side effects, or need for refills at this time. Care management program explained and contact information given. Patient verbalizes understanding, and able to repeat back to marketing copywriter. A follow up call will be placed within 10 days, patient agrees with plan. documented in this encounter Plan of Treatment Upcoming Encounters Date Type Department Care Team (Late st Contact Info) Description 05/09/2024 2:30 PM EDT Office Visit [facility] [address] [place] [address] Rosenda Hernandez MD [address] [place] [address] Scheduled Referrals Name Type Priority Associated Diagnoses Orde r Schedule Referral to Weight Management Outpatient Referral Routine Class 3 severe obesity with serious comorbidity and body mass index (BMI) of 40.0 to 44.9 in adult, unspecified obesity type (CMS/[facility]) Expected: 02/21/2024 (Approximate), Expires: 02/20/2025 documented as of this encounter Goals Goal Patient Goal Type Associated Problems Recent Progress Patient-Stated? Author Blood Pressure < 140/90 Blood Pressure 158/96( 025 9:18 AM EST) No Arianna Noel, PharmD documented as of this encounter Visit Diagnoses Diagnosis Obesity (BMI 30-39.9)- Primary Class 3 severe obesity with serious comorbidity and body mass index (BMI) of 40.0 to 44.9 in adult, unspecified obesity type (CMS/HCC) documented in this encounter Additional Health Concerns Assessment Noted Time PHQ-9 Depression Total Score: 0 02/07/19 25 9:31 AM EST documented as of this encounter Care Teams Getter Welder Relationship Specialty Start Date End Date Rosenda Hernandez MD [address] [place] [address] PCP - General Family Medicine 12/20/18 Agueda Chaves Movie Machine OperatorSignalman 03/20/23 Agueda Marie Flat FolderSignalman 10/04/23 documented as of this encounter
--- OUTSIDE RECORDS SUMMARY | 2024-03-06 09:36 | XMS_ITS | Encounter Summary ---
Author Organization [employer] Address [address] [place] [address] Care Team Providers Care Spacer Type Bar And Segment Name Role Phone Rosenda Hernandez MD Primary Care Provide r Reason for Visit * Reason Comments Transition Of Care (Tcm) Error (VOID this visit) Encounter Details Date Type Department Care Team ([facility] st Contact Info) Description 02/22/2024 Patient Outreach [facility] [address] [place] [address] Rosenda Hernandez MD [address] [place] [address] Transition Of Care (Tcm); Error (VOID this visit) Social History Tobacco Use Types Packs/Day Years [...] Description 05/09/2024 2:30 PM EDT Office Visit [facility] [address] [place] [address] Rosenda Hernandez MD [address] [place] [address] documented as of this encounter Goals Goal [...] documented as of this encounter Care Teams Spacer Type Bar And Segment Relationship Specialty Start Date End Date Rosenda Hernandez MD [address] [place] [address] PCP - General Family Medicine 12/20/18 Agueda Chaves Associate Professor Of HistoryProduct Support Sales Representative 03/20/23 Agueda Marie Cigar BinderProduct Support Sales Representative 10/04/23 documented as of this encounter
--- OUTSIDE RECORDS SUMMARY | 2024-03-06 09:36 | XMS_ITS | Encounter Summary ---
Author Organization [employer] Address [address] [place] [address] Care Team Providers Care Manager Perioperative Name Role Phone Rosenda Hernandez MD Primary Care Provide r Reason for Visit * Reason Onset Date Comments Error (VOID this visit) 02/22/2024 Encounter Details Date Type Department Care Team ([facility] st Contact Info) Description 02/22/2024 Telephone [facility] [address] [place] [address] Rosenda Hernandez MD [address] [place] [address] Error (VOID this visit) Social History Tobacco [...] Description 05/09/2024 2:30 PM EDT Office Visit [facility] [address] [place] [address] Rosenda Hernandez MD [address] [place] [address] documented as of this encounter Goals Goal [...] documented as of this encounter Care Teams Manager Perioperative Relationship Specialty Start Date End Date Rosenda Hernandez MD [address] [place], [place] [phone] PCP - General Family Medicine 12/20/18 Agueda Chaves Sausage StringerSenior Communications Engineer 03/20/23 Agueda Marie Intermediate DesignerSenior Communications Engineer 10/04/23 documented as of this encounter
--- OUTSIDE RECORDS SUMMARY | 2024-03-06 09:36 | XMS_ITS | Encounter Summary ---
Author Organization [employer] Address [address] [place] [address] Care Team Providers Care Round Boner Name Role Phone Rosenda Hernandez MD Primary Care Provide r Encounter Details Date Type Department Care Team ([facility] st Contact Info) Description 02/22/2024 Telephone [facility] MEDICINE [address] [place] [address] Rosenda Hernandez MD [address] [place] [address] Social History Tobacco Use Types Packs/Day Years [...] Description 05/09/2024 2:30 PM EDT Office Visit [facility] MEDICINE [address] [place] [phone] Rosenda Hernandez MD [address] [place] [address] documented as of this encounter Goals Goal [...] documented as of this encounter Care Teams Round Boner Relationship Specialty Start Date End Date Rosenda Hernandez MD [address] [place] [phone] PCP - General Family Medicine 12/20/18 Agueda Chaves Typewriter TesterAlto Singer 03/20/23 Agueda Marie Handle Rounder OperatorAlto Singer 10/04/23 documented as of this encounter
== END 2024-03-06 09:17 | disposition home or self-care (01) ==
PROVIDERS: PCP Internal Medicine; Visit Provider Orthopaedic Surgery
DX: G56.03 Carpal tunnel syndrome, bilateral upper limbs (principal)
CPT/HCPCS: 99024

== ENCOUNTER → 2024-03-06 08:46 | Outpatient (BNVA) | payer MEDICAID, SELFPAY | PROVIDERS: PCP Internal Medicine; Visit Provider Orthopaedic Surgery | DX: G56.02 Carpal tunnel syndrome, left upper limb (principal); Z48.811 Encounter for surgical aftercare following surgery on the nervous system; Z98.890 Other specified postprocedural states | CPT/HCPCS: 99212 ==

== ENCOUNTER 2024-03-12 13:26 | Outpatient (AMB) | payer MEDICAID, SELFPAY ==
--- NOTE | 2024-03-12 13:35 | A.OFFVIS_ITS ---
Vital Signs 03/12/24 13:36 Height 5 ft 7 in Weight 201 lb BMI 31.5 Intake Visit Reasons: PO RT CTR 02/26/24 AR Intake Note: Aundrea is a 33 year old right hand dominant female who presents today for a wound check and post operative visit status post left carpal tunnel release performed 02/26/[address] Posey. States her numbness has resolved but still has some tingling on and off. Stringed Instrument Repairer Name: Shane [id number] Allergies Sulfa (Sulfonamide Antibiotics) [SULFA (SULFONAMIDE ANTIBIOTICS)] Allergy (Unknown, Verified 03/12/24 13:36) UNKNOWN HPI HPI PO RT CTR 02/26/24 AR: Details: Aundrea is a 33 year old right hand dominant female who presents today for a wound check and post operative visit status post left carpal tunnel release performed 02/26/[address] Posey. States her numbness has resolved but still has some tingling on and off. Patient also endorses pain in the radial and ulnar sides of the incision site. No other acute complaints or concerns at this time [facility] Medical History Pre-diabetes Asthma Social History Alcohol intake: never Patient Tobacco Use Status: Never used Tobacco Review of Systems Const All systems reviewed & are unremarkable except as noted in HPI and below Physical Exam Vital Signs: BMI result Body Mass Index 31.5 Extrem Other: Patient is alert, oriented, and in no acute distress. Neuro: Normal sensation of the tips of all digits of the right hand at this time Vascular: Cap refill brisk Pain: Tenderness to palpation about the radial and ulnar sides of the incision, consistent with pillar pain No pain with range of motion ROM: Patient is able to flex and extend all digits of the right hand fully and without difficulty Skin: No lacerations or abrasions. General: No ecchymosis, erythema, or evidence of infection. Psych: Appears grossly normal Affect normal Attitude cooperative Assessment & Plan Assessment & Plan (1) Carpal tunnel syndrome of right wrist: Code(s): G56.01 - Carpal tunnel syndrome, right upper limb Category: Medical Plan 1. Carpal tunnel syndrome, right, status post carpal tunnel release DOS 02/26/2024 Patient appears to be Recovering well postoperatively patient is educated about the typical recovery course At this time, patient was referred to occupational therapy for the treatment of pillar pain Patient was educated she should move her hand and wrist as much as possible Patient was amenable to this plan 2. Carpal tunnel syndrome, left Intermittent, daily, worse at night Patient would like to hold off on any surgical intervention until her right hand has fully recovered and she is not experiencing any further pain Patient will call us for follow-up evaluation when she is ready to discuss surgery Orders: Orders OT Evaluation and Treatment Today G56.01 - Carpal tunnel syndrome, right upper limb Coding Level of Care Code Global (32329) Diagnoses Carpal tunnel syndrome of right wrist G56.01
[2024-03-12 13:36] VITALS: BMI 31.5
--- OUTSIDE RECORDS SUMMARY | 2024-03-12 13:39 | XMS_ITS | Encounter Summary ---
Author Organization [employer] Address [address] [place] [address] Care Team Providers Care Multimedia Services Manager Name Role Phone Rosenda Hernandez MD Primary Care Provide r Reason for Visit * Reason Comments Care Coordination C3 [facility] brothers telephone call outreach Encounter Details Date Type Department Care Team (Latest Contact Info) Description 02/21/2024 Patient Outreach [facility] MEDICINE [address] [place] [address] Rosenda Hernandez MD [address] [place] [address] Care Coordination (C3 BRIAN Craig telephone call [...] outbound call to patient introducing herself from [facility] CM Department, in regards to offering [...] Wednesdays, and Walk-In Urgent Care Located in [facility] of [facility].Patient provided with after-hours line for [facility], , which offer night time triage serviceand option to transfer to licensing and registration director provider if needed. Patient verbalizes understanding, and able torepeat back to television writer. documented in this encounter Plan of Treatment Upcoming Encounters Date Type Department Care Team ([facility] Contact Info) Description 05/09/2024 2:30 PM EDT Office Visit [facility] [address] [place] [address] [place] [address] Rosenda Hernandez MD [address] [place] [address] documented as of this encounter Goals Goal [...] documented as of this encounter Care Teams Multimedia Services Manager Relationship Specialty Start Date End Date Rosenda Hernandez MD [address] [place] [address] PCP - General Family Medicine 12/20/18 Agueda Chaves Central Supply SupervisorSalon Customer Experience Specialist 03/20/23 Agueda Marie Vegetable InspectorSalon Customer Experience Specialist 10/04/23 documented as of this encounter
--- OUTSIDE RECORDS SUMMARY | 2024-03-12 13:39 | XMS_ITS | Encounter Summary ---
Author Organization [employer] Address [address] [place] [address] Care Team Providers Care Side Laster Staple Name Role Phone Rosenda Hernandez MD Primary Care Provide r Reason for Visit * Reason Onset Date Comments Care Management 03/05/2024 C3CM- f/u call Encounter Details Date Type Department Care Team (Late st Contact Info) Description 03/05/2024 Telephone [facility] MEDICINE [address] [place] [address] Alvin Palomino RN [address] [place] [address] Care Management (C3CM- f/u call) Social History [...] noted patient is scheduled to f/u with [facility] on 03/12/24 at 1:30pm. CM will [...] she was evaluated by [facility] for PRINTING TABLE WORKER services. She is waiting to hear back from the agency. Patient denies any further needs or concerns at this time. No further questions or concerns. CM reinforced direct contact information or CHW for any additional questions or concerns. Education provided on Walk-In Urgent Care located in [facility] of [facility]. Patient provided with after-hours line for [facility], , which offer night time triage service and option to transfer to telecommunications consultant provider if needed. Patient verbalizes understanding, and able to repeat back to teletypewriter operator. A follow up call will be placed within 10 days, patientagrees with plan. Call placed to [facility]. CM spoke with Heydi who states she will send a message to their CRYSTAL CALIBRATOR to seeif the patient can be contacted and to possibly schedule a sooner f/u visit. documented in this encounter Plan of Treatment Upcoming Encounters Date Type Department Care Team (Late st Contact Info) Description 05/09/2024 2:30 PM EDT Office Visit [facility] MEDICINE [address] [place] [address] [phone] Rosenda Hernandez MD [address] [place], [place] [phone] documented as of this encounter Goals Goal [...] documented as of this encounter Care Teams Side Laster Staple Relationship Specialty Start Date End Date Rosenda Hernandez MD [address] [place] [address] [phone] PCP - General Family Medicine 12/20/18 Agueda Chaves Shipping And Receiving ClerkSupervisor Industrial Garment 03/20/23 Agueda Marie City TreasurerSupervisor Industrial Garment 10/04/23 documented as of this encounter
--- OUTSIDE RECORDS SUMMARY | 2024-03-12 13:39 | XMS_ITS | Clinical Summary ---
Author Organization [facility] Address [address] [place] [address] Phone Care Team Providers Care Clothing Presser Name Role Phone Deirdre Nguyen MD Primary Care Provider [phone] Allergies Active Allergy Reactions Criticality Noted Date [...] Ascus, Neg HPV Repeat co-testign 3 yrs Immunizations Name Administration Dates Next Due Hepatitis A-Hepatitis B Adult (Twinrix) 18yo and older 03/08/2017,12/20/2016 [employer] SARS-CoV-2 COVID -19, vector-nr, rS-Ad26, preservative free [...] EDT Office Visit Obstetrics & Gynecology - [address] [phone] Graham Monika, CNM [address] [place] [address] Health Maintenance Due Date Last Done Comments [...] Procedure Name Priority Date/Time Associated Diagnosis Comments HEPATITIS C SCREENING Routine 10/20/2022 HIV SCREENING Routine 10/20/2022 HPV Routine 10/17/2022 from Last 3 Months or Most Recently Relevant to Health Maintenance Results * HIV Screening (10/20/2022) HIV Screening Abstracted Historical Provider MD KIMMIE ASHRAF E * Hepatitis C Screening (10/20/2022) Hepatitis C Screening Abstracted Historical Provider MD KIMMIE ASHRAF E * Cervical Cancer Screening: HPV (10/17/2022) Cervical Cancer Screening: HPV Negative, Abstracted Historical Provider MD KIMMIE Magallanes from Last 3 Months or Most Recently Relevant to Health Maintenance Care Teams Clothing Presser Relationship Specialty Start Date End Date [place], [place] Deirdre [address] [place] [phone] PCP - General Internal Medicine 02/20/17
--- OUTSIDE RECORDS SUMMARY | 2024-03-12 13:39 | XMS_ITS | Encounter Summary ---
Author Organization [employer] Address [address] 7[address] [place] [address] Care Team Providers Care Mortgage Processor Name Role Phone Rosenda Hernandez MD Primary Care Provide r Reason for Visit * Reason Comments Care Coordination [facility] telephone call outreach Encounter Details Date Type Department Care Team (Latest Contact Info) Description 03/05/2024 Patient Outreach [facility] MEDICINE [address] [place] [address] Rosenda Hernandez MD [address] [place] [address] Care Coordination (C3 BRIAN Craig telephone call [...] Wednesdays, and Walk-In Urgent Care Located in [facility] of [facility]. Patient provided with after-hours line for [facility], , which offer night time triage service and option to transfer to application software engineer provider if needed. Patient verbalizes understanding, and able to repeat back to com writer. A follow up call willbe placed within 10 days, patient agrees with plan. documented in this encounter Plan of Treatment Upcoming Encounters Date Type Department Care Team ([facility] st Contact Info) Description 05/09/2024 2:30 PM EDT Office Visit [facility] MEDICINE [address] [place] [address] Rosenda Hernandez MD [address] [place] [address] documented as of this encounter Goals Goal [...] documented as of this encounter Care Teams Mortgage Processor Relationship Specialty Start Date End Date Rosenda Hernandez MD [address] [place] [address] PCP - General Family Medicine 12/20/18 Agueda Chaves Turkey Roll MakerSupervisor Roving 03/20/23 Agueda Marie Radiological EngineerSupervisor Roving 10/04/23 documented as of this encounter
--- OUTSIDE RECORDS SUMMARY | 2024-03-12 13:39 | XMS_ITS | Encounter Summary ---
Author Organization [email or web address] Address [address] [place] [address] Care Team Providers Care Building Insulation Supervisor Name Role Phone Rosenda Hernandez MD Primary Care Provide r Reason for Visit * Reason Onset Date Comments ER Follow-up 02/22/2024 Encounter Details Date Type Department Care Team ([facility] Contact Info) Description 02/22/2024 Telephone [facility] MEDICINE [address] [place] [address] Rosenda Hernandez MD [address] [place] [address] ER Follow-up Social History Tobacco Use Types [...] Monday if sx persist. Pt agrees. Reviewed [facility] operating hours and that wait times vary. [...] from pt returning call. Contact pt at [phone] (english) * Telephone Encounter - Camilla Almaguer RN - 02/22/2024 11:40 AM EST Call returned to Aundrea Rivera for triage below. No answer LVM to return call to [facility] triageline [phone]. * Telephone Encounter - Stew Flaherty - 02/22/2024 10:41 AM EST Patient calling to report ED visit on : Date: 02/21/24 Hospital: [facility] Seen for: Pain Symptomatic Yes Please contact pt at [phone]. (Yoruba Speaker) documented in this encounter Plan of Treatment Upcoming Encounters Date Type Department Care Team (Late st Contact Info) Description 05/09/2024 2:30 PM EDT Office Visit [facility] MEDICINE [address] [place] [phone] Rosenda Hernandez MD [address] [place] [address] documented as of this encounter Goals Goal [...] documented as of this encounter Care Teams Building Insulation Supervisor Relationship Specialty Start Date End Date Rosenda Hernandez MD [address] [place] [address] PCP - General Family Medicine 12/20/18 Agueda Chaves Global Compensation ManagerGeriatric Physical Therapist 03/20/23 Agueda Marie House Mover HelperGeriatric Physical Therapist 10/04/23 documented as of this encounter
--- OUTSIDE RECORDS SUMMARY | 2024-03-12 13:39 | XMS_ITS | Encounter Summary ---
Author Organization [employer] Address [address] [place] [address] Care Team Providers Care Manufacturing Helper Name Role Phone Rosenda Hernandez MD Primary [...] Description 05/09/2024 2:30 PM EDT Office Visit [facility] MEDICINE [address] [place] [address] Rosenda Hernandez MD [address] [place] [address] documented as of this encounter Goals Goal [...] EST Narrative 02/21/2024 7:15 PM EST ? [facility] ?[address] ?[place] [address] ? CT Scan Report ? Signed ? Patient: Reynold Rviera,Aundrea ?MR#: M ?? [id number] ? : 1990 ?Acct:[id number] ? Age/Sex: 33 / F ?ADM Date: 02/21/24 ? Loc: HO.ED ? Attending Dr: ? Ordering Physician: Donna Pretty MD ?? Date of Service: 02/21/24 ?? Procedure(s): CT abdomen pelvis w IV con ?? Accession Number(s): [id number] ? cc: Rosenda Hernandez MD; Donna Pretty MD ? Report Number: ?? [id number]: Total DLP = ??595.00 mGy-cm ? CLINICAL [...] ? DD/ 12 ? TD/TT: 02/21/241912 ? Numerical Control Programmer: ? Procedure Note Edd, Image - 02/21/[address] [place] [address] [address] Scan Report Signed Patient: Chula Bhardwaj#: M [id number] : 1990Acct:[id number] Age/Sex: 33 / FADM Date: 02/21/24 Loc: HO.ED Attending Dr: Ordering Physician: Donna Pretty MD Date of Service: 02/21/24 Procedure(s): CT abdomen pelvis w IV con Accession Number(s): [id number] cc: Rosenda Hernandez MD; Donna Pretty MD Report Number: [id number]: Total DLP = 595.00 mGy-cm CLINICAL HISTORY: [...] in OV> 02/21/241914 DD/ 12 TD/TT: 02/21/241912 Numerical Control Programmer: [facility] External Provider IMG CT PROCEDURES Edited Result - Final * Chlamydia/N. Gonorrhoeae RNA, TMA, Urogenitial (02/21/2024 11:42 AM EST) CT PCR NOT DETECTED Not Detect. [facility] Comment:A not detected test result does [...] psychologicalconsequences. NG PCR NOT DETECTED Not Detect. [facility] Comment:A not detected test result does [...] AM EST 02/21/2024 11:42 AM EST Narrative [facility] - 02/21/2024 2:22 PM EST Urine us Generic External Data Provider LAB MICROBIOLOGY - GENERAL ORDERABLES Final Result [facility] [address] [place] [address] [phone] * (ABNORMAL) Comprehensive Metabolic Panel, Fasting (02/21/2024 11:42 AM EST) Sodium 140 135 - 145 mmol/L [facility] Potassium 4.0 3.3 - 5.1 mmol/L [facility] Chloride 108 96 - 108 mmol/L [facility] Carbon Dioxide 27 22 - 29 mmol/L [facility] Anion Gap 9(L) 12 - 20 [facility] Urea Nitrogen (BUN) 9 9 - 16 mg/dL [facility] Creatinine, Serum 0.71 0.5 - 1.4 mg/dL [facility] Creatinine Clr Calc Pharmacy 127.8 [facility] Comment:Provided height and weight: 170.18 cm,90.718 kg.eGFR (calculated from the MDRD study equation) and eCrCl(calculated from the Cockcroft-Gault equation) are based ondifferent parameters and may not yield comparable results.If eCrCl result is absurd, please check patient'sheight/weight. Estimated Glomerular Filt Rate >60 [facility] Comment:Chronic Kidney Disea se: Estimated GFR < 60 mL/min/1.94y1Wdlyoj Kidney Disease: Estimated GFR < 15 mL/min/1.73m2 Glucose Fasting 114(H) 60 - 99 mg/dL [facility] Comment:A fasting glucose fr om 100-125 mg/dl is considered impaired(pre-diabetes). Calcium 9.1 8.4 - 10.2 mg/dL [facility] Bilirubin, Total 0.2 0.0 - 1.0 mg/dL [facility] Aspartate Amino Transferase 20 5 - 31 U/L [facility] Alanine Aminotransferase 18 0 - 31 U/L [facility] Total Protein 7.6 6.5 - 8.0 g/dL [facility] Albumin Level 4.1 3.5 - 5.0 g/dL [facility] Alkaline Phosphatase 62 39 - 117 U/L [facility] 02/21/2024 11:4 2 AM EST 02/21/2024 11:42 AM EST us Generic External Data Provider LAB BLOOD ORDERAB LES Final Result [facility] [address] [place] [address] [phone] * HCG, Qualitative, Urine (02/21/2024 11:42 AM EST) Urine NEGATIVE NEGATIVE [facility] Comment:This test was develo ped to detect early . Falsenegative results may occur after the 5th - 7th week ofpregnancy when using this test method. If clinicallyindicated, consider a serum hCG. 02/21/2024 11:4 2 AM EST 02/21/2024 11:42 AM EST Generic External Data Provider LAB URINE ORDERAB LES Final Result Performing Organization Address City/[facility] Co de Phone Number [facility] [address] [place] [phone] * (ABNORMAL) Urinalysis w/reflex microscopic (02/21/2024 11:42 AM EST) Color Urine Yellow [facility] Appearance Urine Clear [facility] PH 6.5 5.0 - 9.0 [facility] Glucose Urine UA 100(A) Negative mg/dL [facility] Urine Blood Negative Negative [facility] Specific [place] - Urine 1.020 1.005 - 1.025 [facility] Urine Protein Negative Neg-Trace mg/dL [facility] Urine Ketones Negative Negative mg/dL [facility] Nitrite Urine Negative Negative [facility] Leukocyte Esterase Urine Negative Negative [facility] 02/21/2024 11:4 2 AM EST 02/21/2024 11:42 AM EST Narrative [facility] - 02/21/2024 11:48 AM EST [id number], Clean Catch Generic External Data Provider LAB URINE ORDERAB LES Final Result Performing Organization Address [facility] Co de Phone Number [facility] [address] [place] [phone] * (ABNORMAL) CBC auto differential (02/21/2024 11:42 AM EST) White Blood Count 7.1 4.8 - 10.8 X10*3/uL [facility] Red Blood Count 4.26 4.20 - 5.50 X10*6/uL [facility] Hemoglobin 11.5(L) 12.0 - 16.0 g/dl [facility] Hematocrit 34.8(L) 37.0 - 47.0 % [facility] Mean Corpuscular Volume 81.7 80.0 - 98.0 fL [facility] Mean Corpuscular Hemoglobin 27.0 27.0 - 33.0 pg [facility] Mean Corpuscular HGB Conc 33.0 31.0 - 35.0 g/dl [facility] Red Cell Distribution Width 13.6 11.0 - 16.0 % [facility] Platelet Count 247 160 - 400 X10*3/uL [facility] Mean Platelet Volume 10.1 9.4 - 12.3 fL [facility] Neutrophils Percent Auto 61.2 45 - 73 % [facility] Imm Gran Pct Auto 0.4 0.0 - 0.4 % [facility] Lymphocytes Percent Auto 31.1 20 - 40 % [facility] Monocytes Percent Auto 5.9 2 - 11 % [facility] Eosinophils Percent Auto 1.0 0 - 4 % [facility] Basophils Percent Auto 0.4 0 - 2 % [facility] NRBC Pct Auto 0.0 0.0 - 0.2 /100WBC [facility] Neutrophils Absolute Auto 4.4 2.0 - 8.3 x10*3/uL [facility] Imm Gran Abs Auto 0.03 0.00 - 0.03 X10*3/uL [facility] Lymphocytes Absolute Auto 2.2 1.2 - 4.9 X10*3/uL [facility] Monocytes Absolute Auto 0.4 0.1 - 1.2 X10*3/uL [facility] Eosinophils Absolute Auto 0.1 0.0 - 0.4 X10*3/uL [facility] Basophils Absolute Auto 0.0 0.0 - 0.2 X10*3/uL [facility] NRBC Abs Auto 0.000 0.0 - 0.012 X10*3/uL [facility] 02/21/2024 11:4 2 AM EST 02/21/2024 11:42 AM EST us Generic External Data Provider LAB BLOOD ORDERAB LES Final Result Performing Organization Address City/State/[facility] Co de Phone Number [facility] [address] [place] [address] [phone] documented in this encounter Visit Diagnoses Not on filedocumented in this encounter Additional Health Concerns Assessment Noted Time PHQ-9 Depression Total Score: 0 02/07/19 25 9:31 AM EST documented as of this encounter Care Teams Manufacturing Helper Relationship Specialty Start Date End Date Rosenda Hernandez MD [address] [place] [phone] PCP - General Family Medicine 12/20/18 Agueda Chaves Managed Care DirectorElectron Beam Welding Machine Operator 03/20/23 Agueda Marie Social Insurance AdviserElectron Beam Welding Machine Operator 10/04/23 documented as of this encounter
--- OUTSIDE RECORDS SUMMARY | 2024-03-12 13:39 | XMS_ITS | Encounter Summary ---
Author Organization [employer] Address [address] [place] [address] Care Team Providers Care Assembler Aircraft Power Plant Name Role Phone Rosenda Hernandez MD Primary Care Provide r Reason for Visit * Reason Comments Transition Of Care (Tcm) Encounter Details Date Type Department Care Team ([facility] Contact Info) Description 02/22/2024 Patient Outreach [facility] MEDICINE [address] [place] [address] Rosenda Hernandez MD [address] [place] [address] Transition Of Care (Tcm) Social History Tobacco [...] is your housing situation today? I have hsahla chiu 07/12/[address] you [...] 02/22/24 0847 Hospital Discharges and Admission for [facility] Type of Visit Emergency Department Date of Admission/Visit 02/21/24 Date of Discharge 02/21/24 Facility [facility] Diagnosis ABD Pain Disposition Discharged Home * Suzi Boyd RN - 02/22/2024 8:47 AM EST Transition of Care Note Aundrea is going through a recent transition of care. The full discharge summary is available as a Scanned Document. Recent Visits Date Type Provider Dept 02/08/24 Office Visit Rosenda Amin MD [facility] Medicine 11/07/23 Office Visit Rosenda Amin MD [facility] Medicine 10/04/23 Office Visit Rosenda Chaves MD [facility] Medicine 09/29/23 Office Visit Rosenda Amin MD [facility] 07/12/23 Office Visit Rosenda Amin MD [facility] Medicine 03/14/23 Office Visit Rosenda Amin MD [facility] Medicine 01/05/23 Office Visit Sarah Valencia MD [facility] Medicine 11/08/22 Office Visit Diego Glasgow MD [facility] Showing recent visits within past 540 days with a meds authorizing provider and meeting all other requirements Future Appointments No visits were found meeting these conditions. Showing future appointments within next 150 days with a meds authorizing provider and meeting all other requirements TC placed to patient [phone] to status check. Patient did not answer, RN left requesting CBto red team nurses. TC placed to patient [phone] to status check. Patient seen at [facility] ED on 02/21/24 for abdominal pain (no [...] days and if no improvement to call [facility] for an appointment for re-evaluation. Patient to f/u PRN. documented in this encounter Plan of Treatment Upcoming Encounters Date Type Department Care Team (Late st Contact Info) Description 05/09/2024 2:30 PM EDT Office Visit [facility] MEDICINE [address] [place] [address] Rosenda Hernandez MD [address] [place] [address] documented as of this encounter Goals Goal [...] documented as of this encounter Care Teams Assembler Aircraft Power Plant Relationship Specialty Start Date End Date Rosenda Hernandez MD [address] [place] [address] PCP - General Family Medicine 12/20/18 Agueda Chaves Facilities ClerkSap Basis 03/20/23 Agueda Marie Water Systems DesignerSap Basis 10/04/23 documented as of this encounter
--- OUTSIDE RECORDS SUMMARY | 2024-03-12 13:39 | XMS_ITS | Encounter Summary ---
Author Organization [employer] Address [address] [place] [address] Care Team Providers Care Cosmetics Supervisor Name Role Phone Rosenda Hernandez MD Primary Care Provide r Reason for Visit * Reason Onset Date Comments Care Management 02/21/2024 [facility]- chart revi ew Encounter Details Date Type Department Care Team ([facility] st Contact Info) Description 02/21/2024 Telephone [facility] MEDICINE [address] [place] [address] Alvin Palomino RN [address] [place] [address] Care Management ([facility]- chart review) Social History [...] low back pain without sciatica. Specialists include [facility] Optometry, [facility] Ortho, Cardiology- [facility], Neurology, Pharmacy [facility], PT, Pulmonology, and [facility] TOOTH GRINDER. ED visits within the last 12 months include [facility] ED 02/20/24 for eval of abd pain- patient left without being seen, [facility] ED 12/26/23 Dx hyperventilationand costochondritis, [facility] ED 11/09/23 Dx abdominal pain, and [facility] ED 08/31/23 Dx viral syndrome. Last appointment in PCP office on 02/08/24. Patient scheduled for LIFT BUILDER WHOLE surgery on 02/26/24. No future appointments scheduled at this time. documented in this encounter Plan of Treatment Upcoming Encounters Date Type Department Care Team (Late st Contact Info) Description 05/09/2024 2:30 PM EDT Office Visit [facility] MEDICINE [address] [place] [address] Rosenda Hernandez MD [address] [place] [address] documented as of this encounter Goals Goal [...] documented as of this encounter Care Teams Cosmetics Supervisor Relationship Specialty Start Date End Date Rosenda Hernandez MD [address] [place] [address] PCP - General Family Medicine 12/20/18 Agueda Chaves Last IronerCake Press Operator 03/20/23 Agueda Marie Art Glass SetterCake Press Operator 10/04/23 documented as of this encounter
--- OUTSIDE RECORDS SUMMARY | 2024-03-12 13:39 | XMS_ITS | Encounter Summary ---
Author Organization [employer] Address [address] [place] [address] Care Team Providers Care Window Shade Cutter Name Role Phone Rosenda Hernandez MD Primary Care Provide r Encounter Details Date Type Department Care Team (Late st Contact Info) Description 09/22/2023 Telephone [facility] MEDICINE [address] [place] [address] Janeen Ocasio RN Social History Tobacco Use [...] is your housing situation today? I have sahhla chiu 07/12/[address] you [...] 8:31 AM EDT TC to patient via matcher offbearer RISHABH Corley to discuss paperwork from patient [...] Description 05/09/2024 2:30 PM EDT Office Visit [facility] MEDICINE [address] [place] [address] Rosenda Hernandez MD [address] [place] [address] documented as of this encounter Goals Goal [...] documented as of this encounter Care Teams Window Shade Cutter Relationship Specialty Start Date End Date Rosenda Hernandez MD [address] [place] [address] PCP - General Family Medicine 12/20/18 Agueda Chaves Pc TechBead Machine Operator 03/20/23 Agueda Marie Low Vision TherapistBead Machine Operator 10/04/23 documented as of this encounter
--- OUTSIDE RECORDS SUMMARY | 2024-03-12 13:39 | XMS_ITS | Encounter Summary ---
Author Organization [employer] Address [address] [place] [address] Care Team Providers Care Pack Changer Name Role Phone Rosenda Hernandez MD Primary Care Provide r Reason for Visit * Reason Onset Date Comments PT-1 11/13/2023 Encounter Details Date Type Department Care Team ([facility] st Contact Info) Description 11/13/2023 Telephone [facility] MEDICINE [address] [place] [address] Rosenda Hernandez MD [address] [place] [address] PT-1 Social History Tobacco Use Types Packs/Day [...] Y/N: Yes Provider name or facility name: [facility] Facility Address: [address] [place] [address] Escort needed: Y/N: No Do you have a wheelchair: Y/N: No If yes- Manual or electric: Visits: once a month Date: 12/05/23 Time: 10am documented in this encounter Plan of Treatment Upcoming Encounters Date Type Department Care Team (Late st Contact Info) Description 05/09/2024 2:30 PM EDT Office Visit [facility] MEDICINE [address] [place] [address] Rosenda Hernandez MD [address] [place] [address] documented as of this encounter Goals Goal [...] documented as of this encounter Care Teams Pack Changer Relationship Specialty Start Date End Date Rosenda Hernandez MD [address] [place] [address] PCP - General Family Medicine 12/20/18 Agueda Chaves Appeals RepresentativeContinuous Churn Buttermaker 03/20/23 Agueda Marie Cattle DehornerContinuous Churn Buttermaker 10/04/23 documented as of this encounter
--- OUTSIDE RECORDS SUMMARY | 2024-03-12 13:39 | XMS_ITS | Encounter Summary ---
Author Organization [employer] Address [address] [place] [address] Care Team Providers Care Lease Analyst Name Role Phone Rosenda Hernandez MD Primary Care Provide r Reason for Visit * Reason Comments Med Refill Encounter Details Date Type Department Care Team ([facility] st Contact Info) Description 02/20/2024 Refill [facility] MEDICINE [address] [place] [address] Rosenda eHrnandez MD [address] [place] [address] Social History Tobacco Use Types Packs/Day Years [...] Description 05/09/2024 2:30 PM EDT Office Visit [facility] MEDICINE [address] [place] [address] Rosenda Hernandez MD [address] [place] [address] documented as of this encounter Goals Goal [...] documented as of this encounter Care Teams Lease Analyst Relationship Specialty Start Date End Date Rosenda Hernandez MD [address] [place] [address] PCP - General Family Medicine 12/20/18 Agueda Chaves Hydraulic Rubbish Compactor MechanicWash Rack Operator 03/20/23 Agueda Marie Soloist DancerWash Rack Operator 10/04/23 documented as of this encounter
--- OUTSIDE RECORDS SUMMARY | 2024-03-12 13:39 | XMS_ITS | Encounter Summary ---
Author Organization [employer] Address [address] 7[address] [place] [address] Care Team Providers Care Discharge Coordinator Name Role Phone Rosenda Hernandez MD Primary Care Provide r Reason for Visit * Reason Onset Date Comments PT-1 2023 Encounter Details Date Type Department Care Team ([facility] st Contact Info) Description 2023 Telephone [facility] MEDICINE [address] [place] [address] Rosenda Hernandez MD [address] [place] [address] PT-1 Social History Tobacco Use Types Packs/Day [...] Y/N: Yes Provider name or facility name: [facility] Facility Address: [address] [place] [address] Escort needed: Y/N: No Do you have a wheelchair: Y/N: No If yes- Manual or electric: Visits: 3 times a month Date : 11/07/23 Time : 2pm Provider name or facility name: [facility] Facility Address: [address] [place] [address] [id number], [place] [address] Escort needed: Y/N: No Do you have a wheelchair: Y/N: No If yes- Manual or electric: Visits: once a month documented in this encounter Plan of Treatment Upcoming Encounters Date Type Department Care Team (Late st Contact Info) Description 05/09/2024 2:30 PM EDT Office Visit [facility] MEDICINE [address] [place] [address] Rosenda Hernandez MD [address] [place] [address] documented as of this encounter Goals Goal [...] documented as of this encounter Care Teams Discharge Coordinator Relationship Specialty Start Date End Date Rosenda Hernandez MD [address] [place] [address] PCP - General Family Medicine 12/20/18 Agueda Chaves Criminal Intelligence SpecialistAdvertising Agent 03/20/23 Agueda Marie Turnaround PlannerAdvertising Agent 10/04/23 documented as of this encounter
--- OUTSIDE RECORDS SUMMARY | 2024-03-12 13:39 | XMS_ITS | Encounter Summary ---
Author Organization [employer] Address [address]t [place] [address] Care Team Providers Care Emission Specialist Name Role Phone Rosenda Hernandez MD Primary Care Provide r Reason for Visit * Reason Comments Care Coordination [facility] telephone call outreach Encounter Details Date Type Department Care Team (Latest Contact Info) Description 02/21/2024 Patient Outreach [facility] MEDICINE [address] [place] [address] Rosenda Hernandez MD [address] [place] [address] Care Coordination (C3 BRIAN Craig telephone call [...] outbound call to patient introducing herself from [facility] CM Department, in regards to offering services. Patient's name and was confirmed. Patient agrees toparticipate in program. Appt. for initial assessment scheduled for 02/21/2024 @ 1:00PM. CHW reinforced direct contact information or CM for any additional questions or concerns and extended clinic hours on Mondays and Wednesdays, and Walk-In Urgent Care Located in [facility] of [facility]. Patient provided with after-hours line for [facility], , which offer night time triage service and option to transfer to documentation engineer provider if needed. Patient verbalizes understanding, and able to repeat back to service writer. documented in this encounter Plan of Treatment Upcoming Encounters Date Type Department Care Team (Late st Contact Info) Description 05/09/2024 2:30 PM EDT Office Visit [facility] MEDICINE [address] [place] [address] Rosenda Hernandez MD [address] [place] [address] documented as of this encounter Goals Goal [...] documented as of this encounter Care Teams Emission Specialist Relationship Specialty Start Date End Date Rosenda Hernandez MD [address] [place] [address] PCP - General Family Medicine 12/20/18 Agueda Chaves Wildlife Biology InternshipSnack Bar Cashier 03/20/23 Agueda Marie Weigher And CrusherSnack Bar Cashier 10/04/23 documented as of this encounter
--- OUTSIDE RECORDS SUMMARY | 2024-03-12 13:40 | XMS_ITS | Encounter Summary ---
Author Organization [employer] Address [address] [place] [address] Care Team Providers Care Handtools Repairer Name Role Phone Rosenda Hernandez MD Primary Care Provide r Reason for Visit * Reason Onset Date Comments Durable Medical Equipment 02/22/2024 Encounter Details Date Type Department Care Team ([facility] st Contact Info) Description 02/22/2024 Telephone [facility] MEDICINE [address] [place] [address] Rosenda Hernandez MD [address] [place] [address] Durable Medical Equipment Social History Tobacco Use [...] pads. If any questions contact pt at [phone] (kyrgyz) documented in this encounter Plan of Treatment Upcoming Encounters Date Type Department Care Team (Late st Contact Info) Description 05/09/2024 2:30 PM EDT Office Visit [facility] MEDICINE [address] [place] [address] Rosenda Hernandez MD [address] [place] [address] documented as of this encounter Goals Goal [...] documented as of this encounter Care Teams Handtools Repairer Relationship Specialty Start Date End Date Rosenda Hernandez MD [address] [place] [address] PCP - General Family Medicine 12/20/18 Agueda Chaves Receiving OperatorDemand Generator Manager 03/20/23 Agueda Marie Senior BookkeeperDemand Generator Manager 10/04/23 documented as of this encounter
--- OUTSIDE RECORDS SUMMARY | 2024-03-12 13:40 | XMS_ITS | Encounter Summary ---
Author Organization [employer] Address [address] [place] [address] Care Team Providers Care Locomotive Driver Name Role Phone Rosenda Hernandez MD Primary Care Provide r Encounter Details Date Type Department Care Team ([facility] st Contact Info) Description 02/22/2024 Telephone [facility] MEDICINE [address] [place] [address] Rosenda Hernandez MD [address] [place] [address] Social History Tobacco Use Types Packs/Day Years [...] Description 05/09/2024 2:30 PM EDT Office Visit [facility] MEDICINE [address] [place] [address] Rosenda Hernandez MD [address] [place] [address] documented as of this encounter Goals Goal [...] documented as of this encounter Care Teams Locomotive Driver Relationship Specialty Start Date End Date Rosenda Hernandez MD [address] [place] [address] PCP - General Family Medicine 12/20/18 Agueda Chaves Trial ParalegalSecurity Engineer 03/20/23 Agueda Marie Staffing CoordinatorSecurity Engineer 10/04/23 documented as of this encounter
--- OUTSIDE RECORDS SUMMARY | 2024-03-12 13:40 | XMS_ITS | Encounter Summary ---
Author Organization [employer] Address [address] [place] [address] Care Team Providers Care Power Washer Name Role Phone Rosenda Hernandez MD Primary Care Provide r Reason for Visit * Reason Onset Date Comments Error (VOID this visit) 02/22/2024 Encounter Details Date Type Department Care Team ([facility] st Contact Info) Description 02/22/2024 Telephone [facility] MEDICINE [address] [place] [address] Rosenda Hernandez MD [address] [place] [address] Error (VOID this visit) Social History Tobacco [...] Description 05/09/2024 2:30 PM EDT Office Visit [facility] MEDICINE [address] [place] [address] Rosenda Hernandez MD [address] [place] [address] documented as of this encounter Goals Goal [...] documented as of this encounter Care Teams Power Washer Relationship Specialty Start Date End Date Rosenda Hernandez MD [address] [place], [place] [phone] PCP - General Family Medicine 12/20/18 Agueda Chaves Environmental Remediation SpecialistMiller Supervisor 03/20/23 Agueda Marie Drafter SeismographMiller Supervisor 10/04/23 documented as of this encounter
--- OUTSIDE RECORDS SUMMARY | 2024-03-12 13:40 | XMS_ITS | Encounter Summary ---
Author Organization [employer] Address [address] [place] [address] Care Team Providers Care Heat Treating Bluer Name Role Phone Rosenda Hernandez MD Primary Care Provide r Reason for Visit * Reason Comments Transition Of Care (Tcm) Error (VOID this visit) Encounter Details Date Type Department Care Team ([facility] st Contact Info) Description 02/22/2024 Patient Outreach [facility] [address] [place] [address] Rosenda Hernandez MD [address] [place] [address] Transition Of Care (Tcm); Error (VOID this [...] 05/09/2024 2:30 PM EDT Office Visit [facility] MEDICINE [address] [place] [address] Rosenda Hernandez MD [address] [place] [address] documented as of this encounter Goals Goal [...] documented as of this encounter Care Teams Heat Treating Bluer Relationship Specialty Start Date End Date Rosenda Hernandez MD [address] [place] [address] PCP - General Family Medicine 12/20/18 Agueda Chaves Vocational Education ProfessionalRadar Repairer 03/20/23 Agueda Marie Tablet Machine OperatorRadar Repairer 10/04/23 documented as of this encounter
--- OUTSIDE RECORDS SUMMARY | 2024-03-12 13:40 | XMS_ITS | Clinical Summary ---
Author Organization [employer] Address [address] [place] [address] Care Team Providers Care Perfect Binder Operator Name Role Phone Rosenda Hernandez MD Primary Care Provide r Allergies Active Allergy Reactions Criticality Noted Date Comments Penicillin G Benzathine 12/21/2015 Other reaction(s): swelling of site Sulfate 03/14/2023 Medications acetaminophen (Tylenol) 500 MG tablet take 2 tablet by oral route every 6 hours as needed as needed for pain 02/24/19 26 Active albuterol 108 (90 Base) MCG/ACT inhaler inhale 2 puff by inhalation route every 4 - 6 hours as needed 08/31/19 22 Active hydrOXYzine HCl (Atarax) 25 MG tablet take 1 tablet by oral route 2 times every day as needed 08/31/19 22 Active DULoxetine (Cymbalta) [address] capsule TAKE 1 CAPSULE BY MOUTH EVERY MORNING 03/09/19 23 Active amitriptyline (Elavil) 50 MG tablet TAKE 1 TABLET BY MOUTH EVERYDAY AT BEDTIME 12/26/19 22 Active famotidine (Pepcid) 10 MG tablet Take 20 mg by mouth if needed for heartburn. OTC Active albuterol (2.5 MG/3ML) 0.083% nebulizer solutionIndicat ions:Mild intermittent asthma without complication Take 3 mL (2.5 mg) by nebulization every 4 (four) hours if needed for wheezing. 75 mL 1 03/23/19 23 Active cyclobenzaprine (Flexeril) 10 MG tablet TAKE 1 TABLET BY MOUTH EVERY 8 HOURS NEEDED FOR MUSCLE SPASM 03/20/19 23 Active ibuprofen 600 MG tablet TAKE 1 TABLET BY MOUTH EVERY 6 HOURS NEEDED FOR PAIN 03/20/19 23 Active carvedilol (Coreg) 25 MG tablet Take 25 mg by mouth with breakfast and with evening meal. Active FREESTYLE LITE test stripIndication s:Prediabetes Use to test blood sugar 2 times daily 100 each 12 03/14/19 24 2024 Active Blood Glucose Monitoring Suppl (FreeStyle Freeland Lite) w/Device kitIndications: Prediabetes Use to test blood sugar 2 times daily 1 kit 03/14/19 24 Active furosemide (Lasix) 40 MG tablet Take 40 mg by mouth in the morning. 01/21/20 23 Active SUMAtriptan (Imitrex) 25 MG tabletIndicatio ns:Frequent headaches Take 1 tablet (25 mg) by mouth 1 (one) time if needed for migraine for up to 18 doses. May repeat dose once in 2 hours if no relief. Do not exceed 2 doses in 24 hours. 9 tablet 1 06/08/19 24 Active gabapentin (Neurontin) 300 MG capsuleIndicati ons:Fibromyalgi a Take 1 capsule (300 mg) by mouth 3 times daily. 90 capsule 11 07/12/19 24 2024 Active Blood Pressure Monitoring (Blood Pressure Cuff) miscIndications :Essential hypertension 1 each Once daily. 1 each 07/12/19 24 Active metFORMIN, OSM, (Fortamet) 500 MG 24 hr tabletIndicatio ns:Prediabetes Take 1 tablet (500 mg) by mouth with evening meal. Do not crush, chew, or split. 30 tablet 11 07/12/19 24 2024 Active montelukast (Singulair) 10 MG tablet TAKE 1 TABLET BY MOUTH EVERY EVENING 90 tablet 1 08/02/19 24 Active hydroCHLOROthia zide (HYDRODiuril) 25 MG tablet TAKE 1 TABLET BY MOUTH EVERY MORNING 90 tablet 1 08/02/19 24 Active triamcinolone (Kenalog) 0.1 % creamIndication s:Rash and nonspecific skin eruption Apply topically 2 times daily. 45 g 09/29/19 24 Active lidocaine (Lidoderm) 5 % patchIndication s:Bilateral carpal tunnel syndrome Apply 1 patch topically Once per day. Remove & discard patch within 12 hours or as directed by . 30 patch 1 11/07/19 24 Active Easy Touch Lancets 33G/Twist miscIndications :Prediabetes TEST BLOOD SUGAR TWICE DAILY 100 each 11 11/29/19 24 Active cholecalciferol (Vitamin D-3) 25 MCG (1000 UT) capsule take 1 Capsule by Oral route every day 90 capsule 1 12/04/19 24 Active Symbicort 160-4.5 MCG/ACT inhalerIndicati ons:Moderate persistent asthma without complication INHALE 2 PUFFS TWICE DAILY IN THE MORNING AND AT BEDTIME. RINSE MOUTH AFTER USING.. DO NOT SWALLOW 10.2 g 3 12/22/19 Active losartan (Cozaar) 100 MG tabletIndicatio ns:Essential hypertension Take 1 tablet (100 mg) by mouth Once per day. 30 tablet 02/07/192025 Active omeprazole (PriLOSEC) [address] capsule TAKE 1 CAPSULE BY MOUTH EVERY MORNING BEFORE A MEAL 90 capsule 1 02/19/19 25 Active omeprazole (PriLOSEC) [address] capsule TAKE 1 CAPSULE BY MOUTH EVERY MORNING BEFORE A MEAL 90 capsule 1 06/28/19 24 2024 Discontinued Active Problems Problem Noted Date Diagnosed Date Low vision 11/07/2023 Encounter for preventive health examination 02/2023 Assessment & Plan (11/07/2023 2:50 PM EDT): See HPI CTS (carpal tunnel syndrome) 10/04/2023 Assessment & Plan (02/08/2024 11:39 AM EST): Patient has her surgery schedule for right side on 02/26/2024 Assessment & Plan (11/07/2023 2:41 PM EDT): Continue to follow with specialist Assessment & Plan (10/05/2023 1:09 PM EDT): Both hand 1st 3 digits reports numbing sensation Phalen and Tinel test are both + moving hands helps w pain , no joint pain -Requested today to staffing administrator to help obtaining bilateral wrist braces -hand surgeon referred today -apt w PCP 11/07/23 -has apt already scheduled Rash and nonspecific skin eruption 09/29/2023 Assessment & Plan (09/29/2023 2:34 PM EDT): Scaibies? I will prescribed permethrine she can repeat treatment in 7 days, if its not helping she can tried triamcinolone BID no more than 2 weeks Report back if symptoms persist or worse Fibromyalgia 07/12/2023 Assessment & Plan (07/14/2023 4:00 PM EDT): Patient was educated about multidisciplinary approach for her condition, it was advise cardiovascular exercise, maintain hydration, treat anxiety/depression and take medications as directed I will start her on gabapentin Seizure 07/12/2023 Assessment & Plan (07/14/2023 3:57 PM EDT): Seizures? Pseudoseizures? I will refer patient to neurology for further evaluation Frequent headaches 08/10/2022 Chronic right-sided low back pain without sciati ca 04/01/2022 Assessment & Plan (04/01/2022 1:41 PM EST): Seems to be related to sacroiliitis at this time use local heat to affected area, recommended mentholated patches continue tylenol BID x1 week and I gave her a handout for stretching exercises of her lower back Reconsult PRN. Uterine leiomyoma 04/01/2022 Assessment & Plan (04/01/2022 1:40 PM EST): Pt has mild dysmenorrhea. use ibuprofen PRN pain and FU with HEAD ANIMAL KEEPER next month recommended to berry picker machine operator a copy of recent CT scan to FU with HEAD ANIMAL KEEPER. Sacroiliitis 04/01/2022 Assessment & Plan (04/01/2022 1:42 PM EST): See #1. Chronic gastritis 03/16/2022 Assessment & Plan (11/07/2023 2:50 PM EDT): I advise patient to avoid NSAIDs, spicy and acid food, I advise to eat at the same time every day, I advise to elevate the head of the bed and take medications as prescribe Assessment & Plan (03/14/2023 3:59 PM EST): I advise patient to avoid NSAIDs, spicy and acid food, I advise to eat at the same time every day, I advise to elevate the head of the bed and take medications as prescribe Assessment & Plan (01/05/2023 1:30 PM EST): Dara improved DC Pepcid and start sucralfate 1 m FU w/ PCP Counseled to avoid alcohol, recreational substance, or smoking (pt is not taking any of those) Check H. Pylori Pt will receive Flu IZ today. COVID-19 03/16/2022 Essential hypertension 03/16/2022 Overview (08/10/2022): Continue amlodipine 10 mg daily, Coreg 25 mg BID w/ meals, hydrochlorothiazide 25 mg daily Assessment & Plan (02/08/2024 11:40 AM EST): I increased her losartan to 100mg daily, c/w hydrochlorothiazide 25mg daily and Coreg 25mg BID, I advised low Na diet and weight reduction Assessment & Plan (11/07/2023 2:42 PM EDT): I advise: - Aerobic exercise to reduce BP. Initial goal of 30 min walk 3-5x/week. Increase as tolerated. - low-sodium diet (goal: <2g/day) and heart healthy diet such as DASH to reduce BP and prevent ASCVD. - Home BP monitoring 1-2 x day with goal of <140/90. - Seek immediate medical attention for chest pain, palpitations, SOB, syncope, or sudden changes in mental status. - Do not change or discontinue current prescriptions without first consulting health care provider Assessment & Plan (07/14/2023 4:00 PM EDT): Today blood pressure and heart rate is high, she explains to me she is under a lot of stress and feels very anxious today, I will prescribed BP cuff for blood pressure monitoring at home I ask her to log BP readings for next appointment and also reports back if she has readings of more than 160s/100s, meanwhile I advise t take her BP meds every day without missing any dose and low Na diet Assessment & Plan (03/14/2023 3:59 PM EST): - Aerobic exercise to reduce BP. Initial goal of 30 min walk 3-5x/week. Increase as tolerated. - low-sodium diet (goal: <2g/day) and heart healthy diet such as DASH to reduce BP and prevent ASCVD. - Home BP monitoring 1-2 x day with goal of <140/90. - Seek immediate medical attention for chest pain, palpitations, SOB, syncope, or sudden changes in mental status. - Do not change or discontinue current prescriptions without first consulting health care provider Mixed anxiety and depressive disorder 03/16/2022 Moderate persistent asthma without complication 03/16/2022 Obstructive sleep apnea syndrome 03/16/2022 Prediabetes 03/16/2022 Assessment & Plan (02/08/2024 11:38 AM EST): Today extensive discussion was done about life style modifications I advise healthy diet (low calorie) and cardiovascular exercise Assessment & Plan (07/14/2023 4:01 PM EDT): Today extensive discussion was done about life style modifications I advise healthy diet (low calorie) and cardiovascular exercise Assessment & Plan (03/14/2023 3:59 PM EST): Today extensive discussion was done about life style modifications I advise healthy diet (low calorie) and cardiovascular exercise Snoring 03/16/2022 Tremor 03/16/2022 Obesity (BMI 30-39.9) 05/03/2018 Cyst of ovary 11/17/2014 Pain in female pelvis 10/20/2014 Resolved Problems Problem Noted Date Diagnosed Date Resolved Date Mild intermittent asthma 11/17/201406/2022 Encounters Date Type Department Care Team Description 03/05/2024 Patient Outreach [facility] MEDICINE [address] [place] [phone] Rosenda Hernandez MD Care Coordination ([facility] Catie Craig telephone call outreach) 03/05/2024 Telephone [facility] MEDICINE [address] [place] [phone] Alvin Palomino RN Care Management ([facility]- f/u call) 02/22/[address] [address] Rosenda Hernandez MD Durable Medical Equipment 02/22/[address] [address] Rosenda Hernandez MD ER Follow-up 02/22/[address] [address] Rosenda Hernandez MD 02/22/2024 Patient Outreach [facility] MED & PEDS [address] [place] [address] Rosenda Hernandez MD Transition Of Care (Tcm); Error (VOID this visit) 02/22/2024 Patient Outreach [address] [address] Rosenda Hernandez MD Transition Of Care (T[facility]) 02/22/[address] [address] Rosenda Hernandez MD Error (VOID this visit) 02/21/[address] [phone] Alvin Palomino RN Care Management ([facility]- initial assessment/ enrollment) 02/21/2024 Patient Outreach [address] [address] Rosenda Hernandez MD Care Coordination ([address] Catie Craig telephone call outreach ) 02/21/2024 Patient Outreach [address] [address] Rosenda Hernandez MD Care Coordination ([address] Catie Craig telephone call outreach) 02/21/2024 Orders Only GENERIC EXTERNAL DATA DEPARTMENT Provider, Generic External Data 02/21/[address] [address] Alvin Palomino RN Care Management ([facility]- chart review) 02/20/[address] [address] Rosenda Hernandez MD 02/08/2024 9:00 AM EST Office Visit [address] [address] Rosenda Hernandez MD Essential hypertension (Primary Dx); Bilateral carpal tunnel syndrome; Prediabetes 01/29/2024 Patient Outreach [address] [address] Rosenda Hernandez MD Pre-visit Planning (SDOH screening completed on 07/12/2023) 01/18/[address] [address] Lorin Hernandez MA A 1C ORDER 01/17/2024 Orders Only [address] [address] Rosenda Hernandez MD Prediabetes (Primary Dx) 01/17/[address] [address] Roxie Chand, AURELIA 01/17/[address] [address] Rosenda Hernandez MD telephone call 01/15/[address] [address] Rosenda Hernandez MD Stable Lab Letter 12/22/2023 Refill [facility] MED & PEDS [address], [place] [phone] Rosenda Hernandez MD Moderate persistent asthma without complication 12/11/[address] [address] Rosenda Hernandez MD Lab Orders; TSpot (I informed the patient that Tspot labs were ordered, and she may come to the [facility] lab at her convenience to have them done. I informed her that the nurse tried to reach her, and the call did not go through. I verified her telephone number, and updated it in the chart.) from Last 3 Months Immunizations Name Administration Dates Next Due Hep A / Hep B 05/26/2022,03/08/2017,12/20/2016 Influenza Injectable Quadriv alant Preservative Free IIV4 MDCK 01/11/2021 Influenza injectable quadriv alent IIV4 with preservative 11/24/2014 Influenza injectable quadriv alent preservative free 01/05/2023,12/13/2021,12/09/2019 Influenza, seasonal, injecta ble, preservative free 11/07/2023 Rafy SARS-CoV-2 Vaccination 05/11/2020,2019 Pfizer Covid-19 Vaccine 12+ 11/07/2023 Pneumococcal Conjugate PCV 20 05/26/2022 Tdap 01/11/2021 Social History Tobacco Use Types Packs/Day Years Used Date Smoking Tobacco: Never Passive Smoke Exposure: Never Smokeless Tobacco: Never Tobacco Cessation:Counseling Given: Not Answered Alcohol Use Standard Drinks/Week Comments Never 0 [...] not to disclose 2021 10:26 AM EDT Last Filed Vital Signs Vital Sign Reading Time Taken Comments Blood Pressure 158/96 02/08/2024 9:18 AM EST Pulse 95 02/08/2024 9:18 AM EST Temperature 36.6 ??C (97.8 ??F) 02/08/2024 9:18 AM ES T Respiratory Rate 20 02/08/2024 9:18 AM EST Oxygen Saturation 99% 11/07/2023 2:08 PM EDT Inhaled Oxygen Concentration - - Weight 100 kg (221 lb) 02/08/2024 9:18 AM EST Height 154.9 cm (5' 1 ) 02/08/2024 9:18 AM EST Body Mass Index 41.76 02/08/2024 9:18 AM EST Plan of Treatment Upcoming Encounters Date Type Department Care Team (Late st Contact Info) Description 05/09/2024 2:30 PM EDT Office Visit [facility] MEDICINE [address] [place] [address] Rosenda Hernandez MD [address] [place] [address] Health Maintenance Due Date Last Done Comments Alcohol/Substance Use Screening 2000 Family Planning (PISQ) 10/31/2003 Hepatitis C Screening 2006 Cervical Cancer Screening 02/24/2022 Pap Smear 02/24/2022 02/24/2021 SDOH Screening 07/11/2024 07/12/2023 Tobacco Screening 11/06/2024 11/07/2023 Diabetes: Hemoglobin A1C 01/18/2025 024, 07/12/2023, 03/14/2023, Additional history exists Depression Screening 02/07/2025 02/08/2024, 02/07/19 25 HPV/Cotest 02/24/2026 02/24/2021 Lipid Panel 08/31/2026 08/31/2021, 08/06, 09/30/2019 DTaP/Tdap/Td Vaccines (2 - Td or Tdap) 01/11/2031 01/11/2021 Zoster Vaccines (1 of 2) 2038 RSV Patients and Patients Aged 60 years or older (1 - 1-dose 75+ series) 10/31/2063 HIV Screening Completed 09/30/2019 Hepatitis A Vaccines Aged Out 05/26/2022, 03/08/2017, 12/20/2016 No longer eligible based on patient's age to complete this topic Hepatitis B Vaccines Completed 05/26/2022, 03/08/2017, 12/20/2016 Pneumococcal Vaccine: Pediatrics (0 to 5 Years) and At-Risk Patients (6 to 49) Years) Completed 05/26/2022 COVID-19 Vaccine Completed 11/07/2023, 08/2021, 03/19/2021, Additional history exists Influenza Vaccine Completed 11/07/2023, , 12/13/2021, Additional history exists HIB Vaccines Aged Out No longer eligi ble based on patient's age to complete this topic HPV Vaccines Aged Out No longer eligi ble based on patient's age to complete this topic IPV Vaccines Aged Out No longer eligi ble based on patient's age to complete this topic Meningococcal Vaccine Aged Out No angelita mickey eligible based on patient's age to complete this topic RSV under 20 months Aged Out No longe r eligible based on patient's age to complete this topic Rotavirus Vaccines Aged Out No longer eligible based on patient's age to complete this topic Goals Goal Patient Goal Type Associated Problems Recent Progress Patient-Stated? Author Blood Pressure < 140/90 Blood Pressure 158/96( 025 9:18 AM EST) No Arianna Noel, Pernell Procedures Procedure Name Priority Date/Time Associated Diagnosis Comments CT ABDOMEN PELVIS W CONTRAST Routine 02/21/2024 7:13 PM EST COMPREHENSIVE METABOLIC PANEL, FASTING Routine 02/21/2024 11:42 AM EST HCG, QL, URINE Routine 02/21/2024 11:42 AM EST URINALYSIS WITH REFLEX MICROSCOPIC Routine 02/21/2024 11:42 AM EST CBC WITH AUTO DIFFERENTIAL Routine 02/21/2024 11:42 AM EST CHLAMYDIA/N. GONORRHOEAE RNA, TMA, UROGENITAL Routine 02/21/2024 11:42 AM EST HEMOGLOBIN A1C Routine 01/19/2024 11:31 AM EST Prediabetes HELICOBACTER PYLORI AG, EIA, STOOL Routine 01/02/2024 8:26 AM EST Chronic gastritis, presence of bleeding unspecified, unspecified gastritis type T-SPOT(R).TB Routine 12/15/2023 12:00 PM EST Routine general medical examination at a [facility] care facility LIPID PANEL, STANDARD Routine 08/31/2021 10:01 AM EDT HM PAP/HPV Routine 02/24/2021 HIV 1/2 ANTIGEN/ANTIBODY, FOURTH GENERATION W/RFL Routine 09/30/2019 9:58 AM EDT from Last 3 Months or Most Recently Relevant to Health Maintenance Results * CT Abdomen Pelvis w/ Contrast (02/21/2024 7:13 PM EST) Anatomical Region Laterality Modality Body, Pelvis, Abdomen Computed T omography 02/21/2024 7:13 PM EST Narrative 02/21/2024 7:15 PM EST ? [facility] ?[address] ?[place] [address] ? CT Scan Report ? Signed ? Patient: Reynold Rivera,Aundrea ?MR#: M ?? [id number] ? : 1990 ?Acct:[id number] ? Age/Sex: 33 / F ?ADM Date: 01/15/25 ? Loc: HO.ED ? Attending Dr: ? Ordering Physician: Donna Pretty MD ?? Date of Service: 02/21/24 ?? Procedure(s): CT abdomen pelvis w IV con ?? Accession Number(s): [id number] ? cc: Rosenda Hernandez MD; Donna Pretty MD ? Report Number: ?? [id number]: Total DLP = ??595.00 mGy-cm ? CLINICAL [...] ? DD/ 12 ? TD/TT: 02/21/241912 ? Civil Engineering Technician: ? Procedure Note Donthomas, Image - 02/21/[address] [place] [address] [address] Scan Report Signed Patient: Chula Bhardwaj#: M [id number] : 1990Acct:[id number] Age/Sex: 33 / FADM Date: 02/21/24 Loc: HO.ED Attending Dr: Ordering Physician: Donna Pretty MD Date of Service: 02/21/24 Procedure(s): CT abdomen pelvis w IV con Accession Number(s): [id number] cc: Rosenda Hernandez MD; Donna Pretty MD Report Number: [id number]: Total DLP = 595.00 mGy-cm CLINICAL HISTORY: [...] in OV> 02/21/241914 DD/ 12 TD/TT: 02/21/241912 Civil Engineering Technician: [facility] External Provider IMG CT PROCEDURES Edited Result - Final * (ABNORMAL) Comprehensive Metabolic Panel, Fasting (02/21/2024 11:42 AM EST) Sodium 140 135 - 145 mmol/L [facility] Potassium 4.0 3.3 - 5.1 mmol/L [facility] Chloride 108 96 - 108 mmol/L [facility] Carbon Dioxide 27 22 - 29 mmol/L [facility] Anion Gap 9(L) 12 - 20 [facility] Urea Nitrogen (BUN) 9 9 - 16 mg/dL [facility] Creatinine, Serum 0.71 0.5 - 1.4 mg/dL [facility] Creatinine Clr Calc Pharmacy 127.8 [facility] Comment:Provided height and weight: 170.18 cm,90.718 kg.eGFR (calculated from the MDRD study equation) and eCrCl(calculated from the Cockcroft-Gault equation) are based ondifferent parameters and may not yield comparable results.If eCrCl result is absurd, please check patient'sheight/weight. Estimated Glomerular Filt Rate >60 [facility] Comment:Chronic Kidney Disea se: Estimated GFR < 60 mL/min/1.56y1Dryplp Kidney Disease: Estimated GFR < 15 mL/min/1.73m2 Glucose Fasting 114(H) 60 - 99 mg/dL [facility] Comment:A fasting glucose fr om 100-125 mg/dl is considered impaired(pre-diabetes). Calcium 9.1 8.4 - 10.2 mg/dL [facility] Bilirubin, Total 0.2 0.0 - 1.0 mg/dL [facility] Aspartate Amino Transferase 20 5 - 31 U/L [facility] Alanine Aminotransferase 18 0 - 31 U/L [facility] Total Protein 7.6 6.5 - 8.0 g/dL [facility] Albumin Level 4.1 3.5 - 5.0 g/dL [facility] Alkaline Phosphatase 62 39 - 117 U/L [facility] 02/21/2024 11:4 2 AM EST 02/21/2024 11:42 AM EST us Generic External Data Provider LAB BLOOD ORDERAB LES Final Result [facility] [address] [place] [phone] * (ABNORMAL) CBC auto differential (02/21/2024 11:42 AM EST) White Blood Count 7.1 4.8 - 10.8 X10*3/uL [facility] Red Blood Count 4.26 4.20 - 5.50 X10*6/uL [facility] Hemoglobin 11.5(L) 12.0 - 16.0 g/dl [facility] Hematocrit 34.8(L) 37.0 - 47.0 % [facility] Mean Corpuscular Volume 81.7 80.0 - 98.0 fL [facility] Mean Corpuscular Hemoglobin 27.0 27.0 - 33.0 pg [facility] Mean Corpuscular HGB Conc 33.0 31.0 - 35.0 g/dl [facility] Red Cell Distribution Width 13.6 11.0 - 16.0 % [facility] Platelet Count 247 160 - 400 X10*3/uL [facility] Mean Platelet Volume 10.1 9.4 - 12.3 fL [facility] Neutrophils Percent Auto 61.2 45 - 73 % [facility] Imm Gran Pct Auto 0.4 0.0 - 0.4 % [facility] Lymphocytes Percent Auto 31.1 20 - 40 % [facility] Monocytes Percent Auto 5.9 2 - 11 % [facility] Eosinophils Percent Auto 1.0 0 - 4 % [facility] Basophils Percent Auto 0.4 0 - 2 % [facility] NRBC Pct Auto 0.0 0.0 - 0.2 /100WBC [facility] Neutrophils Absolute Auto 4.4 2.0 - 8.3 x10*3/uL [facility] Imm Gran Abs Auto 0.03 0.00 - 0.03 X10*3/uL [facility] Lymphocytes Absolute Auto 2.2 1.2 - 4.9 X10*3/uL [facility] Monocytes Absolute Auto 0.4 0.1 - 1.2 X10*3/uL [facility] Eosinophils Absolute Auto 0.1 0.0 - 0.4 X10*3/uL [facility] Basophils Absolute Auto 0.0 0.0 - 0.2 X10*3/uL [facility] NRBC Abs Auto 0.000 0.0 - 0.012 X10*3/uL [facility] 02/21/2024 11:4 2 AM EST 02/21/2024 11:42 AM EST us Generic External Data Provider LAB BLOOD ORDERAB LES Final Result [facility] [address] [place] [phone] * Chlamydia/N. Gonorrhoeae RNA, TMA, Urogenitial (02/21/2024 11:42 AM EST) CT PCR NOT DETECTED Not Detect. [facility] Comment:A not detected test [...] psychologicalconsequences. NG PCR NOT DETECTED Not Detect. [facility] Comment:A not detected test [...] AM EST 02/21/2024 11:42 AM EST Narrative [facility] - 02/21/2024 2:22 PM EST Urine us Generic External Data Provider LAB MICROBIOLOGY - GENERAL ORDERABLES Final Result [facility] [address] [place] [phone] * HCG, Qualitative, Urine (02/21/2024 11:42 AM EST) Urine NEGATIVE NEGATIVE [facility] Comment:This test was develo ped to detect early . Falsenegative results may occur after the 5th - 7th week ofpregnancy when using this test method. If clinicallyindicated, consider a serum hCG. 02/21/2024 11:4 2 AM EST 02/21/2024 11:42 AM EST Generic External Data Provider LAB URINE ORDERAB LES Final Result Performing Organization Address [facility] Co de Phone Number [facility] [address] [place] [address] [phone] * (ABNORMAL) Urinalysis w/reflex microscopic (02/21/2024 11:42 AM EST) Color Urine Yellow [facility] Appearance Urine Clear [facility] PH 6.5 5.0 - 9.0 [facility] Glucose Urine UA 100(A) Negative mg/dL [facility] Urine Blood Negative Negative [facility] Specific [place] - Urine 1.020 1.005 - 1.025 [facility] Urine Protein Negative Neg-Trace mg/dL [facility] Urine Ketones Negative Negative mg/dL [facility] Nitrite Urine Negative Negative [facility] Leukocyte Esterase Urine Negative Negative [facility] 02/21/2024 11:4 2 AM EST 02/21/2024 11:42 AM EST Narrative [facility] - 02/21/2024 11:48 AM EST [id number], Clean Catch Generic External Data Provider LAB URINE ORDERAB LES Final Result Performing Organization Address [facility] Co de Phone Number [facility] [address] [place] [address] [phone] * Hemoglobin A1c (01/19/2024 11:31 AM EST) Hemoglobin A1c 6.0 <6.0 % [facility] Comment:Hemoglobin A1C Refer ence Range Adults: 4.8 - 6.0 % Non diabetic: < 6.0 % Goal: < 7.0 %Additional Action Suggested: > 8.0 %Note: Hemoglobin A1c results are invalid for patients with abnormal amounts of HbF. Blood transfusions may impact the HbA1c concentration in the patient sample. Estimated Average Glucose 126 mg/dL [facility] Comment:eAG = Estimated ave rage glucose which is %A1C expressed asaverage glucose, using the formula of the W1J-XbrknkyReddaxi Glucose study (ADAG), Diabetes Care, Vol.31,#8,2007 Blood Venous blood specimen / Unknown 01/19/2024 11:31 AM EST 01/19/2024 1:11 PM EST us Rosenda Amin MD LAB BLOOD ORDERABLES Final Result Performing Organization Address City/[facility]/ZIP Co de Phone Number [facility] [address] [place] [address] [phone] * Helicobacter pylori??Antigen, EIA, Stool (01/02/2024 8:26 AM EST) H pylori Ag Stool SEE NOTE [facility] Comment:HELICOBACTER PYLORI AG, EIA, STOOL Micro Number: [id number] Test Status: Final Specimen Source: Stool Specimen Quality: Adequate H.pylori Ag: Not Detected Antimicrobials, proton pump inhibitors, and bismuth preparations inhibit H. pylori and ingestion up to two weeks prior to testing may cause false negative results. If clinically indicated the test should be repeated on a new specimen obtained two weeks after discontinuing treatment. Reference Range: Not DetectedTHIS TEST WAS PERFORMED AT:[facility] [place] [id number] NATH MD Stool Rectal contents / Unknown 01/02/2024 8:26 AM EST 01/02/2024 11:43 AM EST us Sarah Valencia MD LAB BODY FLUIDS AND STOO LS ORDERABLES Final Result [facility] [address] [place] [address] [phone] * T-SPOT??.TB (12/15/2023 12:00 PM EST) T Spot TB Negative Negative [facility] Comment:A negative test resu lt does not exclude the possibilityof exposure to or infection with Mycobacteriumtuberculosis (M. tuberculosis). Patients with recentexposure to TB infected individuals exhibiting anegative T-SPOT.TB result should be considered forretesting within 6 weeks or if other relevant clinicalsymptoms indicate. Results from T-SPOT.TB testing mustbe used in conjunction with each individual'sepidemiological history, current medical status,and results of other diagnostic evaluations.The T-SPOT.TB test is qualitative and results arereported as positive, borderline, or negative, giventhat the test controls perform as expected. In linewith the Centers for Disease Control and Prevention's2010 recommendation to report quantitative measurementsalongside the qualitative result, the laboratoryprovides spot counts for informational purposes only.The T-SPOT.TB test should not be interpreted as aquantitative test. TS PANEL A 0 [facility] TS PANEL B 2 [facility] Negative Control Passed [facility] Positive Control Passed [facility] Comment:For additional infor lyubov, please refer tohttp://education.Enabled [employer]/faq/HPT314(This link is being provided for informational/educational purposes only.)THIS TEST WAS PERFORMED AT:[facility] [place] [id number] PEREZ MD,PHD 12/15/2023 12:0 0 PM EST 12/15/2023 1:36 PM EST Rosenda Amin MD LAB BLOOD ORDERABLES Final Result [facility] [address] [place] [phone] [phone] * (ABNORMAL) LIPID PANEL, STANDARD (08/31/2021 10:01 AM EDT) Chol/HDLC Ratio 5.3(H) <5.0 (calc) [facility] Cholesterol, Total 160 <200 mg/dL [facility] HDL Cholesterol 30(L) > OR = 50 mg/dL [facility] LDL Cholesterol 102(H) mg/dL (calc) [facility] Comment: Reference range: <100 ?? Desirable range <100 mg/dL for primary prevention; ?? <70 mg/dL for patients with CHD or diabetic patients ?? with > or = 2 CHD risk factors. ?? LDL-C is now calculated using the Avril ?? calculation, which is a validated novel method providing ?? better accuracy than the Friedewald equation in the ?? estimation of LDL-C. ?? Victor M ALBERTS et al. LILLIAM. 2013;310(19): 4668-1885 ?? (http://education.Dezineforce/faq/VBW759) Non-HDL Cholesterol 130(H) <130 mg/dL (calc) [facility] Comment: For patients with diabetes plus 1 major ASCVD risk ?? factor, treating to a non-HDL-C goal of <100 mg/dL ?? (LDL-C of <70 mg/dL) is considered a therapeutic ?? option. Triglycerides 163(H) <150 mg/dL [facility] 08/31/2021 10:0 1 AM EDT Rosenda Amin MD LAB BLOOD ORDERABLES Final Result [facility] [address] * (ABNORMAL) Hm Pap Smear (02/24/2021) Pap Epithelial cell abnormality(A ) Negative for intraephithelial lesion or malignancy, Other Comment:ASCUS HPV Undetected Undetected, Indeterminate, Quantitative, Not Detected Historical Provider HEALTH MAINTENANCE Final Result * HIV 1/2 ANTIGEN/ANTIBODY,FOURTH GENERATION W/RFL (09/30/2019 9:58 AM EDT) Pathologist [facility] HIV-1/2 ANTIGEN AND ANTIBODIES, 4TH GENERATION W/ REFLEX NON-REACT ASOTN NON-REACT ASTON [facility] Comment: HIV-1 antigen and HIV-1/HIV-2 antibodies were not detected. There is no laboratory evidence of HIV infection. ?? PLEASE NOTE: This information has been disclosed to you from records whose confidentiality may be protected by state law. ??If your state requires such protection, then the state law prohibits you from making any further disclosure of the information without the specific written consent of the person to whom it pertains, or as otherwise permitted by law. A general authorization for the release of medical or other information is NOT sufficient for this purpose. ? For additional information please refer to http://Emergent Discovery.[employer]/faq/ZUN418 (This link is being provided for informational/ educational purposes only.) ? The performance of this assay has not been clinically validated in patients less than 2 years old. ?? HIV-1/2 ANTIGEN AND ANTIBODIES, 4TH GENERATION W/ REFLEX NON-REACT ASTON NON-REACT ASTON [facility] Comment: HIV-1 antigen and HIV-1/HIV-2 antibodies were not detected. There is no laboratory evidence of HIV infection. ?? PLEASE NOTE: This information has been disclosed to you from records whose confidentiality may be protected by state law. ??If your state requires such protection, then the state law prohibits you from making any further disclosure of the information without the specific written consent of the person to whom it pertains, or as otherwise permitted by law. A general authorization for the release of medical or other information is NOT sufficient for this purpose. ? For additional information please refer to http://Emergent [employer]/faq/WQL316 (This link is being provided for informational/ educational purposes only.) ? The performance of this assay has not been clinically validated in patients less than 2 years old. ?? 09/30/2019 9:58 AM EDT Rosenda Amin MD LAB BLOOD ORDERABLES Final Result [facility] [address] [place] [address] from Last 3 Months or Most Recently Relevant to Health Maintenance Insurance [facility] [address] [place] [id number] Care Teams Perfect Binder Operator Relationship Specialty Start Date End Date Rosenda Hernandez MD [address] [place] [phone] PCP - General Family Medicine 12/20/18 Agueda Chaves Computer Forensics ExaminerReprographics Technician 03/20/23 Agueda Marie Hydro Station SupervisorReprographics Technician 10/04/23
--- OUTSIDE RECORDS SUMMARY | 2024-03-12 13:40 | XMS_ITS | Encounter Summary ---
Author Organization [employer] Address [address] [place] [address] Care Team Providers Care Punchboard Filling Machine Operator Name Role Phone Rosenda Hernandez MD Primary Care Provide r Reason for Referral * Consultation (Routine) - Closed Specialty Diagnoses / Procedures Referred By Contac t Referred To Contact Nutrition - Weight Diagnoses Class 3 severe obesity with serious comorbidity and body mass index (BMI) of 40.0 to 44.9 in adult, unspecified obesity type (CMS/HCC) Rosenda Hernandez MD [address] [place] [address] Phone: tel: fax: [facility] [address] Phone: tel: fax: Referral ID Status Reason Start Date Expiration Date V isits Requested Visits Authorized [id number] Closed Specialty Services Required 02/21/2024 02/20/2025 1 1 Reason for Visit * Reason Onset Date Comments Care Management 02/21/2024 C3CM- initial as sessment/ enrollment Encounter Details Date Type Department Care Team (Late st Contact Info) Description 02/21/2024 Telephone [facility] [address] [place] [address] Alvin Palomino RN [address] [place] [address] Care Management (C3CM- initial assessment/ enrollment) Social [...] pain without sciatica. Patient being followed by [facility] Optometry, [facility] Ortho, Cardiology- [facility], Neurology, Pharmacy MTM, PT, Pulmonology, and [facility] DOG HANDLER OR TRAINER. Patient states she is currently at [facility] ED waiting to be evaluated for pelvic pain. She reports pelvic pain x2 days. She states she went to [facility] yesterday for eval but left without being seen. Patient agrees to remain at the [facility] ED until she is evaluated. She agrees to f/u with PCP's office to schedule a f/u appt after eval. Patient reports being followed by dental and optometry. Per patient, is up to date. She also reports having recent visits with Cardiology and Neurology. She is due to follow up in 3 months. Patient is also scheduled to f/u with [facility] on 04/18/24. Patient also reports being scheduled [...] and is requesting a referral to a help aid. CM will send to PCP to review [...] patient, is scheduled to be evaluated for RUBBER STAMP MAKER services tomorrow at 9:30am. Patient states she will be followed by [facility] for these services. She also states she attends the [facility] from -. Per patient, loves the program and feels that it has been beneficial for her. Patient also reports being followed by [facility] for therapy and psych. She reports [...] understanding, and able to repeat back to typewriters functional tester. A follow up call will be placed within 10 days, patient agrees with plan. documented in this encounter Plan of Treatment Upcoming Encounters Date Type Department Care Team (Late st Contact Info) Description 05/09/2024 2:30 PM EDT Office Visit [facility] [address] [place] [address] Rosenda Hernandez MD [address] [place] [address] Scheduled Referrals Name Type Priority Associated Diagnoses Orde r Schedule Referral to Weight Management Outpatient Referral Routine Class 3 severe obesity with serious comorbidity and body mass index (BMI) of 40.0 to 44.9 in adult, unspecified obesity type (CMS/[facility]) Expected: 02/21/2024 (Approximate), Expires: 02/20/2025 documented as [...] documented as of this encounter Care Teams Punchboard Filling Machine Operator Relationship Specialty Start Date End Date Rosenda Hernandez MD [address] [place] [address] PCP - General Family Medicine 12/20/18 Agueda Chaves Dish CarrierPrototype Technician 03/20/23 Agueda Marie Drum StencilerPrototype Technician 10/04/23 documented as of this encounter
== END 2024-03-12 13:52 | disposition home or self-care (01) ==
DX: G56.01 Carpal tunnel syndrome, right upper limb (principal)
CPT/HCPCS: 99024

== ENCOUNTER → 2024-03-12 13:26 | Outpatient (BNVA) | payer MEDICAID, SELFPAY | DX: Z47.89 Encounter for other orthopedic aftercare (principal); Z98.890 Other specified postprocedural states | CPT/HCPCS: 99212 ==

== ENCOUNTER 2024-03-29 09:54 | Outpatient (RCR) | payer MEDICAID, SELFPAY ==
--- NOTE | 2024-04-03 09:37 | MHC.OT.EP ---
[address] [phone] Occupational Therapy Plan of Care Patient Name: Aundrea Rivera Date of Evaluation: 03/29/24 Diagnosis: R CT release surgery Pain Location: increased pain since surgery horrible burning and sharp Pain Score: 10 Pain Scale Used: Numeric (0 - 10) Aggravating Factors: Alleviating Factors: Tylenol every 3 hrs Assessment: Pt is a 33 yr old R hand dominant female who had surgery to release her R CT on 02/26/2024. She reports improvements in numbness and tingling but reports a burning sensation which radiates from her scar to her her mid FA. She reports pain w/ palpation of her scar, movement of her wrist and inability to hold/ grasp items. Pt reports he has been guarding her R hand due to pain and modifying w/ the use of her L hand. Pt would benefit from skilled OT therapy to decrease hypersensitivity of scar, and increase PAIN FREE ROM, strength, and the functional use of her dominant hand Frequency and Duration: The patient will be seen 2 xs a week for 4 weeks Short Term Goals: Pt will be compliant w/ HEP MET Pt will be complaint w/ scar care/ massage and use of silicone MET Pt will be complaint w/ avoiding guarding of her R hand MET Windows Server Administrator Goals: Pt will have 65 of R wrist extension Pain free Pt will have 60 of R wrist flexion pain free Pt will report the ability to hold and grasp her coffee cup w/ out difficulty Treatment Plan: Therapeutic Exercise Therapeutic Activity Home Exercise Program Splinting Neuro Re-ed Patient Education Desensitization/Sensory Re-ed Edema Control ADL Training Ultrasound NMES Iontophoresis Paraffin Fluidotherapy MHP Cold Packs Joint Mobilization Soft Tissue Mobilization Kinesiotaping Other (see comments) Electronically Signed By: Leonor Egan OTR/L Please Sign and return to therapist. Thank you once again for your referral.
== END 2024-04-03 09:37 | disposition home or self-care (01) ==
LOC: HO.OT 09:54
PROVIDERS: PCP Internal Medicine
DX: G56.01 Carpal tunnel syndrome, right upper limb (principal)
CPT/HCPCS: 97035; 97110; 97140; 97166; 97535

== ENCOUNTER 2024-05-02 12:54 | Outpatient (AMB) | payer MEDICAID, SELFPAY ==
--- NOTE | 2024-05-02 13:07 | A.OFFVIS_ITS ---
Vital Signs 05/02/24 13:09 Height 5 ft 7 in Weight 201 lb BMI 31.5 Intake Visit Reasons: OV: discuss left CTR Intake Note: Aundrea is a 33 year old right hand dominant female who presents today to discuss left carpal tunnel release. She is s/p Right Carpal Tunnel Release 02/26/24. Patient reports numbness and tingling that occurs some days making it difficult to grab objects, close and open lids. Patient denies finger locking. Color Control Supervisor Required: Yes Color Control Supervisor Services: Color Control Supervisor Present Color Control Supervisor Name: Yvan [id number] Allergies Sulfa (Sulfonamide Antibiotics) [SULFA (SULFONAMIDE ANTIBIOTICS)] Allergy (Unknown, Verified 05/02/24 13:16) UNKNOWN HPI HPI OV: discuss left CTR: Details: Aundrea is a 33 year old right hand dominant female who presents today to discuss left carpal tunnel release. She is s/p Right Carpal Tunnel Release 02/26/24. Patient reports numbness and tingling in the left hand that occurs some days making it difficult to grab objects, close and open lids. Patient denies finger locking. Reports complete symptom resolution after right carpal tunnel release. [facility] Medical History Pre-diabetes Asthma Social History Alcohol intake: never Patient Tobacco Use Status: Never used Tobacco Review of Systems Const All systems reviewed & are unremarkable except as noted in HPI and below Physical Exam Vital Signs: BMI result Body Mass Index 31.5 Extrem Other: Patient is alert, oriented, and in no acute distress. Neuro: Normal sensation of the tips of all digits of the left hand at this time Vascular: Cap refill brisk Pain: No pain with range of motion of the left hand ROM: Patient is able to flex and extend all digits of the left hand fully and without difficulty Skin: No lacerations or abrasions. General: No ecchymosis, erythema, or evidence of infection. Psych: Appears grossly normal Affect normal Attitude cooperative Results Reviewed Results Reviewed: IMPRESSION: 1. This is an abnormal study. 2. There is electrodiagnostic evidence for bilateral moderate-severe median neuropathy at the wrist, consistent with carpal tunnel syndrome. 3. There is no electrodiagnostic evidence for ulnar neuropathy, brachial plexopathy, or cervical radiculopathy. Thank you for your kind referral. Linda Claire MD, CHELLE Assessment & Plan Assessment & Plan (1) Carpal tunnel syndrome of left wrist: Code(s): G56.02 - Carpal tunnel syndrome, left upper limb Category: Medical Plan 1. Carpal tunnel syndrome, left Symptoms intermittent, daily, worse at night I educated the patient about the condition. I discussed both operative and nonoperative treatment options. The patient would like to proceed with surgery. The risks and benefits of operative treatment were discussed with the patient and the patient wishes to proceed with surgery. These risks include, but are not limited to, risk of damage to blood vessels, nerves, tendons, infection, recurrence, incomplete relief of preoperative symptoms, persistent pain, possible need for further surgery, and the risks associated with regional blocks and/or anesthesia. Plan is to take the patient to the operating room at some point in the next few weeks for the following procedures: 1. Left carpal tunnel release under local All of the preoperative paperwork including the consent was discussed today. All of the patient's questions were answered in the clinic today. The patient understands that they will be in contact with our carton forming machine helper to discuss scheduling their procedure. Patient reports diabetes, last A1c 6.0 Denies blood thinners, asthma, heart issues, lung issues, kidney issues, or current smoking. Coding Level of Care Code Est Pt Level 4 (97215) Diagnoses Carpal tunnel syndrome of left wrist G56.02
[2024-05-02 13:09] VITALS: BMI 31.5
== END 2024-05-02 13:25 | disposition home or self-care (01) ==
LOC: HO.HOS 12:54
PROVIDERS: PCP Internal Medicine
DX: G56.02 Carpal tunnel syndrome, left upper limb (principal)
CPT/HCPCS: 99213

== ENCOUNTER → 2024-05-02 12:54 | Outpatient (BNVA) | payer MEDICAID, SELFPAY | PROVIDERS: PCP Internal Medicine | DX: G56.02 Carpal tunnel syndrome, left upper limb (principal) | CPT/HCPCS: 99212 ==

== ENCOUNTER 2024-05-28 10:29 | Day surgery (SDC) | payer MEDICAID, SELFPAY ==
--- OUTSIDE RECORDS SUMMARY | 2024-05-14 14:09 | XMS_ITS | Clinical Summary ---
Author Organization [facility] Address [address] [place] [address] Phone Care Team Providers Care Card Checker Name Role Phone Deirdre Nguyen MD Primary Care Provider [phone] Allergies Active Allergy Reactions Criticality Noted Date Comments Sulfa (Sulfonamide Antibiotics) Swelling Medium 06/08 Medications clotrimazole- betamethasone (LOTRISONE) 1-0.05 % cream Apply topically to affected area twice daily for no more than 10 days 01/01/20 Active fluticasone HFA (Flovent HFA) 110 mcg/actuation inhaler INHALE 2 PUFFS BY MOUTH TWICE DAILY. RINSE MOUTH AFTER USING. 12/23/19 Active NON FORMULARY PHARMACY ADMINISTERED 12/09/19 Active omeprazole (PriLOSEC) [address] capsule TAKE 1 CAPSULE BY MOUTH EVERY DAY BEFORE A MEAL 12/23/19 Active phenazopyridi ne (PYRIDIUM) 100 mg tablet TAKE 1 TABLET BY MOUTH THREE TIMES DAILY NEEDED FOR PAIN 12/30/19 Active predniSONE (DELTASONE) 20 mg tablet TAKE 2 TABLETS BY MOUTH EVERY DAY 10/28/19 Active albuterol HFA (ProAir HFA) 90 mcg/actuation inhaler INHALE 2 PUFFS BY MOUTH EVERY 4 TO 6 HOURS NEEDED 12/23/19 Active cholecalcifer ol (VITAMIN D-3) 25 mcg (1,000 unit) capsule Take 1 Capsule by mouth daily. 10/18/19 Active Vitamin Plus Low Iron 27 mg iron- 1 mg tablet TAKE 1 TABLET BY MOUTH EVERY DAY 90 each 3 04/23/19 Active fluconazole (DIFLUCAN) 150 mg tablet Take one tab today, if no improvement in 3 dys then take 2nd dose 01/01/20 025 Discontinued(T herapy completed) nitrofurantoi n, macrocrystal- monohydrate, (MACROBID) 100 mg capsule TAKE 1 CAPSULE BY MOUTH EVERY TWELVE HOURS FOR 7 DAYS. TAKE WITH FOOD 12/30/19 025 Discontinued(T herapy completed) vitamin (VOL-TAB) 29 mg iron- 1 mg tablet Take 1 Tab by mouth daily. 01/01/20 025 Discontinued(R eorder) vitamin (VOL-TAB) 29 mg iron- 1 mg tablet Take 1 tablet by mouth 1 (one) time each day. 90 tablet 3 04/19/19 025 Discontinued Active Problems Problem Noted Date Diagnosed Date Pap smear abnormality of cervix with ASCUS favor ing benign 01/08/2020 Overview (01/17/2024): 12/2019 PAP Ascus, Neg HPV Per ASCCP guidelines, repeat co-testing 3 yrs 03/17/2021 PAP Ascus, Neg HPV Repeat co-testign 3 yrs Encounters Date Type Department Care Team Description 04/18/2024 2:30 PM EDT Office Visit Obstetrics & Gynecology - [address] [address] Monika Graham CNM Encounter for well woman exam with routine gynecological exam (Primary Dx); Screening breast examination; Screening for cervical cancer; Obesity without serious comorbidity, unspecified class, unspecified obesity type from Last 3 Months Immunizations Name Administration Dates Next Due Hepatitis A-Hepatitis B Adult (Twinrix) 18yo and older 03/08/2017,12/20/2016 [employer] SARS-CoV-2 COVID -19, vector-nr, [id number], preservative free 06/19/2019 Surgical History Surgery Date Site/Laterality Comments CHOLECYSTECTOMY 2016 PROCEDURE: HISTORICAL CHOLECYSTECTOMY CARPAL TUNNEL RELEASE 02/26/2024 Right Medical History Medical History Date Comments Asthma [...] drink = 0.6 oz pur e alcohol) Comments Unknown Sex and Gender Information Value Date Recorded Sex Assigned at Not on file Legal Sex Female 4:56 AM EST Gender Identity Not on file Sexual Orientation Not on file Occupation Industry Job Start Date Job End Date Unemployed Not on file Not on file Not on file Obstetrics History Para Term AB IAB SAB Ectopic Multiple Livin g Live Births 3 3 2 1 3 3 Date Outcome GA Total Labor Labor/2nd/3rd Weight Sex Type Anes PTL Belkis A1 A5 Name Clin 2004 Term M Vag-S pont Living 2006 35w 0d M Vag-S pont Living 2013 Term M Vag-S pont Living Last Filed Vital Signs Vital Sign Reading Time Taken Comments Blood Pressure 112/72 04/18/2024 2:24 PM EDT Pulse 89 04/18/2024 2:24 PM EDT Temperature - - Respiratory Rate - - Oxygen Saturation - - Inhaled Oxygen Concentration - - Weight 97.8 kg (215 lb 9.6 oz) 04/18/2024 2:24 P M EDT Height 170.2 cm (5' 7 ) 04/18/2024 2:24 PM EDT Body Mass Index 33.77 04/18/2024 2:24 PM EDT Plan of Treatment Health Maintenance Due Date Last Done Comments Social Influencers of Health Screening 01/15/2022 Depression Screening 02/07/2025 02/08/2024 Hypertension/CHF/CAD Annual BMP Blood Test 04/18/2025 04/18/2024 Cholesterol Screening (Lipid Panel) 08/31/2026 08/31/2021 Cervical Cancer Screening: HPV 04/18/2029 04/18/2024, 10/17/2022 DTaP,Tdap,and Td Vaccines (2 - Td or Tdap) 01/11/2031 01/11/2021 Hepatitis A Vaccines Aged Out 05/26/2022, 03/08/2017, 12/20/2016 No longer eligible based on patient's age to complete this topic Hepatitis B Vaccines Completed 05/26/2022, 03/08/2017, 12/20/2016 Pneumococcal Vaccine: Pediatrics (0 to 5 Years) and At-Risk Patients (6 to 64 Years) Completed 05/26/2022 HIV Screening Completed 10/20/2022, 09/30/2019 Hepatitis C Screening Completed 10/20/2022 COVID-19 Vaccine Completed 11/07/2023, 08/2021, 03/19/2021, Additional [...] patient's age to complete this topic Meningococcal B Vaccine Aged Out No l onger eligible based on patient's age to complete this topic RSV Immunization Patients Under 20 months Aged Out No longer eligible based on patient's age to complete this topic Varicella Vaccines Aged Out No longer eligible based on patient's age to complete this topic Procedures Procedure Name Priority Date/Time Associated Diagnosis Comments HEMOGLOBIN A1C Routine 04/18/2024 3:04 PM EDT Encounter for well woman exam with routine gynecological exam Obesity without serious comorbidity, unspecified class, unspecified obesity type LUTEINIZING HORMONE Routine 04/18/2024 3 :04 PM EDT Encounter for well woman exam with routine gynecological exam Obesity without serious comorbidity, unspecified class, unspecified obesity type FOLLICLE STIMULATING HORMONE Routine 04/18/2024 3:04 PM EDT Encounter for well woman exam with routine gynecological exam Obesity without serious comorbidity, unspecified class, unspecified obesity type THYROID STIMULATING HORMONE WITH REFLEX TO FREE T4 AND FREE T3 Routine 04/18/2024 3:04 PM EDT Encounter for well woman exam with routine gynecological exam Obesity without serious comorbidity, unspecified class, unspecified obesity type COMPREHENSIVE METABOLIC PANEL Routine 04/18/2024 3:04 PM EDT Encounter for well woman exam with routine gynecological exam Obesity without serious comorbidity, unspecified class, unspecified obesity type PAP SMEAR Routine 04/18/2024 3:01 PM EDT Encounter for well woman exam with routine gynecological exam Screening for cervical cancer HPV WITH REFLEX GENOTYPE Routine 04/18/2024 3:01 PM EDT Encounter for well woman exam with routine gynecological exam Screening for cervical cancer HEPATITIS C SCREENING Routine 10/20/2022 HIV SCREENING Routine 10/20/2022 from Last 3 Months or Most Recently Relevant to Health Maintenance Results * Thyroid stimulating hormone with reflex to free t4 and free t3 (04/18/2024 3:04 PM EDT) Pathologist [facility] TSH 1.13 0.40 - 4.00 mcIU/mL LAB CHEMISTRY METHOD 04/18/2024 5:[address] [facility] Blood Venous blood specimen / Unknown Venipuncture / Unknown 04/18/2024 3:04 PM EDT 04/18/2024 4:33 PM EDT us Monika Graham [facility] BLOOD ORDERABLES Final Re sult [facility] [address] [place] [address], * Hemoglobin A1c (04/18/2024 3:04 PM EDT) Hemoglobin A1C 6.3 <6.5 % LAB CHEMISTRY METHOD 04/18/2024 8:[address] [facility] Mean Bld Glu Estim. 134 mg/dL LAB CHEMISTRY METHOD 04/18/2024 8:[address] [facility] Blood Venous blood specimen / Unknown Venipuncture / Unknown 04/18/2024 3:04 PM EDT 04/18/2024 4:35 PM EDT Monika Graham [facility] BLOOD ORDERABLES Final Re sult Performing Organization Address [facility]/ZIP Co de Phone Number [facility] [address] [place] [address], [place] [phone] * Luteinizing hormone (04/18/2024 3:04 PM EDT) Pathologist [facility] Luteinizing Hormone 4.7 See Comment mIU/mL LAB CHEMISTRY METHOD 04/18/2024 5:[address] [facility] Blood Venous blood specimen / Unknown Venipuncture / Unknown 04/18/2024 3:04 PM EDT 04/18/2024 4:[address] [facility] - 04/18/2024 5:14 PM EDT LH REFERENCE RANGES (MIU/ML) FEMALES NORMALLY MENSTRUATING: FOLLICULAR PHASE ??1.9 - 12.8 MIDCYCLE PEAK ?22.8 - 76.1 LUTEAL PHASE ?0.6 - 13.5 POSTMENOPAUSAL: ON HRT ?1.1 - ??52.4 UNTREATED ? 8.6 - ??61.8 Monika Graham [facility] BLOOD ORDERABLES Final Re sult Performing Organization Address [facility]/ZIP Co de Phone Number [facility] [address] [place] [address], [place] [phone] * Follicle stimulating hormone (04/18/2024 3:04 PM EDT) Pathologist [facility] Follicle Stimulating Hormone 4.7 See Comment mIU/mL LAB CHEMISTRY METHOD 04/18/2024 5:[address] [facility] Comment: FSH REFERENCE RANGES (MIU/ML) FEMALES NORMALLY MENSTRUATING: FOLLICULAR PHASE ??2.3 - 12.6 MIDCYCLE PEAK ? 5.2 - 17.5 LUTEAL PHASE ?1.7 - ??9.5 POSTMENOPAUSAL: ON HRT ?5.9 - ??72.8 UNTREATED ?12.7 - 132.2 Blood Venous blood specimen / Unknown Venipuncture / Unknown 04/18/2024 3:04 PM EDT 04/18/2024 4:33 PM EDT Monika Graham [facility] BLOOD ORDERABLES Final Re sult [facility] [address] [place] [address], * Comprehensive metabolic panel (04/18/2024 3:04 PM EDT) [facility] Sodium 138 133 - 145 mmol/L LAB CHEMISTRY [facility] Potassium 4.3 3.5 - 5.5 mmol/L LAB CHEMISTRY METHOD 04/18[facility]2024 5[facility] Chloride 104 96 - 110 mmol/L LAB CHEMISTRY METHOD 04/18/2024 5:13 PM [facility] CO2 26 21 - 32 mmol/L LAB CHEMISTRY METHOD 04/18/2024 5:13 PM [facility] Anion Gap 8 3 - 11 LAB CHEMISTRY METHOD 04/18/2024 5:13 PM [facility] Glucose 91 70 - 100 mg/dL LAB CHEMISTRY METHOD 04/18/2024 5:13 PM [facility] BUN 14 5 - 25 mg/dL LAB CHEMISTRY METHOD 04/18/2024 5:13 PM [facility] Creatinine 0.76 0.50 - 1.10 mg/dL LAB CHEMISTRY METHOD 04/18/2024 5:13 PM [facility] eGFR 105 >=60 mL/min/1. 73m2 LAB CHEMISTRY METHOD 04/18/2024 5:13 PM [facility] Comment:Calculation based on the??Chronic Kidney Disease Epidemiology Collaboration (CKD-EPI) equation refit??without adjustment for race. BUN/Creatinine Ratio 18.4 LAB CHEMISTRY METHOD 04/18/2024 5:13 PM [facility] Calcium 9.5 8.5 - 10.5 mg/dL LAB CHEMISTRY METHOD 04/18/2024 5:13 PM [facility] AST (SGOT) 15 10 - 42 unit/L LAB CHEMISTRY METHOD 04/18/2024 5:13 PM [facility] ALT (SGPT) 21 10 - 60 unit/L LAB CHEMISTRY METHOD 04/18/2024 5:13 PM [facility] Alkaline Phosphatase 76 42 - 121 unit/L LAB CHEMISTRY METHOD 04/18/2024 5:13 PM [facility] Total Protein 8.0 6.0 - 8.0 g/dL LAB CHEMISTRY METHOD 04/18/2024 5:13 PM [facility] Albumin 4.0 3.2 - 5.0 g/dL LAB CHEMISTRY METHOD 04/18/2024 5:13 PM [facility] Total Bilirubin 0.3 0.0 - 1.4 mg/dL LAB CHEMISTRY METHOD 04/18/2024 5:13 PM [facility] Blood Venous blood specimen / Unknown Venipuncture / Unknown 04/18/2024 3:04 PM EDT 04/18/2024 4:33 PM EDT Monika Graham [facility] BLOOD ORDERABLES Final Re sult [facility] [address] [place] [address], [place] [phone] * HPV with reflex genotype (04/18/2024 3:01 PM EDT) HPV Negative Negative LAB MICROBIOLOGY METHOD 04/19/2024 1:[address] [facility] Brushing/Spatula Cervix uteri structure / Unknown 04/18/2024 3:01 PM EDT 04/19/2024 6:55 AM EDT [facility] MOLECULAR DIAGNOSTICS ORD ERABLES Final Result Performing Organization Address [facility]/ZIP Co de Phone Number [facility] [address] [place] [address], [place] [phone] * Pap smear (04/18/2024 3:01 PM EDT) Interpretation Negative for intraepithelial lesion or malignancy 04/22/2024 2:[address] [facility] General Categorization Negative 04/22/2024 2:[address] [facility] Other Findings Reactive cellular changes associated with inflammation 04/22/2024 2:[address] [facility] LMP 03/26/2024 04/22/2024 2:[address] [facility] Specimen Adequacy Satisfactory for evaluation, endocervical/yuen sformation zone component present 04/22/2024 2:[address] [facility] Pap Methodology Liquid Based Pap Test 04/22/2024 2:[address] [facility] Disclaimer The Pap test is a screening test which carries an inherent false negative rate. These test results should be correlated with the patient's clinical findings and history. This Pap test was processed using an automated screening system. Technical cytopathology services provided by [facility], at [address] [place] [address] ([facility] # [id number]/Rafal Zamora MD, Harness Fitter.) 04/22/2024 2:[address] [facility] Console Pap Interpretation Reported 04/22/2024 2:[address] [facility] Brushing/Spatula Cervix uteri structure / Unknown 04/18/2024 3:01 PM EDT 04/19/2024 6:55 AM EDT Monika GARCIA LAB CYTOLOGY ORDERABLES Final Result [facility]) [facility] [address] [place] [address], * HIV Screening (10/20/2022) HIV Screening Abstracted Historical Provider HEALTH MAINTENANCE Final Result * Hepatitis C Screening (10/20/2022) Hepatitis C Screening Abstracted Historical Provider HEALTH MAINTENANCE Final Result from Last 3 Months or Most Recently Relevant to Health Maintenance Insurance MEDICAID - [place] Care Teams Card Checker Relationship Specialty Start Date End Date [place]au, MD Deirdre [address] [place] [phone] PCP - General Internal Medicine 02/20/17
[2024-05-28 11:22] VITALS: BMI 33.8
[2024-05-28 11:25] VITALS: BP 131/68; PULSE 89; RESP 18; TEMP 36.7; O2SAT 100
--- NOTE | 2024-05-28 12:07 | P.OP_ITS ---
Operative Note Operative Note Date of Service: 05/28/24 Narrative: Preop diagnosis: 1. Left Carpal tunnel syndrome Postop diagnosis: same Procedure: 1. Left Carpal tunnel release Surgeon: Jessica Posey MD Tool And Production Planner: Amor SANDHU Anesthesia: local block using 1% lidocaine with epinephrine Findings: Thickened transverse carpal ligament. EBL: Less than 5 mL Specimens: None Complications: None Disposition: Brought to recovery room in stable condition Plan: Follow-up for 10-14 days for wound check and suture removal Indications: The patient is 33 years old, with left carpal tunnel syndrome that has been unresponsive to nonoperative management. The risks and benefits of operative treatment including but not limited to risk of damage to blood vessels, nerves, tendons, infection, persistent pain, persistent symptoms, or possible need for additional surgery were discussed with the patient and the patient wishes to proceed with surgery. Procedure: Once consent was obtained a local block was performed using a combination of 1% lidocaine with epinephrine. The patient was then brought back to the operating suite and placed on the operative table in supine position. The left upper extremity was prepped and draped in a standard surgical fashion. Once assured that we had a good block, a 2.0 cm longitudinal incision was made centered over the carpal tunnel. The incision was made through the skin to the subcutaneous tissues using a #15 blade. Dissection was made down to the level of the transverse carpal ligament with care being taken to protect the palmar cutaneous nerve. Once the transverse carpal ligament was clearly visualized, a longitudinal incision was made in the transverse carpal ligament 1st using a #15 blade, then using tenotomy scissors under direct visualization. Care was taken to look for and protect the motor branch of the median nerve when seen in this area. Once satisfied with our carpal tunnel release the wound was copiously irrigated with normal saline and hemostasis was obtained with a brief period of local pressure. The skin edges were reapproximated with some 5.0 nylon suture material and a sterile dressing was applied. The patient appears to have tolerated the procedure well and with no complications. All digits were well vascularized at the conclusion of the case.
--- NOTE | 2024-05-28 12:07 | MHC.SHP ---
Pre-Procedural Eval Section A - 24 Hr Update-Section A only Date of Service: 05/28/24 The patient is an INPATIENT: No Changes since office visit: No Cold of Flu in the past 2 weeks, No New Medical Problems, No Changes in Medication and No Patient answered all questions The patient has been examined within 24 hours of the surgical procedure. The History & Physical has been completed within 30 days and I have reviewed it.: Yes Section B - Complete if H&P > 30 days Chief Complaint: Carpal tunnel syndrome, left upper limb Allergies: Allergies Allergy/AdvReac Type Severity Reaction Status Date / Time Sulfa (Sulfonamide Allergy Unknown UNKNOWN Verified 05/28/24 11:28 Antibiotics) [SULFA (SULFONAMIDE ANTIBIOTICS)] Plan Diagnosis/Plan: Unchanged I have reviewed the history and physical and performed a pertinent physical examination on my patient. No changes have occurred unless specified. Time Spent With Patient Time: Total time managing care of this patient today ____ minutes.
[2024-05-28 12:55] VITALS: BP 129/80; PULSE 67; RESP 18; TEMP 36.3; O2SAT 98
== END 2024-05-28 12:57 | disposition home or self-care (01) ==
PROVIDERS: PCP Internal Medicine; Visit Provider Orthopaedic Surgery
PROC: (CPT 64721; principal; 2024-05-28 14:50)
DX: G56.02 Carpal tunnel syndrome, left upper limb (principal); R20.0 Anesthesia of skin; R20.2 Paresthesia of skin; Z88.2 Allergy status to sulfonamides; Z98.890 Other specified postprocedural states; R73.03 Prediabetes; J45.909 Unspecified asthma, uncomplicated
CPT/HCPCS: 64721; J0171; J2003

== ENCOUNTER → 2024-05-28 10:29 | Outpatient (BNV) | payer MEDICAID, SELFPAY | PROVIDERS: PCP Internal Medicine; Visit Provider Orthopaedic Surgery | DX: G56.02 Carpal tunnel syndrome, left upper limb (principal) | CPT/HCPCS: 64721 ==

== ENCOUNTER 2024-06-10 14:00 | Outpatient (AMB) | payer MEDICAID, SELFPAY ==
[2024-06-10 14:28] VITALS: BMI 33.8
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
--- OUTSIDE RECORDS SUMMARY | 2024-06-10 15:36 | XMS_ITS | Encounter Summary ---
Author Organization [employer] Address [address] [place] [address] Care Team Providers Care Production Planner Scheduler Name Role Phone Rosenda Hernandez MD Primary Care Provide r Encounter Details Date Type Department Care Team (Late st Contact Info) Description 09/22/2023 Telephone [facility] [address] [place] [address] Janeen Ocasio RN Social History Tobacco Use [...] 8:31 AM EDT TC to patient via building economist RISHABH Corley to discuss paperwork from patient [...] Care Team (Late st Contact Info) Description 06/21/2024 11:00 AM EDT Telemedicine [facility] [address] [place] [id number] Rosenda Hernandez MD [address] [place] [address] documented as of this encounter Goals Goal Patient Goal Type Associated Problems Recent Progress Patient-Stated? Author Blood Pressure < 140/90 Blood Pressure 145/94( 025 2:41 PM EDT) No Arianna Noel, PharmD documented as of this encounter Visit Diagnoses Not on filedocumented in this encounter Additional Health Concerns Assessment Noted Time PHQ-9 Depression Total Score: 22 024 3:56 PM EDT documented as of this encounter Care Teams Production Planner Scheduler Relationship Specialty Start Date End Date Rosenda Hernandez MD [address] [place] [address] PCP - General Family Medicine 12/20/18 Agueda Chaves Sewer ConnectorCold Storage Superintendent 03/20/23 Agueda Marie Editor In ChiefCold Storage Superintendent 10/04/23 documented as of this encounter
--- OUTSIDE RECORDS SUMMARY | 2024-06-10 15:36 | XMS_ITS | Encounter Summary ---
Author Organization [employer] Address [address] [place] [address] Care Team Providers Care Strand Buncher Fine Wire Name Role Phone Rosenda Hernandez MD Primary Care Provide r Encounter Details Date Type Department Care Team (Late st Contact Info) Description 05/06/2024 Orders Only [facility] [address] [place], [place] [id number] Monica Vora Social History Tobacco Use Types Packs/Day Years [...] Patient Health Questionnaire-2 Score 0 02/08/2024 Comments No Sex and Gender Information Value Date Recorded Sex Assigned at Female 12/06/2021 10:26 AM EDT Legal Sex Female 10:26 AM EDT Gender Identity Female 12/06/2021 10:26 AM EDT Sexual Orientation Choose not to disclose 2021 10:26 AM EDT documented as of this encounter Plan of Treatment Upcoming Encounters Date Type Department Care Team (Late st Contact Info) Description 06/21/2024 11:00 AM EDT Telemedicine [facility] [address] [place], [place] [phone] Rosenda Hernandez MD [address] [place] [address] documented as of this encounter Goals Goal Patient Goal Type Associated Problems Recent Progress Patient-Stated? Author Blood Pressure < 140/90 Blood Pressure 145/94( 025 2:41 PM EDT) No Arianna Noel, PharmD documented as of this encounter Procedures Procedure Name Priority Date/Time Associated Diagnosis Comments PAP/HPV Routine 04/18/2024 12:00 AM EDT documented in this encounter Results * PAP/HPV (04/18/2024 12:00 AM EDT) Pap Smear 1. NILM 1. NILM [facility] HPV Not Detected Undetected, Indeterminat e, Quantitative , Not Detected [facility] Narrative [facility] - 04/18/2024 12:00 AM EDT Pap completed at [facility] everywhere note from 04/18/2024 us Historical Provider HEALTH MAINTENANCE Edited Result - Final [facility] documented in this encounter Visit Diagnoses Not on filedocumented in this encounter Additional Health Concerns Assessment Noted Time PHQ-9 Depression Total Score: 0 02/07/19 25 9:31 AM EST documented as of this encounter Care Teams Strand Buncher Fine Wire Relationship Specialty Start Date End Date Rosenda Hernandez MD [address] [place] [address] PCP - General Family Medicine 12/20/18 Agueda Chaves LinemanCity Distribution Clerk 03/20/23 Agueda Marie Mine Exploration EngineerCity Distribution Clerk 10/04/23 documented as of this encounter
--- OUTSIDE RECORDS SUMMARY | 2024-06-10 15:36 | XMS_ITS | Clinical Summary ---
Author Organization [facility] Address [address] [place] [address] Phone Care Team Providers Care Soil Fertility Specialist Name Role Phone Deirdre Nguyen MD Primary Care Provider [phone] Allergies Active Allergy Reactions Criticality Noted Date Comments Sulfa (Sulfonamide Antibiotics) Swelling Medium 06/08 Medications clotrimazole-be tamethasone (LOTRISONE) 1-0.05 % cream Apply topically to affected area twice daily for no more than 10 days 0 Active fluticasone HFA (Flovent HFA) 110 mcg/actuation inhaler INHALE 2 PUFFS BY MOUTH TWICE DAILY. RINSE MOUTH AFTER USING. 0 Active NON FORMULARY PHARMACY ADMINISTERED 0 Active omeprazole (PriLOSEC) [address] capsule TAKE 1 CAPSULE BY MOUTH EVERY DAY BEFORE A MEAL 0 Active phenazopyridine (PYRIDIUM) 100 mg tablet TAKE 1 TABLET BY MOUTH THREE TIMES DAILY NEEDED FOR PAIN 0 Active predniSONE (DELTASONE) 20 mg tablet TAKE 2 TABLETS BY MOUTH EVERY DAY 0 Active albuterol HFA (ProAir HFA) 90 mcg/actuation inhaler INHALE 2 PUFFS BY MOUTH EVERY 4 TO 6 HOURS NEEDED 0 Active cholecalciferol (VITAMIN D-3) 25 mcg (1,000 unit) capsule Take 1 Capsule by mouth daily. 3 Active Vitamin Plus Low Iron 27 mg iron- 1 mg tablet TAKE 1 TABLET BY MOUTH EVERY DAY 90 each 3 5 Active Active Problems Problem Noted Date Diagnosed Date Pap smear abnormality of cervix with ASCUS favor ing benign 01/08/2020 Overview (01/17/2024): 12/2019 PAP Ascus, Neg HPV Per ASCCP guidelines, repeat co-testing 3 yrs 03/17/2021 PAP Ascus, Neg HPV Repeat co-testign 3 yrs Encounters Date Type Department Care Team Description 04/18/2024 2:30 PM EDT Office Visit Obstetrics & Gynecology - [address] [address] Monika Graham CNM Encounter for well woman exam with routine gynecological exam (Primary Dx); Screening breast examination; Screening for cervical cancer; Obesity without serious comorbidity, unspecified class, unspecified obesity type from Last 3 Months Immunizations Name Administration Dates Next Due Hepatitis A-Hepatitis B Adult (Twinrix) 18yo and older 03/08/2017,12/20/2016 [employer] SARS-CoV-2 COVID -19, vector-nr, rS-Ad26, preservative free [...] free t3 (04/18/2024 3:04 PM EDT) Pathologist [facility] TSH 1.13 0.40 - 4.00 mcIU/mL LAB CHEMISTRY METHOD 04/18/2024 5:22 PM EDT [facility] Blood Venous blood specimen / Unknown Venipuncture / Unknown 04/18/2024 3:04 PM EDT 04/18/2024 4:33 PM EDT Monika Graham [facility] BLOOD ORDERABLES Final Re sult Performing Organization Address City/[facility]/ZIP Co de Phone Number [facility] [address] [place] [address], [place] [phone] * Hemoglobin A1c (04/18/2024 3:04 PM EDT) [facility] Hemoglobin A1C 6.3 <6.5 % LAB CHEMISTRY METHOD 04/18/2024 8:48 PM EDT [facility] Mean Bld Glu Estim. 134 mg/dL LAB CHEMISTRY METHOD 04/18/2024 8:48 PM EDT [facility] Blood Venous blood specimen / Unknown Venipuncture / Unknown 04/18/2024 3:04 PM EDT 04/18/2024 4:35 PM EDT Monika Graham [facility] BLOOD ORDERABLES Final Re sult [facility] [address] [place] [address], [place] [phone] * Luteinizing hormone (04/18/2024 3:04 PM EDT) [facility] Luteinizing Hormone 4.7 See Comment mIU/mL LAB CHEMISTRY METHOD 04/18/2024 5:14 PM EDT [facility] Blood Venous blood specimen / Unknown Venipuncture / Unknown 04/18/2024 3:04 PM EDT 04/18/2024 4:33 PM EDT Narrative [facility] - 04/18/2024 5:14 PM EDT LH REFERENCE RANGES (MIU/ML) FEMALES NORMALLY MENSTRUATING: FOLLICULAR PHASE ??1.9 - 12.8 MIDCYCLE PEAK ?22.8 - 76.1 LUTEAL PHASE ?0.6 - 13.5 POSTMENOPAUSAL: ON HRT ?1.1 - ??52.4 UNTREATED ? 8.6 - ??61.8 us Monika GARCIA LAB BLOOD ORDERABLES Final Re sult [facility] [address] [place] [address], * Follicle stimulating hormone (04/18/2024 3:04 PM EDT) [facility] Follicle Stimulating Hormone 4.7 See Comment mIU/mL LAB CHEMISTRY METHOD 04/18/2024 5:33 PM EDT [facility] Comment: FSH REFERENCE RANGES (MIU/ML) FEMALES NORMALLY MENSTRUATING: FOLLICULAR PHASE ??2.3 - 12.6 MIDCYCLE PEAK ? 5.2 - 17.5 LUTEAL PHASE ?1.7 - ??9.5 POSTMENOPAUSAL: ON HRT ?5.9 - ??72.8 UNTREATED ?12.7 - 132.2 Blood Venous blood specimen / Unknown Venipuncture / Unknown 04/18/2024 3:04 PM EDT 04/18/2024 4:33 PM EDT us Monika Graham CN LAB BLOOD ORDERABLES Final Re sult [facility] [address] [place] [address], [place] [phone] * Comprehensive metabolic panel (04/18/2024 3:04 PM EDT) Sodium 138 133 - 145 mmol/L LAB CHEMISTRY METHOD 04/18/2024 5:13 PM EDT [facility] Potassium 4.3 3.5 - 5.5 mmol/L LAB CHEMISTRY METHOD 04/18/2024 5:13 PM [facility] Chloride 104 96 - 110 mmol/L LAB CHEMISTRY METHOD 04/18/2024 5:13 PM [facility] CO2 26 21 - 32 mmol/L LAB CHEMISTRY METHOD 04/18/2024 5:13 PM [facility] Anion Gap 8 3 - 11 LAB CHEMISTRY METHOD 04/18/2024 5:13 PM [facility] Glucose 91 70 - 100 mg/dL LAB CHEMISTRY METHOD 04/18/2024 5:13 PM [facility] BUN 14 5 - 25 mg/dL LAB CHEMISTRY METHOD 04/18/2024 5:13 PM [facility] Creatinine 0.76 0.50 - 1.10 mg/dL LAB CHEMISTRY METHOD 04/18/2024 5:13 PM [facility] eGFR 105 >=60 mL/min/1. 73m2 LAB CHEMISTRY METHOD 04/18/2024 5:13 PM [facility] Comment:Calculation based on the??Chronic Kidney Disease Epidemiology Collaboration (CKD-EPI) equation refit??without adjustment for race. BUN/Creatinine Ratio 18.4 LAB CHEMISTRY METHOD 04/18/2024 5:13 PM [facility] Calcium 9.5 8.5 - 10.5 mg/dL LAB CHEMISTRY METHOD 04/18/2024 5:13 PM EDT [facility] AST (SGOT) 15 10 - 42 unit/L LAB CHEMISTRY METHOD 04/18/2024 5:13 PM EDT [facility] ALT (SGPT) 21 10 - 60 unit/L LAB CHEMISTRY METHOD 04/18/2024 5:13 PM EDT [facility] Alkaline Phosphatase 76 42 - 121 unit/L LAB CHEMISTRY METHOD 04/18/2024 5:13 PM EDT [facility] Total Protein 8.0 6.0 - 8.0 g/dL LAB CHEMISTRY METHOD 04/18/2024 5:13 PM EDT [facility] Albumin 4.0 3.2 - 5.0 g/dL LAB CHEMISTRY METHOD 04/18/2024 5:13 PM EDT [facility] Total Bilirubin 0.3 0.0 - 1.4 mg/dL LAB CHEMISTRY METHOD 04/18/2024 5:13 PM EDT [facility] Blood Venous blood specimen / Unknown Venipuncture / Unknown 04/18/2024 3:04 PM EDT 04/18/2024 4:33 PM EDT us Monika GARCIA LAB BLOOD ORDERABLES Final Re sult [facility] [address] [place] [address], * HPV with reflex genotype (04/18/2024 3:01 PM EDT) HPV Negative Negative LAB MICROBIOLOGY METHOD 04/19/2024 1:45 PM EDT [facility] Brushing/Spatula Cervix uteri structure / Unknown 04/18/2024 3:01 PM EDT 04/19/2024 6:55 AM EDT us Monika Graham [facility] MOLECULAR DIAGNOSTICS ORD ERABLES Final Result [facility] [address] [place] [address], * Pap smear (04/18/2024 3:01 PM EDT) Interpretation Negative for intraepithelial lesion or malignancy 04/22/2024 2:41 PM EDT [facility] General Categorization Negative 04/22/2024 2:41 PM EDT [facility] Other Findings Reactive cellular changes associated with inflammation 04/22/2024 2:41 PM EDT [facility] LMP 03/26/2024 04/22/2024 2:41 PM EDT [facility] Specimen Adequacy Satisfactory for evaluation, endocervical/yuen sformation zone component present 04/22/2024 2:41 PM EDT [facility] Pap Methodology Liquid Based Pap Test 04/22/2024 2:41 PM EDT [facility] Disclaimer The Pap test is a screening test which carries an inherent false negative rate. These test results should be correlated with the patient's clinical findings and history. This Pap test was processed using an automated screening system. Technical cytopathology services provided by [facility], at [address] [place] [id number] (CLIA # [id number]/Rafal Zamora MD, Tea Leaf Reader.) 04/22/2024 2:41 PM EDT [facility] Console Pap Interpretation Reported 04/22/2024 2:41 PM EDT [facility] Brushing/Spatula Cervix uteri structure / Unknown 04/18/2024 3:01 PM EDT 04/19/2024 6:55 AM EDT us Monika Graham CN LAB CYTOLOGY ORDERABLES Final Result [facility] ([email or web address] [address] [place] [address], [place] [phone] * HIV Screening (10/20/2022) HIV Screening Abstracted Historical Provider HEALTH MAINTENANCE Final Result * Hepatitis C Screening (10/20/2022) Hepatitis C Screening Abstracted Historical Provider HEALTH MAINTENANCE Final Result from Last 3 Months or Most Recently Relevant to Health Maintenance Insurance MEDICAID - [place] Care Teams Soil Fertility Specialist Relationship Specialty Start Date End Date Patrick, MD Deirdre [address] [place] [phone] PCP - General Internal Medicine 02/20/17
--- OUTSIDE RECORDS SUMMARY | 2024-06-10 15:37 | XMS_ITS | Clinical Summary ---
Author Organization [employer] Address [address] [place] [address] Care Team Providers Care Bull Chain Operator Name Role Phone Rosenda Hernandez MD [...] mouth if needed for heartburn. OTC Active cyclobenzaprine (Flexeril) 10 MG tablet TAKE 1 TABLET BY MOUTH EVERY 8 HOURS NEEDED FOR MUSCLE SPASM 03/20/19 23 Active ibuprofen 600 MG tablet TAKE 1 TABLET BY MOUTH EVERY 6 HOURS NEEDED FOR PAIN 03/20/19 23 Active carvedilol (Coreg) 25 MG tablet Take 25 mg by mouth with breakfast and with evening meal. Active Blood Glucose Monitoring Suppl ([employer] Lite) w/Device kitIndications:P rediabetes Use to test blood sugar 2 times daily 1 kit 03/14/19 24 Active furosemide (Lasix) 40 MG tablet Take 40 mg by mouth in the morning. 01/21/20 23 Active SUMAtriptan (Imitrex) 25 MG tabletIndication s:Frequent headaches Take 1 tablet (25 mg) by mouth 1 (one) time if needed for migraine for up to 18 doses. May repeat dose once in 2 hours if no relief. Do not exceed 2 doses in 24 hours. 9 tablet 1 06/08/19 24 Active gabapentin (Neurontin) 300 MG capsuleIndicatio ns:Fibromyalgia Take 1 capsule (300 mg) by mouth 3 times daily. 90 capsule 11 07/12/19 24 025 Active Blood Pressure Monitoring (Blood Pressure Cuff) miscIndications: Essential hypertension 1 each Once daily. 1 each 07/12/19 24 Active metFORMIN, OSM, (Fortamet) 500 MG 24 hr tabletIndication s:Prediabetes Take 1 tablet (500 mg) by mouth with evening meal. Do not crush, chew, or split. 30 tablet 07/12/19 24 025 Active triamcinolone (Kenalog) 0.1 % creamIndications :Rash and nonspecific skin eruption Apply topically 2 times daily. 45 g 09/29/19 24 Active lidocaine (Lidoderm) 5 % patchIndications :Bilateral carpal tunnel syndrome Apply 1 patch topically Once per day. Remove & discard patch within 12 hours or as directed by MD. 30 patch 1 11/07/19 24 Active Easy Touch Lancets 33G/Twist miscIndications: Prediabetes TEST BLOOD SUGAR TWICE DAILY 100 each 11 11/29/19 24 Active losartan (Cozaar) 100 MG tabletIndication s:Essential hypertension Take 1 tablet (100 mg) by mouth Once per day. 30 tablet 11 02/07/19 25 026 Active omeprazole (PriLOSEC) [address] capsule TAKE 1 CAPSULE BY MOUTH EVERY MORNING BEFORE A MEAL 90 capsule 1 02/19/19 25 Active montelukast (Singulair) 10 MG tablet TAKE 1 TABLET BY MOUTH EVERY EVENING 90 tablet 1 03/26/19 25 Active hydroCHLOROthiaz mouna (HYDRODiuril) 25 MG tablet TAKE 1 TABLET BY MOUTH EVERY MORNING 90 tablet 1 03/26/19 25 Active albuterol (2.5 MG/3ML) 0.083% nebulizer solutionIndicati ons:Mild intermittent asthma without complication USE 1 AMPULE USING A NEBULIZER EVERY 4 HOURS NEEDED FOR WHEEZING 90 mL 1 04/25/19 25 Active Symbicort 160-4.5 MCG/ACT inhalerIndicatio ns:Moderate persistent asthma without complication INHALE 2 PUFFS BY MOUTH TWICE DAILY IN THE MORNING AND AT BEDTIME, RINSE MOUTH AFTER USING. DO NOT SWALLOW 10.2 g 3 04/25/19 25 Active glucose blood (FREESTYLE LITE) test stripIndications :Prediabetes TEST BLOOD SUGAR TWICE DAILY 100 strip 11 05/07/19 25 Active Tirzepatide-Weig ht Management (Zepbound) 2.5 MG/0.5ML solution auto-injectorInd ications:Class 1 obesity due to excess calories with serious comorbidity and body mass index (BMI) of 34.0 to 34.9 in adult Inject 0.5 mL (2.5 mg) under the skin 1 (one) time per week. 2 mL 05/10/19 25 Active cholecalciferol (D3-1000) 25 MCG (1000 UT) capsule TAKE 1 CAPSULE BY MOUTH EVERY MORNING 90 capsule 1 05/24/19 25 Active cholecalciferol (Vitamin D-3) 25 MCG (1000 UT) capsule take 1 Capsule by Oral route every day 90 capsule 1 12/04/19 24 025 Discontinued Active Problems Problem Noted Date Diagnosed Date Class 1 obesity due to exces s calories with serious comorbidity and body mass index (BMI) of 34.0 to 34.9 in adult 05/09/2024 Assessment & Plan (05/09/2024 4:27 PM EDT): Extensive counseling done about healthy diet and exercise I will prescribe for patient Zepbound 2.5 mg weekly, I could not prescribe for patient phentermine because it is contraindicated with her underlying seizure disorder Missed period 03/27/2024 Assessment & Plan (03/27/2024 4:15 PM EST): Urine test done at the office is negative Viral syndrome 03/27/2024 Assessment & Plan (03/27/2024 4:14 PM EST): Likely viral syndrome I advised to drink plenty of fluids and rest Low vision 11/07/2023 Encounter for preventive health [...] , no joint pain -Requested today to staff development coordinator to help obtaining bilateral wrist braces -hand [...] on gabapentin Seizure 07/12/2023 Assessment & Plan (05/09/2024 4:26 PM EDT): Seems to be under control continue with same medication regimen and follow-up with neurology Assessment & Plan (07/14/2023 3:57 PM EDT): [...] use ibuprofen PRN pain and FU with [facility] next month recommended to waste picker a copy of recent CT scan to FU with [facility]. Sacroiliitis 04/01/2022 Assessment & Plan (04/01/2022 1:42 [...] Assessment & Plan (01/05/2023 1:30 PM EST): Melena improved DC Pepcid and start sucralfate 1 [...] 03/16/2022 Moderate persistent asthma without complication 03/16/2022 Assessment & Plan (05/09/2024 4:26 PM EDT): Stable continue with same medication regimen and same interventions Obstructive sleep apnea syndrome 03/16/2022 Prediabetes 03/16/2022 [...] Encounters Date Type Department Care Team Description 05/23/2024 Telephone [facility] [address] [place] [phone] Rosenda Hernandez MD Prior Authorization ( [place] Request: Zepbound) 05/23/2024 Refill [facility] [address] [place] [phone] Rosenda Hernandez MD 05/21/2024 Telephone [facility] [address] [place] [phone] Rosenda Hernandez MD telephone call 05/20/2024 Telephone [facility] [address] [place] [phone] Rosenda Hernandez MD Care Management (C3- f/u call [facility]) 05/13/2024 Telephone [facility] [address] [place] [phone] Rosenda Hernandez MD Care Management (C3CM- f/u call) 05/09/2024 2:30 PM EDT Office Visit [address] [phone] Rosenda Hernandez MD Class 1 obesity due to excess calories with serious comorbidity and body mass index (BMI) of 34.0 to 34.9 in adult (Primary Dx); Seizure (CMS/HCC); Moderate persistent asthma without complication 05/09/2024 Travel 05/09/2024 Patient Outreach [address] [address] Rosenda Hernandez MD Care Coordination (C3 -[facility] telephone call outreach) 05/06/2024 Orders Only [facility] [address] [place] [address] Monica Vora 05/06/2024 Patient Outreach [address] [phone] Rosenda Hernandez MD Care Coordination (C3 [facility] telephone call outreach) 05/06/2024 Patient Outreach [address] [phone] Rosenda Hernandez MD Care Coordination (C3 -[facility] telephone call outreach) 05/06/[address] [address] Rosenda Hernandez MD Prediabetes 05/01/[address] [address] Rosenda Hernandez MD Care Management (C3- f/u call #2 lvm) 04/30/2024 Patient Outreach [address] [address] Rosenda Hernandez MD Pre-visit Planning ((Unable to reach for PVP screening, LVM)) 04/24/2024 Refill [facility] [address] [place], [place] [phone] Rosenda Hernandez MD Mild intermittent asthma without complication; Moderate persistent asthma without complication 04/19/2024 Population Health Risk Score [facility] (C3) [address] [phone] Provider, Population Health Generic 04/18/2024 Patient Outreach [address] [address] Rosenda Hernandez MD Care Coordination ([facility] telephone call outreach) 04/18/[address] [address] Rosenda Hernandez MD Care Management ([facility]- f/u call lvm) 04/17/2024 Patient Outreach [address] [address] Rosenda Hernandez MD Care Coordination ([facility] telephone call outreach) 04/11/2024 Patient Outreach [address] [address] Rosenda Hernandez MD Care Coordination ([facility] telephone call outreach) 04/11/2024 Patient Outreach [address] [address] Rosenda Hernandez MD Care Coordination ([facility] telephone call outreach) 04/08/2024 Patient Outreach [address] [address] Rosenda Hernandez MD Care Coordination ([address] [place] telephone call outreach) 04/05/2024 2:45 PM EST Office Visit [address] [phone] Patricia Ying, TRANSFER IRON OPERATOR Prediabetes 04/05/2024 Travel 04/05/[address] [phone] Rosenda Hernandez MD Nurse Triage 04/05/[address] [address] Rosenda Hernandez MD Care Management (C3CM- f/u call/) 03/28/2024 Patient Outreach [facility] [address] [place] [phone] Rosenda Hernandez MD Care Coordination (C3 -[facility] Catie De Los Santosquez telelphone call outreach) 03/27/2024 3:20 PM EST Office Visit [facility] [address] [place] [phone] Rosenda Hernandez MD Missed period (Primary Dx); Prediabetes; Viral syndrome 03/27/2024 Travel 03/27/2024 Telephone [facility] [address] [place] [phone] Rosenda Hernandez MD Care Management (C3CM- f/u call) 03/25/2024 Refill [facility] [address] [place] [address] [phone] Rosenda Hernandez MD 03/18/2024 Telephone [facility] [address] [place] [phone] Alvin Palomino RN Care Management (C3CM- f/u call lv) from Last 3 Months Immunizations Name Administration [...] Sign Reading Time Taken Comments Blood Pressure 145/94 05/09/2024 2:41 PM EDT Pulse 107 05/09/2024 2:41 PM EDT Temperature 36.7 ??C (98 ??F) 05/09/2024 2:41 PM EDT Respiratory Rate 20 05/09/2024 2:41 PM EDT Oxygen Saturation 99% 04/05/2024 2:51 PM EST Inhaled Oxygen Concentration - - Weight 99.8 kg (220 lb) 05/09/2024 2:41 PM EDT Height 170.2 cm (5' 7 ) 05/09/2024 2:41 PM EDT Body Mass Index 34.46 05/09/2024 2:41 PM EDT Plan of Treatment Upcoming Encounters Date Type Department Care Team (Late st Contact Info) Description 06/21/2024 11:00 AM EDT Telemedicine [facility] [address] [place] [address] Rosenda Hernandez MD [address] [place] [address] Health Maintenance Due Date Last Done Comments Family Planning (PISQ) 10/31/2003 Hepatitis C Screening 2006 SDOH Screening 07/11/2024 07/12/2023 Depression Screening 02/07/2025 02/08/2024, 02/07/19 25 Alcohol/Substance Use Screening 04/05/2025 04/05/2024 Diabetes: Hemoglobin A1C 04/18/2025 025, 01/19/2024, 07/12/2023, Additional history exists Tobacco Screening 05/09/2025 05/09/2024 Lipid Panel 08/31/2026 08/31/2021, 08/06, 09/30/2019 Cervical Cancer Screening 04/18/2029 HPV/Cotest 04/18/2029 04/18/2024, 02/24/2021 Pap Smear 04/18/2029 04/18/2024, 02/24/2021 DTaP/Tdap/Td Vaccines (2 - Td or Tdap) [...] 145/94( 025 2:41 PM EDT) No Arianna Noel PharmD Procedures Procedure Name Priority Date/Time Associated Diagnosis Comments HM PAP/HPV Routine 04/18/2024 12:00 AM EDT POCT GLUCOSE Routine 04/05/2024 3:04 PM EST Prediabetes POCT , URINE Routine 03/27/2024 3:27 PM EST Missed period POCT INFLUENZA A (ID NOW RAPID MOLECULAR) Routine 03/27/2024 3:26 PM EST Prediabetes POCT INFLUENZA B (ID NOW RAPID MOLECULAR) Routine 03/27/2024 3:25 PM EST Prediabetes POCT COVID-19 AG FRANKS ID NOW Routine 03/27/2024 3:24 PM EST Prediabetes POCT GLUCOSE Routine 03/27/2024 2:56 PM EST Prediabetes HEMOGLOBIN A1C Routine 01/19/2024 11:31 AM EST Prediabetes LIPID PANEL, STANDARD Routine 08/31/2021 10:01 AM EDT HIV 1/2 ANTIGEN/ANTIBODY, FOURTH GENERATION W/RFL Routine 09/30/2019 9:58 AM EDT from Last 3 Months or Most Recently Relevant to Health Maintenance Results * HM PAP/HPV (04/18/2024 12:00 AM EDT) Pathologist [facility] Pap Smear 1. NILM 1. NILM [facility] HPV Not Detected Undetected, Indeterminat e, Quantitative , Not Detected [facility] Narrative [facility] - 04/18/2024 12:00 AM EDT Pap completed at [facility] everywhere note from 04/18/2024 Historical Provider HEALTH MAINTENANCE Edited Result - Final [facility] * POCT Glucose (04/05/2024 3:04 PM EST) Only the most recent of2 resultswithin the time period is included. [facility] Glucose Blood, POC 114 60 - 200 mg/dL QC Media Lot # [id number] Lot# Expiration Date [id number] Blood Capillary blood specimen / Unknown 04/05/2024 3:04 PM EST [facility] TRANSFER IRON OPERATOR POINT OF CARE TEST ENTER/EDIT ORDERABLES Final Result * POCT Urine (03/27/2024 3:27 PM EST) [facility] Preg Test, Ur Negative Negative, Indeterminate, None Detected, Invalid, Specimen unsatisfactory for evaluation, Weakly Positive QC Media Lot # [id number] Lot# Expiration Date [id number] Urine 03/27/2024 3:27 PM EST Rosenda Amin MD POINT OF CARE TEST EN TER/EDIT ORDERABLES Final Result * Influenza A (ID NOW Rapid Molecular) (03/27/2024 3:26 PM EST) [facility] Influenza A Negative Negative, Indeterminate [facility] QC Media Lot # [id number] [facility] Lot# Expiration Date [facility] Swab 03/27/2024 3:26 PM EST Rosenda Amin MD POINT OF CARE TEST EN TER/EDIT ORDERABLES Final Result Performing Organization Address [facility]/ZIP Co de Phone Number [facility] [address] [place] [phone] * Influenza B (ID NOW Rapid Molecular) (03/27/2024 3:25 PM EST) Influenza B Negative Negative, Indeterminate [facility] QC Media Lot # [id number] [facility] Lot# Expiration Date [facility] Swab 03/27/2024 3:25 PM EST Rosenda Amin MD POINT OF CARE TEST EN TER/EDIT ORDERABLES Final Result Performing Organization Address [facility] Co de Phone Number [facility] [address] [place] [phone] * POCT COVID-19 Ag Franks ID NOW (03/27/2024 3:24 PM EST) Coronavirus Antigen PCR Negative Negative, Indeterminate, None Detected, Invalid, Specimen unsatisfactory for evaluation, Weakly Positive QC Media Lot # [id number] Lot# Expiration Date Swab 03/27/2024 3:24 PM EST Rosenda Amin MD POINT OF CARE TEST EN TER/EDIT ORDERABLES Final Result * Hemoglobin A1c (01/19/2024 11:31 AM EST) Hemoglobin A1c 6.0 <6.0 % [facility] Comment:Hemoglobin A1C Refer ence Range Adults: 4.8 - 6.0 % Non diabetic: < 6.0 % Goal: < 7.0 %Additional Action Suggested: > 8.0 %Note: Hemoglobin A1c results are invalid for patients with abnormal amounts of HbF. Blood transfusions may impact the HbA1c concentration in the patient sample. Estimated Average Glucose 126 mg/dL [facility] Comment:eAG = Estimated ave rage glucose which is %A1C expressed asaverage glucose, using the formula of the C1M-ZcqdzhzYutalco Glucose study (ADAG), Diabetes Care, Vol.31,#8,Sep. 2007 Blood Venous blood specimen / Unknown 01/19/2024 11:31 AM EST 01/19/2024 1:11 PM EST us Rosenda Amin MD LAB BLOOD ORDERABLES Final Result [facility] [address] [place] [phone] * (ABNORMAL) LIPID PANEL, STANDARD (08/31/2021 [...] Victor M ALBERTS et al. LILLIAM. 2013;310(19): 9832-6357 ?? (http://education.[employer] [place]/faq/ITP075) Non-HDL Cholesterol 130(H) <130 mg/dL (calc) [facility] Comment: For patients with diabetes plus 1 major ASCVD risk ?? factor, treating to a non-HDL-C goal of <100 mg/dL ?? (LDL-C of <70 mg/dL) is considered a therapeutic ?? option. Triglycerides 163(H) <150 mg/dL [facility] 08/31/2021 10:0 1 AM EDT Rosenda Amin MD LAB BLOOD ORDERABLES Final Result [facility] [address] * HIV 1/2 ANTIGEN/ANTIBODY,FOURTH GENERATION W/RFL (09/30/2019 9:58 AM EDT) HIV-1/2 ANTIGEN AND ANTIBODIES, 4TH GENERATION W/ REFLEX NON-REACT ASTON NON-REACT ASTON [facility] Comment: HIV-1 antigen and HIV-1/HIV-2 [...] ? For additional information please refer to http://education.Soundl.ly/faq/BRW872 (This link is being provided for informational/ educational purposes only.) ? The performance of this assay has not been clinically validated in patients less than 2 years old. ?? HIV-1/2 ANTIGEN AND ANTIBODIES, 4TH GENERATION W/ REFLEX NON-REACT ASTON NON-REACT ASTON [facility] Comment: HIV-1 antigen and HIV-1/HIV-2 [...] ? For additional information please refer to http://education.NetPayment.Ini[employer] Digital/faq/EHD226 (This link is being provided for informational/ educational purposes only.) ? The performance of this assay has not been clinically validated in patients less than 2 years old. ?? 09/30/2019 9:58 AM EDT Rosenda Amin MD LAB BLOOD ORDERABLES Final Result [facility] [address] from Last 3 Months or Most Recently Relevant to Health Maintenance Insurance [place] [employer] [address] [place] [address] [place] Care Teams Bull Chain Operator Relationship Specialty Start Date End Date Rosenda Hernandez MD [address] [place] [phone] PCP - General Family Medicine 12/20/18 Agueda Chaves Honey ProcessorBurning Plant Operator 03/20/23 Agueda Marie Furniture MechanicBurning Plant Operator 10/04/23
== END 2024-06-10 14:44 | disposition home or self-care (01) ==
LOC: HO.HOS 14:00
PROVIDERS: PCP Internal Medicine
DX: G56.02 Carpal tunnel syndrome, left upper limb (principal)
CPT/HCPCS: 99024

== ENCOUNTER → 2024-06-10 14:00 | Outpatient (BNVA) | payer MEDICAID, SELFPAY | PROVIDERS: PCP Internal Medicine | DX: G56.02 Carpal tunnel syndrome, left upper limb (principal) | CPT/HCPCS: 99212 ==

== ENCOUNTER 2024-07-16 11:07 | Outpatient (RCR) | payer MEDICAID, SELFPAY ==
--- NOTE | 2024-06-24 14:59 | MHC.OT.OEV ---
[address] [phone] F: [phone] Occupational Therapy Evaluation Patient Name: Aundrea Rivera Diagnosis: (L)CTR Date of Onset: Date of Surgery: 05/28/24 Attending Provider: Amor Rubio Prescribed Treatment: Follow Up Appointment: History of Current Condition: Patient is a 33 y/o female with PMHX of HTN and pre- DM s/p 3 weeks, 6 days (L)CTR with c/o pain. She states the pain is a sharp constant pain which is 9/10 at rest and 10/10 with movement. She has had prior OT for (R)CTR this year. She reports her PLOF as (I)ADLs/IADLs and lives with and 3 kids, does not work. She feels like she has no strength. She enjoys cooking. Significant Medical History: Hypertension Pre-diabetes Asthma Precautions/Contraindications: Patient Goals: Hand Dominance: Observations: QuickDASH Score: Prior Level of Function and Occupation Self Care, Employment, Leisure: Does not work Lives with and children (I)ADLs/ IADLs enjoys cooking Living Situation, Family and/or Social Support: Current Level of Function and Occupation Self Care, Employment, Leisure: min (A)ADLs/IADLs Sleep: Sleeping through the night Driving: Son drives Vision: Balance: Pain Assessment Pain Score: 10/10 Pain Scale Used: Pain Location and Description: 9/10 at rest 10/10 during movement Aggravating Factors: Alleviating Factors: Tylenol Skin and Soft Tissue Assessment Skin and Soft Tissue: Comments: edema present around surgical site skin intact, with rash on palm of hands Nerve assessment Ulnar Nerve: Median Nerve: Radial Nerve: Comments: Sensory Assessment Temperature: Light Touch: Proprioception: Vibration: Comments: Edema Assessment Upper Extremity: Lower Extremity: Comments: Dexterity Assessment Dexterity: Comments: Special Tests Comments: AROM(PROM) Strength Cervical Cervical Flexion: Cervical Extension: Cervical Lateral Flexion: Cervical Rotation: Comments: Shoulder Flexion: Extension: Abduction: Internal Rotation: External Rotation: Comments: Flexion: Extension: Abduction: Internal Rotation: External Rotation: Comments: Elbow Flexion: Extension: Pronation: Supination: Comments: Flexion: Extension: Pronation: Supination: Comments: Wrist Flexion: 59 Extension: 76 Ulnar Deviation: 16 Radial Deviation: 7 Comments: Flexion: Extension: Ulnar Deviation: Radial Deviation: Comments: Thumb Thumb CMC Flexion: Thumb MCP Flexion: Thumb IP Flexion: Radial Abduction: Palmar Abduction: [place] (Kapandji 0-10): Comments: WFL Digits Index MCP: PIP: DIP: Long MCP: PIP: DIP: Ring MCP: PIP: DIP: Small MCP: PIP: DIP: Comments: can make a composite fist Gross Grasp: Lateral Pinch: Two-Point Pinch: Three-Jaw Ga: Comments: N/A Patient Education Primary Language: Pharmacist Per Diem Required: Yes Current Knowledge: Understands information with skills for self-management Teaching Method: Verbal Education Needs Identified on Evaluation: ADL's Equipment Use Exercise Pain How did patient/family demonstrate learning? Patient demonstrates Patient verbalizes Barriers to Learning: None Readiness for Learning: Accepting Who was educated? Patient Comments: Shane Plan of Care Assessment: Based on initial OT evaluation patient presents with impaired ROM, impaired strength, pain, edema and impaired performance during self care tasks. Due to the documented impairments it is recommended that patient receive skilled OT in order for her to achieve her PLOF during self care tasks. Thank you for your referral. STG Duration: 2 weeks Short Term Goals: Patient will report 8/10 pain in (L)wrist Patient will increase (L)paramedic instructor strength to 20lbs. Patient will be (I) with scar massage LTG Duration: 4 weeks Machine Coremaker Goals: Patient will report 0/10 pain in (L)wrist Patient will be (I) with HEP Frequency and Duration: The patient will be seen 2x a week for 4 weeks Treatment Plan: Therapeutic Exercise Therapeutic Activity Home Exercise Program Splinting Patient Education Desensitization/Sensory Re-ed Edema Control ADL Training Ultrasound NMES Iontophoresis Paraffin Fluidotherapy MHP Cold Packs Joint Mobilization Soft Tissue Mobilization Kinesiotaping Other (see comments) Electronically Signed By: Francesca Craft OTR/Eula, CLT Reviewed/agree with student documentation: Therapist: Please sign and return to therapist, Thank you for your referral.
== END 2024-12-24 08:27 | disposition home or self-care (01) ==
LOC: HO.OT 11:07
PROVIDERS: PCP Internal Medicine
DX: G56.03 Carpal tunnel syndrome, bilateral upper limbs (principal); Z98.890 Other specified postprocedural states
CPT/HCPCS: 97035; 97110; 97140; 97165

== ENCOUNTER 2024-08-14 11:48 | Inpatient (IN) | payer MEDICAID, SELFPAY ==
[2024-08-14] VITALS (10 sets, daily range): BP systolic 112–145; BP diastolic 69–84; PULSE 68–118; RESP 14–20; TEMP 36.3–37; O2SAT 95–99; BMI 29.3
--- NOTE | ~2024-08-14 | CT_ITS ---
EXAMINATION: CT HEAD WITHOUT CONTRAST CLINICAL INFORMATION: fall, +head strike COMPARISON: August 05, 2022. TECHNIQUE: Contiguous axial imaging was performed from the skull base to vertex without intravenous administration of contrast. This CT examination was performed using dose optimization techniques as appropriate, variously including the following: *Automated exposure control *Adjustment of mA and/or kV according to patient size (this includes techniques or standardized protocols for targeted exams where dose is matched to indication/reason for exam; i.e. extremities or head) *Use of iterative reconstruction technique DLP: 669 mGy-cm FINDINGS: No acute cortical disruption within the bony calvarium. No acute intracranial hemorrhage, mass effect, midline shift, hydrocephalus or herniation. Mcnamara-white matter differentiation is normal. Posterior cranial fossa contents demonstrated no acute intracranial hemorrhage or mass effect. Craniocervical junction demonstrates normal position of the cerebellar tonsils. Sellar/suprasellar region demonstrates no gross masses. No air-fluid levels in the paranasal sinuses. Tympanic cavities and mastoid cells are aerated. Pneumatized right petrous apex, congenital variant. No gross hematoma, intraconal or extraconal compartments of the orbits., CT/CT head/brain wo IV con IMPRESSION: No acute fracture, bony calvarium. No acute intracranial hemorrhage. Electronically signed by: Rito Yo MD 08/14/2024 01:42 PM EDT
--- NOTE | ~2024-08-14 | US_ITS ---
CLINICAL HISTORY: Acute kidney injury, eval for hydro Renal ultrasound Comparison: None available Findings: The kidneys are normal in echotexture bilaterally. No hydronephrosis. The right kidney is normal in size, measuring 11.8 cm in length. The left kidney is normal in size, measuring 12.4 cm in length. Impression: No hydronephrosis or other acute findings. This document has been electronically signed by: Marilin Green MD on 08/14/2024 17:55:44
--- NOTE | ~2024-08-14 | CT_ITS ---
EXAMINATION: CT CERVICAL SPINE WITHOUT CONTRAST CLINICAL INFORMATION: Status post fall. COMPARISON: None available. TECHNIQUE: Contiguous axial images through the cervical spine using 3 mm collimation with bone and soft tissue algorithm. Sagittal and coronal reformatted images acquired. DLP: [address] examination was performed using dose optimization techniques as appropriate, variously including the following: *Automated exposure control *Adjustment of mA and/or kV according to patient size (this includes techniques or standardized protocols for targeted exams where dose is matched to indication/reason for exam; i.e. extremities or head) *Use of iterative reconstruction technique FINDINGS: Craniocervical junction is intact with normal alignment between the occipital condyles and lateral masses of C1. No malalignment between the vertebral bodies or the facet joints. C1 is intact. C2 is intact. C3 is intact. C4 is intact. C5 is intact. C6 is intact. C3 7 is intact. No gross prevertebral compartment hematoma. Thyroid gland demonstrates normal morphology without dominant nodules. Calcifications in the arythenoids cartilage. Tympanic cavities and mastoid cells are aerated. Pneumatized right petrous apex, congenital.. CT/CT cervical spine wo IV con IMPRESSION: No acute fracture or trauma-related listhesis. Fleischner guidelines were followed. Electronically signed by: Rito Yo MD 08/14/2024 01:46 PM EDT
--- NOTE | 2024-08-14 12:05 | ED_ITS ---
HPI - Syncope General Chief Complaint: Syncope Stated Complaint: Passed out earlier hit head Time Seen by Provider: 08/14/24 13:43 Source: patient and neuropsychiatric aide Mode of arrival: ambulatory Limitations: language barrier History of Present Illness ED Provider: HPI narrative: 33-year-old woman presenting with nausea vomiting and diarrhea since yesterday, she states she usually gets up twice a night to go to the toilet to urinate and when she got up she stated that her son found on the floor and she apparently passed out no loss of bowel or bladder function, no history of seizures, no chest pain or shortness of breath, has been on Zepbound for the past 2 months from weight loss. Reports hitting left side of the confucianism during a fall, denies ongoing abdominal pain, ongoing headaches vision changes weakness in upper or lower extremities. No chest pain or shortness of breath Related Data Home Medications ?Medication ?Instructions ?Recorded ?Confirmed albuterol sulfate 2.5 mg/3 mL 2.5 mg inhalation QID MA N 10/13/20 02/26/24 (0.083 %) solution for nebulization Shortness Of Breat h albuterol sulfate 90 mcg/actuation 2 puff PO Q4-6H PRN Shortness Of 10/13/20 02/26/24 aerosol inhaler (ProAir HFA) Breath cholecalciferol (vitamin D3) 25 25 mcg PO DAILY 02/26/24 mcg (1,000 unit) capsule (Vitamin D3) duloxetine 30 mg capsule,delayed 30 mg PO DAILY 02/26/24 release fluticasone propionate 250 1 inh PO BID 10/13/2002/25 mcg/actuation blister powder for inhalation (Flovent Diskus) hydrochlorothiazide 25 mg tablet 25 mg PO DAILY 02/26/24 labetalol 100 mg tablet 100 mg PO BID 10/13/2002/25 montelukast 10 mg tablet 10 mg PO QPM 10/13/20 omeprazole 20 mg capsule,delayed 20 mg PO DAILY 02/26/24 release vitamin with calcium 1 tab PO DAILY 10/13/20 02/26/24 no.72-iron 27 mg-folic acid 1 mg tablet (M-Elida Plus) sertraline 50 mg tablet 50 mg PO DAILY 10/13/2002/07 carvedilol 25 mg tablet 25 mg PO DAILY 10/31/2302/07 furosemide 40 mg tablet 40 mg PO DAILY 10/31/2302/07 gabapentin 300 mg capsule 300 mg PO TID 10/31/2302/25 losartan 25 mg tablet 25 mg PO QPM 10/31/23 metformin 500 mg tablet 500 mg PO DAILY 10/31/23 Previous Rx's ?Medication ?Instructions ?Recorded tiotropium bromide 2.5 2 puff inhalation QAM 30 day s #4 05/31/21 mcg/actuation mist for inhalation grams (Spiriva Respimat) ondansetron 4 mg disintegrating 4 mg PO Q6-8H PRN naus ea and 10/09/21 tablet vomiting #14 tabs lidocaine 5 % topical patch 1 patch topical DAILY #15 ea 03/20/22 (Lidoderm) prednisone 20 mg tablet 40 mg (2 x 20 mg) PO DAILY # 10 tabs 07/26/22 albuterol sulfate 90 mcg/actuation 2 puff inhalation Q 4-6H PRN 11/03/23 aerosol inhaler shortness of breath or wheez ing #6.7 grams fluticasone propionate 50 2 spray intranasal DAILY #16 grams 11/03/23 mcg/actuation nasal spray,suspension (Flonase Allergy Relief) lorazepam 1 mg tablet (Ativan) 1 mg PO TID PRN anxiety #10 tabs 12/26/23 ketorolac 10 mg tablet 10 mg PO Q8H PRN pain #12 ta bs 02/21/24 hydrocodone 5 mg-acetaminophen 325 1 tab PO Q6H PRN pa in #5 tabs 05/28/24 mg tablet Allergies Allergy/AdvReac Type Severity Reaction Status Date / Time Sulfa (Sulfonamide Allergy Unknown UNKNOWN Verified 08/14/24 12:06 Antibiotics) (SULFA (SULFONAMIDE ANTIBIOTICS)) Review of Systems 2 Constitutional: Constitutional: Reports as per [facility] Past Medical History Medical History (Updated 08/14/24 @ 16:25 by Buck Flores DO) Hypertension Pre-diabetes Asthma Social History Social History Are you a primary day care attendant to a significant other at home: No Do you presently have visiting nurse or other home services: No Unable to assess alcohol history related to: Unknown Alcohol intake: never Patient Tobacco Use Status: Never used Tobacco Use of substances other than those prescribed or required for medical reasons: Unknown Advance Directives: No Advance Directives Information Provided: Yes Patient : No Physical Exam 2 Vital Signs: Vital Signs: Last Vital Signs Temp 97.7 F 08/14/24 14:00 Pulse 85 08/14/24 14:00 Resp 14 08/14/24 14:00 BP 120/84 08/14/24 14:00 Pulse Ox 98 08/14/24 15:12 O2 Del Method Room Air 08/14/24 15:12 BMI result Body Mass Index 29.3 Const: Other: * Gen: ?Overall well-appearing patient no obvious trauma she was tender over the left parietal area * HEENT: PERRLA, EOMI, MMM, * Neck: Supple, no LAD * CV: RRR, no obvious murmurs appreciated * Resp: ?No wheezing rales rhonchi no stridor moving air well * Abd: ?Bowel sounds are present, no tenderness no rebound no rigidity * MSK: FROM, strength 5/5 all extremities * Skin: Warm, dry, intact, * Neuro: ?Alert and oriented x3, moving upper and lower extremities symmetrically, no obvious facial asymmetry noted Course Course Course Narrative: This is an RME: Additional HPI, ROS, PE not included below will be deferred to primary provider. RME assessment and note performed by: Annalisa Rios PA-C This is a 68-kly[age]-xik-female, with a hx of asthma, small leak in heart on carvedilol, diabetes, HTN, who presents to the ER with complaints of 2 syncopal episodes. Reports that her BP was 74/54. On Zepbound x 2 months. 2nd time she passed out she was having vomiting and diarrhea and passed out. Then went back to bed, got out of bed and fainted again. Reports possible chance of . Plan: Labs, EKG, CT head/neck, further ER eval needed Medications Administered Generic Name Dose Route Start Last Admin Trade Name Freq PRN Reason Stop Dose Admin Lactated Ringer's 1,000 mls @ 0 mls/hr 08/14/24 14:00 08/14/24 15:36 Lr IV Infused .Q0M [facility] Infusion Wide Open Discontinued Medications Generic Name Dose Route Start Last Admin Trade Name Reina PRN Reason Stop Dose Admin Acetaminophen 975 mg 08/14/24 14:47 08/14/24 14:53 Acetaminophen 325 Mg Tablet PO 08/14/24 14:48 975 mg ONCE ONE Administration Sodium Chloride 1,000 mls @ 999 mls/hr 08/14/24 14:00 08/14/24 15:00 Ns IV 08/14/24 15:00 Infused .Q1H1M [facility] Infusion Medical Decision Making Medical Decision Making [facility] Narrative: Presenting with a syncopal episode in the setting of nausea vomiting or diarrhea, blood work revealed significant PURVI, though prodromal symptoms to suspect PE such as chest pain or shortness of breath, no PE risk factors, otherwise CT of the head and neck obtain and CTs are negative, I did discuss workup with the patient, we will give fluids with least 2 L we will re-evaluate we will make sure creatinine is trending down 16:24 patient's renal function did not improve today agree that I was anticipating with 2 L IV fluids, I spoke to the patient, at this point I will obtain an ultrasound just to make sure there is no postobstructive disease, we will give 2 more L of fluids and anticipate admission for dehydration, she is still dizzy Differential Diagnosis Differential Diagnoses: The differential diagnosis associated with the presentation includes ACS, dysrhythmia, dehydration, PE, vasovagal syncope, seizure Lab Data [facility] Lab Attestation statement: I reviewed the patient's lab results. 08/14/24 12:37 08/14/24 15:50 Labs: Lab Results 08/14/24 08/14/24 08/14/24 Range/Units 12:36 12:37 12:41 WBC 13.1 H (4.8-10.8) X10*3/uL RBC 5.10 (4.20-5.50) X10*6/uL Hgb 13.7 (12.0-16.0) g/dl Hct 40.2 (37.0-47.0) % MCV 78.8 L (80.0-98.0) fL MCH 26.9 L (27.0-33.0) pg MCHC 34.1 (31.0-35.0) g/dl RDW 14.1 (11.0-16.0) % Plt Count 395 D (160-400) X10*3/uL MPV 10.4 (9.4-12.3) fL Immature Gran % (Auto) 0.4 (0.0-0.4) % Neut % (Auto) 80.1 H (45-73) % Lymph % (Auto) 13.3 L (20-40) % Storey % (Auto) 5.6 (2-11) % Eos % (Auto) 0.3 (0-4) % Baso % (Auto) 0.3 (0-2) % Lymph # (Auto) 1.7 (1.2-4.9) X10*3/uL Storey # (Auto) 0.7 (0.1-1.2) X10*3/uL Eos # (Auto) 0.0 (0.0-0.4) X10*3/uL Baso # (Auto) 0.0 (0.0-0.2) X10*3/uL Abs Immat Gran (auto) 0.05 H (0.00-0.03) X10*3/uL Absolute Neuts (auto) 10.5 H (2.0-8.3) x10*3/uL Absolute Nucleated RBC 0.000 (0.0-0.012) X10*3/uL Nucleated RBC % (auto) 0.0 (0.0-0.2) /100WBC Sodium 138 (135-145) mmol/L Potassium 3.9 (3.3-5.1) mmol/L Chloride 102 (96-108) mmol/L Carbon Dioxide 24 (22-29) mmol/L Anion Gap 16 (12-20) BUN 31 H (9-16) mg/dL Creatinine 1.97 H (0.5-1.4) mg/dL Estim Creat Clear Calc 44.5 Estimated GFR 29 Random Glucose 109 (60-115) mg/dL Calcium 9.9 D (8.4-10.2) mg/dL Magnesium 2.1 (1.6-2.6) mg/dL Total Bilirubin 0.6 (0.0-1.0) mg/dL Direct Bilirubin 0.2 (0.0-0.5) mg/dL AST 22 (5-31) U/L ALT 17 (0-31) U/L Alkaline Phosphatase 76 (39-117) U/L Troponin I High Sens < 2.7 (<3.5-17.0) ng/L Total Protein 8.7 H (6.5-8.0) g/dL Albumin 5.1 H (3.5-5.0) g/dL Lipase 18 (8-78) U/L Beta HCG, Quant < 2 mIU/mL Urine Color Yellow Urine Appearance Hazy Urine pH 5.5 (5.0-9.0) Ur Specific Taylor >= 1.030 H (1.005-1.025) Urine Protein Trace (Neg-Trace) mg/dL Urine Glucose (UA) Negative (Negative) mg/dL Urine Ketones Negative (Negative) mg/dL Urine Blood Negative (Negative) Urine Nitrite Negative (Negative) Ur Leukocyte Esterase Negative (Negative) Influenza Type A (PCR) NEGATIVE (Negative) Influenza Type B (PCR) NEGATIVE (Negative) RSV RNA Qual (PCR) NEGATIVE (Negative) SARS-CoV-2 RNA (RT-PCR) NEGATIVE (Negative) 08/14/24 Range/Units 15:50 WBC (4.8-10.8) X10*3/uL RBC (4.20-5.50) X10*6/uL Hgb (12.0-16.0) g/dl Hct (37.0-47.0) % MCV (80.0-98.0) fL MCH (27.0-33.0) pg MCHC (31.0-35.0) g/dl RDW (11.0-16.0) % Plt Count (160-400) X10*3/uL MPV (9.4-12.3) fL Immature Gran % (Auto) (0.0-0.4) % Neut % (Auto) (45-73) % Lymph % (Auto) (20-40) % Storey % (Auto) (2-11) % Eos % (Auto) (0-4) % Baso % (Auto) (0-2) % Lymph # (Auto) (1.2-4.9) X10*3/uL Storey # (Auto) (0.1-1.2) X10*3/uL Eos # (Auto) (0.0-0.4) X10*3/uL Baso # (Auto) (0.0-0.2) X10*3/uL Abs Immat Gran (auto) (0.00-0.03) X10*3/uL Absolute Neuts (auto) (2.0-8.3) x10*3/uL Absolute Nucleated RBC (0.0-0.012) X10*3/uL Nucleated RBC % (auto) (0.0-0.2) /100WBC Sodium (135-145) mmol/L Potassium (3.3-5.1) mmol/L Chloride (96-108) mmol/L Carbon Dioxide (22-29) mmol/L Anion Gap (12-20) BUN (9-16) mg/dL Creatinine 1.58 H (0.5-1.4) mg/dL Estim Creat Clear Calc 55.6 Estimated GFR 37 Random Glucose (60-115) mg/dL Calcium (8.4-10.2) mg/dL Magnesium (1.6-2.6) mg/dL Total Bilirubin (0.0-1.0) mg/dL Direct Bilirubin (0.0-0.5) mg/dL AST (5-31) U/L ALT (0-31) U/L Alkaline Phosphatase (39-117) U/L Troponin I High Sens (<3.5-17.0) ng/L Total Protein (6.5-8.0) g/dL Albumin (3.5-5.0) g/dL Lipase (8-78) U/L Beta HCG, Quant mIU/mL Urine Color Urine Appearance Urine pH (5.0-9.0) Ur Specific Taylor (1.005-1.025) Urine Protein (Neg-Trace) mg/dL Urine Glucose (UA) (Negative) mg/dL Urine Ketones (Negative) mg/dL Urine Blood (Negative) Urine Nitrite (Negative) Ur Leukocyte Esterase (Negative) Influenza Type A (PCR) (Negative) Influenza Type B (PCR) (Negative) RSV RNA Qual (PCR) (Negative) SARS-CoV-2 RNA (RT-PCR) (Negative) Independent Interpretation I performed an independent interpretation of an: EKG (102 beats per minute sinus tachycardia, no dysrhythmia, no QT prolongation, no changes consistent with ACS) Critical Care Time Critical Care Time Total Critical Care Time: 45 Attestation: Time is exclusive of separately billable procedures. Time includes: direct patient care, patient reassessment, coordination of patient care, interpretation of data (laboratory data, pulse oximetry, arterial blood gases and chest xrays), review of patient's medical records, medical consultation and documentation of patient care. Procedures excluded from critical care time: central intravenous line placement and electrocardiography. Discharge Plan Discharge Print Language: Wallisian
--- NOTE | 2024-08-14 12:11 | ECG_ITS ---
Test Reason : syncope Blood Pressure : */* mmHG Vent. Rate : 102 BPM Atrial Rate : 102 BPM P-R Int : 122 ms QRS Dur : 72 ms QT Int : 330 ms P-R-T Axes : 57 38 75 degrees QTcB Int : 430 ms Sinus tachycardia Nonspecific T wave abnormality Abnormal ECG When compared with ECG of 26-Dec-2023 16:05, No significant change was found Referred By: Annalisa Rios Electronically Signed By: Felix Rico
[2024-08-14 12:41] LABS: MANUAL DIFF FLAG NO
[2024-08-14 12:43] LABS: Hematocrit 40.2 % (37.0-47.0); Hemoglobin 13.7 g/dl (12.0-16.0); Imm Gran Abs Auto 0.05 X10*3/uL (0.00-0.03); Imm Gran Pct Auto 0.4 % (0.0-0.4); Lymphocytes Absolute Auto 1.7 X10*3/uL (1.2-4.9); Mean Corpuscular HGB Conc 34.1 g/dl (31.0-35.0); Mean Corpuscular Hemoglobin 26.9 pg (27.0-33.0); Mean Corpuscular Volume 78.8 fL (80.0-98.0); NRBC Abs Auto 0.000 X10*3/uL (0.0-0.012); NRBC Pct Auto 0.0 /100WBC (0.0-0.2); Platelet Count 395 X10*3/uL (160-400); Red Blood Count 5.10 X10*6/uL (4.20-5.50); White Blood Count 13.1 X10*3/uL (4.8-10.8)
[2024-08-14 12:46] LABS: Appearance Urine Hazy; Glucose Urine UA Negative (Negative); PH 5.5 (5.0-9.0); Specific Gravity - Urine >= 1.030 (1.005-1.025)
[2024-08-14 13:05] LABS: Alanine Aminotransferase 17 U/L (0-31); Albumin Level 5.1 g/dL (3.5-5.0); Alkaline Phosphatase 76 U/L (39-117); Anion Gap 16 (12-20); Aspartate Amino Transferase 22 U/L (5-31); Blood Urea Nitrogen 31 mg/dL (9-16); Calcium 9.9 mg/dL (8.4-10.2); Carbon Dioxide 24 mmol/L (22-29); Chloride 102 mmol/L (96-108); Creatinine Clr Calc Pharmacy 44.5; Estimated Glomerular Filt Rate 29; Lipase 18 U/L (8-78); Magnesium 2.1 mg/dL (1.6-2.6); Potassium 3.9 mmol/L (3.3-5.1); Sodium 138 mmol/L (135-145); Total Protein 8.7 g/dL (6.5-8.0); Troponin-I High Sensitivity < 2.7 ng/L (<3.5-17.0)
[2024-08-14 13:19] LABS: Resp Syncy Virus RNA Qual PCR NEGATIVE (Negative); SARS COV2 PCR INHOUSE NEGATIVE (Negative)
--- OUTSIDE RECORDS SUMMARY | 2024-08-14 14:34 | XMS_ITS | Encounter Summary ---
Author Organization [employer] Address [address] [facility] [address] [place] [address] Care Team Providers Care Seat Covers Trimmer Name Role Phone Rosenda Hernandez MD Primary Care Provide r Reason for Visit * Reason Onset Date Comments Chart Prep 08/14/2024 Encounter Details Date Type Department Care Team ([facility] st Contact Info) Description 08/14/2024 Telephone [facility] [address] [place] [address] Rosenda Hernandez MD [address] [place] [address] Chart Prep Social History Tobacco Use Types Packs/Day Years [...] your housing situation today? I have shahla hciu 07/12/[address] you li [...] encounter Miscellaneous Notes * Telephone Encounter - Lorin Hernandez MA - 08/14/2024 8:37 AM EDT Chart Prep Labs: done Images: done Referrals: appointment pending Vaccines due: HPV Vaccines Screenings: not applicable Overdue care gaps: SDOH and KARI-7 documented in this encounter Plan of Treatment Upcoming Encounters Date Type Department Care Team (Late st Contact Info) Description 08/15/2024 9:15 AM EDT Office Visit [facility] [address] [place] [id number] Rosenda Hernandez MD [address] [place] [id number] documented as of this encounter Goals Goal Patient Goal Type Associated Problems Recent Progress Patient-Stated? Author Blood Pressure < 140/90 Blood Pressure 139/89( 025 5:10 PM EDT) No Arianna Noel, Pernell documented as of this encounter Visit Diagnoses Not on filedocumented in this encounter Additional Health Concerns Assessment Noted Time PHQ-9 Depression Total Score: 0 02/07/19 25 9:31 AM EST documented as of this encounter Care Teams Seat Covers Trimmer Relationship Specialty Start Date End Date Rosenda Hernandez MD [address] [place] [address] PCP - General Family Medicine 12/20/18 Agueda Chaves Cornice UpholstererColor Specialist 03/20/23 Agueda Marie Delivery TechnicianColor Specialist 10/04/23 documented as of this encounter
--- OUTSIDE RECORDS SUMMARY | 2024-08-14 14:34 | XMS_ITS | Clinical Summary ---
Author Organization [facility] Address [address] [place] [address] Phone Care Team Providers Care Factory Supervisor Name Role Phone Deirdre Nguyen MD Primary Care Provider [phone] Allergies Active Allergy Reactions Criticality Noted Date [...] B Adult (Twinrix) 18yo and older 03/08/2017,12/20/2016 CRISTIANA/Rafy SARS-CoV-2 COVID -19, vector-nr, [id number], preservative free [...] Comments Social Influencers of Health Screening 01/15/2022 Influenza Vaccine (#1) 2024 , 01/05/2023, 12/13/2021, Additional history exists Depression Screening 02/07/2025 02/08/2024 Hypertension/CHF/CAD Annual BMP [...] 5 Years) and At-Risk Patients (6 to 49 Years) Completed 05/26/2022 HIV Screening Completed 10/20/2022, 09/30/2019 Hepatitis C Screening Completed 10/20/2022 COVID-19 Vaccine Completed 11/07/2023, 08/2021, 03/19/2021, Additional history exists HIB Vaccines Aged Out [...] Procedure Name Priority Date/Time Associated Diagnosis Comments COMPREHENSIVE METABOLIC PANEL Routine 04/18/2024 3:04 PM EDT Encounter for well woman exam with routine gynecological exam Obesity without serious comorbidity, unspecified class, unspecified obesity type HPV WITH REFLEX GENOTYPE Routine 04/18/2024 3:01 PM EDT Encounter for well woman exam with routine gynecological exam Screening for cervical cancer HEPATITIS C SCREENING Routine 10/20/2022 HIV SCREENING Routine 10/20/2022 from Last 3 Months or Most Recently Relevant to Health Maintenance Results * Comprehensive metabolic panel (04/18/2024 3:04 PM EDT) Sodium 138 133 - 145 mmol/L LAB CHEMISTRY METHOD 04/18/2024 5:13 PM [facility] Potassium 4.3 3.5 - 5.5 mmol/L LAB CHEMISTRY METHOD 04/18/2024 5:13 PM [facility] Chloride 104 96 - 110 mmol/L LAB CHEMISTRY METHOD 04/18/2024 5:13 PM [facility] CO2 26 21 - 32 mmol/L LAB CHEMISTRY METHOD 04/18/2024 5:13 PM [facility] Anion Gap 8 3 - 11 LAB CHEMISTRY METHOD 04/18/2024 5:13 PM [facility] Glucose 91 70 - 100 mg/dL LAB CHEMISTRY METHOD 04/18/2024 5:13 PM [facility] BUN 14 5 - 25 mg/dL LAB CHEMISTRY METHOD 04/18/2024 5:13 PM [facility] Creatinine 0.76 0.50 - 1.10 mg/dL LAB CHEMISTRY METHOD 04/18/2024 5:13 PM [facility] eGFR 105 >=60 mL/min/1. 73m2 LAB CHEMISTRY METHOD 04/18/2024 5:13 PM [facility] Comment:Calculation based on the Chronic Kidney Disease Epidemiology Collaboration (CKD-EPI) equation refit without adjustment for race. BUN/Creatinine Ratio 18.4 LAB CHEMISTRY METHOD 04/18/2024 5:13 PM [facility] Calcium 9.5 8.5 - 10.5 mg/dL LAB CHEMISTRY METHOD 04/18/2024 5:13 PM [facility] AST (SGOT) 15 10 - 42 unit/L LAB CHEMISTRY METHOD 04/18/2024 5:13 PM [facility] ALT (SGPT) 21 10 - 60 unit/L LAB CHEMISTRY METHOD 04/18/2024 5:13 PM [facility] Alkaline Phosphatase 76 42 - 121 unit/L LAB CHEMISTRY METHOD 04/18/2024 5:13 PM [facility] Total Protein 8.0 6.0 - 8.0 g/dL LAB CHEMISTRY METHOD 04/18/2024 5:13 PM [facility] Albumin 4.0 3.2 - 5.0 g/dL LAB CHEMISTRY METHOD 04/18/2024 5:13 PM [facility] Total Bilirubin 0.3 0.0 - 1.4 mg/dL LAB CHEMISTRY METHOD 04/18/2024 5:13 PM [facility] Blood Venous blood specimen / Unknown Venipuncture / Unknown 04/18/2024 3:04 PM EDT 04/18/2024 4:33 PM EDT Monika Graham CNM LAB BLOOD ORDERABLES Final Re sult [facility] [address] [place] [address], * HPV with reflex genotype (04/18/2024 3:01 PM EDT) [facility] HPV Negative Negative LAB MICROBIOLOGY METHOD 04/19/2024 1:45 PM EDT [facility] Brushing/Spatula Cervix uteri structure / Unknown 04/18/2024 3:01 PM EDT 04/19/2024 6:55 AM EDT Monika GARCIA LAB MOLECULAR DIAGNOSTICS ORD ERABLES Final Result [facility] [address] [place] [address], * HIV Screening (10/20/2022) Pathologist [facility] HIV Screening Abstracted Historical Provider HEALTH MAINTENANCE Final Result * Hepatitis C Screening (10/20/2022) [facility] Hepatitis C Screening Abstracted Historical Provider HEALTH MAINTENANCE Final Result from Last 3 Months or Most Recently Relevant to Health Maintenance Insurance MEDICAID - [place] Care Teams Factory Supervisor Relationship Specialty Start Date End Date Deirdre Nguyen MD [address] [place] [id number] PCP - General Internal Medicine 02/20/17
[2024-08-14] MEDS: Lactated Ringers 1,000 ML 999 ML IV ×3 (14:39→16:39)
[2024-08-14 16:07] LABS: Creatinine Clr Calc Pharmacy 55.6; Estimated Glomerular Filt Rate 37
--- NOTE | 2024-08-14 16:52 | PM.IMHP ---
History of Present Illness Date of Service: 08/14/24 Chief Complaint: Nausea, vomitting and passing out 33 year old female, morbidly obese with history of non insulin dependent diabetes. She has been on Ozempic since June for weight loss, and dose has been adjusted from 2.5 to 5 mg, she has lost nearly 40 in 2 pounds and relates that she has not been eating and the last 3 to 4 days, she has been experiencing nausea/vomitting, dizziness and has passed out twice today, one time hitting her head in the shower. They recorded a systolic BP 70s at the house and advised lying down an dresing. Work up here has revealed PURVI, Creatine of 1.9 baseline less than 1, after IVF it has improved, Review of Systems Review of Systems: Gen: no fever Resp: no sob, no cough CV: no chest, no PEDERSON, no leg edema GI: +n/v, no abd pain Neuro: No confusion [facility] Medical History (Updated 08/15/24 @ 09:40 by Tim Laguna MD) Hypertension Pre-diabetes Asthma Social History Household Members: Family Housing: House Are you a primary farm or ranch animal caretaker to a significant other at home: No Do you presently have visiting nurse or other home services: No Unable to assess alcohol history related to: Unknown Alcohol intake: never Patient Tobacco Use Status: Never used Tobacco Use of substances other than those prescribed or required for medical reasons: Unknown Advance Directives: No Advance Directives Information Provided: Yes Recently lost weight without trying: No Patient : No service: No Meds Allergies Allergy/AdvReac Type Severity Reaction Status Date / Time Sulfa (Sulfonamide Allergy Unknown UNKNOWN Verified 08/14/24 12:06 Antibiotics) (SULFA (SULFONAMIDE ANTIBIOTICS)) Active Medications: Current Medications Dextrose (Dextrose 50 % 25 Gm/50 Ml Syringe) 25 gm IVPUSH Q15M PRN; Protocol PRN Reason: per Hypoglycemia Standing Ord. Glucose (Glucose Gel 15 Gm Gel..Gram.) 15 gm PO Q15M PRN; Protocol PRN Reason: per Hypoglycemia Standing Ord. Lactated Ringer's (Lr) 1,000 mls @ 0 mls/hr IV .Q0M [facility] Last Infusion: 08/14/24 15:36 Dose: Infused Lactated Ringer's (Lr) 1,000 mls @ 0 mls/hr IV .Q0M [facility] Last Admin: 08/14/24 16:38 Dose: 999 mls/hr Lactated Ringer's (Lr) 1,000 mls @ 999 mls/hr IV .Q1H1M [facility] Stop: 08/14/24 17:30 Last Admin: 08/14/24 16:39 Dose: 999 mls/hr Lactated Ringer's (Lr) 1,000 mls @ 150 mls/hr IVCONT .Q6H40M [facility] Insulin Human Lispro (Insulin Lispro 100 Unit/Ml 3 Ml Vial) 0 unit SUBCUT QIDACHS [facility]; Protocol Home Medications ?Medication ?Instructions ?Recorded ?Confirmed ?Last Taken ?Type albuterol sulfate 2.5 mg/3 mL 2.5 mg inhalation QID PRN 10/13/20 08/14/24 Unknown History (0.083 %) solution for nebulization Shortness Of Breath cholecalciferol (vitamin D3) 25 25 mcg PO DAILY 10/13/20 08/14/24 08/13/24 History mcg (1,000 unit) capsule (Vitamin D3) duloxetine 30 mg capsule,delayed 30 mg PO DAILY 10/13/20 02/26/24 Unknown History release fluticasone propionate 250 1 inh PO BID 10/13/20 02/26/24 Unknown History mcg/actuation blister powder for inhalation (Flovent Diskus) hydrochlorothiazide 25 mg tablet 25 mg PO DAILY 10/13/20 08/14/24 08/13/24 History labetalol 100 mg tablet 100 mg PO BID 10/13/20 02/26/24 Unknown History montelukast 10 mg tablet 10 mg PO QPM 10/13/20 02/26/24 Unknown History omeprazole 20 mg capsule,delayed 20 mg PO DAILY@0630 10/13/20 08/14/24 08/13/24 History release vitamin with calcium 1 tab PO DAILY 10/13/20 02/26/24 Unknown History no.72-iron 27 mg-folic acid 1 mg tablet (M- Plus) sertraline 50 mg tablet 50 mg PO DAILY 10/13/20 02/26/24 Unknown History carvedilol 25 mg tablet 25 mg PO DAILY 10/31/23 08/14/2408/13/25 History furosemide 40 mg tablet 40 mg PO DAILY 10/31/23 02/26/24 Unknown History gabapentin 300 mg capsule 300 mg PO TID 10/31/23 02/26/24 Unknown History metformin 500 mg tablet 500 mg PO DAILY 10/31/23 02/26/24 Unknown History budesonide-formoterol HFA 160 2 puff inhalation BID 08/14/24 08/14/24 08/13/24 History mcg-4.5 mcg/actuation aerosol inhaler (Symbicort) duloxetine 60 mg capsule,delayed 60 mg PO DAILY 08/14/24 Unknown History release (Cymbalta) hydroxyzine HCl 25 mg tablet 25 - 50 mg PO BEDTIME PRN insomnia 08/14/24 08/14/24 08/13/24 History losartan 100 mg tablet 100 mg PO QPM 08/14/24 Unknown History naproxen 500 mg tablet 500 mg PO BID 08/14/24 Unknown History tirzepatide (weight loss) 7.5 7.5 mg subcut MO 08/14/24 08/14/24 08/13/24 History mg/0.5 mL subcutaneous pen injector (Zepbound) Physical Exam Vital Signs and Narrative: Vital Signs: Last Vital Signs Temp 97.7 F 08/14/24 14:00 Pulse 85 08/14/24 14:00 Resp 14 08/14/24 14:00 BP 120/84 08/14/24 14:00 Pulse Ox 98 08/14/24 15:12 O2 Del Method Room Air 08/14/24 15:12 BMI result Body Mass Index 29.3 General: AO X 3, no acute distress Resp: CTA bilateral CVS: S1,S2,RRR GI: +BS, NT, no distention Skin: No rash Neuro: motor grossly intact Psych: appropriate affect Results Labs 08/14/24 12:37 08/15/24 05:33 Labs: Laboratory Results - last 24 hr 08/14/24 08/14/24 08/14/24 12:36 12:37 12:41 MCV 78.8 L MCH 26.9 L MCHC 34.1 RDW 14.1 Plt Count 395 D MPV 10.4 Immature Gran % (Auto) 0.4 Neut % (Auto) 80.1 H Lymph % (Auto) 13.3 L [place] % (Auto) 5.6 Eos % (Auto) 0.3 Baso % (Auto) 0.3 Lymph # (Auto) 1.7 [place] # (Auto) 0.7 Eos # (Auto) 0.0 Baso # (Auto) 0.0 Abs Immat Gran (auto) 0.05 H Absolute Neuts (auto) 10.5 H Absolute Nucleated RBC 0.000 Nucleated RBC % (auto) 0.0 Anion Gap 16 Estim Creat Clear Calc 44.5 Estimated GFR 29 Random Glucose 109 Calcium 9.9 D Magnesium 2.1 Total Bilirubin 0.6 Direct Bilirubin 0.2 AST 22 ALT 17 Alkaline Phosphatase 76 Total Protein 8.7 H Albumin 5.1 H Lipase 18 Beta HCG, Quant < 2 Urine Color Yellow Urine Appearance Hazy Urine pH 5.5 Ur Specific [place] >= 1.030 H Urine Protein Trace Urine Glucose (UA) Negative Urine Ketones Negative Urine Blood Negative Urine Nitrite Negative Ur Leukocyte Esterase Negative Influenza Type A (PCR) NEGATIVE Influenza Type B (PCR) NEGATIVE RSV RNA Qual (PCR) NEGATIVE SARS-CoV-2 RNA (RT-PCR) NEGATIVE 08/14/24 15:50 MCV MCH MCHC RDW Plt Count MPV Immature Gran % (Auto) Neut % (Auto) Lymph % (Auto) [place] % (Auto) Eos % (Auto) Baso % (Auto) Lymph # (Auto) [place] # (Auto) Eos # (Auto) Baso # (Auto) Abs Immat Gran (auto) Absolute Neuts (auto) Absolute Nucleated RBC Nucleated RBC % (auto) Anion Gap Estim Creat Clear Calc 55.6 Estimated GFR 37 Random Glucose Calcium Magnesium Total Bilirubin Direct Bilirubin AST ALT Alkaline Phosphatase Total Protein Albumin Lipase Beta HCG, Quant Urine Color Urine Appearance Urine pH Ur Specific [place] Urine Protein Urine Glucose (UA) Urine Ketones Urine Blood Urine Nitrite Ur Leukocyte Esterase Influenza Type A (PCR) Influenza Type B (PCR) RSV RNA Qual (PCR) SARS-CoV-2 RNA (RT-PCR) Imaging Radiologist's Impressions: Impressions Cervical Spine CT 08/14/24 12:14 IMPRESSION: No acute fracture or trauma-related listhesis. Fleischner guidelines were followed. Electronically signed by: Rito Yo MD 08/14/2024 01:[address] 08/14/24 12:14 IMPRESSION: No acute fracture, bony calvarium. No acute intracranial hemorrhage. Electronically signed by: Rito Yo MD 08/14/2024 01:42 PM EDT RP Assessment and Plan (1) Acute kidney injury: Status: Acute (2) Syncope: Status: Acute Plan 33 year old female, morbidly obese with history of non insulin dependent diabetes. She has been on Ozempic since June for weight loss, and dose has been adjusted from 2.5 to 5 mg, she has lost nearly 40 in 2 pounds and relates that she has not been eating and the last 3 to 4 days, she has been experiencing nausea/vomitting, dizziness and has passed out twice today, one time hitting her head in the shower. They recorded a systolic BP 70s at the house and advised lying down an dresing. Work up here has revealed PURVI, Creatine of 1.9 baseline less than 1, after IVF it has improved... Patient's symptoms likely from Ozempic causing n/v, gastroparessis, vs vrial gastrointeritis, Dehydration and leading to PURVI, and orthostatic hypotensio, Plan: Monitor overnight, IVF, tele monitor, repeat renal function int he morning. Hold Ozempic. Continue home meds per med rec. Leukocytosis is likely reactive, repeat tomorrow Low risk for DVT, lovenox tomorrow if remains in the hospital Full code Quality Stroke Does the patient have a stroke diagnosis?: No VTE Prior VTE?: No VTE Risk Level:: Medical - low VTE Device Contraindication: Treatment Not Indicated VTE Drug Contraindication: Treatment Not Tolerated
[2024-08-14] MEDS: Lactated Ringers 1,000 ML 150 ML IVCONT (17:46)
--- NOTE | 2024-08-14 20:14 | PHA.MEDREC ---
Addendum entered by Jennifer Gautam RPh 08/15/24 11:11: Received list from [facility] lacey. Updated home list based on pharmacy list. Dr. Laguna aware that the list has been updated. Original Note: Pharmacy Consult ? Medication Reconciliation Pharmacy has completed the medication reconciliation. Spoke to patient through technical services representative (Maikol) to confirm med list. Patient is a poor historian. Patient states she takes to much medications to remember. Patient was able to confirm Zepbound 7.5 mg every Monday, last dose 08/12/24. Confirmed what i could basted on claims and what patient could remember. Will have morning Med rec team call [facility] pharmacy tomorrow and update med list with any changes.
[2024-08-14 22:11] LABS: Glucose, Whole Blood 118 mg/dL (60-115)
[2024-08-15] MEDS: Lactated Ringers 1,000 ML 150 ML IVCONT ×2 (00:20→06:33)
[2024-08-15 04:00] VITALS: BP 134/64; PULSE 70; RESP 16; TEMP 36.3; O2SAT 97
[2024-08-15 06:30] LABS: Alanine Aminotransferase 9 U/L (0-31); Albumin Level 3.6 g/dL (3.5-5.0); Alkaline Phosphatase 53 U/L (39-117); Anion Gap 11 (12-20); Aspartate Amino Transferase 19 U/L (5-31); Blood Urea Nitrogen 15 mg/dL (9-16); Calcium 8.3 mg/dL (8.4-10.2); Carbon Dioxide 26 mmol/L (22-29); Chloride 104 mmol/L (96-108); Creatinine Clr Calc Pharmacy 114.1; Estimated Glomerular Filt Rate > 60; Potassium 3.3 mmol/L (3.3-5.1); Sodium 138 mmol/L (135-145); Total Protein 6.1 g/dL (6.5-8.0)
[2024-08-15 07:23] VITALS: BP 133/64; PULSE 57; RESP 18; TEMP 36.4; O2SAT 97
[2024-08-15 07:25] LABS: Glucose, Whole Blood 95 mg/dL (60-115)
--- NOTE | 2024-08-15 08:42 | MHC.CM.PN ---
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 PT VERIFIES PCP IS DR. AMBERLY FERNANDEZ, EDUCATED ON AND COMPLETES A HCP NAMING HER [facility] [phone] HER [facility], NO ALT CHOSEN, PT PROVIDED W/EDUCATIONAL HANDOUT/ORIGINAL AND COPY UPLOADED TO [facility] AND PLACED IN CHART.
--- NOTE | 2024-08-15 09:40 | PM.DS ---
DS: Providers Provider Date of Service: 08/15/24 Date of admission: 08/14/24 16:42 Date of discharge: 08/15/24 Primary care physician: Rosenda Amin MD DS: Diagnosis Discharge Diagnosis (1) Acute kidney injury: Status: Acute (2) Syncope: Status: Acute DS: Summary Hospital Course Hospital Course: 33 year old female, morbidly obese with history of non insulin dependent diabetes. She has been on Ozempic since June for weight loss, and dose has been adjusted from 2.5 to 5 mg, she has lost nearly 40 in 2 pounds and relates that she has not been eating and the last 3 to 4 days, she has been experiencing nausea/vomitting, dizziness and has passed out twice today, one time hitting her head in the shower. They recorded a systolic BP 70s at the house and advised lying down an dresing. Work up here has revealed PURVI, Creatine of 1.9 baseline less than 1, after IVF it has improved... Patient's symptoms likely from Ozempic causing n/v, gastroparessis, vs vrial gastrointeritis, Dehydration and leading to PURVI, and orthostatic hypotensio, Hospital course: Patient was admitted overnight and hydrated with IVF, she made a quicker than expected recovery, her kidney function has returned to normal, she's tolerating diet. Adivise to discuss Ozempic use with her prescriber as that is likely causing her GI symptoms. Leukocytosis was reactive and has resolved. Time Attestation Discharge Coordination Time (in mins): 45 Quality: Safe Use of Opioids Does Pt have an Active Cancer Diagnosis on the Problem List?: No Quality: Stroke Does the patient have a stroke diagnosis?: No Physical Exam Vital Signs: Vital Signs: Last Vital Signs Temp 97.6 F 08/15/24 07:23 Pulse 57 08/15/24 07:23 Resp 18 08/15/24 07:23 BP 133/64 08/15/24 07:23 Pulse Ox 97 08/15/24 07:23 O2 Del Method Room Air 08/15/24 07:23 BMI result Body Mass Index 29.3 Const: Other: General: AO X 3, no acute distress Resp: CTA bilateral CVS: S1,S2,RRR GI: +BS, NT, no distention Skin: No rash Neuro: motor grossly intact Psych: appropriate affect DS: Data Data Completed and Pending Labs on day of discharge: Laboratory Results - last 24 hr 08/14/24 08/14/24 08/14/24 12:36 12:37 12:41 WBC 13.1 H RBC 5.10 Hgb 13.7 Hct 40.2 MCV 78.8 L MCH 26.9 L MCHC 34.1 RDW 14.1 Plt Count 395 D MPV 10.4 Immature Gran % (Auto) 0.4 Neut % (Auto) 80.1 H Lymph % (Auto) 13.3 L [place] % (Auto) 5.6 Eos % (Auto) 0.3 Baso % (Auto) 0.3 Lymph # (Auto) 1.7 [place] # (Auto) 0.7 Eos # (Auto) 0.0 Baso # (Auto) 0.0 Abs Immat Gran (auto) 0.05 H Absolute Neuts (auto) 10.5 H Absolute Nucleated RBC 0.000 Nucleated RBC % (auto) 0.0 Hold Purple Top Sodium 138 Potassium 3.9 Chloride 102 Carbon Dioxide 24 Anion Gap 16 BUN 31 H Creatinine 1.97 H Estim Creat Clear Calc 44.5 Estimated GFR 29 POC Glucose Random Glucose 109 Calcium 9.9 D Magnesium 2.1 Total Bilirubin 0.6 Direct Bilirubin 0.2 AST 22 ALT 17 Alkaline Phosphatase 76 Troponin I High Sens < 2.7 Total Protein 8.7 H Albumin 5.1 H Lipase 18 Beta HCG, Quant < 2 Urine Color Yellow Urine Appearance Hazy Urine pH 5.5 Ur Specific [place] >= 1.030 H Urine Protein Trace Urine Glucose (UA) Negative Urine Ketones Negative Urine Blood Negative Urine Nitrite Negative Ur Leukocyte Esterase Negative Influenza Type A (PCR) NEGATIVE Influenza Type B (PCR) NEGATIVE RSV RNA Qual (PCR) NEGATIVE SARS-CoV-2 RNA (RT-PCR) NEGATIVE 08/14/24 08/14/24 08/15/24 15:50 22:05 05:33 WBC RBC Hgb Hct MCV MCH MCHC RDW Plt Count MPV Immature Gran % (Auto) Neut % (Auto) Lymph % (Auto) [place] % (Auto) Eos % (Auto) Baso % (Auto) Lymph # (Auto) [place] # (Auto) Eos # (Auto) Baso # (Auto) Abs Immat Gran (auto) Absolute Neuts (auto) Absolute Nucleated RBC Nucleated RBC % (auto) Hold Purple Top SEE NOTE Sodium 138 Potassium 3.3 Chloride 104 Carbon Dioxide 26 Anion Gap 11 L BUN 15 Creatinine 1.58 H 0.77 Estim Creat Clear Calc 55.6 114.1 Estimated GFR 37 > 60 POC Glucose 118 H Random Glucose 91 Calcium 8.3 L D Magnesium Total Bilirubin 0.3 Direct Bilirubin AST 19 ALT 9 Alkaline Phosphatase 53 Troponin I High Sens Total Protein 6.1 L Albumin 3.6 Lipase Beta HCG, Quant Urine Color Urine Appearance Urine pH Ur Specific [place] Urine Protein Urine Glucose (UA) Urine Ketones Urine Blood Urine Nitrite Ur Leukocyte Esterase Influenza Type A (PCR) Influenza Type B (PCR) RSV RNA Qual (PCR) SARS-CoV-2 RNA (RT-PCR) 08/15/24 07:10 WBC RBC Hgb Hct MCV MCH MCHC RDW Plt Count MPV Immature Gran % (Auto) Neut % (Auto) Lymph % (Auto) [place] % (Auto) Eos % (Auto) Baso % (Auto) Lymph # (Auto) [place] # (Auto) Eos # (Auto) Baso # (Auto) Abs Immat Gran (auto) Absolute Neuts (auto) Absolute Nucleated RBC Nucleated RBC % (auto) Hold Purple Top Sodium Potassium Chloride Carbon Dioxide Anion Gap BUN Creatinine Estim Creat Clear Calc Estimated GFR POC Glucose 95 Random Glucose Calcium Magnesium Total Bilirubin Direct Bilirubin AST ALT Alkaline Phosphatase Troponin I High Sens Total Protein Albumin Lipase Beta HCG, Quant Urine Color Urine Appearance Urine pH Ur Specific [place] Urine Protein Urine Glucose (UA) Urine Ketones Urine Blood Urine Nitrite Ur Leukocyte Esterase Influenza Type A (PCR) Influenza Type B (PCR) RSV RNA Qual (PCR) SARS-CoV-2 RNA (RT-PCR) Discharge Plan Discharge Anticipated Discharge Date/Time: 08/15/24 09:43 Patient Disposition: Home, Self-Care Discharge Diagnosis: Dehydration, syncope, acute kidney injury Referrals: Rosenda Hernandez MD [Primary Care Provider, Internal Medicine] - 1 Week Discharge Medications: Continued albuterol sulfate 90 mcg/actuation HFA aerosol inhaler 2 puff inhalation Q4-6H PRN (Reason: shortness of breath or wheezing) Qty: 6.7 0RF hydroxyzine HCl 25 mg tablet 25 - 50 mg PO BEDTIME PRN (Reason: insomnia) losartan 100 mg tablet 100 mg PO QPM naproxen 500 mg tablet 500 mg PO BID duloxetine [Cymbalta] 60 mg capsule,delayed release(DR/EC) 60 mg PO DAILY budesonide-formoterol [Symbicort] 160-4.5 mcg/actuation HFA aerosol inhaler 2 puff INHALATION BID Zepbound 7.5 mg/0.5 mL pen injector 7.5 mg subcut MO metformin 500 mg tablet extended release 24 hr 500 mg PO QPM sumatriptan succinate 50 mg tablet 50 mg PO DAILY MRX1 PRN (Reason: Migraine Headache) topiramate 50 mg tablet 50 mg PO BID M-[place]ida Plus 27 mg iron- 1 mg tablet 1 tab PO DAILY cholecalciferol (vitamin D3) [Vitamin D3] 25 mcg (1,000 unit) capsule 25 mcg PO DAILY montelukast 10 mg tablet 10 mg PO QPM omeprazole 20 mg capsule,delayed release(DR/EC) 20 mg PO DAILY@0630 albuterol sulfate 2.5 mg /3 mL (0.083 %) solution for nebulization 2.5 mg inhalation Q4H PRN (Reason: Shortness Of Breath) hydrochlorothiazide 25 mg tablet 25 mg PO DAILY carvedilol 25 mg tablet 25 mg PO BID gabapentin 300 mg capsule 300 mg PO TID furosemide 40 mg tablet 40 mg PO DAILY Discharge Orders: Discharge Order (Routine); Ordered 08/15/24 Ordered By: Tim Laguna Diet: Advance to usual diet Activity on Discharge: As tolerated Stand Alone Forms: Patient Portal Discharge page Print Language: Icelandic Care Plan Goals: recovery from dehydration, syncope Health Concerns: kidney failure, dehydration, passing out Plan of Treatment: stay well hydrated, drink plenty of fluid follow up with your provider in week, please inform the prescriber of ozempic that you are having issues with nausea and vomiting Assessment: see above
[2024-08-15 09:48] VITALS: BP 130/75; PULSE 69
[2024-08-15 10:29] VITALS: BP 128/80; BP 142/94; PULSE 72; PULSE 92
[2024-08-15 10:48] LABS: Hematocrit 32.9 % (37.0-47.0); Hemoglobin 11.0 g/dl (12.0-16.0); Mean Corpuscular HGB Conc 33.4 g/dl (31.0-35.0); Mean Corpuscular Hemoglobin 27.2 pg (27.0-33.0); Mean Corpuscular Volume 81.2 fL (80.0-98.0); NRBC Abs Auto 0.000 X10*3/uL (0.0-0.012); NRBC Pct Auto 0.0 /100WBC (0.0-0.2); Platelet Count 244 X10*3/uL (160-400); Red Blood Count 4.05 X10*6/uL (4.20-5.50); White Blood Count 5.8 X10*3/uL (4.8-10.8)
[2024-08-15 11:06] VITALS: BP 134/85; PULSE 67; RESP 18; TEMP 36.4; O2SAT 95
[2024-08-15 11:06] LABS: Glucose, Whole Blood 91 mg/dL (60-115)
--- NOTE | 2024-08-15 11:31 | MHC.CM.PN ---
PT MEDICALLY CLEARED FOR DC HOME SELF-CARE, PT WILL CALL FAMILY FOR [facility].
== END 2024-08-15 13:32 | disposition home or self-care (01) | DRG 422 ==
LOC: HO.ED 16:41 → HO.EDOVER 16:50 → HO.IMC 20:41
PROVIDERS: Physician Assistant Medical; Admitting Provider Internal Medicine; Emergency Provider Emergency Medicine; PCP Internal Medicine; Visit Provider Internal Medicine
DX: E86.0 Dehydration (principal); N17.9 Acute kidney failure, unspecified; I95.1 Orthostatic hypotension; E66.01 Morbid (severe) obesity due to excess calories; T38.3X5A Adverse effect of insulin and oral hypoglycemic [antidiabetic] drugs, initial encounter; Z20.822 Contact with and (suspected) exposure to COVID-19; Z79.84 Long term (current) use of oral hypoglycemic drugs; Z68.29 Body mass index [BMI] 29.0-29.9, adult; Z79.85 Long-term (current) use of injectable non-insulin antidiabetic drugs; Z79.899 Other long term (current) drug therapy
CPT/HCPCS: 36415; 70450; 72125; 76775; 80048; 80053; 80076; 81003; 82565; 82947; 83690; 83735; 84484; 84702; 85025; 85027; 87637; 93005; 99285; J7120

== ENCOUNTER → 2024-08-14 12:11 | Outpatient (BNV) | payer MEDICAID, SELFPAY | PROVIDERS: Admitting Provider Internal Medicine; Emergency Provider Emergency Medicine; PCP Internal Medicine; Visit Provider Internal Medicine Cardiovascular Disease | DX: R00.0 Tachycardia, unspecified (principal) | CPT/HCPCS: 93010 ==

== ENCOUNTER → 2024-08-14 12:11 | Outpatient (BNV) | payer MEDICAID, SELFPAY | PROVIDERS: Emergency Provider Emergency Medicine; PCP Internal Medicine; Visit Provider Radiology Diagnostic Radiology | DX: M54.2 Cervicalgia (principal); S09.90XA Unspecified injury of head, initial encounter; W19.XXXA Unspecified fall, initial encounter; N17.9 Acute kidney failure, unspecified | CPT/HCPCS: 70450; 72125; 76775 ==

== ENCOUNTER → 2024-08-14 16:42 | Outpatient (BNV) | payer MEDICAID, SELFPAY | PROVIDERS: Admitting Provider Internal Medicine; Emergency Provider Emergency Medicine; PCP Internal Medicine; Visit Provider Internal Medicine | DX: N17.9 Acute kidney failure, unspecified (principal); R55 Syncope and collapse | CPT/HCPCS: 99223; 99239 ==

== ENCOUNTER 2024-09-02 13:48 | Outpatient (AMB) | payer MEDICAID, SELFPAY ==
--- NOTE | 2024-09-02 14:05 | A.OFFVIS_ITS ---
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 Name: #[id number] Allergies Sulfa (Sulfonamide Antibiotics) (SULFA (SULFONAMIDE ANTIBIOTICS)) Allergy (Unknown, Verified 09/02/24 14:11) UNKNOWN Medication List - Last Reconciled 09/02/24 by Jaimie Vidales CNP albuterol sulfate 90 mcg/actuation 2 puffs inhalation Q4-6H PRN albuterol sulfate 2.5 mg inhalation Q4H PRN budesonide-formoterol 160-4.5 mcg/actuation (Symbicort) 2 puffs inhalation BID carvedilol 25 mg PO BID cholecalciferol (vitamin D3) (Vitamin D3) 25 mcg PO DAILY duloxetine (Cymbalta) 60 mg PO DAILY furosemide 40 mg PO DAILY gabapentin 300 mg PO TID hydrochlorothiazide 25 mg PO DAILY hydroxyzine HCl 25 - 50 mg PO BEDTIME PRN losartan 100 mg PO QPM metformin ER 500 mg PO QPM montelukast 10 mg PO QPM naproxen 500 mg PO BID omeprazole 20 mg PO DAILY@0630 PNV,calcium 86-haov-osvdd acid 27 mg iron- 1 mg (M- Plus) 1 tab PO DAILY sumatriptan succinate take 1 tab at onset of headache; if no relief may repeat 1 tab after at least 2 hrs; max = 4 tabs/24 hr PO tirzepatide (weight loss) (Zepbound) 7.5 mg subcut MO topiramate 50 mg PO BID 90 days HPI Comments Details: 33-year-old woman with diabetes, hypertension, and fibromyalgia who fell in the shower in 2021. She has since had pain that goes from neck up to the head with frequent episodes of passing out, falling down, shaking all over, and possible seizures occurring up to twice a week at one point. She passed out in 10/2023. She was laying in bed when she got a shooting pain in her head and passed out. She came to with her kids trying to wake her up. She says she was shaking and lost control of her bladder. No tongue bite. It is unclear how long she passed out for. She passed out on 08/14/2024 when using the bathroom during the night after having vomiting and diarrhea for about a day. No tongue bite or incontinence. She was seen at [facility] ER. Headaches were better with increased dose of topiramate. She had one bad headache this month. Sumatriptan as needed helped. She had R CTS release earlier this year and L CTS release earlier this month. [facility] Medical History (Updated 09/02/24 @ 14:08 by Jaimie Vidales CNP) Syncope Fibromyalgia Migraine Hypertension Pre-diabetes Asthma Surgical History (Updated 09/02/24 @ 14:14 by Jaimie Vidales CNP) History of carpal tunnel surgery Social History Household Members: Family Housing: House Are you a primary home care and home health aides teacher to a significant other at home: No Do you presently have visiting nurse or other home services: No Unable to assess alcohol history related to: Unknown Alcohol intake: never Patient Tobacco Use Status: Never used Tobacco service: No Review of Systems Const Denies chills, Denies daytime sleepiness, Denies difficulty sleeping, Denies fatigue, Denies fever(s), Denies frequent falls, Reports headache(s), Denies increased appetite, Denies poor appetite, Denies snoring, Denies weakness, Denies weight gain and Denies weight loss Eyes Denies loss of vision ENT Denies vertigo, Denies dizziness, Reports headache(s) and Denies neck pain Card Denies chest pain at rest, Denies chest pain with activity, Denies syncope, Denies leg edema, Denies palpitations, Denies dyspnea and Denies dyspnea on exertion Resp Denies cough, Denies dyspnea, Denies dyspnea on exertion and Denies snoring GI Denies abdominal pain, Denies constipation, Denies heartburn, Denies diarrhea and Denies nausea Denies urinary frequency, Denies urinary incontinence and Denies urinary urgency Musc Denies abnormal gait, Denies back pain, Denies myalgias, Denies arthralgias, Denies neck pain, Denies numbness and Denies tingling Neuro Denies abnormal gait, Denies vertigo, Denies dizziness, Denies syncope, Denies frequent falls, Reports headache(s), Denies lack of coordination, Denies loss of vision, Denies memory loss, Denies numbness, Denies Other visual disturbances, Denies restless legs, Denies seizure-like activity, Denies tingling, Denies paresthesias, Denies tremor(s) and Denies weakness Psych Denies anxiety, Denies depression, Denies auditory hallucinations, Denies memory loss and Denies visual hallucinations Endo Denies fatigue and Denies palpitations Physical Exam Const Other: General Appearance:? normal, in no acute distress. Heart:? S1, S2 normal, no murmurs. Lungs:? clear anteriorly and posteriorly. Musculoskeletal:? normal. Extremities:? no edema. Psych:? alert, oriented, cognitive function intact, cooperative with exam. Neuro Other: Abnormal Neurological Findings:?none.? Mental Status: alert and oriented X 3. Normal attention, orientation, memory, and affect. Cranial Nerves: Pupils are equal, round, and reactive to light. External ocular muscles are intact. Visual lozoya are full, no ptosis. Face is symmetrical, no facial weakness or droop. Facial sensations are normal. Tongue protrudes in midline. Palate elevates symmetrically. Shoulder shrugging is normal Motor Examination: Normal muscle tone, bulk and strength. No atrophy or fasciculations. No drift of the extended upper extremities. DTR 2+. Plantars are flexor. Straight Leg Raisin degrees. Sensory Exam: Normal light touch, temperature, pinprick, vibration, and joint- position sensations. Rhomberg sign is absent. Coordination: No ataxia. No titubation. Appyxb-yp-jvlv, jjck-vnsy-sddc test, and rapid alternating movements were normal. Gait Exam: Within normal limits. Cerebellar Signs: Bemara-kz-lwoa and lzmq-sh-vtjg is normal. No dysdiadochokinesia. Extrapyramidal System: No tremor, rigidity with normal facial expressions. No bradykinesia. No bradyphrenia. Normal arm swing and posture. No propulsion or retropulsion. Speech: Normal. No dysphasia or dysarthria. Results Reviewed Results Reviewed: Laboratory Tests 08/14/24 08/15/24 08/15/24 12:41 05:33 10:13 WBC 5.8 RBC 4.05 L D Hgb 11.0 L Hct 32.9 L MCV 81.2 MCH 27.2 MCHC 33.4 RDW 13.9 Plt Count 244 D MPV 10.7 Sodium 138 Potassium 3.3 Chloride 104 Carbon Dioxide 26 Anion Gap 11 L BUN 15 Creatinine 0.77 Random Glucose 91 Calcium 8.3 L D Total Bilirubin 0.3 AST 19 ALT 9 Alkaline Phosphatase 53 Total Protein 6.1 L Albumin 3.6 Urine Color Yellow Urine Appearance Hazy Urine pH 5.5 Ur Specific [place] >= 1.030 H Urine Protein Trace Urine Glucose (UA) Negative Urine Ketones Negative Urine Blood Negative Urine Nitrite Negative Ur Leukocyte Esterase Negative [address] [address] [address] Scan Report Signed Patient: Aundrea Bhardwaj MR#: [id number] : 1990 Acct:[id number] Age/Sex: 33 / F ADM Date: 08/14/24 Loc: HO.ED Attending Dr: Ordering Physician: Annalisa Varela Date of Service: 08/14/24 Procedure(s): CT cervical spine wo IV con Accession Number(s): [id number] cc: Rosenda Hernandez MD; Annalisa Varela~ Report Number: [id number]: Total DLP = 429.00 mGy-cm EXAMINATION: CT CERVICAL SPINE WITHOUT CONTRAST CLINICAL INFORMATION: Status post fall. COMPARISON: None available. TECHNIQUE: Contiguous axial images through the cervical spine using 3 mm collimation with bone and soft tissue algorithm. Sagittal and coronal reformatted images acquired. DLP: [address] examination was performed using dose optimization techniques as appropriate, variously including the following: *Automated exposure control *Adjustment of mA and/or kV according to patient size (this includes techniques or standardized protocols for targeted exams where dose is matched to indication/reason for exam; i.e. extremities or head) *Use of iterative reconstruction technique FINDINGS: Craniocervical junction is intact with normal alignment between the occipital condyles and lateral masses of C1. No malalignment between the vertebral bodies or the facet joints. C1 is intact. C2 is intact. C3 is intact. C4 is intact. C5 is intact. C6 is intact. C3 7 is intact. No gross prevertebral compartment hematoma. Thyroid gland demonstrates normal morphology without dominant nodules. Calcifications in the arythenoids cartilage. Tympanic cavities and mastoid cells are aerated. Pneumatized right petrous apex, congenital.. CT/CT cervical spine wo IV con IMPRESSION: No acute fracture or trauma-related listhesis. Fleischner guidelines were followed. Electronically signed by: Rito Yo MD 08/14/2024:46 PM EDT [place] [address] CT Scan Report Signed Patient: Aundrea Bhardwaj MR#: [id number] : 1990 Acct:[id number] Age/Sex: 33 / F ADM Date: 08/14/24 Loc: HO.ED Attending Dr: Ordering Physician: Annalisa Varela Date of Service: 08/14/24 Procedure(s): CT head/brain wo IV con Accession Number(s): [id number] cc: Rosenda Hernandez MD; Annalisa Varela~ Report Number: [id number]: Total DLP = 669.00 mGy-cm EXAMINATION: CT HEAD WITHOUT CONTRAST CLINICAL INFORMATION: fall, +head strike COMPARISON: August 05, 2022. TECHNIQUE: Contiguous axial imaging was performed from the skull base to vertex without intravenous administration of contrast. This CT examination was performed using dose optimization techniques as appropriate, variously including the following: *Automated exposure control *Adjustment of mA and/or kV according to patient size (this includes techniques or standardized protocols for targeted exams where dose is matched to indication/reason for exam; i.e. extremities or head) *Use of iterative reconstruction technique DLP: 669 mGy-cm FINDINGS: No acute cortical disruption within the bony calvarium. No acute intracranial hemorrhage, mass effect, midline shift, hydrocephalus or herniation. Mcnamara-white matter differentiation is normal. Posterior cranial fossa contents demonstrated no acute intracranial hemorrhage or mass effect. Craniocervical junction demonstrates normal position of the cerebellar tonsils. Sellar/suprasellar region demonstrates no gross masses. No air-fluid levels in the paranasal sinuses. Tympanic cavities and mastoid cells are aerated. Pneumatized right petrous apex, congenital variant. No gross hematoma, intraconal or extraconal compartments of the orbits., CT/CT head/brain wo IV con IMPRESSION: No acute fracture, bony calvarium. No acute intracranial hemorrhage. Assessment & Plan Assessment & Plan (1) Migraine: Code(s): G43.909 - Migraine, unspecified, not intractable, without status migrainosus Category: Medical Qualifiers: Migraine type: unspecified Status migrainosus presence: without status migrainosus Intractability: not intractable Qualified Code(s): G43.909 - Migraine, unspecified, not intractable, without status migrainosus Plan: Continue topiramate 50mg 1 tablet twice a day Continue sumatriptan 50mg 1 tablet as needed for migraine Continue ondansetron 4mg 1 tablet as needed for nausea (2) Syncope: Code(s): R55 - Syncope and collapse Category: Medical Qualifiers: Syncope type: unspecified Qualified Code(s): R55 - Syncope and collapse Plan: [facility] results reviewed, including CT head/neck with no acute findings. (3) Seizure: Code(s): R56.9 - Unspecified convulsions Category: Medical (4) Fibromyalgia: Code(s): M79.7 - Fibromyalgia Category: Medical Plan . Medications: New topiramate 50 mg PO BID 180 tabs 1RF 90 days sumatriptan succinate take 1 tab at onset of headache; if no relief may repeat 1 tab after at least 2 hrs; max = 4 tabs/24 hr PO 10 tabs 5RF 30 days Coding Level of Care Code Est Pt Level 4 (99266) Diagnoses Migraine without status migrainosus, not intractable, unspecified migraine type G43.909 Migraine type: unspecified Status migrainosus presence: without status migrainosus Intractability: not intractable Syncope, unspecified syncope type R55 Syncope type: unspecified Seizure R56.9 Fibromyalgia M79.7
--- OUTSIDE RECORDS SUMMARY | 2024-09-02 14:28 | XMS_ITS | Encounter Summary ---
Author Organization [email or web address] Address [address] [place] [address] Care Team Providers Care Regulator Operator Name Role Phone Rosenda Hernandez MD Primary Care Provide r Reason for Visit * Reason Onset Date Comments pt1 07/11/2024 Encounter Details Date Type Department Care Team ([facility] st Contact Info) Description 07/11/2024 Telephone [facility] [address] [place] [address] Rosenda Hernandez MD [address] [place] [address] pt1 Social History Tobacco Use Types Packs/Day Years [...] encounter Miscellaneous Notes * Telephone Encounter - Darcy Hudson - 07/11/2024 1:35 PM EDT Patient calling requesting PT1 Home Address verified: Y/N: Yes Provider name or facility name: [address] [place] [address] Escort needed: Y/N: Yes Do you have a wheelchair: Y/N: No If yes- Manual or electric: Visits: 4x a month Patient calling requesting PT1 Home Address verified: Y/N: Yes Provider name or facility name: [facility] [address], [place] [address] Escort needed: Y/N: Yes Do you have a wheelchair: Y/N: No If yes- Manual or electric: Visits: 2x a month Patient calling requesting PT1 Home Address verified: Y/N: Yes Provider name or facility name: [address] [address] Escort needed: Y/N: Yes Do you have a wheelchair: Y/N: No If yes- Manual or electric: Visits: 2x a week , 8x a month documented in this encounter Plan of Treatment Upcoming Encounters Date Type Department Care Team ([facility] st Contact Info) Description 09/03/2024 10:15 AM EDT Office Visit [facility] [address] [place] [phone] Rosenda Hernandez MD [address] [place], [place] [phone] 11/07/2024 2:45 PM EDT Office Visit [facility] [address] [place], [place] [phone] Rosenda Hernandez MD [address] [place], [place] [phone] documented as of this encounter Goals Goal Patient Goal Type Associated Problems Recent Progress Patient-Stated? Author Blood Pressure < 140/90 Blood Pressure 139/89( 025 5:10 PM EDT) No Arianna Noel, PharmD documented as of this encounter Visit Diagnoses Not on filedocumented in this encounter Additional Health Concerns Assessment Noted Time PHQ-9 Depression Total Score: 0 02/07/19 25 9:31 AM EST documented as of this encounter Care Teams Regulator Operator Relationship Specialty Start Date End Date Rosenda Hernandez MD [address] [place], [place] [phone] PCP - General Family Medicine 12/20/18 Agueda Chaves Skip OperatorRating Clerk 03/20/23 Agueda Marie Real Estate InspectorRating Clerk 10/04/23 documented as of this encounter
--- OUTSIDE RECORDS SUMMARY | 2024-09-02 14:28 | XMS_ITS | Clinical Summary ---
Author Organization [facility] Address [address] [place] [address] Phone Care Team Providers Care Authorization Manager Name Role Phone Deirdre Nguyen MD Primary Care Provider +1- [phone] Allergies Active Allergy Reactions Criticality Noted Date [...] Influencers of Health Screening 01/15/2022 Depression Screening 02/07/2024 Influenza Vaccine (#1) 2024 , 01/05/2023, 12/13/2021, Additional history exists Hypertension/CHF/CAD Annual BMP Blood Test 04/18/2025 04/18/2024 [...] mmol/L LAB CHEMISTRY METHOD 04/18/2024 5:13 PM [facility] Potassium 4.3 3.5 - 5.5 mmol/L LAB CHEMISTRY METHOD 04/18/2024 5:13 PM [facility] Chloride 104 96 - 110 mmol/L LAB CHEMISTRY METHOD 04/18/2024 5:13 PM [facility] CO2 26 21 - 32 mmol/L LAB CHEMISTRY METHOD 04/18/2024 5:13 PM [facility] Anion Gap 8 3 - 11 LAB CHEMISTRY METHOD 04/18/2024 5:13 PM [facility] Glucose 91 70 - 100 mg/dL LAB CHEMISTRY METHOD 04/18/2024 5:13 PM [facility] BUN 14 5 - 25 mg/dL LAB CHEMISTRY METHOD 04/18/2024 5:13 PM [facility] Creatinine 0.76 0.50 - 1.10 mg/dL LAB CHEMISTRY METHOD 04/18/2024 5:13 PM EDT [facility] eGFR 105 >=60 mL/min/1. 73m2 LAB CHEMISTRY METHOD 04/18/2024 5:13 PM T [facility] Comment:Calculation based on the Chronic Kidney Disease Epidemiology Collaboration (CKD-EPI) equation refit without adjustment for race. BUN/Creatinine Ratio 18.4 LAB CHEMISTRY METHOD 04/18/2024 5:13 PM EDT [facility] Calcium 9.5 8.5 - 10.5 mg/dL LAB CHEMISTRY METHOD 04/18/2024 5:13 PM [facility] AST (SGOT) 15 10 - 42 unit/L LAB CHEMISTRY METHOD 04/18/2024 5:13 PM [facility] ALT (SGPT) 21 10 - 60 unit/L LAB CHEMISTRY METHOD 04/18/2024 5:13 PM [facility] Alkaline Phosphatase 76 42 - 121 unit/L LAB CHEMISTRY METHOD 04/18/2024 5:13 PM [facility] Total Protein 8.0 6.0 - 8.0 g/dL LAB CHEMISTRY METHOD 04/18/2024 5:13 PM [facility] Albumin 4.0 3.2 - 5.0 g/dL LAB CHEMISTRY METHOD 04/18/2024 5:13 PM [facility] Total Bilirubin 0.3 0.0 - 1.4 mg/dL LAB CHEMISTRY METHOD 04/18/2024 5:13 PM [facility] Blood Venous blood specimen / Unknown Venipuncture / Unknown 04/18/2024 3:04 PM EDT 04/18/2024 4:33 PM EDT Monika Graham CNM LAB BLOOD ORDERABLES Final Re sult [facility] [address] [place] [address], [place] [phone] * HPV with reflex genotype (04/18/2024 3:01 PM EDT) [facility] HPV Negative Negative LAB MICROBIOLOGY METHOD 04/19/2024 1:45 PM EDT [facility] Brushing/Spatula Cervix uteri structure / Unknown 04/18/2024 3:01 PM EDT 04/19/2024 6:55 AM EDT Monika GARCIA LAB MOLECULAR DIAGNOSTICS ORD ERABLES Final Result [facility] [address] [place] [address], [place] [phone] * HIV Screening (10/20/2022) HIV Screening Abstracted Historical Provider HEALTH MAINTENANCE Final Result * Hepatitis C Screening (10/20/2022) Pathologist [facility] Hepatitis C Screening Abstracted Historical Provider HEALTH MAINTENANCE Final Result from Last 3 Months or Most Recently Relevant to Health Maintenance Insurance MEDICAID - [place] Care Teams Authorization Manager Relationship Specialty Start Date End Date [place], MD Deirdre [address] [place] [phone] PCP - General Internal Medicine 02/20/17
== END 2024-09-02 14:28 | disposition home or self-care (01) ==
LOC: HO.HSM 13:49
PROVIDERS: PCP Internal Medicine; Visit Provider Registered Nurse
DX: G43.909 Migraine, unspecified, not intractable, without status migrainosus (principal); R55 Syncope and collapse; R56.9 Unspecified convulsions; M79.7 Fibromyalgia
CPT/HCPCS: 99214

== ENCOUNTER → 2024-09-02 13:48 | Outpatient (BNVA) | payer MEDICAID, SELFPAY | PROVIDERS: PCP Internal Medicine; Visit Provider Registered Nurse | DX: R55 Syncope and collapse (principal); G43.909 Migraine, unspecified, not intractable, without status migrainosus; E11.9 Type 2 diabetes mellitus without complications; I10 Essential (primary) hypertension; M79.7 Fibromyalgia; R56.9 Unspecified convulsions | CPT/HCPCS: 99212 ==

== ENCOUNTER 2024-10-08 16:14 | Outpatient (REF) | payer MEDICAID, SELFPAY ==
[2024-10-08 16:26] LABS: Appearance Urine Clear; Glucose Urine UA Negative (Negative); PH 5.5 (5.0-9.0); Specific Gravity - Urine >= 1.030 (1.005-1.025); UMIC TRIGGER UACC YES
[2024-10-08 16:39] LABS: UACC Culture Trigger YES
--- OUTSIDE RECORDS SUMMARY | 2024-10-08 16:52 | XMS_ITS | Clinical Summary ---
Author Organization [facility] Address [address] [place] [address] Phone Care Team Providers Care Bun Panner Name Role Phone Deirdre Nguyen MD Primary Care Provider +1- [phone] Allergies Active Allergy Reactions Criticality Noted Date [...] B Adult (Twinrix) 18yo and older 03/08/2017,12/20/2016 CRITSIANA/Potential SARS-CoV-2 COVID -19, vector-nr, rS-Ad26, preservative free [...] 04/18/2024 2:24 PM EDT Plan of Treatment Upcoming Encounters Date Type Department Care Team (Late st Contact Info) Description 04/23/2025 10:00 AM EDT Office Visit Obstetrics & Gynecology - [address] [phone] Rasheeda Newby, [facility] [address] [place] [address] Health Maintenance Due Date Last Done Comments [...] LAB CHEMISTRY METHOD 04/18/2024 5:13 PM EDT [facility] Potassium 4.3 3.5 - 5.5 mmol/L LAB CHEMISTRY METHOD 04/18/2024 5:13 PM EDT [facility] Chloride 104 96 - 110 mmol/L LAB CHEMISTRY METHOD 04/18/2024 5:13 PM EDT [facility] CO2 26 21 - 32 mmol/L LAB CHEMISTRY METHOD 04/18/2024 5:13 PM EDT [facility] Anion Gap 8 3 - 11 LAB CHEMISTRY METHOD 04/18/2024 5:13 PM [facility] Glucose 91 70 - 100 mg/dL LAB CHEMISTRY METHOD 04/18/2024 5:13 PM [facility] BUN 14 5 - 25 mg/dL LAB CHEMISTRY METHOD 04/18/2024 5:13 PM [facility] Creatinine 0.76 0.50 - 1.10 mg/dL LAB CHEMISTRY METHOD 04/18/2024 5:13 PM [facility] eGFR 105 >=60 mL/min/1. 73m2 LAB CHEMISTRY METHOD 04/18/2024 5:13 PM [facility] Comment:Calculation based on the Chronic Kidney Disease Epidemiology Collaboration (CKD-EPI) equation refit without adjustment for race. BUN/Creatinine Ratio 18.4 LAB CHEMISTRY METHOD 04/18/2024 5:13 PM [facility] Calcium 9.5 8.5 - 10.5 mg/dL LAB CHEMISTRY METHOD 04/18/2024 5:13 PM [facility] AST (SGOT) 15 10 - 42 unit/L LAB CHEMISTRY METHOD 04/18/2024 5:13 PM [facility] ALT (SGPT) 21 10 - 60 unit/L LAB CHEMISTRY METHOD 04/18/2024 5:13 PM [facility] Alkaline Phosphatase 76 42 - 121 unit/L LAB CHEMISTRY METHOD 04/18/2024 5:13 PM [facility] Total Protein 8.0 6.0 - 8.0 g/dL LAB CHEMISTRY METHOD 04/18/2024 5:13 PM [facility] Albumin 4.0 3.2 - 5.0 g/dL LAB CHEMISTRY METHOD 04/18/2024 5:13 PM [facility] Total Bilirubin 0.3 0.0 - 1.4 mg/dL LAB CHEMISTRY METHOD 04/18/2024 5:13 PM EDT [facility] Blood Venous blood specimen / Unknown Venipuncture / Unknown 04/18/2024 3:04 PM EDT 04/18/2024 4:33 PM EDT Monika Graham [facility] BLOOD ORDERABLES Final Re sult [facility] [address] [place] [address], [place] [phone] * HPV with reflex genotype (04/18/2024 3:01 PM EDT) [facility] HPV Negative Negative LAB MICROBIOLOGY METHOD 04/19/2024 1:45 PM EDT [facility] Brushing/Spatula Cervix uteri structure / Unknown 04/18/2024 3:01 PM EDT 04/19/2024 6:55 AM EDT Monika Graham [facility] MOLECULAR DIAGNOSTICS ORD ERABLES Final Result Performing Organization Address City/[facility]/ZIP Co de Phone Number [facility] [address] [place] [address], [place] [phone] * HIV Screening (10/20/2022) Pathologist [facility] HIV Screening Abstracted Historical Provider HEALTH MAINTENANCE Final Result * Hepatitis C Screening (10/20/2022) Pathologist [facility] Hepatitis C Screening Abstracted Historical Provider HEALTH MAINTENANCE Final Result from Last 3 Months or Most Recently Relevant to Health Maintenance Insurance MEDICAID - [place] Care Teams Bun Panner Relationship Specialty Start Date End Date Patrick, MD Deirdre [address] [place] [phone] PCP - General Internal Medicine 02/20/17
[2024-10-08 20:35] LABS: Bacterial Vaginosis PCR POSITIVE (Negative); Candida Group PCR DETECTED (Not Detect); Candida glab krusei PCR NOT DETECTED (Not Detect); Trichomonas vaginalis PCR NOT DETECTED (Not Detect)
[2024-10-08 21:20] LABS: CT PCR NOT DETECTED (Not Detect.); NG PCR NOT DETECTED (Not Detect.)
== END 2024-10-08 16:15 | disposition home or self-care (01) ==
LOC: HO.HHCLNP 16:14
PROVIDERS: Visit Provider Internal Medicine
DX: N30.00 Acute cystitis without hematuria (principal)
CPT/HCPCS: 81001; 81515; 87086; 87491; 87591

== ENCOUNTER 2024-10-16 10:53 | Outpatient (RCR) | payer MEDICAID, SELFPAY | END 2024-11-15 10:17 | disposition home or self-care (01) | LOC: HO.PT 10:53 | PROVIDERS: PCP Internal Medicine; Visit Provider Nurse Practitioner Family | DX: M54.50 Low back pain, unspecified (principal) | CPT/HCPCS: 97162 ==

== ENCOUNTER 2024-11-08 13:05 | Outpatient (REF) | payer MEDICAID, SELFPAY ==
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
--- OUTSIDE RECORDS SUMMARY | 2024-11-08 13:27 | XMS_ITS | Encounter Summary ---
Author Organization [employer] Address [address] [facility] [place] [address] Care Team Providers Care Parachute Inspector Name Role Phone Rosenda Hernandez MD Primary Care Provide r Reason for Visit * Reason Comments Med Refill Encounter Details Date Type Department Care Team ([facility] st Contact Info) Description 07/26/[address] [facility] [address] [place], [place] [phone] Rosenda Hernandez MD [address] [place] [address] Fibromyalgia Social History Tobacco Use Types Packs/Day Years [...] as of this encounter Plan of Treatment Not on file documented as of this encounter Goals Goal Patient Goal Type Associated Problems Recent Progress Patient-Stated? Author Blood Pressure < 140/90 Blood Pressure 132/98( 025 2:56 PM EDT) No Arianna Noel, PharmD documented as of this encounter Visit Diagnoses Diagnosis Fibromyalgia Unspecified myalgia and myositis documented in this encounter Additional Health Concerns Assessment Noted Time PHQ-9 Depression Total Score: 0 02/07/19 25 9:31 AM EST documented as of this encounter Care Teams Parachute Inspector Relationship Specialty Start Date End Date Rosenda Hernandez MD [address] [place] [phone] PCP - General Family Medicine 12/20/18 Agueda Chaves Materials TechnicianCut Out Worker 03/20/23 Agueda Marie Maintenance WelderCut Out Worker 10/04/23 documented as of this encounter
--- OUTSIDE RECORDS SUMMARY | 2024-11-08 13:27 | XMS_ITS | Clinical Summary ---
Author Organization [facility] Address [address] [place] [address] Phone Care Team Providers Care Medical Transcription Editor Name Role Phone Deirdre Nguyen MD Primary Care Provider [phone] Allergies Active Allergy Reactions Criticality Noted Date [...] Neg HPV Repeat co-testign 3 yrs Immunizations Immunization Administration Dates Next Due Hepatitis A-Hepatitis B [...] EDT Office Visit Obstetrics & Gynecology - [facility] [address] [place] [phone] Rasheeda Newby, [facility] [address] [place] [address] Health Maintenance Due Date Last Done Comments HPV Vaccines (1 - 3-dose SCDM series) 10/31/2015 Social Influencers of Health Screening 01/15/2022 Depression Screening 02/07/2024 Influenza Vaccine (#1) 2024 , 01/05/2023, 12/13/2021, Additional history exists Hypertension/CHF/CAD Annual BMP Blood Test 04/18/2025 04/18/2024 Cholesterol Screening (Lipid Panel) 08/31/2026 08/31/2021 Cervical Cancer Screening: HPV 04/18/2029 04/18/2024, 10/17/2022 DTaP,Tdap,and Td Vaccines (2 - Td or Tdap) 01/11/2031 01/11/2021 RSV Immunization Adult Patients (1 - 1-dose 75+ series) 10/31/2063 Hepatitis A Vaccines Aged Out 05/26/2022, 03/08/2017, [...] LAB CHEMISTRY METHOD 04/18/2024 5:13 PM EDT [facility] Potassium 4.3 3.5 - 5.5 mmol/L LAB CHEMISTRY METHOD 04/18/2024 5:13 PM EDT [facility] Chloride 104 96 - 110 mmol/L LAB CHEMISTRY METHOD 04/18/2024 5:13 PM EDT [facility] CO2 26 21 - 32 mmol/L LAB CHEMISTRY METHOD 04/18/2024 5:13 PM [facility] Anion Gap 8 3 - 11 LAB CHEMISTRY METHOD 04/18/2024 5:13 PM [facility] Glucose 91 70 - 100 mg/dL LAB CHEMISTRY METHOD 04/18/2024 5:13 PM [facility] BUN 14 5 - 25 mg/dL LAB CHEMISTRY METHOD 04/18/2024 5:13 PM [facility] Creatinine 0.76 0.50 - 1.10 mg/dL LAB CHEMISTRY METHOD 04/18/2024 5:13 PM [facility] eGFR 105 >=60 mL/min/1. 73m2 LAB CHEMISTRY METHOD 04/18/2024 5:13 PM [facility] Comment:Calculation based on the Chronic Kidney Disease Epidemiology Collaboration (CKD-EPI) equation refit without adjustment for race. BUN/Creatinine Ratio 18.4 LAB CHEMISTRY METHOD 04/18/2024 5:13 PM [facility] Calcium 9.5 8.5 - 10.5 mg/dL LAB CHEMISTRY METHOD 04/18/2024 5:13 PM [facility] AST (SGOT) 15 10 - 42 unit/L LAB CHEMISTRY METHOD 04/18/2024 5:13 PM [facility] ALT (SGPT) 21 10 - 60 unit/L LAB CHEMISTRY METHOD 04/18/2024 5:13 PM [facility] Alkaline Phosphatase 76 42 - 121 unit/L LAB CHEMISTRY METHOD 04/18/2024 5:13 PM [facility] Total Protein 8.0 6.0 - 8.0 g/dL LAB CHEMISTRY METHOD 04/18/2024 5:13 PM [facility] Albumin 4.0 3.2 - 5.0 g/dL LAB CHEMISTRY METHOD 04/18/2024 5:13 PM [facility] Total Bilirubin 0.3 0.0 - 1.4 mg/dL LAB CHEMISTRY METHOD 04/18/2024 5:13 PM EDT [facility] Blood Venous blood specimen / Unknown Venipuncture / Unknown 04/18/2024 3:04 PM EDT 04/18/2024 4:33 PM EDT Monika Graham [facility] BLOOD ORDERABLES Final Re sult [facility] [address] [place] [address], [place] [phone] * HPV with reflex genotype (04/18/2024 3:01 PM EDT) [facility] HPV Negative Negative LAB MICROBIOLOGY METHOD 04/19/2024 1:45 PM EDT [facility] Brushing/Spatula Cervix uteri structure / Unknown 04/18/2024 3:01 PM EDT 04/19/2024 6:55 AM EDT Monika Graham [facility] MOLECULAR DIAGNOSTICS ORD ERABLES Final Result Performing Organization Address [facility]/ZIP Co de Phone Number [facility] [address] [place] [address], [place] [phone] * HIV Screening (10/20/2022) HIV Screening Abstracted Historical Provider HEALTH MAINTENANCE Final Result * Hepatitis C Screening (10/20/2022) Pathologist [facility] Hepatitis C Screening Abstracted Historical Provider HEALTH MAINTENANCE Final Result from Last 3 Months or Most Recently Relevant to Health Maintenance Insurance MEDICAID - [place] Care Teams Medical Transcription Editor Relationship Specialty Start Date End Date Deirdre Nugyen MD [address] [place] [phone] PCP - General Internal Medicine 02/20/17
--- OUTSIDE RECORDS SUMMARY | 2024-11-08 13:27 | XMS_ITS | Clinical Summary ---
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 information, and patientsymptoms to aid in the diagnosis of [place]. 08/14/2024 12:3 7 PM EDT 08/14/2024 12:40 PM EDT us Generic External Data Provider LAB BLOOD ORDERAB LES Final Result [facility] [address] [place] [address] [phone] * (ABNORMAL) CBC auto differential (08/14/2024 12:37 PM EDT) [facility] White Blood Count 13.1(H) 4.8 - 10.8 X10*3/uL [facility] Red Blood Count 5.10 4.20 - 5.50 X10*6/uL [facility] Hemoglobin 13.7 12.0 - 16.0 g/dl [facility] Hematocrit 40.2 37.0 - 47.0 % [facility] Mean Corpuscular Volume 78.8(L) 80.0 - 98.0 fL [facility] Mean Corpuscular Hemoglobin 26.9(L) 27.0 - 33.0 pg [facility] Mean Corpuscular HGB Conc 34.1 31.0 - 35.0 g/dl [facility] Red Cell Distribution Width 14.1 11.0 - 16.0 % [facility] Platelet Count 395 160 - 400 X10*3/uL [facility] Mean Platelet Volume 10.4 9.4 - 12.3 fL [facility] Neutrophils Percent Auto 80.1(H) 45 - 73 % [facility] Imm Gran Pct Auto 0.4 0.0 - 0.4 % [facility] Lymphocytes Percent Auto 13.3(L) 20 - 40 % [facility] Monocytes Percent Auto 5.6 2 - 11 % [facility] Eosinophils Percent Auto 0.3 0 - 4 % [facility] Basophils Percent Auto 0.3 0 - 2 % [facility] NRBC Pct Auto 0.0 0.0 - 0.2 /100WBC [facility] Neutrophils Absolute Auto 10.5(H) 2.0 - 8.3 x10*3/uL [facility] Imm Gran Abs Auto 0.05(H) 0.00 - 0.03 X10*3/uL [facility] Lymphocytes Absolute Auto 1.7 1.2 - 4.9 X10*3/uL [facility] Monocytes Absolute Auto 0.7 0.1 - 1.2 X10*3/uL [facility] Eosinophils Absolute Auto 0.0 0.0 - 0.4 X10*3/uL [facility] Basophils Absolute Auto 0.0 0.0 - 0.2 X10*3/uL [facility] NRBC Abs Auto 0.000 0.0 - 0.012 X10*3/uL [facility] 08/14/2024 12:3 7 PM EDT 08/14/2024 12:40 PM EDT us Generic External Data Provider LAB BLOOD ORDERAB LES Final Result [facility] [address] [place] [address] [phone] * hCG, Total, Quantitative (08/14/2024 12:37 PM EDT) HCG Quantitative <2 mIU/mL [facility] Comment:Weeks post LMP Appro ximate hCG(Last Menstrual Period) Range (mIU/ml)3 - 4 weeks 9 - 1304 - 5 weeks 75 - 2,6005 - 6 weeks 850 - 20,8006 - 7 weeks 4000 - 100,2007 - 12 weeks 11,500 - 289,39925 - 16 weeks 18,300 - 137,82275 - 29 weeks (2nd trimester) 1,400 - 53,70078 - 41 weeks (3rd trimester) 940 - 60,000The [place] B- hCG assay is used for the early detection ofpregnancy; it cannot be used to diagnose any conditionunrelated to . If a B-hCG level is not supportedby the clinical evidence, results should be confirmed by analternative method (qualitative urine hCG, for example). 08/14/2024 12:3 7 PM EDT 08/14/2024 12:40 PM EDT Generic External Data Provider LAB BLOOD ORDERAB LES Final Result Performing Organization Address [facility] de Phone Number [facility] [address] [place] [address] [phone] * Magnesium (08/14/2024 12:37 PM EDT) Magnesium 2.1 1.6 - 2.6 mg/dL [facility] 08/14/2024 12:3 7 PM EDT 08/14/2024 12:40 PM EDT [facility] External Data Provider LAB BLOOD ORDERAB LES Final Result Performing Organization Address [facility] Phone Number [facility] [address] [place] [address] [phone] * Lipase (08/14/2024 12:37 PM EDT) Lipase 18 8 - 78 U/L [facility] 08/14/2024 12:3 7 PM EDT 08/14/2024 12:40 PM EDT Generic External Data Provider LAB BLOOD ORDERAB LES Final Result Performing Organization Address [facility] de Phone Number [facility] [address] [place] [address] [phone] * (ABNORMAL) Hepatic Function Panel (08/14/2024 12:37 PM EDT) Bilirubin, Total 0.6 0.0 - 1.0 mg/dL [facility] Bilirubin, Direct 0.2 0.0 - 0.5 mg/dL [facility] Aspartate Amino Transferase 22 5 - 31 U/L [facility] Alanine Aminotransferase 17 0 - 31 U/L [facility] Total Protein 8.7(H) 6.5 - 8.0 g/dL [facility] Albumin Level 5.1(H) 3.5 - 5.0 g/dL [facility] Alkaline Phosphatase 76 39 - 117 U/L [facility] 08/14/2024 12:3 7 PM EDT 08/14/2024 12:40 PM EDT us Generic External Data Provider LAB BLOOD ORDERAB LES Final Result [facility] [address] [place] [address] [phone] * (ABNORMAL) Basic Metabolic Panel (08/14/2024 12:37 PM EDT) Pathologist [facility] Sodium 138 135 - 145 mmol/L [facility] Potassium 3.9 3.3 - 5.1 mmol/L [facility] Chloride 102 96 - 108 mmol/L [facility] Carbon Dioxide 24 22 - 29 mmol/L [facility] Anion Gap 16 12 - 20 [facility] Urea Nitrogen (BUN) 31(H) 9 - 16 mg/dL [facility] Creatinine, Serum 1.97(H) 0.5 - 1.4 mg/dL [facility] Creatinine Clr Calc Pharmacy 44.5 [facility] Comment:Provided height and weight: 170.18 cm,84.8 kg.eGFR (calculated from the MDRD study equation) and eCrCl(calculated from the Cockcroft-Gault equation) are based ondifferent parameters and may not yield comparable results.If eCrCl result is absurd, please check patient'sheight/weight. Estimated Glomerular Filt Rate 29 [facility] Comment:Chronic Kidney Disea se: Estimated GFR < 60 mL/min/1.33k6Wjkbdl Kidney Disease: Estimated GFR < 15 mL/min/1.73m2 Glucose 109 60 - 115 mg/dL [facility] Calcium 9.9 8.4 - 10.2 mg/dL [facility] 08/14/2024 12:3 7 PM EDT 08/14/2024 12:40 PM EDT Generic External Data Provider LAB BLOOD ORDERAB LES Final Result Performing Organization Address [facility]/ZIP Co de Phone Number [facility] [address] [place] [address] [phone] * SARS-CoV-2 RNA, Influenza A/B, and RSV RNA, Ql NAAT (08/14/2024 12:36 PM EDT) Influenza A PCR NEGATIVE Negative [facility] Influenza B PCR NEGATIVE Negative [facility] Resp Syncy Virus RNA Qual PCR NEGATIVE Negative [facility] SARS COV2 PCR NEGATIVE Negative [facility] Comment:All test results mus t be correlated with clinical findings.Negative results do not preclude SARS-CoV2, influenza Avirus, influenza B virus and/or RSV infectionand should not be used as the sole basis for treatment orother patient management decisions. Negative results must becombined with clinical observations, patient history, andepidemiological information.This test has not been evaluated for monitoring treatment ofinfection.This test has been authorized by the FDA under an EmergencyUse Authorization (EUA) for use by authorized laboratories.Testing performed on the ImmuMetrix GeneXpert utilizingreal-time RT-PCR.All SARS CoV2 and positive influenza A/B results arereported to [facility]. 08/14/2024 12:3 6 PM EDT 08/14/2024 12:40 PM EDT us Generic External Data Provider LAB MICROBIOLOGY - GENERAL ORDERABLES Final Result Performing Organization Address [facility]/ZIP Co de Phone Number [facility] [address] [place] [phone] * CT Cervical Spine w/o Contrast (08/14/2024 12:14 PM EDT) Anatomical Region Laterality Modality Spine, C-spine Computed Tomogra phy 08/14/2024 12:1 4 PM EDT Narrative 08/14/2024 1:48 PM EDT [address] [address] [address] Scan Report Signed Patient: Aundrea Bhardwaj MR#: [id number] : 1990 Acct:[id number] Age/Sex: 33 / F ADM Date: 08/14/24 Loc: HO.ED Attending Dr: Ordering Physician: Annalisa Varela Date of Service: 08/14/24 Procedure(s): CT cervical spine wo IV con Accession Number(s): [id number] cc: Rosenda Hernandez MD; Annalisa Varela Report Number: [id number]: Total DLP = 429.00 mGy-cm EXAMINATION: CT CERVICAL SPINE WITHOUT CONTRAST CLINICAL INFORMATION: Status post fall. COMPARISON: None available. TECHNIQUE: Contiguous axial images through the cervical spine using 3 mm collimation with bone and soft tissue algorithm. Sagittal and coronal reformatted images acquired. DLP: [address] examination was performed using dose optimization techniques as appropriate, variously including the following: *Automated exposure control *Adjustment of mA and/or kV according to patient size (this includes techniques or standardized protocols for targeted exams where dose is matched to indication/reason for exam; i.e. extremities or head) *Use of iterative reconstruction technique FINDINGS: Craniocervical junction is intact with normal alignment between the occipital condyles and lateral masses of C1. No malalignment between the vertebral bodies or the facet joints. C1 is intact. C2 is intact. C3 is intact. C4 is intact. C5 is intact. C6 is intact. C3 7 is intact. No gross prevertebral compartment hematoma. Thyroid gland demonstrates normal morphology without dominant nodules. Calcifications in the arythenoids cartilage. Tympanic cavities and mastoid cells are aerated. Pneumatized right petrous apex, congenital.. CT/CT cervical spine wo IV con IMPRESSION: No acute fracture or trauma-related listhesis. Fleischner guidelines were followed. Electronically signed by: Rito Yo MD 08/14/2024 01:46 PM EDT RP Dictated By: Rito Wright MD Signed By: <Electronically signed by Rito Heard MD in OV> 08/14/24 1346 DD/ 1214 TD/TT: 08/14/24 1335 Sharebroker: Procedure Note Donotuseinterpreter, Image - 08/14/[address] [place] [address] [address] Scan Report Signed Patient: Chula Bhardwaj#: M [id number] : 1990Acct:[id number] Age/Sex: 33 / FADM Date: 08/14/24 Loc: HO.ED Attending Dr: Ordering Physician: Annalisa Varela Date of Service: 08/14/24 Procedure(s): CT cervical spine wo IV con Accession Number(s): [id number] cc: Rosenda Hernandez MD; Annalisa Varela Report Number: [id number]: Total DLP = 429.00 mGy-cm EXAMINATION: CT CERVICAL SPINE WITHOUT CONTRAST CLINICAL INFORMATION: Status post fall. COMPARISON: None available. TECHNIQUE: Contiguous axial images through the cervical spine using 3 mm collimation with bone and soft tissue algorithm. Sagittal and coronal reformatted images acquired. DLP: [address] examination was performed using dose optimization techniques as appropriate, variously including the following: *Automated exposure control *Adjustment of mA and/or kV according to patient size (this includes techniques or standardized protocols for targeted exams where dose is matched to indication/reason for exam; i.e. extremities or head) *Use of iterative reconstruction technique FINDINGS: Craniocervical junction is intact with normal alignment between the occipital condyles and lateral masses of C1. No malalignment between the vertebral bodies or the facet joints. C1 is intact. C2 is intact. C3 is intact. C4 is intact. C5 is intact. C6 is intact. C3 7 is intact. No gross prevertebral compartment hematoma. Thyroid gland demonstrates normal morphology without dominant nodules. Calcifications in the arythenoids cartilage. Tympanic cavities and mastoid cells are aerated. Pneumatized right petrous apex, congenital.. CT/CT cervical spine wo IV con IMPRESSION: No acute fracture or trauma-related listhesis. Fleischner guidelines were followed. Electronically signed by: Rito Yo MD 08/14/2024 01:46 PM EDT RP Dictated By: Rito Wright MD Signed By: <Electronically signed by Rito Heard MDin OV> 08/14/24 1346 DD/ 1214 TD/TT: 08/14/24 1335 Sharebroker: [facility] External Provider IMG CT PROCEDURES Final Result * CT Head w/o Contrast (08/14/2024 12:14 PM EDT) Anatomical Region Laterality Modality Head, Neck Computed Tomogra phy 08/14/2024 12:1 4 PM EDT Narrative 08/14/2024 1:45 PM EDT [place] [address] CT Scan Report Signed Patient: Aundrea Bhardwaj MR#: [id number] : 1990 Acct:[id number] Age/Sex: 33 / F ADM Date: 08/14/24 Loc: HO.ED Attending Dr: Ordering Physician: Annalisa Varela Date of Service: 08/14/24 Procedure(s): CT head/brain wo IV con Accession Number(s): [id number] cc: Rosenda Hernandez MD; Annalisa Varela Report Number: [id number]: Total DLP = 669.00 mGy-cm EXAMINATION: CT HEAD WITHOUT CONTRAST CLINICAL INFORMATION: fall, +head strike COMPARISON: August 05, 2022. TECHNIQUE: Contiguous axial imaging was performed from the skull base to vertex without intravenous administration of contrast. This CT examination was performed using dose optimization techniques as appropriate, variously including the following: *Automated exposure control *Adjustment of mA and/or kV according to patient size (this includes techniques or standardized protocols for targeted exams where dose is matched to indication/reason for exam; i.e. extremities or head) *Use of iterative reconstruction technique DLP: 669 mGy-cm FINDINGS: No acute cortical disruption within the bony calvarium. No acute intracranial hemorrhage, mass effect, midline shift, hydrocephalus or herniation. Mcnamara-white matter differentiation is normal. Posterior cranial fossa contents demonstrated no acute intracranial hemorrhage or mass effect. Craniocervical junction demonstrates normal position of the cerebellar tonsils. Sellar/suprasellar region demonstrates no gross masses. No air-fluid levels in the paranasal sinuses. Tympanic cavities and mastoid cells are aerated. Pneumatized right petrous apex, congenital variant. No gross hematoma, intraconal or extraconal compartments of the orbits., CT/CT head/brain wo IV con IMPRESSION: No acute fracture, bony calvarium. No acute intracranial hemorrhage. Electronically signed by: Rito Yo MD 08/14/2024 01:42 PM EDT RP Dictated By: Rito Wright MD Signed By: <Electronically signed by Rito Heard MD in OV> 08/14/24 1342 DD/ 1214 TD/TT: 08/14/24 1335 Sharebroker: Procedure Note Donotuseinterpreter, Image - 08/14/[address] [place] [address] [address] Scan Report Signed Patient: Chula Bhardwaj#: M [id number] : 1990Acct:[id number] Age/Sex: 33 / FADM Date: 08/14/24 Loc: HO.ED Attending Dr: Ordering Physician: Annalisa Varela Date of Service: 08/14/24 Procedure(s): CT head/brain wo IV con Accession Number(s): [id number] cc: Rosenda Hernandez MD; Annalisa Varela Report Number: [id number]: Total DLP = 669.00 mGy-cm EXAMINATION: CT HEAD WITHOUT CONTRAST CLINICAL INFORMATION: fall, +head strike COMPARISON: August 05, 2022. TECHNIQUE: Contiguous axial imaging was performed from the skull base to vertex without intravenous administration of contrast. This CT examination was performed using dose optimization techniques as appropriate, variously including the following: *Automated exposure control *Adjustment of mA and/or kV according to patient size (this includes techniques or standardized protocols for targeted exams where dose is matched to indication/reason for exam; i.e. extremities or head) *Use of iterative reconstruction technique DLP: 669 mGy-cm FINDINGS: No acute cortical disruption within the bony calvarium. No acute intracranial hemorrhage, mass effect, midline shift, hydrocephalus or herniation. Mcnamara-white matter differentiation is normal. Posterior cranial fossa contents demonstrated no acute intracranial hemorrhage or mass effect. Craniocervical junction demonstrates normal position of the cerebellar tonsils. Sellar/suprasellar region demonstrates no gross masses. No air-fluid levels in the paranasal sinuses. Tympanic cavities and mastoid cells are aerated. Pneumatized right petrous apex, congenital variant. No gross hematoma, intraconal or extraconal compartments of the orbits., CT/CT head/brain wo IV con IMPRESSION: No acute fracture, bony calvarium. No acute intracranial hemorrhage. Electronically signed by: Rito Yo MD 08/14/2024 01:42 PM EDT Dictated By: Rito Wright MD Signed By: <Electronically signed by Rito Heard MDin OV> 08/14/24 1342 DD/ 1214 TD/TT: 08/14/24 1335 Sharebroker: [facility] External Provider IMG CT PROCEDURES Final Result * HM PAP/HPV (04/18/2024 12:00 AM EDT) Pap Smear 1. NILM 1. NILM [facility] HPV Not Detected Undetected, Indeterminat e, Quantitative , Not Detected [facility] Narrative [facility] - 04/18/2024 12:00 AM EDT Pap completed at [facility] everywhere note from 04/18/2024 us Historical Provider HEALTH MAINTENANCE Edited Result - Final [facility] * Hemoglobin A1c (01/19/2024 11:31 AM EST) Hemoglobin A1c 6.0 <6.0 % [facility] Comment:Hemoglobin A1C Refer ence Range Adults: 4.8 - 6.0 % Non diabetic: < 6.0 % Goal: < 7.0 %Additional Action Suggested: > 8.0 %Note: Hemoglobin A1c results are invalid for patients with abnormal amounts of HbF. Blood transfusions may impact the HbA1c concentration in the patient sample. Estimated Average Glucose 126 mg/dL [facility] Comment:eAG = Estimated ave rage glucose which is %A1C expressed asaverage glucose, using the formula of the R2F-ZczlqwiBhetdbx Glucose study (ADAG), Diabetes Care, Vol.31,#8,Sep. 2007 Blood Venous blood specimen / Unknown 01/19/2024 11:31 AM EST 01/19/2024 1:11 PM EST us Rosenda Amin MD LAB BLOOD ORDERABLES Final Result [facility] [address] [place] [address] [phone] * (ABNORMAL) LIPID PANEL, STANDARD (08/31/2021 10:01 AM EDT) Chol/HDLC Ratio 5.3(H) <5.0 (calc) [facility] Cholesterol, Total 160 <200 mg/dL [facility] HDL Cholesterol 30(L) > OR = 50 mg/dL [facility] LDL Cholesterol 102(H) mg/dL (calc) [facility] Comment: Reference range: <100 Desirable range <100 mg/dL for primary prevention; <70 mg/dL for patients with CHD or diabetic patients with > or = 2 CHD risk factors. LDL-C is now calculated using the Avril calculation, which is a validated novel method providing better accuracy than the Friedewald equation in the estimation of LDL-C. Victor M ALBERTS et al. LILLIAM. 2013;310(19): 0847-7911 (http://education.enModus.Elyssafregori/faq/FHT811) Non-HDL Cholesterol 130(H) <130 mg/dL (calc) [facility] Comment: For patients with diabetes plus 1 major ASCVD risk factor, treating to a non-HDL-C goal of <100 mg/dL (LDL-C of <70 mg/dL) is considered a therapeutic option. Triglycerides 163(H) <150 mg/dL [facility] 08/31/2021 10:0 1 AM EDT us Rosenda Amin MD LAB BLOOD ORDERABLES Final Result [facility] [address] * HIV 1/2 ANTIGEN/ANTIBODY,FOURTH GENERATION W/RFL (09/30/2019 9:58 AM EDT) HIV-1/2 ANTIGEN AND ANTIBODIES, 4TH GENERATION W/ REFLEX NON-REACT ASTON NON-REACT ASTON [facility] Comment: HIV-1 antigen and HIV-1/HIV-2 antibodies were not detected. There is no laboratory evidence of HIV infection. PLEASE NOTE: This information has been disclosed to you from records whose confidentiality may be protected by state law. If your state requires such protection, then the state law prohibits you from making any further disclosure of the information without the specific written consent of the person to whom it pertains, or as otherwise permitted by law. A general authorization for the release of medical or other information is NOT sufficient for this purpose. For additional information please refer to http://education.Sharelook.Elyssafregori/faq/VFJ613 (This link is being provided for informational/ educational purposes only.) The performance of this assay has not been clinically validated in patients less than 2 years old. HIV-1/2 ANTIGEN AND ANTIBODIES, 4TH GENERATION W/ REFLEX NON-REACT ASTON NON-REACT ASTON [facility] Comment: HIV-1 antigen and HIV-1/HIV-2 antibodies were not detected. There is no laboratory evidence of HIV infection. PLEASE NOTE: This information has been disclosed to you from records whose confidentiality may be protected by state law. If your state requires such protection, then the state law prohibits you from making any further disclosure of the information without the specific written consent of the person to whom it pertains, or as otherwise permitted by law. A general authorization for the release of medical or other information is NOT sufficient for this purpose. For additional information please refer to http://education.LoveLive.TV/faq/QFY432 (This link is being provided for informational/ educational purposes only.) The performance of this assay has not been clinically validated in patients less than 2 years old. 09/30/2019 9:58 AM EDT Rosenda Amin MD LAB BLOOD ORDERABLES Final Result Performing Organization Address City/State/[facility] Co mo Phone Number [facility] [address] from Last 3 Months or Most Recently Relevant to [place] [address] [facility] [address] [place] [address] Care Teams Farmhand Relationship Specialty Start Date End Date Rosenda Hernandez MD [address] [place] [address] PCP - General Family Medicine 12/20/18 Agueda Chaves Fitter Type Bar And SegmentFiberglass Technician 03/20/23 Agueda Marie Hand CoperFiberglass Technician 10/04/23
--- OUTSIDE RECORDS SUMMARY | 2024-11-08 13:27 | XMS_ITS | Encounter Summary ---
Author Organization [employer] Address [address] [place] [address] Care Team Providers Care Financial Sales Advisor Name Role Phone Rosenda Hernandez MD Primary Care Provide r Encounter Details Date Type Department Care Team ([facility] st Contact Info) Description 09/22/2023 Telephone [facility] [address] [place] [phone] Janeen Ocasio RN Social History Tobacco Use [...] encounter Miscellaneous Notes * Telephone Encounter - Jnaeen Ocasio RN - 09/22/2023 8:31 AM EDT TC to patient via interpreter deaf RISHABH Corley to discuss paperwork from patient [...] documented in this encounter Plan of Treatment Not on [...] documented as of this encounter Care Teams Financial Sales Advisor Relationship Specialty Start Date End Date Rosenda Hernandez MD [address] [place] [address] PCP - General Family Medicine 12/20/18 Agueda Chaves Vacuum WorkerOracle Solutions Architect 03/20/23 Agueda Marie Acute Dialysis Registered NurseOracle Solutions Architect 10/04/23 documented as of this encounter
--- OUTSIDE RECORDS SUMMARY | 2024-11-08 13:27 | XMS_ITS | Encounter Summary ---
Author Organization [employer] Address [address] [facility] [place] [address] Care Team Providers Care Principal Account Clerk Name Role Phone Rosenda Hernandez MD Primary Care Provide r Encounter Details Date Type Department Care Team (Late st Contact Info) Description 05/06/2024 Orders Only [facility] [address] [place], [place] [id number] Monica Vora Social History Tobacco Use Types [...] EDT) Pap Smear 1. NILM 1. NILM [facility] HPV Not Detected Undetected, Indeterminat e, Quantitative , Not Detected [facility] Narrative [facility] - 04/18/2024 12:00 AM EDT Pap completed at [facility] everywhere note from 04/18/2024 us Historical Provider HEALTH MAINTENANCE Edited Result - Final [facility] documented in this encounter Visit Diagnoses Not on filedocumented in this encounter Additional Health Concerns Assessment Noted Time PHQ-9 Depression Total Score: 0 02/07/19 25 9:31 AM EST documented as of this encounter Care Teams Principal Account Clerk Relationship Specialty Start Date End Date Rosenda Hernandez MD [address] [place] [id number] PCP - General Family Medicine 12/20/18 Agueda Chaves Saturator TenderTail Dogger 03/20/23 Agueda Marie Charging Plug PlacerTail Dogger 10/04/23 documented as of this encounter
--- OUTSIDE RECORDS SUMMARY | 2024-11-08 13:27 | XMS_ITS | Encounter Summary ---
Author Organization [employer] Address [address] [facility] [address] [place] [address] Care Team Providers Care Boatbuilder Supervisor Name Role Phone Rosenda Hernandez MD Primary Care Provide r Encounter Details Date Type Department Care Team (Latest Contact Info) Description 11/07/2024 Travel Social History Tobacco Use Types Packs/Day Years [...] with others, in a hotel, in a [facility], living outside on the street, on a [...] documented as of this encounter Care Teams Boatbuilder Supervisor Relationship Specialty Start Date End Date Rosenda Hernandez MD [address] [place] [id number] PCP - General Family Medicine 12/20/18 Agueda Chaves Time Study TechnicianLaw Instructor 03/20/23 Agueda Marie Graphics Edit TechnicianLaw Instructor 10/04/23 documented as of this encounter
--- OUTSIDE RECORDS SUMMARY | 2024-11-08 13:27 | XMS_ITS | Encounter Summary ---
Author Organization [employer] Address [address] [facility] [address] [place] [address] Care Team Providers Care Correctional Facility Nurse Name Role Phone Rosenda Hernandez MD Primary Care Provide r Encounter Details Date Type Department Care Team ([facility] st Contact Info) Description 09/24/2024 Orders Only [facility] MEDIC[facility] [address] [place] [phone] Rosenda Hernandez MD [address] [place] [address] Urinary incontinence, unspecified type (Primary Dx) Social History Tobacco Use Types Packs/Day Years [...] with others, in a hotel, in a fdc, living outside on the street, on a [...] as of this encounter Visit Diagnoses Diagnosis Urinary incontinence, unspecified type- Primary documented in this encounter Additional Health Concerns Assessment Noted Time PHQ-9 Depression Total Score: 0 02/07/19 25 9:31 AM EST documented as of this encounter Care Teams Correctional Facility Nurse Relationship Specialty Start Date End Date Rosenda Hernandez MD [address] [place] [id number] PCP - General Family Medicine 12/20/18 Agueda Chaves Bridge BuilderFiller In 03/20/23 Agueda Marie Shooting Gallery OperatorFiller In 10/04/23 documented as of this encounter
[2024-11-12 21:53] LABS: Anti Nuclear Antibody Screen NEGATIVE (NEGATIVE)
== END 2024-11-08 13:06 | disposition home or self-care (01) ==
LOC: HO.HHCL 13:05
PROVIDERS: PCP Internal Medicine; Visit Provider Internal Medicine
DX: R52 Pain, unspecified (principal)
CPT/HCPCS: 36415; 85652; 86038; 86140; 86200